=== PATIENT | female | born 1945 | race Caucasian/White ===

== ENCOUNTER 2016-05-24 23:55 | Inpatient (IN) | payer MEDICARE, MEDICAID ==
[~2016-05-24] VITALS: Ht 162.6 cm; Wt 144.4 kg
--- NOTE | 2016-05-25 00:20 | ED Lower Extremity ---
General Chief Complaint: General Problems/Pain Stated Complaint: LOW BS SWELLING Nursing Triage Note: Pt to ED via [facility] from home. EMS reports initially being called for low blood sugar. FSBS upon arrival to scene was 43. EMS administered oral glucose and pt ate a peanut butter sandwich at home. EMS reports last FSBS was 92 [employer]. Pt initially refused transport to hospital but then became concerned with bilat lower extremity swelling. Pt reports she has noticed swelling in lower extremities x1 week. Nursing Sepsis Screen: No Definite Risk Source: patient, RN notes reviewed Exam Limitations: no limitations History of Present Illness Time seen by provider: 00:20 Initial Comments As above and below. Onset: just prior to arrival (hypoglycemia), last week (dyspnea and peripheral edema) Severity: moderate Method of Injury: unknown Allergies and Home Medications Allergies Coded Allergies: Penicillins (Unverified Allergy, Unknown, 05/25/16) morphine (Unverified Allergy, Unknown, 05/25/16) Home Medications Amlodipine Besylate 10 Mg Tablet, 10 MG PO 1100, (Reported) Aspirin 81 Mg Tablet.dr, 81 MG PO DAILY, (Reported) Atenolol 100 Mg Tablet, 100 MG PO HS, (Reported) Diclofenac Sodium 75 Mg Tablet.dr, 75 MG PO BID, (Reported) Dorzolamide HCl 10 Ml Drops, 1 DROP OU BID, (Reported) Furosemide 40 Mg Tablet, 40 MG PO DAILY, (Reported) Insulin Determir 1,000 Units/10 Ml Soln, 20 UNIT SQ BID for 30 Days Prescribed by: RENE SALAZAR on 05/28/16 1254 Latanoprost 2.5 Ml Drops, 1 DROP OU HS, (Reported) Metformin HCl 1,000 Mg Tablet, 1,000 MG PO BID WITH MEALS, (Reported) Multivitamin 1 Each Tablet, 1 TAB PO BID, (Reported) Quinapril HCl 40 Mg Tablet, 40 MG PO DAILY, (Reported) Simvastatin 20 Mg Tablet, 20 MG PO HS, (Reported) TAKES ALONG WITH 40MG TABLET FOR A TOTAL DOSE OF 60MG Simvastatin 40 Mg Tablet, 40 MG PO HS, (Reported) TAKES ALONG WITH 20MG TABLET FOR A TOTAL DOSE OF 60MG Constitutional: see HPI, dizziness (related to hypoglycemia), malaise ( hypoglycemia) Respiratory: see HPI, dyspnea on exertion, orthopnea Cardiovascular: see HPI, edema : No All Other Systems Reviewed Negative Unless Noted: Yes (Negative excepted noted.) Past Xknyyfx-Cbibhj-Ygddkj Hx Patient Social History Alcohol Use: Denies Use Recreational Drug Use: No Smoking Status: Never a Smoker Recent Foreign Travel: No Contact w/Someone Who Travel: No Recent Infectious Disease Expo: No Recent Hopitalizations: No Seasonal Allergies Seasonal Allergies: No Surgeries HX Surgeries: Yes Surgeries: Hysterectomy, Joint Replacement Respiratory Hx Respiratory Disorders: Yes Respiratory Disorders: Asthma Cardiovascular Hx Cardiac Disorders: Yes Cardiac Disorders: High Cholesterol, Hypertension Neurological Hx Neurological Disorders: No 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 System FAMILY LAWYER History: Hysterectomy Genitourinary Hx Genitourinary Disorders: No Gastrointestinal Hx Gastrointestinal Disorders: Yes Gastrointestinal Disorders: Diverticulosis, Ulcer Musculoskeletal Hx Musculoskeletal Disorders: Yes (joint replacements) Musculoskeletal Disorders: Arthritis Endocrine Hx Endocrine Disorders: Yes Endocrine Disorders: Diabetes, Insulin dep HEENT HX ENT Disorders: No Cancer Hx Cancer: No Psychosocial Hx Psychiatric Problems: No Physical Exam Vital Signs Capillary Refill : Less Than 3 Seconds General Appearance: WD/WN, no apparent distress, obese Cardiovascular: regular rate, rhythm Respiratory: crackles Gastrointestinal: other (obese; benign) Ankles: bilateral ankle swelling Feet: bilateral foot swelling Neurologic/Psychiatric: no motor/sensory deficits, alert, oriented x 3 Skin: warm/dry Progress/Results/Core Measures Results/Orders Lab Results Laboratory Tests Test 05/25/16 00:42 05/25/16 00:44 05/25/16 02:12 05/25/16 03:16 Range/Units Glucometer 125 H 70-110 MG/DL White Blood Count 13.8 H 4.3-11.0 10^3/uL Red Blood Count 3.42 L 4.35-5.85 10^6/uL Hemoglobin 10.5 L 11.5-16.0 G/DL Hematocrit 35 35-52 % Mean Corpuscular Volume 101 H 80-99 FL Mean Corpuscular Hemoglobin 31 25-34 PG Mean Corpuscular Hemoglobin Concent 30 L 32-36 G/DL Red Cell Distribution Width 17.3 H 10.0-14.5 % Platelet Count 164 130-400 10^3/uL Mean Platelet Volume 13.2 H 7.4-10.4 FL Neutrophils (%) (Auto) 87 H 42-75 % Lymphocytes (%) (Auto) 7 L 12-44 % Monocytes (%) (Auto) 6 0-12 % Eosinophils (%) (Auto) 1 0-10 % Basophils (%) (Auto) 0 0-10 % Neutrophils # (Auto) 12.0 H 1.8-7.8 X 10^3 Lymphocytes # (Auto) 0.9 L 1.0-4.0 X 10^3 Monocytes # (Auto) 0.8 0.0-1.0 X 10^3 Eosinophils # (Auto) 0.1 0.0-0.3 10^3/uL Basophils # (Auto) 0.0 0.0-0.1 10^3/uL Sodium Level 133 L 135-145 MMOL/L Potassium Level 4.5 3.6-5.0 MMOL/L Chloride Level 99 98-107 MMOL/L Carbon Dioxide Level 25 21-32 MMOL/L Anion Gap 9 5-14 MMOL/L Blood Urea Nitrogen 23 H 7-18 MG/DL Creatinine 1.21 0.60-1.30 MG/DL Estimat Glomerular Filtration Rate 44 BUN/Creatinine Ratio 19 Glucose Level 136 H 70-105 MG/DL Calcium Level 9.7 8.5-10.1 MG/DL Magnesium Level 1.6 L 1.8-2.4 MG/DL Total Bilirubin 1.1 H 0.1-1.0 MG/DL Aspartate Amino Transf (AST/SGOT) 20 5-34 U/L Alanine Aminotransferase (ALT/SGPT) 29 0-55 U/L Alkaline Phosphatase 48 40-136 U/L Troponin I < 0.30 <0.30 NG/ML B-Type Natriuretic Peptide 156.0 H <100.0 PG/ML Total Protein 6.0 L 6.4-8.2 G/DL Albumin 3.6 3.2-4.5 G/DL Thyroid Stimulating Hormone (TSH) 1.68 0.35-4.94 UIU/ML Lactic Acid Level 0.92 0.50-2.00 MMOL/L Urine Color YELLOW Urine Clarity CLEAR Urine pH 5 5-9 Urine Specific [place] 1.020 1.016-1.022 Urine Protein 2+ H NEGATIVE Urine Glucose (UA) NEGATIVE NEGATIVE Urine Ketones NEGATIVE NEGATIVE Urine Nitrite NEGATIVE NEGATIVE Urine Bilirubin NEGATIVE NEGATIVE Urine Urobilinogen NORMAL NORMAL MG/DL Urine Leukocyte Esterase 3+ H NEGATIVE Urine RBC (Auto) 1+ H NEGATIVE Urine RBC 2-5 H /HPF Urine WBC 5-10 H /HPF Urine Squamous Epithelial Cells 5-10 /HPF Urine Crystals NONE /LPF Urine Bacteria MODERATE H /HPF Urine Casts PRESENT /LPF Urine Hyaline Casts 2-5 H /LPF Urine Mucus SMALL H /LPF Urine Culture Indicated YES Micro Results Microbiology 05/25/16 Blood Culture - Final, Complete No growth 05/25/16 Blood Culture - Final, Complete No growth 05/25/16 Urine Culture - Final, Complete My Orders Orders - KHURRAM DUFFY DO BNP (05/25/16 00:20) Cbc With Automated Diff (05/25/16 00:20) Comprehensive Metabolic Panel (05/25/16 00:20) Magnesium (05/25/16 00:20) Thyroid Stimulating Hormone (05/25/16 00:20) Troponin I (05/25/16 00:20) Ua Culture If Indicated (05/25/16 00:20) Ekg Tracing (05/25/16 00:23) Chest 1 View, Ap/Pa Only (05/25/16 00:23) Monitor-Rhythm Ecg Trace Only (05/25/16 00:37) Saline Lock/Iv-Start (05/25/16 00:37) Accucheck Stat ONCE (05/25/16 00:37) O2 (05/25/16 01:34) Furosemide Injection (Lasix Injection) (05/25/16 02:00) Lactic Acid Analyzer (05/25/16 02:04) Blood Culture (05/25/16 02:04) Urine Culture (05/25/16 03:16) Ceftriaxone Injection (Rocephin Injectio (05/25/16 03:45) Medications Given in ED Vital Signs/I&O Blood Pressure Mean: 86 ECG Initial ECG Impression Date: May 25, 2016 Initial ECG Impression Time: 00:38 Initial ECG Rate: 51 Initial ECG Rhythm: S.Tai Initial ECG Intervals: Normal Initial ECG Impression: Nonspecific Changes (consider anterior infarct) Diagnostic Imaging Diagonstic Imaging: Xray Plain Films/CT/US/NM/MRI: chest Reviewed: Reviewed by Me (big heart; (+) apparent CHF) Departure Communication Time/Spoke to Admitting Phy: 03:35 Impression Impression: Primary Impression: Dyspnea Additional Impressions: Hypoxemia CHF (congestive heart failure) UTI (urinary tract infection) Hypoglycemic reaction Disposition: ADMITTED INPATIENT Condition: Stable Decision to Admit Reason: Admit from ER (General) Decision to Admit/Date: May 25, 2016 Time/Decision to Admit Time: 03:50 Departure-Patient Inst. Referrals: NO,LOCAL PHYSICIAN (PCP) Primary Care Physician Scripts Insulin Determir (Levemir) 1,000 Units/10 Ml Soln 20 UNIT SQ BID for 30 Days, EA Prov: RENE SALAZAR MD 05/28/16 KHURRAM DUFFY DO May 25, 2016 00:20
[2016-05-25 00:50] LABS: BASOPHILS % (AUTO) 0 % (0-10); EOSINOPHILS # (AUTO) 0.1 10^3/uL (0.0-0.3); EOSINOPHILS % (AUTO) 1 % (0-10); LYMPHOCYTES # (AUTO) 0.9 X 10^3 (1.0-4.0); LYMPHOCYTES % (AUTO) 7 % (12-44); MEAN CORPUSCULAR HEMOGLOBIN 31 PG (25-34); MEAN CORPUSCULAR HGB CONC 30 G/DL (32-36); MEAN CORPUSCULAR VOLUME 101 FL (80-99); MEAN PLATELET VOLUME 13.2 FL (7.4-10.4); MONOCYTES # (AUTO) 0.8 X 10^3 (0.0-1.0); MONOCYTES % (AUTO) 6 % (0-12); NEUTROPHILS % (AUTO) 87 % (42-75); PLATELET COUNT 164 10^3/uL (130-400); RED BLOOD COUNT 3.42 10^6/uL (4.35-5.85); RED CELL DISTRIBUTION WIDTH 17.3 % (10.0-14.5); WHITE BLOOD COUNT 13.8 10^3/uL (4.3-11.0)
[2016-05-25 01:14] LABS: ALANINE AMINOTRANSFERASE 29 U/L (0-55); ALBUMIN 3.6 G/DL (3.2-4.5); ANION GAP 9 MMOL/L (5-14); ASPARTATE AMINO TRANSFERASE 20 U/L (5-34); BILIRUBIN,TOTAL 1.1 MG/DL (0.1-1.0); BLOOD UREA NITROGEN 23 MG/DL (7-18); BUN/CREATININE RATIO 19; CALCIUM 9.7 MG/DL (8.5-10.1); CARBON DIOXIDE 25 MMOL/L (21-32); CHLORIDE 99 MMOL/L (98-107); CREATININE SERUM 1.21 MG/DL (0.60-1.30); GFR ESTIMATED 44; GLUCOSE 136 MG/DL (70-105); MAGNESIUM 1.6 MG/DL (1.8-2.4); POTASSIUM 4.5 MMOL/L (3.6-5.0); SODIUM 133 MMOL/L (135-145)
[2016-05-25 01:33] LABS: THYROID STIMULATING HORMONE 1.68 UIU/ML (0.35-4.94); TROPONIN I < 0.30 NG/ML (<0.30)
[2016-05-25] MEDS ORDERED: FUROSEMIDE 40 MG/4 ML INJ (LASIX) IVP ONE (02:00)
[2016-05-25 03:22] LABS: BILIRUBIN,URINE NEGATIVE (NEGATIVE); KETONES,URINE NEGATIVE (NEGATIVE); LEUKOCYTE ESTERASE ,URINE 3+ (NEGATIVE); NITRITE,URINE NEGATIVE (NEGATIVE); PH,URINE 5 (5-9); PROTEIN,URINE 2+ (NEGATIVE); UROBILINOGEN,URINE NORMAL (NORMAL)
[2016-05-25] MEDS ORDERED: cefTRIAXone INJECTION 1,000 MG in NS (IVPB) 50 ML IV ONE (03:45)
[2016-05-25 04:45] VITALS: BP 153/63
[2016-05-25] MEDS: inSUlin (REGULAR) HUMAN 1 UNIT/0.01 ML (CHARGE PER UNIT) SC SCH ×4 (06:00→21:00)
[2016-05-25 08:06] VITALS: BP 132/77
--- NOTE | 2016-05-25 08:13 | Diagnostic Imaging Report ---
INDICATION: Hypoglycemia and dizziness. Portable upright view of the chest is obtained. There is no previous study for comparison. FINDINGS: There is mild cardiomegaly and pulmonary venous congestion. There is no evidence of pneumothorax. Interstitial prominence is noted, diffusely. No significant pleural fluid is identified. IMPRESSION: Cardiomegaly and pulmonary venous congestion with interstitial prominence may reflect congestive heart failure and edema although correlation with older study would be of use. Short-term followup study would also be useful to document stability or resolution. Dictated by: Dictated on workstation # [id number]
--- NOTE | 2016-05-25 08:52 | Consultation-Cardiology ---
HPI-Cardiology Cardiology Consultation: Date of Consultation 05/25/16 Date of Admission 05/25/16 Attending Physician Agnes Valentine DO Admitting Physician No,Local Physician Consulting Physician JUAN CARLOS MOTTA MD, FACP, FACC, [facility], [facility] Physician requesting consult: Dr Valentine HPI: Chief Complaint: 1) Dizziness and near-syncope during an episode of hypoglycemia 2) Shortness of breath and leg swelling 71 yo woman admitted to Dr Valentine with symptoms noted under CC. She has a long h /o intermittent dizziness, always associated with hypoglycemia. During the episode today, blood sugar was 43. She called EMT. Symptoms improved after blood sugar came up. Shortness of breath is new, according to her. She states it started only a week ago. Also notes more leg swelling for the last week. She denies palp or pilo syncope. She denies cp Review of Systems-Cardiology Review of Systems Constitutional: malaise, tiredness, No weight loss, No weight gain Eyes: No vision change Ears/Nose/Throat: No ear discharge, No nasal drainage, No recent hearing loss Respiratory: As described under HPI Cardiovascular: As described under HPI Gastrointestinal: No constipation, No diarrhea, No nausea Genitourinary: No dysuria, No hematuria Musculoskeletal: back pain (chronic), joint pain (chronic) Skin: No rash, No ulcerations Psychiatric/Neurological: No focal weakness, No syncope Hematologic: No bleeding abnormalities TQT-Ltrgga-Gapfqj Hx Patient Social History Alcohol Use: Denies Use Recreational Drug Use: No Smoking Status: Never a Smoker Recent Foreign Travel: No Recent Infectious Disease Expo: No Physical Abuse Screen: No Sexual Abuse: No Immunizations Up To Date Date of Pneumonia Vaccine: May 25, 2013 Date of Influenza Vaccine: Nov 30, 2015 Past Medical History PMH As described under Assessment. Family Medical History Family History: CHF (congestive heart failure) 19 MOTHER Allergies and Home Medications Allergies Coded Allergies: Penicillins (Unverified Allergy, Unknown, 05/25/16) morphine (Unverified Allergy, Unknown, 05/25/16) Home Medications Unable to Obtain Active Prescriptions or Reported Meds Physical Exam-Cardiology Physical Exam Vital Signs/I&O Vital Sign - Last 12Hours 05/24/16 05/25/16 05/25/16 05/25/16 23:56 00:36 04:37 04:45 Temp 94.1 96.7 96.8 Pulse 51 51 52 Resp 18 18 18 B/P (MAP) 136/61 153/63 Pulse Ox 92 88 94 96 O2 Delivery Room Air Nasal Cannula Nasal Cannula O2 Flow Rate 3.00 2.00 2.00 05/25/16 05/25/16 05/25/16 06:32 07:00 08:06 Temp 96.0 Pulse 54 51 Resp 16 B/P (MAP) 132/77 Pulse Ox 96 95 O2 Delivery Nasal Cannula Nasal Cannula O2 Flow Rate 2.00 2.00 Capillary Refill : Less Than 3 Seconds Constitutional: AAO x 3, well-developed, well-nourished, other (obese) HEENT: PERRL, other (edentulous jaws), EOMI, No xanthelasmas are seen Neck: carotid pulses are 2 + bilaterally, with good upstrokes Respiratory: No accessory muscle use, other (very poor inspiratory effort makes it hard to photographer model breath sounds) Cardiovascular: regular rate-rhythm, S1 and S2, systolic murmur (faint JANELLE at card base) Gastrointestinal: No tender, soft, No guarding, No rebound, audible bowel sounds Extremities: No clubbing, No cyanosis, significant edema Neurologic/Psychiatric: grossly intact, power is 5/5 both on sides Skin: No rash on exposed areas, No ulcerations on exposed areas Data Review Labs Laboratory Tests 05/25/16 00:42: Glucometer 125H 05/25/16 00:44: White Blood Count 13.8H, Red Blood Count 3.42L, Hemoglobin 10.5L, Hematocrit 35 , Mean Corpuscular Volume 101H, Mean Corpuscular Hemoglobin 31, Mean Corpuscular Hemoglobin Concent 30L, Red Cell Distribution Width 17.3H, Platelet Count 164, Mean Platelet Volume 13.2H, Neutrophils (%) (Auto) 87H, Lymphocytes ( %) (Auto) 7L, Monocytes (%) (Auto) 6, Eosinophils (%) (Auto) 1, Basophils (%) ( Auto) 0, Neutrophils # (Auto) 12.0H, Lymphocytes # (Auto) 0.9L, Monocytes # ( Auto) 0.8, Eosinophils # (Auto) 0.1, Basophils # (Auto) 0.0, Sodium Level 133L, Potassium Level 4.5, Chloride Level 99, Carbon Dioxide Level 25, Anion Gap 9, Blood Urea Nitrogen 23H, Creatinine 1.21, Estimat Glomerular Filtration Rate 44 , BUN/Creatinine Ratio 19, Glucose Level 136H, Calcium Level 9.7, Magnesium Level 1.6L, Total Bilirubin 1.1H, Aspartate Amino Transf (AST/SGOT) 20, Alanine Aminotransferase (ALT/SGPT) 29, Alkaline Phosphatase 48, Troponin I < 0.30, B- Type Natriuretic Peptide 156.0H, Total Protein 6.0L, Albumin 3.6, Thyroid Stimulating Hormone (TSH) 1.68 05/25/16 02:12: Lactic Acid Level 0.92 05/25/16 03:16: Urine Color YELLOW, Urine Clarity CLEAR, Urine pH 5, Urine Specific [place] 1.020, Urine Protein 2+H, Urine Glucose (UA) NEGATIVE, Urine Ketones NEGATIVE, Urine Nitrite NEGATIVE, Urine Bilirubin NEGATIVE, Urine Urobilinogen NORMAL, Urine Leukocyte Esterase 3+H, Urine RBC (Auto) 1+H, Urine RBC 2-5H, Urine WBC 5- 10H, Urine Squamous Epithelial Cells 5-10, Urine Crystals NONE, Urine Bacteria MODERATEH, Urine Casts PRESENT, Urine Hyaline Casts 2-5H, Urine Mucus SMALLH, Urine Culture Indicated YES 05/25/16 06:18: Glucometer 136H Laboratory Tests 05/25/16 00:44 A/P-Cardiology Assessment/Admission Diagnosis * Near-syncope due to hypoglycemia * Shortness of breath, multifactorial (see below) * Mild ac diastolic CHF * Obesity with obesity-hypoventilation syndrome * Physical deconditioning is suggested on physical exam * DM II * Hypertension, by history * Hyperlipidemia, by history * Leucocytosis of undetermined etiology * H/o bilateral knee and of L hip replacement Discussion and Recomendations * Furosemide for CHF, as needed and as tolerated * CIERA-inhib for BP * Eval lipid profile to eval need for statin * Echo to assess LVEF and wall motion and valve function * MPI to eval for CAD when clinically more stable * Consider sleep studies * Management of DM II and leucocytosis is with Dr Valentine Clinical Quality Measures DVT/VTE Risk/Contraindication: Risk Factor Score Per Nursin RFS Level Per Nursing on Admit: 4+=Very High JUAN CARLOS MOTTA MD [facility] May 25, 2016 08:51
[2016-05-25] MEDS ORDERED: FURO40TA4 PO (09:38)
[2016-05-25] MEDS ORDERED: AMLO10TA2 PO (09:38)
[2016-05-25] MEDS ORDERED: GLIM4TAB PO (09:38)
[2016-05-25] MEDS ORDERED: ATEN100T PO (09:38)
[2016-05-25] MEDS ORDERED: DICL75TA2 PO (09:38)
[2016-05-25] MEDS ORDERED: DORZ10DR2 OU (09:38)
[2016-05-25] MEDS ORDERED: SIMV20TA3 PO (09:38)
[2016-05-25] MEDS ORDERED: METF1000 PO (09:38)
[2016-05-25] MEDS ORDERED: LATA2.5D5 OU (09:38)
[2016-05-25] MEDS ORDERED: INSU100I10 SC (09:38)
[2016-05-25] MEDS ORDERED: QUIN40TA25 PO (09:38)
[2016-05-25] MEDS ORDERED: SIMV40TA4 PO (09:38)
[2016-05-25] MEDS ORDERED: MULT-35 PO (09:40)
[2016-05-25] MEDS ORDERED: ASPI-983 PO (09:40)
[2016-05-25 12:42] VITALS: BP 155/69
[2016-05-25] MEDS: FUROSEMIDE 40 MG/4 ML INJ (LASIX) IV SCH (14:38)
--- NOTE | 2016-05-25 14:41 | Progress Note-Hospitalist ---
Standard Progress Note Progress Notes/Assess & Plan Date Seen 05/25/16 Assess & Plan/Chief Complaint The patient is a 71-year-old white female who is a resident of the [facility]. She was brought by ambulance because of hypoglycemia. After she arrived here the issues of possible UTI and a SaO2 of 88. She was also listed as a no local physician. In reality she sees Millie Irwin at [facility] and has for some time. She states that she has been noticing swelling in her lower extremities for about a week now. This has significantly reduced her ability to ambulate. She gives me no past history of heart disease. Physical exam: Her SaO2 has been running in the 90s on O2 by nasal cannula at 2 L. Lungs show distant breath sounds. No Rales and rhonchi are noted CV regular. Lower extremities show remarkable circumference and a rubbery edema. This would be at least at 3+. Impression: Hypoglycemia. 2.pyuria awaiting culture results. 3.hypoxia and edema. Plan: [facility] and Dr. Stark will resume care tomorrow. The patient is to be seen by JUAN CARLOS Beck with an echocardiogram to be performed. Labs Laboratory Tests 05/25/16 00:44 DESTINEY STILL MD May 25, 2016 14:41
[2016-05-25 16:10] VITALS: BP 118/59
[2016-05-25] MEDS: metFORMIN 500 MG (GLUCOPHAGE) TAB PO SCH (17:17)
[2016-05-25] MEDS: GLIMEPIRIDE 4 MG (AMARYL) TAB PO SCH (17:17)
[2016-05-25 19:11] VITALS: BP 138/63
[2016-05-25] MEDS: ATENOLOL 50 MG (TENORMIN) TAB PO SCH (21:40)
[2016-05-25] MEDS: inSUlin DETERMIR 1 UNIT/0.01 ML (LEVEMIR) CHARGE PER UNIT SQ SCH (21:43)
[2016-05-25] MEDS: LATANOPROST 0.005% (XALATAN) OPHTH SOLN 2.5 ML OU SCH (21:43)
[2016-05-25 23:25] VITALS: BP 141/67
[2016-05-26] MEDS: FUROSEMIDE 40 MG/4 ML INJ (LASIX) IV SCH ×2 (02:08→15:33)
[2016-05-26] MEDS: cefTRIAXone INJECTION 1,000 MG in NS (IVPB) 50 ML IV SCH (04:04)
[2016-05-26 04:50] VITALS: BP 136/63
[2016-05-26] MEDS: inSUlin (REGULAR) HUMAN 1 UNIT/0.01 ML (CHARGE PER UNIT) SC SCH ×4 (06:00→20:54)
[2016-05-26 06:10] LABS: BASOPHILS % (AUTO) 0 % (0-10); EOSINOPHILS # (AUTO) 0.2 10^3/uL (0.0-0.3); EOSINOPHILS % (AUTO) 2 % (0-10); LYMPHOCYTES # (AUTO) 1.3 X 10^3 (1.0-4.0); LYMPHOCYTES % (AUTO) 10 % (12-44); MEAN CORPUSCULAR HEMOGLOBIN 31 PG (25-34); MEAN CORPUSCULAR HGB CONC 30 G/DL (32-36); MEAN CORPUSCULAR VOLUME 102 FL (80-99); MEAN PLATELET VOLUME 13.8 FL (7.4-10.4); MONOCYTES # (AUTO) 0.9 X 10^3 (0.0-1.0); MONOCYTES % (AUTO) 6 % (0-12); NEUTROPHILS # (AUTO) 11.1 X 10^3 (1.8-7.8); NEUTROPHILS % (AUTO) 82 % (42-75); PLATELET COUNT 172 10^3/uL (130-400); RED BLOOD COUNT 3.34 10^6/uL (4.35-5.85); RED CELL DISTRIBUTION WIDTH 17.2 % (10.0-14.5); WHITE BLOOD COUNT 13.5 10^3/uL (4.3-11.0)
[2016-05-26 06:31] LABS: ALBUMIN 3.6 G/DL (3.2-4.5); BILIRUBIN,TOTAL 0.4 MG/DL (0.1-1.0); CALCIUM 8.4 MG/DL (8.5-10.1); CREATININE SERUM 1.02 MG/DL (0.60-1.30); MAGNESIUM 2.5 MG/DL (1.8-2.4); POTASSIUM 4.7 MMOL/L (3.6-5.0); TOTAL PROTEIN 6.5 G/DL (6.4-8.2)
[2016-05-26] MEDS: metFORMIN 500 MG (GLUCOPHAGE) TAB PO SCH ×2 (06:36→18:46)
[2016-05-26] MEDS: GLIMEPIRIDE 4 MG (AMARYL) TAB PO SCH ×2 (06:36→18:46)
[2016-05-26 07:30] VITALS: BP 154/78
--- NOTE | 2016-05-26 09:03 | Progress Note-Cardiology ---
Cardiology SOAP Progress Note Subjective: In bed. C/O continued shortness of breath and LE edema. No c/o CP or palpitations. Objective: I&O/Vital Signs Vital Sign - Last 12Hours 05/26/16 05/26/16 05/26/16 05/26/16 04:50 07:00 07:05 07:30 Temp 97.2 97.4 Pulse 50 54 64 Resp 12 20 B/P (MAP) 136/63 154/78 Pulse Ox 91 91 O2 Delivery Nasal Cannula Nasal Cannula O2 Flow Rate 2.00 2.00 2.00 05/26/16 05/26/16 05/26/16 09:00 11:50 13:00 Temp 96.0 Pulse 54 51 Resp 20 B/P (MAP) 128/56 Pulse Ox 91 O2 Delivery Nasal Cannula Nasal Cannula O2 Flow Rate 2.00 2.00 Intake and Output 05/26/16 00:00 Intake Total 2000 ml Output Total 2150 ml Balance -150 ml Weight (Pounds): 318 Weight (Ounces): 7.0 Weight (Calculated Kilograms): [id number] Constitutional: AAO x 3, well-developed, well-nourished, other (obese) Respiratory: No accessory muscle use, other (very poor inspiratory effort makes it hard to pressure supervisor breath sounds) Cardiovascular: regular rate-rhythm, S1 and S2, systolic murmur (faint JANELLE at card base) Gastrointestional: No tender, soft, No guarding, No rebound, audible bowel sounds Extremities: No clubbing, No cyanosis, significant edema Neurologic/Psychiatric: grossly intact, power is 5/5 both on sides Skin: No rash on exposed areas, No ulcerations on exposed areas Results/Procedures: Labs Laboratory Tests 05/25/16 16:13: Glucometer 82 05/25/16 20:45: Glucometer 128H 05/26/16 05:18: Glucometer 45*L 05/26/16 05:35: White Blood Count 13.5H, Red Blood Count 3.34L, Hemoglobin 10.4L, Hematocrit 34L , Mean Corpuscular Volume 102H, Mean Corpuscular Hemoglobin 31, Mean Corpuscular Hemoglobin Concent 30L, Red Cell Distribution Width 17.2H, Platelet Count 172, Mean Platelet Volume 13.8H, Neutrophils (%) (Auto) 82H, Lymphocytes ( %) (Auto) 10L, Monocytes (%) (Auto) 6, Eosinophils (%) (Auto) 2, Basophils (%) ( Auto) 0, Neutrophils # (Auto) 11.1H, Lymphocytes # (Auto) 1.3, Monocytes # (Auto ) 0.9, Eosinophils # (Auto) 0.2, Basophils # (Auto) 0.0, Sodium Level 146H, Potassium Level 4.7, Chloride Level 108H, Carbon Dioxide Level 30, Anion Gap 8, Blood Urea Nitrogen 45H, Creatinine 1.02, Estimat Glomerular Filtration Rate 53 , BUN/Creatinine Ratio 44, Glucose Level 45*L, Calcium Level 8.4L, Magnesium Level 2.5H, Total Bilirubin 0.4, Aspartate Amino Transf (AST/SGOT) 24, Alanine Aminotransferase (ALT/SGPT) 32, Alkaline Phosphatase 63, Total Protein 6.5, Albumin 3.6, Triglycerides Level 64, Cholesterol Level 121, LDL Cholesterol Direct 70, VLDL Cholesterol 13, HDL Cholesterol 39L 05/26/16 05:58: Glucometer 93 05/26/16 10:47: Glucometer 92 Microbiology 05/25/16 Blood Culture - Preliminary, Resulted No growth 05/25/16 Urine Culture - Final, Complete A/P: Assessment: * Near-syncope due to hypoglycemia * Shortness of breath, multifactorial (see below) * Mild ac diastolic CHF. Echo of showed LVEF 60%, no significant valvular heart disease, PASP within normal limits * Obesity with obesity-hypoventilation syndrome * Physical deconditioning is suggested on physical exam * DM II * Hypertension, by history * Hyperlipidemia, by history * Leucocytosis of undetermined etiology * H/o bilateral knee and of L hip replacement Plan: * Furosemide for CHF, as needed and as tolerated - give additional dose today * CIERA-inhib for BP * LDL 70, Chol 121 - will not start statin * MPI to eval for CAD when clinically more stable * Consider sleep studies * Management of DM II and leucocytosis is with Dr Valentine * Monitor lab closely Physician Assessment Physician Assessment Lungs: decreased bs at the bases Cor: reg Legs: bilat mod edema A&R * As documented in our note above that I updated at the time of this writing * I spoke with her in detail and answered CV-related questions NACHO YOUNG May 26, 2016 09:03 JUAN CARLOS MOTTA MD FACP [facility] May 26, 2016 15:48
[2016-05-26] MEDS ORDERED: FUROSEMIDE 40 MG/4 ML INJ (LASIX) IVP NR (09:15)
--- NOTE | 2016-05-26 09:29 | ECHOCARDIOGRAPHY REPORT ---
PROCEDURE PHYSICIAN: JUAN CARLOS JUNG DATE OF PROCEDURE: 05/25/2016 TWO DIMENSIONAL ECHOCARDIOGRAM REPORT PRIMARY PHYSICIAN: Dr. Valentine OTHER PHYSICIAN: Dr. Jung REFERRING PHYSICIAN: ORDERING PHYSICIAN: Dr. Valentine INDICATION FOR THE PROCEDURE: Shortness of breath. MEASUREMENTS DERIVED VALUES LV DIAMETER (LAX) NORMALS NORMALS Diastolic 4.6 (3.6-5.2) Eject. Fract. (60%+/-6%) Systolic (2.3-3.9) Diastolic Vol. % Shortening (0.22-0.42) Systolic Vol. Aortic Root 2.9 IVS THICKNESS Diastolic 1.3 (0.6-1.1) LVPW THICKNESS Diastolic 1.3 (0.6-1.1) LA DIAMETER Systolic 3.9 (2.1-3.7) DESCRIPTION: This is a technically difficult study on account of patient body habitus. Global left ventricular systolic function appeared normal. Left ventricular ejection fraction is approximately 60%. Mitral and tricuspid valve leaflets show good leaflet excursion. Aortic valve leaflets are not very well visualized. They seem to have fair to good leaflet excursion. There appears to be mild aortic valve sclerosis. There is mild concentric left ventricular hypertrophy. Doppler imaging is difficult on account of the difficult nature of the study. On the views available, there did not appear to be significant valvular stenosis. There appears to be mild mitral and tricuspid regurgitation. Pulmonary artery systolic pressure is estimated to be within normal limits. CONCLUSION: 1. Technically difficult study. 2. Normal global left ventricular systolic function with ejection fraction approximately 60%. 3. Mild mitral and tricuspid regurgitation. 4. Pulmonary artery systolic pressure is estimated to be within normal limits. 5. Mild concentric left ventricular hypertrophy. Job ID: [id number] Dictated Date: 05/26/2016 08:27:55 Dextrine Mixer Date: 05/26/2016 09:20:24 / jony
[2016-05-26] MEDS: QUINAPRIL 20 MG (ACCUPRIL) TAB PO SCH (10:31)
[2016-05-26] MEDS: ASPIRIN E.C. 81 MG (ECOTRIN) TAB PO SCH (10:32)
[2016-05-26] MEDS: inSUlin DETERMIR 1 UNIT/0.01 ML (LEVEMIR) CHARGE PER UNIT SQ SCH ×2 (10:32→20:51)
[2016-05-26] MEDS: amLODIPine 10 MG (NORVASC) TAB PO SCH (11:02)
--- NOTE | 2016-05-26 11:24 | Progress Note (SOAP) ---
Subjective Subjective/Events-last exam Patient is short of breath this AM. States that it has been going on about a week prior to admission and this is a new complaint for patient. Denies ever being on oxygen. Denies any recent medication changes. States that she has not changed her diet at all. Never had sleep study. Denies chest or abdominal pain. Date seen by provider: May 26, 2016 Objective Exam Last Set of Vital Signs Vital Signs Date Time Temp Pulse Resp B/P (MAP) Pulse Ox O2 Delivery O2 Flow Rate FiO2 05/26/16 07:30 97.4 64 20 154/78 91 Nasal Cannula 2.00 Capillary Refill : Less Than 3 Seconds I&O Bad tableGeneral: Alert, Oriented X3, Cooperative, Mild Distress (with talking) Neck: Supple, No JVD Lungs: Clear to Auscultation, Normal Air Movement Heart: Regular Rate, No Murmurs Abdomen: Normal Bowel Sounds, Soft, No Tenderness Extremities: Other (2+ pitting edema equal bilaterally) Skin: No Rashes Neuro: Normal Speech, Strength at 5/5 X4 Ext, Cranial Nerves 3-12 NL Psych/Mental Status: Mental Status NL, Mood NL Results/Procedures Lab Laboratory Tests 05/25/16 16:13: Glucometer 82 05/25/16 20:45: Glucometer 128H 05/26/16 05:18: Glucometer 45*L 05/26/16 05:35: White Blood Count 13.5H, Red Blood Count 3.34L, Hemoglobin 10.4L, Hematocrit 34L , Mean Corpuscular Volume 102H, Mean Corpuscular Hemoglobin 31, Mean Corpuscular Hemoglobin Concent 30L, Red Cell Distribution Width 17.2H, Platelet Count 172, Mean Platelet Volume 13.8H, Neutrophils (%) (Auto) 82H, Lymphocytes ( %) (Auto) 10L, Monocytes (%) (Auto) 6, Eosinophils (%) (Auto) 2, Basophils (%) ( Auto) 0, Neutrophils # (Auto) 11.1H, Lymphocytes # (Auto) 1.3, Monocytes # (Auto ) 0.9, Eosinophils # (Auto) 0.2, Basophils # (Auto) 0.0, Sodium Level 146H, Potassium Level 4.7, Chloride Level 108H, Carbon Dioxide Level 30, Anion Gap 8, Blood Urea Nitrogen 45H, Creatinine 1.02, Estimat Glomerular Filtration Rate 53 , BUN/Creatinine Ratio 44, Glucose Level 45*L, Calcium Level 8.4L, Magnesium Level 2.5H, Total Bilirubin 0.4, Aspartate Amino Transf (AST/SGOT) 24, Alanine Aminotransferase (ALT/SGPT) 32, Alkaline Phosphatase 63, Total Protein 6.5, Albumin 3.6, Triglycerides Level 64, Cholesterol Level 121, LDL Cholesterol Direct 70, VLDL Cholesterol 13, HDL Cholesterol 39L 05/26/16 05:58: Glucometer 93 05/26/16 10:47: Glucometer 92 Microbiology 05/25/16 Blood Culture - Preliminary, Resulted No growth 05/25/16 Urine Culture - Preliminary, Resulted Radiology Echo with preserved EF Assessment/Plan Assessment/Plan Plan 71 yo F that was admitted for hypoglycemia found to have new oxygen requirement Plan Hypoglycemia in Insulin Dependent DM - Decreased Levemir to 20 units BID from 40 units - Stopped Glipizide - Continue Metformin and SSI Acute Respiratory Distress - Echo showed preserved EF, Multifactorial with diastolic HF and likely VICKY, needs outpatient sleep study - Will continue with diuresis, monitor BMP HTN - Continue home medications Debility - PT/OT to see patient Macrocytic Anemia - Will get B12 and folate and iron on AM labs DVT PPX: Lovenox FEN: Heart healthy, low sodium diet SW: May need home oxygen, will do ambulatory oxygen tomorrow Dispo: Plan to d/c tomorrow with outpatient sleep study Diagnosis/Problems: Clinical Quality Measures DVT/VTE Risk/Contraindication: Risk Factor Score Per Nursin RFS Level Per Nursing on Admit: 4+=Very High RENE SALAZAR MD May 26, 2016 11:24
[2016-05-26 11:50] VITALS: BP 128/56
[2016-05-26] MEDS ORDERED: CATHETER FLUSH 10 ML SYR IV PRN (15:45)
[2016-05-26 16:00] VITALS: BP 144/64
[2016-05-26] MEDS: ENOXAPARIN 40 MG/0.4 ML (LOVENOX) SYR SC SCH (17:06)
[2016-05-26] MEDS: ATENOLOL 50 MG (TENORMIN) TAB PO SCH (20:52)
[2016-05-26] MEDS: LATANOPROST 0.005% (XALATAN) OPHTH SOLN 2.5 ML OU SCH (20:54)
[2016-05-26] MEDS: CATHETER FLUSH 10 ML SYR IV SCH (20:55)
[2016-05-26 20:57] VITALS: BP 142/65
[2016-05-27 00:28] VITALS: BP 105/52
[2016-05-27] MEDS: FUROSEMIDE 40 MG/4 ML INJ (LASIX) IV SCH ×2 (02:51→13:46)
[2016-05-27] MEDS: cefTRIAXone INJECTION 1,000 MG in NS (IVPB) 50 ML IV SCH (04:14)
[2016-05-27] MEDS: CATHETER FLUSH 10 ML SYR IV SCH ×3 (04:14→22:00)
[2016-05-27 04:15] VITALS: BP 122/56
[2016-05-27 04:41] LABS: BASOPHILS % (AUTO) 0 % (0-10); EOSINOPHILS # (AUTO) 0.2 10^3/uL (0.0-0.3); EOSINOPHILS % (AUTO) 1 % (0-10); LYMPHOCYTES # (AUTO) 0.8 X 10^3 (1.0-4.0); LYMPHOCYTES % (AUTO) 6 % (12-44); MEAN CORPUSCULAR HEMOGLOBIN 30 PG (25-34); MEAN CORPUSCULAR HGB CONC 29 G/DL (32-36); MEAN CORPUSCULAR VOLUME 103 FL (80-99); MEAN PLATELET VOLUME 13.6 FL (7.4-10.4); MONOCYTES # (AUTO) 0.8 X 10^3 (0.0-1.0); MONOCYTES % (AUTO) 6 % (0-12); NEUTROPHILS # (AUTO) 11.9 X 10^3 (1.8-7.8); NEUTROPHILS % (AUTO) 88 % (42-75); PLATELET COUNT 157 10^3/uL (130-400); RED BLOOD COUNT 3.32 10^6/uL (4.35-5.85); RED CELL DISTRIBUTION WIDTH 17.5 % (10.0-14.5); WHITE BLOOD COUNT 13.5 10^3/uL (4.3-11.0)
[2016-05-27 04:57] LABS: CALCIUM 8.3 MG/DL (8.5-10.1); CREATININE SERUM 1.07 MG/DL (0.60-1.30); MAGNESIUM 2.5 MG/DL (1.8-2.4)
[2016-05-27] MEDS: inSUlin (REGULAR) HUMAN 1 UNIT/0.01 ML (CHARGE PER UNIT) SC SCH ×4 (05:16→21:56)
[2016-05-27] MEDS ORDERED: BISACODYL 5 MG (DULCOLAX) TABLET PO PRN (06:00)
[2016-05-27] MEDS: metFORMIN 500 MG (GLUCOPHAGE) TAB PO SCH ×2 (06:21→17:12)
[2016-05-27 07:30] VITALS: BP 122/56
--- NOTE | 2016-05-27 09:30 | Progress Note-Cardiology ---
Cardiology SOAP Progress Note Subjective: In bed. Generalized weakness. States overall she does not feel much better. No new c/o. Objective: I&O/Vital Signs Vital Sign - Last 12Hours 05/27/16 05/27/16 05/27/16 05/27/16 07:30 08:00 09:03 11:15 Temp 95.6 96.0 Pulse 56 59 Resp 20 22 B/P (MAP) 122/56 141/64 Pulse Ox 92 90 92 O2 Delivery Nasal Cannula Nasal Cannula Nasal Cannula O2 Flow Rate 3.00 2.00 2.00 3.00 05/27/16 05/27/16 14:59 16:49 Temp 97.1 Pulse 57 Resp 18 B/P (MAP) 144/68 Pulse Ox 90 94 O2 Delivery Nasal Cannula O2 Flow Rate 3.00 3.00 Intake and Output 05/27/16 00:00 Intake Total 690 ml Output Total 800 ml Balance -110 ml Weight (Pounds): 318 Weight (Ounces): 7.0 Weight (Calculated Kilograms): 144.197275 Constitutional: AAO x 3, well-developed, well-nourished, other (obese) Respiratory: No accessory muscle use, other (very poor inspiratory effort makes it hard to envelope stuffer breath sounds) Cardiovascular: regular rate-rhythm, S1 and S2, systolic murmur (faint JANELLE at card base) Gastrointestional: No tender, soft, No guarding, No rebound, audible bowel sounds Extremities: No clubbing, No cyanosis, significant edema (mod bilat LE edema - improved) Neurologic/Psychiatric: grossly intact, power is 5/5 both on sides Skin: No rash on exposed areas, No ulcerations on exposed areas Results/Procedures: Labs Laboratory Tests 05/26/16 20:45: Glucometer 107 05/27/16 00:09: Glucometer 37*L 05/27/16 00:33: Glucometer 62L 05/27/16 00:58: Glucometer 84 05/27/16 04:20: White Blood Count 13.5H, Red Blood Count 3.32L, Hemoglobin 10.0L, Hematocrit 34L , Mean Corpuscular Volume 103H, Mean Corpuscular Hemoglobin 30, Mean Corpuscular Hemoglobin Concent 29L, Red Cell Distribution Width 17.5H, Platelet Count 157, Mean Platelet Volume 13.6H, Neutrophils (%) (Auto) 88H, Lymphocytes ( %) (Auto) 6L, Monocytes (%) (Auto) 6, Eosinophils (%) (Auto) 1, Basophils (%) ( Auto) 0, Neutrophils # (Auto) 11.9H, Lymphocytes # (Auto) 0.8L, Monocytes # ( Auto) 0.8, Eosinophils # (Auto) 0.2, Basophils # (Auto) 0.0, Sodium Level 146H, Potassium Level 5.0, Chloride Level 108H, Carbon Dioxide Level 30, Anion Gap 8, Blood Urea Nitrogen 42H, Creatinine 1.07, Estimat Glomerular Filtration Rate 50 , BUN/Creatinine Ratio 39, Glucose Level 98, Calcium Level 8.3L, Magnesium Level 2.5H, Iron Level 38, Total Iron Binding Capacity 349, Unsaturated Iron Binding Capacity 311, Transferrin % Saturation 11L, Ferritin 62.0, Vitamin B12 Level 337 05/27/16 05:23: Glucometer 93 05/27/16 09:39: Glucometer 130H 05/27/16 10:38: Glucometer 134H 05/27/16 15:53: Glucometer 172H Microbiology 05/25/16 Blood Culture - Preliminary, Resulted No growth 05/25/16 Urine Culture - Final, Complete A/P: Assessment: * Near-syncope due to hypoglycemia * Shortness of breath, multifactorial (see below) * Mild ac diastolic CHF. Echo of showed LVEF 60%, no significant valvular heart disease, PASP within normal limits * Obesity with obesity-hypoventilation syndrome * Physical deconditioning is suggested on physical exam * DM II * Hypertension, by history * Hyperlipidemia, by history * Leucocytosis of undetermined etiology * H/o bilateral knee and of L hip replacement Plan: * Furosemide for CHF, as needed and as tolerated * Continue CIERA-inhib for BP * LDL 70, Chol 121 - statin not indicated * MPI to eval for CAD when clinically more stable * Consider sleep studies * Management of DM II and leucocytosis is with Dr Valentine * Monitor lab closely Physician Assessment Physician Assessment Lungs: clear Cor: reg A&R * As documented in our note above * I answered her questions NACHO YOUNG [facility] May 27, 2016 09:30 JUAN CARLOS MOTTA MD [facility] May 27, 2016 17:07
[2016-05-27] MEDS: inSUlin DETERMIR 1 UNIT/0.01 ML (LEVEMIR) CHARGE PER UNIT SQ SCH ×2 (09:57→21:57)
[2016-05-27] MEDS: QUINAPRIL 20 MG (ACCUPRIL) TAB PO SCH (09:58)
[2016-05-27] MEDS: ASPIRIN E.C. 81 MG (ECOTRIN) TAB PO SCH (09:58)
[2016-05-27 11:01] LABS: %SAT TOTAL IRON BINDING CAPIC 11 % (15-50); TIBC 349 ug/dL (280-380)
[2016-05-27 11:15] VITALS: BP 141/64
--- NOTE | 2016-05-27 11:36 | Progress Note (SOAP) ---
Subjective Subjective/Events-last exam Patient states that she just doesn't know how she feels this AM. Has not been out of bed. Denies feeling any better. Tolerating PO diet. Denies pain. BM last night Date seen by provider: May 27, 2016 Objective Exam Last Set of Vital Signs Vital Signs Date Time Temp Pulse Resp B/P (MAP) Pulse Ox O2 Delivery O2 Flow Rate FiO2 05/27/16 09:03 2.00 05/27/16 08:00 90 Nasal Cannula 05/27/16 07:30 95.6 56 20 122/56 Capillary Refill : Less Than 3 Seconds I&O Intake and Output 05/27/16 00:00 Intake Total 1160 ml Output Total 1800 ml Balance -640 ml Intake Oral 1110 ml IV Total 50 ml Output Urine Total 1800 ml # Voids 3 # Bowel Movements 1 General: Alert, Oriented X3, Cooperative Lungs: Clear to Auscultation, Normal Air Movement Heart: Regular Rate, No Murmurs Abdomen: Normal Bowel Sounds, Soft, No Tenderness Extremities: Other (1+ edema bilaterally) Skin: No Rashes, No Breakdown Neuro: Sensation Intact, Cranial Nerves 3-12 NL Psych/Mental Status: Other (Depressed mood this AM) Results/Procedures Lab Laboratory Tests 05/26/16 15:52: Glucometer 85 05/26/16 20:45: Glucometer 107 05/27/16 00:09: Glucometer 37*L 05/27/16 00:33: Glucometer 62L 05/27/16 00:58: Glucometer 84 05/27/16 04:20: White Blood Count 13.5H, Red Blood Count 3.32L, Hemoglobin 10.0L, Hematocrit 34L , Mean Corpuscular Volume 103H, Mean Corpuscular Hemoglobin 30, Mean Corpuscular Hemoglobin Concent 29L, Red Cell Distribution Width 17.5H, Platelet Count 157, Mean Platelet Volume 13.6H, Neutrophils (%) (Auto) 88H, Lymphocytes ( %) (Auto) 6L, Monocytes (%) (Auto) 6, Eosinophils (%) (Auto) 1, Basophils (%) ( Auto) 0, Neutrophils # (Auto) 11.9H, Lymphocytes # (Auto) 0.8L, Monocytes # ( Auto) 0.8, Eosinophils # (Auto) 0.2, Basophils # (Auto) 0.0, Sodium Level 146H, Potassium Level 5.0, Chloride Level 108H, Carbon Dioxide Level 30, Anion Gap 8, Blood Urea Nitrogen 42H, Creatinine 1.07, Estimat Glomerular Filtration Rate 50 , BUN/Creatinine Ratio 39, Glucose Level 98, Calcium Level 8.3L, Magnesium Level 2.5H 05/27/16 05:23: Glucometer 93 05/27/16 09:39: Glucometer 130H 05/27/16 10:38: Glucometer 134H Microbiology 05/25/16 Blood Culture - Preliminary, Resulted No growth 05/25/16 Urine Culture - Final, Complete Radiology Echo with preserved EF Assessment/Plan Assessment/Plan Plan 71 yo F that was admitted for hypoglycemia found to have new oxygen requirement Plan Hypoglycemia in Insulin Dependent DM - Decreased Levemir to 20 units BID from 40 units - Stopped Glipizide - Continue Metformin and SSI - Patient appetite seems to be less which is likely why she continues to have low blood sugars Acute Respiratory Distress - Echo showed preserved EF, Multifactorial with diastolic HF and likely VICKY, needs outpatient sleep study - Will continue with diuresis, monitor BMP - Home oxygen evaluation ordered today HTN - Continue home medications Debility - PT/OT to see patient Macrocytic Anemia - B12, folate, and iron: pending DVT PPX: Lovenox FEN: Heart healthy, low sodium diet SW: Will need home oxygen Dispo: Plan to d/c tomorrow on oxygen with outpatient sleep study Diagnosis/Problems: Clinical Quality Measures DVT/VTE Risk/Contraindication: Risk Factor Score Per Nursin RFS Level Per Nursing on Admit: 4+=Very High RENE SALAZAR MD May 27, 2016 11:36
[2016-05-27] MEDS: amLODIPine 10 MG (NORVASC) TAB PO SCH (11:54)
[2016-05-27 12:24] LABS: UIBC 311 ug/dL (55-450)
--- NOTE | 2016-05-27 12:38 | Physical Therapy Evaluation ---
PT Evaluation-General Medical Diagnosis Admission Date May 25, 2016 at 04:05 Medical Diagnosis: dyspnea; hypoglycemia Onset Date: May 25, 2016 Therapy Diagnosis Therapy Diagnosis: weakness; abn gait Height/Weight Height (Feet): 5 Height (Inches): 4.00 Weight (Pounds): 318 Weight (Ounces): 7.0 Precautions Precautions/Isolations: Fall Prevention, Standard Precautions Referral Physician: Maria Ines Reason for Referral: Evaluation/Treatment Medical History Pertinent Medical History: DM, HTN Additional Medical History CHF, obesity; B TKR; left THR. Current History Pt admitted with hypoglycemia and dyspnea. Reviewed History: Yes Social History Home: Apartment ([employer] of [employer] [place]) Current Living Status: Alone Entry Into Home: Elevator Prior/Core FIM Prior Level of Function Functional [place] Measure 0=Not Assessed/NA 4=Minimal Assistance 1=Total Assistance 5=Supervision or Setup 2=Maximal Assistance 6=Modified [place] 3=Moderate Assistance 7=Complete [place] Bed Mobility: 7 Transfers (B,C,W/C) (FIM): 7 Gait: 6 Pt reports she is mod indep in her apartment PT Evaluation-Current Subjective Agrees to PT. Reports, "If the Dr wants me to walk, I'll walk." Hoping to discharge soon. Pain Numeric Pain Scale: 0-No Pain Location: No Pain Reported Objective Patient Orientation: Person, Place, Time, Situation Problem Solving: Fair Attachments: Oxygen (insitu during and post treatment) ROM/Strength ROM Lower Extremities WFL; limited by soft tissue but functional Strenght Lower Extremities grossly 4/5 throughout Integumentary/Posture Integumentary intact Bowel Incontinence: No Bladder Incontinence: No Posture normal and symmetrical Neuromuscular (Tone, Coordination, Reflexes) no noted functional deficits. Sensory Vision: Functional Hearing: Functional Hand Dominance: Right Sensation Right Lower Extremit: Intact Sensation Left Lower Extremity: Intact Transfers Functional [place] Measure 0=Not Assessed/NA 4=Minimal Assistance 1=Total Assistance 5=Supervision or Setup 2=Maximal Assistance 6=Modified [place] 3=Moderate Assistance 7=Complete [place] Transfers (B, C, W/C) (FIM): 5 Sit to/from Stand: 5 Gait Mode of Locomotion: Walk Anticipated Mode of Locomotion: Walk Gait (FIM): 2 Distance (FIM): 7=534-64 ft Distance: 80 ft in her room Gait Level of Assist: 5 Gait Assistive Device: FWW Comments/Gait Description Only required SBA with gait and able to make several turns safely with FWW. Balance Sitting Static: Good Sitting Dynamic: Good Standing Static: Good Standing Dynamic: Good Assessment/Needs Presents with decreased functional act tolerance and would benefit from skilled PT to work on functional gait to prepare her for discharge home. Co morbidities: obesity, CHF, DM, HTN; structures affected: LE weakness, decreased functional act angélica, DM; changing characteristic due to BS issues. Rehab Potential: Good PT Field Clerk Goals Assisted Goals PT Field Clerk Goals Time Frame: Jun 03, 2016 Transfers (B,C,W/C) (FIM): 6 Gait (FIM): 6 PT Plan Problem List Problem List: Activity Tolerance, Functional Strength, Safety, Gait, Transfer, Bed Mobility Treatment/Plan Treatment Plan: Continue Plan of Care Treatment Plan: Bed Mobility, Education, Functional Activity Ananth, Functional Strength, Gait, Safety, Therapeutic Exercise, Transfers Treatment Duration: Jun 03, 2016 # of days/week 5-6 Visits Per Week: 5-6 Pt/Family Agrees w/Plan: Yes Safety Risks/Education Patient Education: Transfer Techniques, Safety Issues Teaching Recipient: Patient Teaching Methods: Demonstration, Discussion Response to Teaching: Return Demonstration, Reinforcement Needed Time/GCodes Time In: 1120 Time Out: 1148 Total Billed Treatment Time: 28 Total Billed Treatment visit EVM 15 GT 13 EMMANUEL GIL PT May 27, 2016 12:38
[2016-05-27] MEDS: ENOXAPARIN 40 MG/0.4 ML (LOVENOX) SYR SC SCH (15:38)
[2016-05-27 16:49] VITALS: BP 144/68
[2016-05-27 20:13] VITALS: BP 135/60
[2016-05-27] MEDS: ATENOLOL 50 MG (TENORMIN) TAB PO SCH (21:55)
[2016-05-27] MEDS: LATANOPROST 0.005% (XALATAN) OPHTH SOLN 2.5 ML OU SCH (21:57)
[2016-05-28] VITALS: BP 121/58
[2016-05-28] MEDS: FUROSEMIDE 40 MG/4 ML INJ (LASIX) IV SCH ×2 (02:10→17:58)
[2016-05-28 04:00] VITALS: BP 122/62
[2016-05-28] MEDS: CATHETER FLUSH 10 ML SYR IV SCH ×2 (06:00→17:57)
[2016-05-28] MEDS: inSUlin (REGULAR) HUMAN 1 UNIT/0.01 ML (CHARGE PER UNIT) SC SCH ×2 (08:08→12:13)
[2016-05-28] MEDS: metFORMIN 500 MG (GLUCOPHAGE) TAB PO SCH (08:08)
[2016-05-28 08:21] VITALS: BP 116/55
[2016-05-28] MEDS: ASPIRIN E.C. 81 MG (ECOTRIN) TAB PO SCH (09:00)
[2016-05-28] MEDS: inSUlin DETERMIR 1 UNIT/0.01 ML (LEVEMIR) CHARGE PER UNIT SQ SCH (09:00)
[2016-05-28] MEDS: QUINAPRIL 20 MG (ACCUPRIL) TAB PO SCH (09:00)
--- NOTE | 2016-05-28 10:39 | Progress Note-Cardiology ---
Cardiology SOAP Progress Note Subjective: In bed. No new c/o. States she is going home today. Objective: I&O/Vital Signs Vital Sign - Last 12Hours 05/28/16 05/28/16 05/28/16 05/28/16 01:00 04:00 07:00 07:14 Temp 98.9 Pulse 52 55 59 Resp 18 B/P (MAP) 122/62 Pulse Ox 92 O2 Delivery Nasal Cannula O2 Flow Rate 4.00 4.00 05/28/16 05/28/16 08:21 09:00 Temp 97.0 Pulse 61 Resp 20 B/P (MAP) 116/55 Pulse Ox 93 96 O2 Delivery Nasal Cannula Nasal Cannula O2 Flow Rate 4.00 4.00 Intake and Output 05/28/16 00:00 Intake Total 1665 ml Output Total 1150 ml Balance 515 ml Weight (Pounds): 318 Weight (Ounces): 7.0 Weight (Calculated Kilograms): 144.386891 Constitutional: AAO x 3, well-developed, well-nourished, other (obese) Respiratory: No accessory muscle use, other (very poor inspiratory effort makes it hard to edger runner breath sounds) Cardiovascular: regular rate-rhythm, S1 and S2, systolic murmur (faint JANELLE at card base) Gastrointestional: No tender, soft, No guarding, No rebound, audible bowel sounds Extremities: No clubbing, No cyanosis, significant edema (mod bilat LE edema - improved) Neurologic/Psychiatric: grossly intact, power is 5/5 both on sides Skin: No rash on exposed areas, No ulcerations on exposed areas Results/Procedures: Labs Laboratory Tests 05/27/16 15:53: Glucometer 172H 05/27/16 20:18: Glucometer 228H 05/28/16 06:31: Glucometer 74 05/28/16 11:11: Glucometer 104 Microbiology 05/25/16 Blood Culture - Preliminary, Resulted No growth 05/25/16 Urine Culture - Final, Complete Laboratory Tests 05/27/16 04:20 A/P: Assessment: * Near-syncope due to hypoglycemia * Shortness of breath, multifactorial (see below) * Mild ac diastolic CHF. Echo of showed LVEF 60%, no significant valvular heart disease, PASP within normal limits * Obesity with obesity-hypoventilation syndrome * Physical deconditioning is suggested on physical exam * DM II * Hypertension, by history * Hyperlipidemia, by history * Leucocytosis of undetermined etiology, managed by the Medical Service * H/o bilateral knee and of L hip replacement Plan: * Continue CIERA-inhib for BP * LDL 70, Chol 121 - statin not indicated * MPI to eval for CAD when clinically more stable * Consider sleep studies * Management of DM II and leucocytosis is with the Medical Service * Monitor lab closely * Continue current regimen * OK to discharge from cardiac stand point with outpt f/u Physician Assessment Physician Assessment Lungs: good air entry, bilat Cor: reg A&R * As documented in our note above that I updated at the time of this dictation * I had a detailed conversation with her regarding her CV issues, reasons for shortness of breath, risk factor modification, outpatient f/u, etc. I answered her questions in detail. I have advised outpatient card f/u NACHO YOUNG May 28, 2016 10:38 JUAN CARLOS MOTTA MD FACP [facility] May 28, 2016 13:01
[2016-05-28 12:00] VITALS: BP 130/62
[2016-05-28] MEDS: amLODIPine 10 MG (NORVASC) TAB PO SCH (12:19)
[2016-05-28] MEDS ORDERED: INSU100V5 SQ (12:54)
--- NOTE | 2016-05-28 12:57 | Discharge Instructions ---
Discharge [facility] Discharge Medications New, Converted or Re-Newed RX: Other (No new scripts) New Medications: Insulin Determir (Levemir) 1,000 Units/10 Ml Soln 20 UNIT SQ BID for 30 Days, EA Continued Medications: Amlodipine Besylate (Amlodipine Besylate) 10 Mg Tablet 10 MG PO 1100, TAB Aspirin (Aspirin EC) 81 Mg Tablet.dr 81 MG PO DAILY, TAB Atenolol (Atenolol) 100 Mg Tablet 100 MG PO HS, TAB Diclofenac Sodium (Diclofenac Sodium) 75 Mg Tablet.dr 75 MG PO BID, TAB Dorzolamide HCl (Dorzolamide HCl) 10 Ml Drops 1 DROP OU BID, EA Furosemide (Furosemide) 40 Mg Tablet 40 MG PO DAILY, TAB Latanoprost (Latanoprost) 2.5 Ml Drops 1 DROP OU HS, EA Metformin HCl (Metformin HCl) 1,000 Mg Tablet 1000 MG PO BID WITH MEALS, TAB Multivitamin (Daily Multiple Vitamin) 1 Each Tablet 1 TAB PO BID, TAB Quinapril HCl (Quinapril HCl) 40 Mg Tablet 40 MG PO DAILY, TAB Simvastatin (Simvastatin) 20 Mg Tablet 20 MG PO HS, TAB TAKES ALONG WITH 40MG TABLET FOR A TOTAL DOSE OF 60MG Simvastatin (Simvastatin) 40 Mg Tablet 40 MG PO HS, TAB TAKES ALONG WITH 20MG TABLET FOR A TOTAL DOSE OF 60MG Discontinued Medications: Glimepiride (Glimepiride) 4 Mg Tablet 4 MG PO BID, TAB Insulin Glargine,Hum.rec.anlog (Lantus Solostar) 100 Unit/1 Ml Insuln.pen 40 UNITS SC BID, EA Patient Instructions Goal/Follow Up Appt: You have a follow up appt on June 08 @ 220 pm with Dc Patient Instructions: - I have adjusted your diabetes medications so please review medication list - Make sure you continue to monitor your blood sugars closely [facility] to [facility] For: Chest pain Shortness of breath Unable to tolerate medications Activity & Diet Discharge Diet: Low Sodium Diet, ADA Diet, Cardiac Diet Activity as Tolerated: Yes RENE SALAZAR MD May 28, 2016 12:57
--- NOTE | 2016-05-28 13:08 | Discharge Summary ---
Diagnosis/Chief Complaint Date of Admission May 25, 2016 at 04:05 Date of Discharge 05/28/16 Admission Diagnosis Admission Diagnosis Syncope Severe Hypoglycemia Acute respiratory distress with hypoxia Insulin Dependent DM HTN Obesity hypoventilation syndrome Diastolic HF with preserved EF Discharge Diagnosis See Above Chief Complaint/HPI Chief Complaint/HPI Admitted from ER with syncope and found to have profoundly low blood sugar. Discharge Summary-Simple/Stand Procedures Echo DATE OF PROCEDURE: 05/25/2016 TWO DIMENSIONAL ECHOCARDIOGRAM REPORT PRIMARY PHYSICIAN: Dr. Valentine OTHER PHYSICIAN: Dr. Jung REFERRING PHYSICIAN: ORDERING PHYSICIAN: Dr. Valentine INDICATION FOR THE PROCEDURE: Shortness of breath. MEASUREMENTS DERIVED VALUES LV DIAMETER (LAX) NORMALS NORMALS Diastolic 4.6 (3.6-5.2) Eject. Fract. (60%+/-6%) Systolic (2.3-3.9) Diastolic Vol. % Shortening (0.22-0.42) Systolic Vol. Aortic Root 2.9 IVS THICKNESS Diastolic 1.3 (0.6-1.1) LVPW THICKNESS Diastolic 1.3 (0.6-1.1) LA DIAMETER Systolic 3.9 (2.1-3.7) DESCRIPTION: This is a technically difficult study on account of patient body habitus. Global left ventricular systolic function appeared normal. Left ventricular ejection fraction is approximately 60%. Mitral and tricuspid valve leaflets show good leaflet excursion. Aortic valve leaflets are not very well visualized. They seem to have fair to good leaflet excursion. There appears to be mild aortic valve sclerosis. There is mild concentric left ventricular hypertrophy. Doppler imaging is difficult on account of the difficult nature of the study. On the views available, there did not appear to be significant valvular stenosis. There appears to be mild mitral and tricuspid regurgitation. Pulmonary artery systolic pressure is estimated to be within normal limits. CONCLUSION: 1. Technically difficult study. 2. Normal global left ventricular systolic function with ejection fraction approximately 60%. 3. Mild mitral and tricuspid regurgitation. 4. Pulmonary artery systolic pressure is estimated to be within normal limits. 5. Mild concentric left ventricular hypertrophy. Consultations Cardiology: Dr Jung Discharge Physical Examination Allergies: Coded Allergies: Penicillins (Unverified Allergy, Unknown, 05/25/16) morphine (Unverified Allergy, Unknown, 05/25/16) Vitals & I&Os Vital Sign - Last 12Hours Date Time Temp Pulse Resp B/P (MAP) Pulse Ox O2 Delivery O2 Flow Rate FiO2 05/28/16 09:00 96 Nasal Cannula 4.00 05/28/16 08:21 97.0 61 20 116/55 Intake and Output 05/28/16 00:00 Intake Total 1665 ml Output Total 1150 ml Balance 515 ml General Appearance: Alert, Oriented X3, No Acute Distress HEENT: Mucous Memb Moist/[place] Respiratory: Clear to Auscultation, Normal Air Movement Cardiovascular: Regular Rate, No Murmurs Abdominal: Normal Bowel Sounds, Soft, No Tenderness, No Hepatosplenomegaly, No Masses Extremities: Normal Pulses, Other (2+ pitting edema, no tenderness) Skin: No Rashes Neuro: Normal Speech, Strength at 5/5 X4 Ext, Cranial Nerves 3-12 NL Psych/Mental Status: Mental Status NL, Other (depressed mood) Hospital Course See final discharge diagnosis. Other pending tests Patient needs scheduled for outpatient sleep study Radiology Reviewed Echo with preserved EF Discussion & Recommendations 71 yo F that was admitted for severe hypoglycemia that was found to be hypoxic requiring oxygen Hypoxic Respiratory distress: Sent home on supplemental oxygen. Continue lasix for lower extremity swelling which improved during hospitalization. Echo showed some diastolic HF with preserved EF of 60%. Patient likely has VICKY with obesity hypoventilation syndrome. Need set up for outpatient sleep study Insulin Dependent DM: Patient continued to have low blood sugars during admission. Adjusted insulin down to 20 BID and stopped Glyburide. Will need close follow up for blood sugars. Macrocytic Anemia: Consider outpatient hematology consult for abnormal CBC. HTN: No changes. Debility: Ordered for PT/OT. Discharge Condition at discharge Stable Instructions to patient/family Please see electonic discharge instructions given to patient. Discharge Medications Reviewed and agree with Discharge Medication list on patient's Discharge Instruction sheet Clinical Quality Measures DVT/VTE Risk/Contraindication: Risk Factor Score Per Nursin RFS Level Per Nursing on Admit: 4+=Very High Copy Copies To 1: Dc SHEN HOLLY R MD May 28, 2016 13:08
--- NOTE | 2016-05-28 14:42 | Physical Therapy Daily Note ---
PT Daily Note-Current Subjective PT. agrees to Rx. States she is going home today and will have HC PT. Pt. states she has never used extended tubing O2 at home but has watched it done. Pt. states she has a daughter in [place] but she is ill and unable to assist her . Pain Numeric Pain Scale: 0-No Pain Appearance pitting edema LEs up in to abdomen, SOB with activity and needs rest after about 70-80 ft of gait Mental Status Patient Orientation: Normal For Age Attachments: Oxygen Transfers Functional Delta Measure 0=Not Assessed/NA 4=Minimal Assistance 1=Total Assistance 5=Supervision or Setup 2=Maximal Assistance 6=Modified Delta 3=Moderate Assistance 7=Complete IndependenceIRFPAI Quality Coding Scale 6 Independent with activity with or without an assistive device 5 Patient requires set up or clean up by helper. Patient completes activity by themselves 4 Supervision or touching assist (CGA). Claridge provide cues , steadying assist 3 The helper provides less than half the effort to complete the activity 2 The helper provides more than half the effort to complete the activity 1 Dependent. The helper does all the effort to complete an activity 7 Patient refused to complete or attempt activity 9 The patient did not perform the activity before the current illness or injury 88 Not attempted due to Medical conditions or safety concerns Gait Training Gait Assistive Device: FWW pt. in bathroom upon entering and exits bathroom with O2 tubing wrapped around her LEs. Gait training this Rx included safe use of extended tubing O2 etc about home. Pt. 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 Senior Care Goals PT Pork Cutlet Maker Goals Time Frame: Jun 03, 2016 Transfers (B,C,W/C) (FIM): 6 Gait (FIM): 6 PT Plan Treatment/Plan Treatment Plan: Continue Plan of Care Treatment Plan: Bed Mobility, Education, Functional Activity Ananth, Functional Strength, Gait, Safety, Therapeutic Exercise, Transfers Treatment Duration: Jun 03, 2016 Visits Per Week: 5-6 Safety Risks/Education Patient Education: Gait Training, Transfer Techniques, Correct Positioning, Safety Issues (O2) Teaching Recipient: Patient Teaching Methods: Demonstration, Discussion Response to Teaching: Verbalize Understanding, Return Demonstration, Reinforcement Needed Time/GCodes Time In: 1410 Time Out: 1440 Total Billed Treatment Time: 30 Total Billed Treatment 1,GT30m G Codes Necessary: JANINE Allen VALIDATION SOFTWARE FACILITATOR May 28, 2016 14:42
--- NOTE | 2016-05-28 14:56 | Discharge Inst-Home Health ---
[facility] Patient Instructions/FU Appt: Esteban on 06/08 @ 220 PM Patient Problems: Oxygen supplementation: New start Physical Debility Goal: Increased stregth and endurance VIA [place], [place] DISCHARGE ORDERS Allergies: Coded Allergies: Penicillins (Unverified Allergy, Unknown, 05/25/16) morphine (Unverified Allergy, Unknown, 05/25/16) Height (Feet): 5 Height (Inches): 4.00 Weight (Pounds): 318 Weight (Ounces): 7.0 Weight (Calculated Kilograms): [phone] Home Health Need/Face to Face Need for Home Health Home bound because patient relies on others for transportation I Have Seen Pt Fewd-vp-Axre: Yes Date of Face to Face: May 28, 2016 Discharged To: Home Diagnosis/Conditions HH Order: Acute hypoxic respiratory distress Debility Insulin Dependent DM Yes Consult/Follow Up/New Order *I certify that based on my findings, the following services are medically necessary Home Health Services: Services: Nursing Services, Scrap Carrier-Evaluate & Treat, Physical Therapy-Evaluate & Treat My clinical findings support the need for the above services; see Diagnosis. Home O2 Qualification: Y Home O2: 4L NC Discharge Diet: Low Sodium Diet, ADA Diet Daily Activity as Tolerated: Yes Discharge Medications New Medications: Insulin Determir (Levemir) 1,000 Units/10 Ml Soln 20 UNIT SQ BID for 30 Days, EA Continued Medications: Amlodipine Besylate (Amlodipine Besylate) 10 Mg Tablet 10 MG PO 1100, TAB Aspirin (Aspirin EC) 81 Mg Tablet.dr 81 MG PO DAILY, TAB Atenolol (Atenolol) 100 Mg Tablet 100 MG PO HS, TAB Diclofenac Sodium (Diclofenac Sodium) 75 Mg Tablet.dr 75 MG PO BID, TAB Dorzolamide HCl (Dorzolamide HCl) 10 Ml Drops 1 DROP OU BID, EA Furosemide (Furosemide) 40 Mg Tablet 40 MG PO DAILY, TAB Latanoprost (Latanoprost) 2.5 Ml Drops 1 DROP OU HS, EA Metformin HCl (Metformin HCl) 1,000 Mg Tablet 1000 MG PO BID WITH MEALS, TAB Multivitamin (Daily Multiple Vitamin) 1 Each Tablet 1 TAB PO BID, TAB Quinapril HCl (Quinapril HCl) 40 Mg Tablet 40 MG PO DAILY, TAB Simvastatin (Simvastatin) 20 Mg Tablet 20 MG PO HS, TAB TAKES ALONG WITH 40MG TABLET FOR A TOTAL DOSE OF 60MG Simvastatin (Simvastatin) 40 Mg Tablet 40 MG PO HS, TAB TAKES ALONG WITH 20MG TABLET FOR A TOTAL DOSE OF 60MG Discontinued Medications: Glimepiride (Glimepiride) 4 Mg Tablet 4 MG PO BID, TAB Insulin Glargine,Hum.rec.anlog (Lantus Solostar) 100 Unit/1 Ml Insuln.pen 40 UNITS SC BID, EA New, Converted or Re-Newed RX: Other I certify that this patient is under my care and that I, a nurse practitioner or a physician; a certified medical technician assistant working with me, had a face to face encounter that - meets the physician face to face encounter requirements with this patient as dated. Copy Copies To 1: [facility] RENE De La Cruz MD May 28, 2016 14:56
[2016-05-28 16:05] VITALS: BP 133/67
[2016-05-28 16:15] VITALS: BP 133/67
[2016-05-28] MEDS: ENOXAPARIN 40 MG/0.4 ML (LOVENOX) SYR SC SCH (17:58)
[2016-05-31 07:17] LABS: RBC FOLATE >1000 (>280)
[2016-06-03] MEDS ORDERED: DOXY100T2 PO (11:35)
[2016-06-03] MEDS ORDERED: HYDR-3923 PO (11:35)
[2016-06-03] MEDS ORDERED: LACT20SO2 PO (11:35)
[2016-06-03] MEDS ORDERED: FERR-74 PO (11:35)
[2016-06-03] MEDS ORDERED: BISA5TAB8 PO (11:35)
== END 2016-05-28 16:50 | disposition home health service (06) | DRG 637 ==
LOC: DELPENDDIS → ER 23:57 → 4TH 05-25 04:05
PROVIDERS: ADMIT Internal Medicine; ATTEND Internal Medicine
DX: E11.649 Type 2 diabetes mellitus with hypoglycemia without coma (principal); I11.0 Hypertensive heart disease with heart failure; I50.31 Acute diastolic (congestive) heart failure; E66.2 Morbid (severe) obesity with alveolar hypoventilation; Z68.43 Body mass index [BMI] 50.0-59.9, adult; N39.0 Urinary tract infection, site not specified; J45.909 Unspecified asthma, uncomplicated; Z66 Do not resuscitate; E78.00 Pure hypercholesterolemia, unspecified; D72.829 Elevated white blood cell count, unspecified; M19.91 Primary osteoarthritis, unspecified site; D53.9 Nutritional anemia, unspecified; R53.81 Other malaise; Z87.11 Personal history of peptic ulcer disease; Z79.4 Long term (current) use of insulin; Z96.642 Presence of left artificial hip joint; Z96.653 Presence of artificial knee joint, bilateral
CPT/HCPCS: 36415; 71010; 80048; 80053; 80061; 81000; 82607; 82728; 82747; 82962; 83540; 83605; 83735; 83880; 84443; 84484; 85025; 87040; 87088; 93005; 93041; 93306; 94761; 96365; 96375

== ENCOUNTER 2016-05-29 18:23 | Inpatient (IN) | payer MEDICARE, MEDICAID ==
[~2016-05-29] VITALS: Ht 162.6 cm; Wt 137.5 kg
[~2016-05-29 18:23] MED LIST: AMLO10TA2 PO; ASPI-983 PO; ATEN100T PO; DICL75TA2 PO; DORZ10DR2 OU; FURO40TA4 PO; GLIM4TAB PO; INSU100I10 SC; INSU100V5 SQ; LATA2.5D5 OU; METF1000 PO; MULT-35 PO; QUIN40TA25 PO; SIMV20TA3 PO; SIMV40TA4 PO
[2016-05-29] MEDS ORDERED: RT-ALBUTEROL/IPRATROPIUM 3 ML (DUONEB) VIAL ONE (18:34)
[2016-05-29] MEDS ORDERED: RT-ALBUTEROL/IPRATROPIUM 3 ML (DUONEB) VIAL INH ONE (18:45)
[2016-05-29 19:08] LABS: ABG HCO3 32 MMOL/L (23-27); ABG OXYGEN SATURATION 97 % (94-100); ABG PCO2 54 MMHG (35-45); ABG PH 7.39 (7.37-7.43); ABG PO2 73 MMHG (79-93); ABG TCO2 33.7 MMOL/L (21.0-31.0)
[2016-05-29 19:09] LABS: ALLENS TEST YES-POS; PATIENT TEMP 97.7
--- NOTE | 2016-05-29 19:20 | Diagnostic Imaging Report ---
INDICATION: Respiratory distress. COMPARISON: 05/25/2016. FINDINGS: Progression of diffuse bilateral pulmonary opacities, with a perihilar predominance. Small bilateral pleural effusions have developed. Fluid tracks within the right major fissure. No pneumothorax. Stable marked cardiomegaly. IMPRESSION: 1. Cardiomegaly and progression of pulmonary edema and small bilateral pleural effusions. Findings are most compatible with congestive heart failure. Dictated by: Dictated on workstation # [id number]
[2016-05-29 19:22] LABS: BASOPHILS % (AUTO) 0 % (0-10); EOSINOPHILS # (AUTO) 0.2 10^3/uL (0.0-0.3); EOSINOPHILS % (AUTO) 1 % (0-10); LYMPHOCYTES # (AUTO) 1.1 X 10^3 (1.0-4.0); LYMPHOCYTES % (AUTO) 9 % (12-44); MEAN CORPUSCULAR HEMOGLOBIN 31 PG (25-34); MEAN CORPUSCULAR HGB CONC 30 G/DL (32-36); MEAN CORPUSCULAR VOLUME 102 FL (80-99); MEAN PLATELET VOLUME 13.5 FL (7.4-10.4); MONOCYTES # (AUTO) 0.7 X 10^3 (0.0-1.0); MONOCYTES % (AUTO) 5 % (0-12); NEUTROPHILS # (AUTO) 10.4 X 10^3 (1.8-7.8); NEUTROPHILS % (AUTO) 84 % (42-75); PLATELET COUNT 154 10^3/uL (130-400); RED BLOOD COUNT 3.17 10^6/uL (4.35-5.85); RED CELL DISTRIBUTION WIDTH 16.7 % (10.0-14.5); WHITE BLOOD COUNT 12.3 10^3/uL (4.3-11.0)
[2016-05-29 19:34] LABS: ALBUMIN 3.3 G/DL (3.2-4.5); BILIRUBIN,TOTAL 0.5 MG/DL (0.1-1.0); CALCIUM 8.7 MG/DL (8.5-10.1); CREATININE SERUM 1.02 MG/DL (0.60-1.30); MAGNESIUM 2.3 MG/DL (1.8-2.4); TOTAL PROTEIN 6.3 G/DL (6.4-8.2)
[2016-05-29] MEDS ORDERED: FUROSEMIDE 40 MG/4 ML INJ (LASIX) IVP ONE (19:45)
--- NOTE | 2016-05-29 19:47 | ED General ---
General Chief Complaint: Respiratory Problems Stated Complaint: RESPIRATORY DISTRESS Nursing Triage Note: c/o dyspnea. Worse today. Hx of COPD/CHF. Nursing Sepsis Screen: No Definite Risk Source of Information: Patient, EMS, Old Records Exam Limitations: No Limitations History of Present Illness Time Seen by Provider: 18:28 Initial Comments This 71-year-old lady presents to the emergency room via EMS for respiratory distress. She was just dismissed from the hospital yesterday after being treated for hypoglycemia, asthma with respiratory failure and hypoxia, and CHF. She has diastolic failure noted on echocardiogram. She has had some increased edema. EMS noted diminished breath sounds and some mild wheezing. Oxygen saturation on room air was 88-91 percent. It was 94 percent on 4 L nasal cannula. Patient was just started on supplemental oxygen at 3 L/m. She denies any fever or cough. Diabetic medications were changed at dismissal but she reports no changes were made in her asthma management or diuretic doses. She uses no inhaled treatments at home. Systolic blood pressure was noted to be 166. EMS initiated CPAP and placed Nitropaste. They know fingerstick blood sugar was 290. Patient lives in her own apartment. She is alert and oriented. Her primary care provider is Millie Irwin. Allergies and Home Medications Allergies Coded Allergies: Penicillins (Unverified Allergy, Unknown, 05/25/16) morphine (Unverified Allergy, Unknown, 05/25/16) Home Medications Amlodipine Besylate 10 Mg Tablet, 10 MG PO 1100, (Reported) Aspirin 81 Mg Tablet.dr, 81 MG PO DAILY, (Reported) Atenolol 100 Mg Tablet, 100 MG PO HS, (Reported) Diclofenac Sodium 75 Mg Tablet.dr, 75 MG PO BID, (Reported) Dorzolamide HCl 10 Ml Drops, 1 DROP OU BID, (Reported) Furosemide 40 Mg Tablet, 40 MG PO DAILY, (Reported) Insulin Determir 1,000 Units/10 Ml Soln, 20 UNIT SQ BID for 30 Days Prescribed by: RENE SALAZAR on 05/28/16 1254 Latanoprost 2.5 Ml Drops, 1 DROP OU HS, (Reported) Metformin HCl 1,000 Mg Tablet, 1,000 MG PO BID WITH MEALS, (Reported) Multivitamin 1 Each Tablet, 1 TAB PO BID, (Reported) Quinapril HCl 40 Mg Tablet, 40 MG PO DAILY, (Reported) Simvastatin 20 Mg Tablet, 20 MG PO HS, (Reported) TAKES ALONG WITH 40MG TABLET FOR A TOTAL DOSE OF 60MG Simvastatin 40 Mg Tablet, 40 MG PO HS, (Reported) TAKES ALONG WITH 20MG TABLET FOR A TOTAL DOSE OF 60MG Constitutional: no symptoms reported EENTM: no symptoms reported Respiratory: see HPI Cardiovascular: see HPI Gastrointestinal: no symptoms reported Genitourinary: no symptoms reported Musculoskeletal: no symptoms reported Skin: no symptoms reported Psychiatric/Neurological: No Symptoms Reported Hematologic/Lymphatic: No Symptoms Reported Past Kpdpkrg-Rohaoc-Wymxpn Hx Patient Social History Alcohol Use: Denies Use Recreational Drug Use: No Smoking Status: Unknown if Ever Smoked Recent Foreign Travel: No Contact w/Someone Who Travel: No Recent Infectious Disease Expo: No Recent Hopitalizations: No Immunizations Up To Date PED Vaccines UTD: Yes Date of Pneumonia Vaccine: May 25, 2013 Date of Influenza Vaccine: Nov 30, 2015 Seasonal Allergies Seasonal Allergies: No Surgeries HX Surgeries: Yes Surgeries: Hysterectomy, Joint Replacement Respiratory Hx Respiratory Disorders: Yes Respiratory Disorders: Asthma Cardiovascular Hx Cardiac Disorders: Yes (diastolic heart failure) Cardiac Disorders: High Cholesterol, Hypertension Neurological Hx Neurological Disorders: No 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 Genitourinary Hx Genitourinary Disorders: No Gastrointestinal Hx Gastrointestinal Disorders: Yes Gastrointestinal Disorders: Diverticulosis, Ulcer Musculoskeletal Hx Musculoskeletal Disorders: Yes (joint replacements) Musculoskeletal Disorders: Arthritis Endocrine Hx Endocrine Disorders: Yes Endocrine Disorders: Diabetes, Insulin dep HEENT HX ENT Disorders: No Cancer Hx Cancer: No Psychosocial Hx Psychiatric Problems: No Behavioral Health Disorders: Depression Blood Transfusions Adverse Reaction to a Blood Tr: No Family Medical History Family Medial History: CHF (congestive heart failure) 19 MOTHER Physical Exam Vital Signs Vital Sign - Last 12Hours 05/29/16 05/29/16 18:23 19:05 Temp 97.5 Pulse 68 Resp 24 B/P (MAP) 131/57 Pulse Ox 94 O2 Delivery NIV/CPAP O2 Flow Rate 40.00 Capillary Refill : Less Than 3 Seconds General Appearance: WD/WN, Mild Distress, Other HEENT: PERRL/EOMI, Normal ENT Inspection, Pharynx Normal (on CPAP) Neck: Normal Inspection Respiratory: Lungs Clear, No Accessory Muscle Use, Decreased Breath Sounds Cardiovascular: Regular Rate, Rhythm, No Edema, No Murmur Gastrointestinal: Normal Bowel Sounds, Non Tender, Soft Extremity: Pedal Edema, Swelling (moderate pitting edema equal bilaterally) Neurologic/Psychiatric: Alert, Oriented x3, No Motor/Sensory Deficits, Normal Mood/Affect, paver operator II-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 Norm as Tested Skin: Normal Color, Warm/Dry Progress/Results/Core Measures Results/Orders Lab Results Laboratory Tests Test 05/29/16 00:00 05/29/16 18:55 Range/Units Blood Gas Puncture Site RT BRACH Blood Gas Patient Temperature 97.7 Arterial Blood pH 7.39 7.37-7.43 Arterial Blood Partial Pressure CO2 54 H 35-45 MMHG Arterial Blood Partial Pressure O2 73 L 79-93 MMHG Arterial Blood HCO3 32 H 23-27 MMOL/L Arterial Blood Total CO2 33.7 H 21.0-31.0 MMOL/L Arterial Blood Oxygen Saturation 97 94-100 % Arterial Blood Base Excess 7.0 H -2.5-2.5 MMOL/L Winston Test YES-POS Blood Gas Ventilator Setting YES Blood Gas Inspired Oxygen 40% White Blood Count 12.3 H 4.3-11.0 10^3/uL Red Blood Count 3.17 L 4.35-5.85 10^6/uL Hemoglobin 9.7 L 11.5-16.0 G/DL Hematocrit 32 L 35-52 % Mean Corpuscular Volume 102 H 80-99 FL Mean Corpuscular Hemoglobin 31 25-34 PG Mean Corpuscular Hemoglobin Concent 30 L 32-36 G/DL Red Cell Distribution Width 16.7 H 10.0-14.5 % Platelet Count 154 130-400 10^3/uL Mean Platelet Volume 13.5 H 7.4-10.4 FL Neutrophils (%) (Auto) 84 H 42-75 % Lymphocytes (%) (Auto) 9 L 12-44 % Monocytes (%) (Auto) 5 0-12 % Eosinophils (%) (Auto) 1 0-10 % Basophils (%) (Auto) 0 0-10 % Neutrophils # (Auto) 10.4 H 1.8-7.8 X 10^3 Lymphocytes # (Auto) 1.1 1.0-4.0 X 10^3 Monocytes # (Auto) 0.7 0.0-1.0 X 10^3 Eosinophils # (Auto) 0.2 0.0-0.3 10^3/uL Basophils # (Auto) 0.0 0.0-0.1 10^3/uL Sodium Level 144 135-145 MMOL/L Potassium Level 5.0 3.6-5.0 MMOL/L Chloride Level 104 98-107 MMOL/L Carbon Dioxide Level 33 H 21-32 MMOL/L Anion Gap 7 5-14 MMOL/L Blood Urea Nitrogen 39 H 7-18 MG/DL Creatinine 1.02 0.60-1.30 MG/DL Estimat Glomerular Filtration Rate 53 BUN/Creatinine Ratio 38 Glucose Level 259 H 70-105 MG/DL Calcium Level 8.7 8.5-10.1 MG/DL Magnesium Level 2.3 1.8-2.4 MG/DL Total Bilirubin 0.5 0.1-1.0 MG/DL Aspartate Amino Transf (AST/SGOT) 24 5-34 U/L Alanine Aminotransferase (ALT/SGPT) 28 0-55 U/L Alkaline Phosphatase 63 40-136 U/L C-Reactive Protein High Sensitivity 3.28 H 0.00-0.50 MG/DL B-Type Natriuretic Peptide 181.9 H <100.0 PG/ML Total Protein 6.3 L 6.4-8.2 G/DL Albumin 3.3 3.2-4.5 G/DL My Orders Orders - JOON LE MD Albuterol/Ipra Inhalation Soln (Duoneb I (05/29/16 18:34) Arterial Blood Gas (05/29/16 18:37) BNP (05/29/16 18:37) Cbc With Automated Diff (05/29/16 18:37) Comprehensive Metabolic Panel (05/29/16 18:37) Magnesium (05/29/16 18:37) Saline Lock/Iv-Start (05/29/16 18:37) Ekg Tracing (05/29/16 18:37) O2 (05/29/16 18:37) Monitor-Rhythm Ecg Trace Only (05/29/16 18:37) Chest 1 View, Ap/Pa Only (05/29/16 18:37) Albuterol/Ipra Inhalation Soln (Duoneb I (05/29/16 18:45) Svn Sm Volume Nebulizer Rt-Rfs (05/29/16 18:37) Furosemide Injection (Lasix Injection) (05/29/16 19:45) Hs C Reactive Protein (05/29/16 19:33) Methylprednisolone Sod Succ (Solu-Medrol (05/29/16 20:15) Cho 60g/M 3snack (16 Ashok) (05/30/16 Breakfast) Medications Given in ED Current Medications Medications Dose Ordered Sig/Sameera Route Start Time Stop Time Status Last Admin Dose Admin Albuterol/ Ipratropium 3 ml ONCE ONCE INH 05/29/16 18:45 05/29/16 18:46 DC 05/29/16 19:11 3 ML Furosemide 80 mg ONCE ONCE IVP 05/29/16 19:45 05/29/16 19:46 DC 05/29/16 19:44 80 MG Vital Signs/I&O Vital Sign - Last 12Hours 05/29/16 05/29/16 05/29/16 05/29/16 18:23 18:25 19:05 20:41 Temp 97.5 Pulse 68 57 61 Resp 24 21 23 B/P (MAP) 131/57 Pulse Ox 94 94 100 96 O2 Delivery NIV/CPAP Bi-pap O2 Flow Rate 40.00 05/29/16 05/29/16 05/29/16 05/29/16 21:10 21:22 22:23 22:48 Temp 96.1 Pulse 57 57 60 Resp 24 28 32 B/P (MAP) 162/72 Pulse Ox 92 94 94 95 O2 Delivery Nasal Cannula NIV Bilevel O2 Flow Rate 5.00 40.00 40.00 05/29/16 05/30/16 05/30/16 05/30/16 23:10 00:00 00:24 02:00 Temp 96.5 97.6 98.1 Pulse 62 78 60 71 Resp 24 25 26 22 B/P (MAP) 167/73 162/71 164/76 Pulse Ox 93 94 95 94 O2 Delivery Nasal Cannula NIV/Bilevel NIV/Bilevel O2 Flow Rate 5.00 40.00 05/30/16 02:18 Pulse 71 Resp 23 Pulse Ox 94 O2 Flow Rate 40.00 Blood Pressure Mean: 81 Progress Note : Time: 19:49 Progress Note Patient has improved on BiPAP. Pulmonary congestion appears to have worsened from prior x-ray. Lasix 80 mg IV is infusing. Breath sounds are still diminished. Patient comments that she is feeling sleepy. Hypercarbia was noted on the ABG. BiPAP will be reapplied to help with the hypercarbia until some diuresis pulls fluid off. Nitropaste remains in place. Blood pressure is normal. ECG Initial ECG Impression Date: May 29, 2016 Initial ECG Impression Time: 19:29 Initial ECG Rate: 58 Initial ECG Rhythm: Normal Sinus Initial ECG Intervals: Normal Comment Sinus rhythm with first-degree AV block, chronic. No ST elevation or depression. No axis deviation. Artifact in V3. Diagnostic Imaging Diagonstic Imaging: Xray Plain Films/CT/US/NM/MRI: chest Comments Chest x-ray viewed by me and compared with prior. Report reviewed. See report below: NAME: KIMBERLY JOHNSON [facility] REC#: [id number] PT STATUS: REG ER : 1945 PHYSICIAN: JOON LE MD ADMIT DATE: 05/29/16/ER Signed Date of Exam: 05/29/16 CHEST 1 VIEW, AP/PA ONLY INDICATION: Respiratory distress. COMPARISON: 05/25/2016. FINDINGS: Progression of diffuse bilateral pulmonary opacities, with a perihilar predominance. Small bilateral pleural effusions have developed. Fluid tracks within the right major fissure. No pneumothorax. Stable marked cardiomegaly. IMPRESSION: 1. Cardiomegaly and progression of pulmonary edema and small bilateral pleural effusions. Findings are most compatible with congestive heart failure. Dictated by: Dictated on workstation # [id number] Dict: 05/29/161915 Trans: 05/29/161935 AYSE [id number] Interpreted by: LISA HERNANDES MD Electronically signed by:LISA HERNANDES MD 05/29/161935 Departure Communication Time/Spoke to Admitting Phy: 20:00 Communication Case was reviewed with Dr. Salazar. She is in agreement with admission for further treatment of pulmonary edema and respiratory failure. Because of the mild elevation in white count and CRP, she would like doxycycline started. She would also like a dose of Solu-Medrol 80 mg IV given in the emergency room. Impression Impression: Primary Impression: Respiratory failure Qualified Codes: J96.21 - Acute and chronic respiratory failure with hypoxia; J96.22 - Acute and chronic respiratory failure with hypercapnia Additional Impression: CHF exacerbation Qualified Codes: I50.33 - Acute on chronic diastolic (congestive) heart failure Disposition: ADMITTED INPATIENT Condition: Improved Decision to Admit Reason: Admit from ER (General) Decision to Admit/Date: May 29, 2016 Time/Decision to Admit Time: 19:30 Departure-Patient Inst. Referrals: [facility] (PCP/Family) Primary Care Physician JOON LE MD May 29, 2016 19:47
[2016-05-29] MEDS ORDERED: methylPREDNISolone 40 MG/ML (Solu-MEDROL) VIAL IV ONE (20:15)
[2016-05-29 21:00] VITALS: BP 153/98
[2016-05-29 21:10] VITALS: BP 162/72
[2016-05-29 21:22] VITALS: BP 162/72
[2016-05-29] MEDS ORDERED: RT-ALBUTEROL/IPRATROPIUM 3 ML (DUONEB) VIAL INH PRN (21:30)
[2016-05-29] MEDS: DOXYCYCLINE 100 MG (VIBRAMYCIN) TABLET PO SCH (22:00)
[2016-05-29] MEDS: RT-ALBUTEROL/IPRATROPIUM 3 ML (DUONEB) VIAL INH SCH (22:18)
[2016-05-29 23:10] VITALS: BP 167/73
[2016-05-30] VITALS (8 sets, daily range): BP systolic 149–167; BP diastolic 67–81
[2016-05-30] MEDS: RT-ALBUTEROL/IPRATROPIUM 3 ML (DUONEB) VIAL INH SCH ×6 (02:16→22:10)
[2016-05-30 06:00] LABS: BASOPHILS % (AUTO) 0 % (0-10); EOSINOPHILS % (AUTO) 0 % (0-10); LYMPHOCYTES # (AUTO) 0.2 X 10^3 (1.0-4.0); LYMPHOCYTES % (AUTO) 2 % (12-44); MEAN CORPUSCULAR HEMOGLOBIN 31 PG (25-34); MEAN CORPUSCULAR HGB CONC 30 G/DL (32-36); MEAN CORPUSCULAR VOLUME 101 FL (80-99); MEAN PLATELET VOLUME 14.2 FL (7.4-10.4); MONOCYTES # (AUTO) 0.1 X 10^3 (0.0-1.0); MONOCYTES % (AUTO) 1 % (0-12); NEUTROPHILS # (AUTO) 9.2 X 10^3 (1.8-7.8); NEUTROPHILS % (AUTO) 97 % (42-75); PLATELET COUNT 157 10^3/uL (130-400); RED BLOOD COUNT 3.26 10^6/uL (4.35-5.85); RED CELL DISTRIBUTION WIDTH 16.4 % (10.0-14.5); WHITE BLOOD COUNT 9.5 10^3/uL (4.3-11.0)
[2016-05-30 06:36] LABS: BAND NEUTROPHILS 0 %; BASOPHILS % (MANUAL) 0 %; EOSINOPHILS % (MANUAL) 0 %; LYMPHOCYTES % (MANUAL) 4 %; NEUTROPHILS % (MANUAL) 94 %
[2016-05-30 06:37] LABS: ANISOCYTOSIS SLIGHT; STOMATOCYTES SLIGHT
[2016-05-30 07:22] LABS: ALBUMIN 3.5 G/DL (3.2-4.5); BILIRUBIN,TOTAL 0.5 MG/DL (0.1-1.0); CALCIUM 8.7 MG/DL (8.5-10.1); CREATININE SERUM 1.03 MG/DL (0.60-1.30); POTASSIUM 5.2 MMOL/L (3.6-5.0); TOTAL PROTEIN 6.6 G/DL (6.4-8.2); hs C REACTIVE PROTEIN 3.57 MG/DL (0.00-0.50)
[2016-05-30] MEDS: DOXYCYCLINE 100 MG (VIBRAMYCIN) TABLET PO SCH ×2 (09:21→21:42)
[2016-05-30] MEDS ORDERED: inSUlin DETERMIR 1 UNIT/0.01 ML (LEVEMIR) CHARGE PER UNIT SQ NR (10:44)
--- NOTE | 2016-05-30 11:15 | Diagnostic Imaging Report ---
INDICATION: Congestive heart failure COMPARISON: May 29, 2016 TECHNIQUE: Two radiographs of the chest dated May 30, 2016 FINDINGS: The cardiac silhouette is enlarged, though stable. Central pulmonary vascular congestion is again identified. Diffuse prominence of the pulmonary interstitium is again identified, appearing slightly improved since the prior examination. Small bilateral pleural effusions. No new focal pulmonary opacity. No pneumothorax. Scattered osseous degenerative changes without acute osseous abnormality. IMPRESSION: Findings most compatible with slightly improving congestive heart failure with interstitial edema and small bibasilar pleural effusions. Dictated by: Dictated on workstation # [id number]
[2016-05-30] MEDS: amLODIPine 10 MG (NORVASC) TAB PO SCH (11:43)
[2016-05-30] MEDS: inSUlin ASPART (NovoLOG) 1 UNIT/0.01 ML (CHARGE PER UNIT) SC SCH ×3 (11:43→21:43)
--- NOTE | 2016-05-30 19:08 | History & Physicial (CHS) ---
HPI History of Present Illness: 71 yo F that was recently discharged from the hospital that was readmitted with worsening shortness of breath. Patient was discharged on oxygen which was new for her. States that she was up walking around and was in the bathroom without her oxygen when she became profoundly short of breath. Denies chest pain or palpitations. States that she put on her oxygen and was still not able to catch her breath which is why she called EMS. Patient lives at home by herself. Recently got new diagnosis of diastolic CHF and was seen by cardiology at last hospitalization. States that she took all of her medications prior to getting to hospital. Denies eating anything new. Denies any weight gain but states that she has new lower extremity swelling that did not completely resolve during last hospitalization. Source: patient, RN/MD, old records Exam Limitations: no limitations Date seen by provider: May 30, 2016 Attending Physician Radha Stark MD PCP [facility] [place] Date of Admission May 29, 2016 at 20:00 Home Medications Home Medications Reviewed patient Home Medication Reconciliation Form Allergies Coded Allergies: Penicillins (Unverified Allergy, Unknown, 05/25/16) morphine (Unverified Allergy, Unknown, 05/25/16) NZI-Aezlim-Xisvso Hx Patient Social History Living Status: Home alone in house Alcohol Use: Denies Use Recreational Drug Use: No Smoking Status: Never a Smoker Recent Foreign Travel: No Contact w/other who traveled: No Recent Hopitalizations: No Recent Infectious Disease Expo: No Physical Abuse Screen: No Sexual Abuse: No Immunizations Up To Date Date of Pneumonia Vaccine: May 25, 2013 Date of Influenza Vaccine: Nov 30, 2015 Past Medical History Diastolic Heart Failure: Diagnosed 04/2016 Insulin Dependent DM HTN Oxygen Dependent 4L: 2017 Family Medical History Family History: CHF (congestive heart failure) 19 MOTHER Review of Systems ([facility]C) Constitutional: No chills, No fever, weakness, No weight gain EENTM: no symptoms reported Respiratory: dyspnea on exertion, No hemoptysis, No orthopnea, short of breath Cardiovascular: No chest pain, edema, No palpitations Gastrointestinal: no symptoms reported, No abdominal pain, No constipation, No diarrhea, No nausea, No vomiting Genitourinary: no symptoms reported, No dysuria, No frequency, No hematuria Musculoskeletal: no symptoms reported Skin: no symptoms reported, No pruritus, No rash Psychiatric/Neurological: Depressed, Weakness Reviewed Test Results Reviewed Test Results Lab Laboratory Tests Test 05/29/16 18:55 05/30/16 04:50 05/30/16 05:08 05/30/16 09:59 Range/Units White Blood Count 12.3 H 9.5 4.3-11.0 10^3/uL Red Blood Count 3.17 L 3.26 L 4.35-5.85 10^6/uL Hemoglobin 9.7 L 10.0 L 11.5-16.0 G/DL Hematocrit 32 L 33 L 35-52 % Mean Corpuscular Volume 102 H 101 H 80-99 FL Mean Corpuscular Hemoglobin 31 31 25-34 PG Mean Corpuscular Hemoglobin Concent 30 L 30 L 32-36 G/DL Red Cell Distribution Width 16.7 H 16.4 H 10.0-14.5 % Platelet Count 154 157 130-400 10^3/uL Mean Platelet Volume 13.5 H 14.2 H 7.4-10.4 FL Neutrophils (%) (Auto) 84 H 97 H 42-75 % Lymphocytes (%) (Auto) 9 L 2 L 12-44 % Monocytes (%) (Auto) 5 1 0-12 % Eosinophils (%) (Auto) 1 0 0-10 % Basophils (%) (Auto) 0 0 0-10 % Neutrophils # (Auto) 10.4 H 9.2 H 1.8-7.8 X 10^3 Lymphocytes # (Auto) 1.1 0.2 L 1.0-4.0 X 10^3 Monocytes # (Auto) 0.7 0.1 0.0-1.0 X 10^3 Eosinophils # (Auto) 0.2 0.0 0.0-0.3 10^3/uL Basophils # (Auto) 0.0 0.0 0.0-0.1 10^3/uL Sodium Level 144 144 135-145 MMOL/L Potassium Level 5.0 5.2 H 3.6-5.0 MMOL/L Chloride Level 104 102 98-107 MMOL/L Carbon Dioxide Level 33 H 33 H 21-32 MMOL/L Anion Gap 7 9 5-14 MMOL/L Blood Urea Nitrogen 39 H 36 H 7-18 MG/DL Creatinine 1.02 1.03 0.60-1.30 MG/DL Estimat Glomerular Filtration Rate 53 53 BUN/Creatinine Ratio 38 35 Glucose Level 259 H 350 H 70-105 MG/DL Calcium Level 8.7 8.7 8.5-10.1 MG/DL Magnesium Level 2.3 1.8-2.4 MG/DL Total Bilirubin 0.5 0.5 0.1-1.0 MG/DL Aspartate Amino Transf (AST/SGOT) 24 21 5-34 U/L Alanine Aminotransferase (ALT/SGPT) 28 26 0-55 U/L Alkaline Phosphatase 63 59 40-136 U/L C-Reactive Protein High Sensitivity 3.28 H 3.57 H 0.00-0.50 MG/DL B-Type Natriuretic Peptide 181.9 H 167.6 H <100.0 PG/ML Total Protein 6.3 L 6.6 6.4-8.2 G/DL Albumin 3.3 3.5 3.2-4.5 G/DL Neutrophils % (Manual) 94 % Lymphocytes % (Manual) 4 % Monocytes % (Manual) 2 % Eosinophils % (Manual) 0 % Basophils % (Manual) 0 % Band Neutrophils 0 % Anisocytosis SLIGHT Macrocytosis SLIGHT Stomatocytes SLIGHT Glucometer 329 H 410 *H 70-110 MG/DL Test 05/30/16 11:17 05/30/16 16:04 05/30/16 21:00 05/31/16 04:51 Range/Units Glucometer 413 *H 370 H 282 H 70-110 MG/DL White Blood Count 14.2 H 4.3-11.0 10^3/uL Red Blood Count 3.32 L 4.35-5.85 10^6/uL Hemoglobin 10.1 L 11.5-16.0 G/DL Hematocrit 34 L 35-52 % Mean Corpuscular Volume 102 H 80-99 FL Mean Corpuscular Hemoglobin 30 25-34 PG Mean Corpuscular Hemoglobin Concent 30 L 32-36 G/DL Red Cell Distribution Width 16.9 H 10.0-14.5 % Platelet Count 172 130-400 10^3/uL Mean Platelet Volume 13.5 H 7.4-10.4 FL Neutrophils (%) (Auto) 86 H 42-75 % Lymphocytes (%) (Auto) 7 L 12-44 % Monocytes (%) (Auto) 6 0-12 % Eosinophils (%) (Auto) 1 0-10 % Basophils (%) (Auto) 0 0-10 % Neutrophils # (Auto) 12.2 H 1.8-7.8 X 10^3 Lymphocytes # (Auto) 1.0 1.0-4.0 X 10^3 Monocytes # (Auto) 0.8 0.0-1.0 X 10^3 Eosinophils # (Auto) 0.1 0.0-0.3 10^3/uL Basophils # (Auto) 0.0 0.0-0.1 10^3/uL Neutrophils % (Manual) 86 % Lymphocytes % (Manual) 8 % Monocytes % (Manual) 4 % Eosinophils % (Manual) 1 % Basophils % (Manual) 1 % Band Neutrophils 0 % Toxic Granulation 1+ Polychromasia SLIGHT Hypochromasia SLIGHT Anisocytosis MODERATE Macrocytosis MODERATE Sodium Level 143 135-145 MMOL/L Potassium Level 4.8 3.6-5.0 MMOL/L Chloride Level 103 98-107 MMOL/L Carbon Dioxide Level 34 H 21-32 MMOL/L Anion Gap 6 5-14 MMOL/L Blood Urea Nitrogen 31 H 7-18 MG/DL Creatinine 0.84 0.60-1.30 MG/DL Estimat Glomerular Filtration Rate > 60 BUN/Creatinine Ratio 37 Glucose Level 156 H 70-105 MG/DL Calcium Level 9.0 8.5-10.1 MG/DL Test 05/31/16 06:02 05/31/16 11:58 05/31/16 15:56 Range/Units Glucometer 193 H 248 H 295 H 70-110 MG/DL Radiology Date of Exam: 05/30/16 CHEST PA/LAT (2 VIEW) INDICATION: Congestive heart failure COMPARISON: May 29, 2016 TECHNIQUE: Two radiographs of the chest dated May 30, 2016 FINDINGS: The cardiac silhouette is enlarged, though stable. Central pulmonary vascular congestion is again identified. Diffuse prominence of the pulmonary interstitium is again identified, appearing slightly improved since the prior examination. Small bilateral pleural effusions. No new focal pulmonary opacity. No pneumothorax. Scattered osseous degenerative changes without acute osseous abnormality. IMPRESSION: Findings most compatible with slightly improving congestive heart failure with interstitial edema and small bibasilar pleural effusions. Physical Exam-([facility]) Physical Exam Vital Signs VS - Last 72 Hours, by Label 05/29/16 05/29/16 05/29/16 05/29/16 18:23 18:25 19:05 20:41 Temp 97.5 Pulse 68 57 61 Resp 24 21 23 B/P (MAP) 131/57 Pulse Ox 94 94 100 96 O2 Delivery NIV/CPAP Bi-pap O2 Flow Rate 40.00 05/29/16 05/29/16 05/29/16 05/29/16 21:10 21:22 22:23 22:48 Temp 96.1 Pulse 57 57 60 Resp 24 28 32 B/P (MAP) 162/72 Pulse Ox 92 94 94 95 O2 Delivery Nasal Cannula NIV Bilevel O2 Flow Rate 5.00 40.00 40.00 05/29/16 05/30/16 05/30/16 05/30/16 23:10 00:00 00:24 02:00 Temp 96.5 97.6 98.1 Pulse 62 78 60 71 Resp 22 B/P (MAP) 167/73 162/71 164/76 Pulse Ox 93 94 95 94 O2 Delivery Nasal Cannula NIV/Bilevel NIV/Bilevel O2 Flow Rate 5.00 40.00 05/30/16 05/30/16 05/30/16 05/30/16 02:18 04:00 04:17 06:20 Temp 97.2 98.0 Pulse 71 71 70 73 Resp 22 B/P (MAP) 156/71 149/68 Pulse Ox 94 94 93 94 O2 Delivery NIV/Bilevel NIV/Bilevel O2 Flow Rate 40.00 40.00 05/30/16 05/30/16 05/30/16 05/30/16 06:59 08:00 09:20 10:00 Temp 97.2 97.7 Pulse 67 81 80 Resp 20 24 B/P (MAP) 157/68 166/81 Pulse Ox 96 92 91 87 O2 Delivery Nasal Cannula Nasal Cannula Nasal Cannula O2 Flow Rate 40.00 5.00 6.00 5.00 05/30/16 05/30/16 05/30/16 05/30/16 10:37 12:00 14:02 15:18 Pulse 85 78 Pulse Ox 87 91 92 91 O2 Flow Rate 3.00 6.00 05/30/16 05/30/16 05/30/16 05/30/16 15:59 18:38 18:46 19:43 Temp 97.6 97.0 Pulse 74 75 75 Resp 22 20 B/P (MAP) 163/77 167/67 Pulse Ox 91 92 91 90 O2 Delivery Nasal Cannula Nasal Cannula O2 Flow Rate 5.00 6.00 6.00 05/30/16 05/31/16 05/31/16 05/31/16 22:10 00:00 00:04 02:18 Temp 96.6 Pulse 63 56 53 57 Resp 21 19 27 22 B/P (MAP) 157/71 Pulse Ox 93 93 93 93 O2 Delivery NIV/Bilevel O2 Flow Rate 40.00 40.00 40.00 05/31/16 05/31/16 05/31/16 05/31/16 04:00 04:07 06:00 06:40 Temp 96.9 Pulse 56 55 55 55 Resp 23 30 23 19 B/P (MAP) 158/68 Pulse Ox 93 93 94 92 O2 Delivery NIV/Bilevel NIV/Bilevel O2 Flow Rate 40.00 40.00 05/31/16 05/31/16 05/31/16 05/31/16 08:00 09:18 11:05 12:00 Temp 97.6 96.9 Pulse 58 58 Resp 20 20 B/P (MAP) 148/72 167/77 Pulse Ox 92 92 92 93 O2 Delivery NIV/Bilevel Nasal Cannula NIV/Bilevel O2 Flow Rate 6.00 6.00 05/31/16 05/31/16 14:35 15:53 Temp 96.5 Pulse 61 Resp 20 B/P (MAP) 143/75 Pulse Ox 91 92 O2 Delivery Nasal Cannula O2 Flow Rate 6.00 6.00 Capillary Refill : Less Than 3 Seconds General Appearance: WD/WN, no apparent distress HEENT: PERRL/EOMI Neck: non-tender, full range of motion, supple, normal inspection, No carotid bruit Respiratory: normal breath sounds, no respiratory distress, no accessory muscle use, crackles (decreased breath sounds) Cardiovascular: normal peripheral pulses, regular rate, rhythm, no edema, no gallop, no JVD, no murmur Gastrointestinal: normal bowel sounds, non tender, soft, no organomegaly, no pulsatile mass Extremities: normal range of motion, no calf tenderness, pedal edema (2+) Neurologic/Psychiatric: offbearer II-XII nml as tested, no motor/sensory deficits, alert, oriented x 3, depressed affect Skin: normal color, warm/dry Lymphatic: no adenopathy Assessment/Plan Assessment/Plan Plan 71 yo F that was admitted for acute respiratory failure Plan Acute Respiratory Failure: Likely Multi focal Diastolic HF vs VICKY vs PNA - Titrate oxygen to maintain O2 92% - Duonebs scheduled and PRN - Continue Doxycyclin D3 - Encourage ambulation and up to chair for meals - Aggressive Diuresis with IV lasix, monitor labs Acute on Chronic Diastolic CHF: See above Insulin Dependent DM - Continue home insulin, SSI ordered, Accuchecks /HS Lower Extremity Edema - Likely 2/2 diastolic HF Macrocytic Anemia: Stable, no signs of acute bleeding - Normal B12 and Folate levels during last hospitalization - Iron Sat low, started PO iron replacement FEN: Cardiac diet, 2L fluid restriction DVT PPX: Lovenox Dispo: Admit to medical floor on Tele Diagnosis/Problems: Clinical Quality Measures DVT/VTE Risk/Contraindication: Risk Factor Score Per Nursin RFS Level Per Nursing on Admit: 4+=Very High Copy Copies To 1: Dc SHEN HOLLY R MD May 30, 2016 19:08
[2016-05-30] MEDS: LATANOPROST 0.005% (XALATAN) OPHTH SOLN 2.5 ML OU SCH (21:00)
[2016-05-30] MEDS: ATENOLOL 50 MG (TENORMIN) TAB PO SCH (21:42)
[2016-05-30] MEDS: SIMvastatin 40 MG (ZOCOR) TAB PO SCH (21:42)
[2016-05-30] MEDS: SIMvastatin 20 MG (ZOCOR) TAB PO SCH (21:43)
[2016-05-31] VITALS: BP 157/71
[2016-05-31] MEDS: RT-ALBUTEROL/IPRATROPIUM 3 ML (DUONEB) VIAL INH SCH ×6 (02:18→21:44)
[2016-05-31 04:00] VITALS: BP 158/68
[2016-05-31 05:30] LABS: BASOPHILS % (AUTO) 0 % (0-10); EOSINOPHILS # (AUTO) 0.1 10^3/uL (0.0-0.3); EOSINOPHILS % (AUTO) 1 % (0-10); LYMPHOCYTES % (AUTO) 7 % (12-44); MEAN CORPUSCULAR HEMOGLOBIN 30 PG (25-34); MEAN CORPUSCULAR HGB CONC 30 G/DL (32-36); MEAN CORPUSCULAR VOLUME 102 FL (80-99); MEAN PLATELET VOLUME 13.5 FL (7.4-10.4); MONOCYTES # (AUTO) 0.8 X 10^3 (0.0-1.0); MONOCYTES % (AUTO) 6 % (0-12); NEUTROPHILS # (AUTO) 12.2 X 10^3 (1.8-7.8); NEUTROPHILS % (AUTO) 86 % (42-75); PLATELET COUNT 172 10^3/uL (130-400); RED BLOOD COUNT 3.32 10^6/uL (4.35-5.85); RED CELL DISTRIBUTION WIDTH 16.9 % (10.0-14.5); WHITE BLOOD COUNT 14.2 10^3/uL (4.3-11.0)
[2016-05-31 05:49] LABS: ANION GAP 6 MMOL/L (5-14); BLOOD UREA NITROGEN 31 MG/DL (7-18); BUN/CREATININE RATIO 37; CARBON DIOXIDE 34 MMOL/L (21-32); CHLORIDE 103 MMOL/L (98-107); CREATININE SERUM 0.84 MG/DL (0.60-1.30); POTASSIUM 4.8 MMOL/L (3.6-5.0); SODIUM 143 MMOL/L (135-145)
[2016-05-31 05:50] LABS: GFR ESTIMATED > 60; GLUCOSE 156 MG/DL (70-105)
[2016-05-31 05:57] LABS: BAND NEUTROPHILS 0 %; BASOPHILS % (MANUAL) 1 %; EOSINOPHILS % (MANUAL) 1 %; LYMPHOCYTES % (MANUAL) 8 %; NEUTROPHILS % (MANUAL) 86 %
[2016-05-31 05:58] LABS: ANISOCYTOSIS MODERATE; HYPOCHROMASIA SLIGHT; POLYCHROMASIA SLIGHT
[2016-05-31] MEDS: inSUlin ASPART (NovoLOG) 1 UNIT/0.01 ML (CHARGE PER UNIT) SC SCH ×4 (06:00→20:25)
[2016-05-31 08:00] VITALS: BP 148/72
[2016-05-31] MEDS: ASPIRIN E.C. 81 MG (ECOTRIN) TAB PO SCH (09:08)
[2016-05-31] MEDS: DOXYCYCLINE 100 MG (VIBRAMYCIN) TABLET PO SCH ×2 (09:08→20:25)
[2016-05-31] MEDS: QUINAPRIL 20 MG (ACCUPRIL) TAB PO SCH (09:08)
[2016-05-31] MEDS: FUROSEMIDE 40 MG/4 ML INJ (LASIX) IVP SCH (09:08)
[2016-05-31] MEDS ORDERED: FUROSEMIDE 40 MG/4 ML INJ (LASIX) IVP NR (11:35)
[2016-05-31 12:00] VITALS: BP 167/77
[2016-05-31] MEDS: amLODIPine 10 MG (NORVASC) TAB PO SCH (12:05)
[2016-05-31 15:53] VITALS: BP 143/75
--- NOTE | 2016-05-31 18:50 | Progress Note (SOAP) ---
Subjective Subjective/Events-last exam Patient up in chair this AM. States that she feels alittle bit better but still short of breath when she is up ambulating. Tolerating PO diet. + BM in last 24 hrs. Needs assistance with ambulation Date seen by provider: May 31, 2016 Objective Exam Last Set of Vital Signs Vital Signs Date Time Temp Pulse Resp B/P (MAP) Pulse Ox O2 Delivery O2 Flow Rate FiO2 05/31/16 15:53 96.5 61 20 143/75 92 Nasal Cannula 6.00 Capillary Refill : Less Than 3 Seconds I&O Intake and Output 05/31/16 00:00 Intake Total 1435 ml Output Total 3000 ml Balance -1565 ml Intake Oral 1435 ml Output Urine Total 3000 ml General: Alert, Oriented X3, Cooperative, No Acute Distress HEENT: Mucous Memb Moist/[place] Neck: Supple, No JVD Lungs: Normal Air Movement, Other (Basilar crackles) Heart: Regular Rate, No Murmurs Abdomen: Normal Bowel Sounds, Soft, No Tenderness Extremities: Other (Pitting edema 2+ equal bilaterall) Skin: No Rashes Neuro: Normal Speech Psych/Mental Status: Mental Status NL, Other (depressed mood) Results/Procedures Lab Laboratory Tests 05/30/16 21:00: Glucometer 282H 05/31/16 04:51: White Blood Count 14.2H, Red Blood Count 3.32L, Hemoglobin 10.1L, Hematocrit 34L , Mean Corpuscular Volume 102H, Mean Corpuscular Hemoglobin 30, Mean Corpuscular Hemoglobin Concent 30L, Red Cell Distribution Width 16.9H, Platelet Count 172, Mean Platelet Volume 13.5H, Neutrophils (%) (Auto) 86H, Lymphocytes ( %) (Auto) 7L, Monocytes (%) (Auto) 6, Eosinophils (%) (Auto) 1, Basophils (%) ( Auto) 0, Neutrophils # (Auto) 12.2H, Lymphocytes # (Auto) 1.0, Monocytes # (Auto ) 0.8, Eosinophils # (Auto) 0.1, Basophils # (Auto) 0.0, Neutrophils % (Manual) 86, Lymphocytes % (Manual) 8, Monocytes % (Manual) 4, Eosinophils % (Manual) 1, Basophils % (Manual) 1, Band Neutrophils 0, Toxic Granulation 1+, Polychromasia SLIGHT, Hypochromasia SLIGHT, Anisocytosis MODERATE, Macrocytosis MODERATE, Sodium Level 143, Potassium Level 4.8, Chloride Level 103, Carbon Dioxide Level 34H, Anion Gap 6, Blood Urea Nitrogen 31H, Creatinine 0.84, Estimat Glomerular Filtration Rate > 60, BUN/Creatinine Ratio 37, Glucose Level 156H, Calcium Level 9.0 05/31/16 06:02: Glucometer 193H 05/31/16 11:58: Glucometer 248H 05/31/16 15:56: Glucometer 295H Radiology Date of Exam: 05/30/16 CHEST PA/LAT (2 VIEW) INDICATION: Congestive heart failure COMPARISON: May 29, 2016 TECHNIQUE: Two radiographs of the chest dated May 30, 2016 FINDINGS: The cardiac silhouette is enlarged, though stable. Central pulmonary vascular congestion is again identified. Diffuse prominence of the pulmonary interstitium is again identified, appearing slightly improved since the prior examination. Small bilateral pleural effusions. No new focal pulmonary opacity. No pneumothorax. Scattered osseous degenerative changes without acute osseous abnormality. IMPRESSION: Findings most compatible with slightly improving congestive heart failure with interstitial edema and small bibasilar pleural effusions. Assessment/Plan Assessment/Plan Plan 71 yo F that was admitted for acute respiratory failure Plan Acute Respiratory Failure: Likely Multi focal Diastolic HF vs VICKY vs PNA - Titrate oxygen to maintain O2 92% - Duonebs scheduled and PRN - Continue Doxycyclin D3 - Encourage ambulation and up to chair for meals - Aggressive Diuresis with IV lasix, monitor labs Acute on Chronic Diastolic CHF: See above Insulin Dependent DM - Continue home insulin, SSI ordered, Accuchecks /HS Lower Extremity Edema - Likely 2/2 diastolic HF Macrocytic Anemia: Stable, no signs of acute bleeding - Normal B12 and Folate levels during last hospitalization - Iron Sat low, started PO iron replacement FEN: Cardiac diet, 2L fluid restriction DVT PPX: Lovenox Dispo: Admit to medical floor on Tele Social: Recommend SNF placement after discharge but patient is very adamant that she wants to go home. PT/OT ordered Diagnosis/Problems: Clinical Quality Measures DVT/VTE Risk/Contraindication: Risk Factor Score Per Nursin RFS Level Per Nursing on Admit: 4+=Very High RENE SALAZAR MD May 31, 2016 18:49
[2016-05-31 20:11] VITALS: BP 131/70
[2016-05-31] MEDS: ENOXAPARIN 40 MG/0.4 ML (LOVENOX) SYR SC SCH (20:24)
[2016-05-31] MEDS: SIMvastatin 20 MG (ZOCOR) TAB PO SCH (20:25)
[2016-05-31] MEDS: SIMvastatin 40 MG (ZOCOR) TAB PO SCH (20:25)
[2016-05-31] MEDS: inSUlin DETERMIR 1 UNIT/0.01 ML (LEVEMIR) CHARGE PER UNIT SQ SCH (20:25)
[2016-05-31] MEDS: ATENOLOL 50 MG (TENORMIN) TAB PO SCH (20:26)
[2016-05-31] MEDS: LATANOPROST 0.005% (XALATAN) OPHTH SOLN 2.5 ML OU SCH (21:00)
[2016-06-01 00:27] VITALS: BP 167/79
[2016-06-01] MEDS: RT-ALBUTEROL/IPRATROPIUM 3 ML (DUONEB) VIAL INH SCH ×6 (02:55→22:07)
[2016-06-01 05:20] LABS: BASOPHILS % (AUTO) 0 % (0-10); EOSINOPHILS # (AUTO) 0.2 10^3/uL (0.0-0.3); EOSINOPHILS % (AUTO) 2 % (0-10); LYMPHOCYTES # (AUTO) 1.2 X 10^3 (1.0-4.0); LYMPHOCYTES % (AUTO) 11 % (12-44); MEAN CORPUSCULAR HEMOGLOBIN 31 PG (25-34); MEAN CORPUSCULAR HGB CONC 30 G/DL (32-36); MEAN CORPUSCULAR VOLUME 101 FL (80-99); MEAN PLATELET VOLUME 13.7 FL (7.4-10.4); MONOCYTES # (AUTO) 0.7 X 10^3 (0.0-1.0); MONOCYTES % (AUTO) 7 % (0-12); NEUTROPHILS # (AUTO) 8.7 X 10^3 (1.8-7.8); NEUTROPHILS % (AUTO) 80 % (42-75); PLATELET COUNT 163 10^3/uL (130-400); RED BLOOD COUNT 3.25 10^6/uL (4.35-5.85); WHITE BLOOD COUNT 10.8 10^3/uL (4.3-11.0)
[2016-06-01 05:40] LABS: CALCIUM 8.7 MG/DL (8.5-10.1); CREATININE SERUM 0.95 MG/DL (0.60-1.30); POTASSIUM 4.4 MMOL/L (3.6-5.0)
[2016-06-01] MEDS: inSUlin ASPART (NovoLOG) 1 UNIT/0.01 ML (CHARGE PER UNIT) SC SCH ×4 (06:47→21:58)
[2016-06-01] MEDS: FUROSEMIDE 40 MG/4 ML INJ (LASIX) IVP SCH (07:47)
[2016-06-01] MEDS: ASPIRIN E.C. 81 MG (ECOTRIN) TAB PO SCH (07:48)
[2016-06-01] MEDS: inSUlin DETERMIR 1 UNIT/0.01 ML (LEVEMIR) CHARGE PER UNIT SQ SCH ×2 (07:48→21:57)
[2016-06-01] MEDS: QUINAPRIL 20 MG (ACCUPRIL) TAB PO SCH (07:48)
[2016-06-01] MEDS: FERROUS SULF 325 MG (IRON) TAB PO SCH (07:48)
[2016-06-01] MEDS: DOXYCYCLINE 100 MG (VIBRAMYCIN) TABLET PO SCH ×2 (07:48→21:58)
[2016-06-01 08:00] VITALS: BP 132/59
--- NOTE | 2016-06-01 10:11 | Physical Therapy Evaluation ---
PT Evaluation-General Medical Diagnosis Admission Date May 31, 2016 at 11:30 Medical Diagnosis: Respiratory failure Onset Date: May 31, 2016 Therapy Diagnosis Therapy Diagnosis: general debility Height/Weight Height (Feet): 5 Height (Inches): 4.00 Weight (Pounds): 308 Weight (Ounces): 4.0 Precautions Precautions/Isolations: Fall Prevention, Standard Precautions Referral Physician: Mi Reason for Referral: Evaluation/Treatment Medical History Pertinent Medical History: DM, Heart Failure (new onset), HTN Additional Medical History recent DC from hospital with readmit secondary to increase SOA Current History DC to home with O2 and was up without O2 at home which resulted in decreased SAO2 Reviewed History: Yes Social History Home: Apartment Current Living Status: Alone Entry Into Home: Level Entry Prior/Core FIM Prior Level of Function Functional [place] Measure 0=Not Assessed/NA 4=Minimal Assistance 1=Total Assistance 5=Supervision or Setup 2=Maximal Assistance 6=Modified [place] 3=Moderate Assistance 7=Complete [place] Bed Mobility: 6 Transfers (B,C,W/C) (FIM): 6 Gait: 6 uses 4WW at home PLOF PT Evaluation-Current Subjective Patient agrees to PT. No c/o at this time. Pain Numeric Pain Scale: 0-No Pain Location: No Pain Reported Objective Patient Orientation: Normal For Age Problem Solving: Good Attachments: Oxygen (6L) ROM/Strength ROM Lower Extremities bilateral LE WFL Strenght Lower Extremities 4/5 grossly bilaterally Integumentary/Posture Integumentary refer to nursing notes Bowel Incontinence: No Bladder Incontinence: No Posture WNL Neuromuscular (Tone, Coordination, Reflexes) grossly intact Sensory Vision: Wears Glasses Hearing: Functional Sensation Right Lower Extremit: Impaired Sensation Left Lower Extremity: Impaired Transfers Functional [place] Measure 0=Not Assessed/NA 4=Minimal Assistance 1=Total Assistance 5=Supervision or Setup 2=Maximal Assistance 6=Modified [place] 3=Moderate Assistance 7=Complete [place] Transfers (B, C, W/C) (FIM): 5 Scootin Supine to/from Sit: 5 Sit to/from Stand: 5 Gait Mode of Locomotion: Walk Anticipated Mode of Locomotion: Walk Gait (FIM): 5 Distance (FIM): 3=150 ft Distance: 225' Gait Level of Assist: 5 Gait Persons Needed: 1 Gait Assistive Device: FWW Comments/Gait Description safe and functional with FWW and assist for O2 tank 6L with SAO2 >95% Balance Sitting Static: Normal Sitting Dynamic: Normal Standing Static: Normal Standing Dynamic: Normal Assessment/Needs 71 y.o. female, will benefit from skilled PT to address cardiopulmonary function with functional mobility and strengthening to ensure safe return to home at maximum LOF. Patient has difficulty negotiating extended O2 tubing. Rehab Potential: Fair PT Press Clippings Cutter And Paster Goals Half-Way Goals PT Half-Way Goals Time Frame: Jun 10, 2016 Transfers (B,C,W/C) (FIM): 6 Gait (FIM): 6 Gait distance (FIM): 3=150 ft Distance: 250' Gait Level of Assist: 6 Gait Assistive Device: FWW PT Plan Treatment/Plan Treatment Plan: Continue Plan of Care Treatment Plan: Education, Functional Activity Ananth, Functional Strength, Gait , Safety, Therapeutic Exercise Treatment Duration: Jun 10, 2016 # of days/week 5-6 Visits Per Week: 5-6 Pt/Family Agrees w/Plan: Yes Safety Risks/Education Patient Education: Safety Issues (O2 tubing ) Discharge Recommendations Therapy D/C Recommendations: Home Independently, Physical Therapy Home Care Time/GCodes Time In: 840 Time Out: 915 Total Billed Treatment Time: 35 Total Billed Treatment 1 visit EVModC 35 min G Codes Necessary: ES Bellamy PT Jun 01, 2016 10:11
[2016-06-01] MEDS: amLODIPine 10 MG (NORVASC) TAB PO SCH (11:06)
--- NOTE | 2016-06-01 11:29 | Progress Note-Hospitalist ---
Progress Note Progress Notes/Assess & Plan Date Seen 06/01/16 Diagonsis/Assessment & Plan Chart Review: No fever, Vitals stable, WBC normal 10.8, Hgb 9.9, CMP normal except sugar 218 Patient Interview: Pt states she is doing okay currently. Pt denies smoking. Pt denies being on home O2. Pt is having difficulty reaching her son-in- law by phone. Pt denies BM today. Physical exam was stable. Pt states she is not coughing as much today. No fever, vital signs stable, flat affect, sitting in chair Regular rate and rhythm, clear to auscultation bilaterally but diminished and distant breath sounds all mata 2+ pitting edema Laboratory Tests 06/01/16 04:30 Assessment/plan per [facility]: 71 yo F that was admitted for acute respiratory failure Plan Acute Respiratory Failure: Likely Multi focal Diastolic HF vs VICKY vs PNA - Titrate oxygen to maintain O2 92% - Duonebs scheduled and PRN - Continue Doxycyclin D3 - Encourage ambulation and up to chair for meals - Aggressive Diuresis with IV lasix, monitor labs Acute on Chronic Diastolic CHF: See above Insulin Dependent DM - Continue home insulin, SSI ordered, Accuchecks /HS Lower Extremity Edema - Likely 2/2 diastolic HF Macrocytic Anemia: Stable, no signs of acute bleeding - Normal B12 and Folate levels during last hospitalization - Iron Sat low, started PO iron replacement Plan: Check CXR Dr. Dozier consult Dr. Plummer consult Swing bed eval? Scribed by Amadou Rush under the direct supervision of Dr. Veliz. CARIN VELIZ DO Jun 01, 2016 11:29
--- NOTE | 2016-06-01 11:58 | Diagnostic Imaging Report ---
PA and lateral chest at 11:08 a.m. INDICATION: Respiratory distress. FINDINGS: The heart is enlarged; however, both the heart and the central pulmonary vascularity do seem less prominent than noted on the prior exam of 05/30/2016. There is most likely still an element of pulmonary congestion present. There are small bilateral pleural effusions still present and I suspect that there is some pneumonia/atelectasis in the right lung base as well. The mediastinum is not widened. The osseous structures are intact. IMPRESSION: The appearance of the chest has improved as both the heart and the central pulmonary vascularity are less prominent. A follow-up study will be recommended for continued evaluation. Dictated by: Dictated on workstation # [id number]
--- NOTE | 2016-06-01 13:24 | Pulmonary Consultation ---
History of Present Illness History of Present Illness Date of Consultation 06/01/16 13:19 Date of Admission History of Present Illness 71yo with recent hospitalization readmitted secondary to worsening SOB. She was discharged with oxygen during last discharge. she presented to ED on 05/30 secondary to worsening SOB even with oxygen. She has recently bacilio dx with CHF. Dr. Valentine is consulting me for pulmonary management. Allergies and Home Medications Allergies Coded Allergies: Penicillins (Unverified Allergy, Unknown, 05/25/16) morphine (Unverified Allergy, Unknown, 05/25/16) Home Medications Amlodipine Besylate 10 Mg Tablet, 10 MG PO 1100, (Reported) Aspirin 81 Mg Tablet.dr, 81 MG PO DAILY, (Reported) Atenolol 100 Mg Tablet, 100 MG PO HS, (Reported) Diclofenac Sodium 75 Mg Tablet.dr, 75 MG PO BID, (Reported) Dorzolamide HCl 10 Ml Drops, 1 DROP OU BID, (Reported) Furosemide 40 Mg Tablet, 40 MG PO DAILY, (Reported) Insulin Determir 1,000 Units/10 Ml Soln, 20 UNIT SQ BID for 30 Days Prescribed by: RENE SALAZAR on 05/28/16 1254 Latanoprost 2.5 Ml Drops, 1 DROP OU HS, (Reported) Metformin HCl 1,000 Mg Tablet, 1,000 MG PO BID WITH MEALS, (Reported) Multivitamin 1 Each Tablet, 1 TAB PO BID, (Reported) Quinapril HCl 40 Mg Tablet, 40 MG PO DAILY, (Reported) Simvastatin 20 Mg Tablet, 20 MG PO HS, (Reported) TAKES ALONG WITH 40MG TABLET FOR A TOTAL DOSE OF 60MG Simvastatin 40 Mg Tablet, 40 MG PO HS, (Reported) TAKES ALONG WITH 20MG TABLET FOR A TOTAL DOSE OF 60MG Past Kmcauzn-Rxodut-Jakziy Hx Patient Social History Alcohol Use: Denies Use Recreational Drug Use: No Smoking Status: Never a Smoker Recent Foreign Travel: No Contact w/Someone Who Travel: No Recent Infectious Disease Expo: No Recent Hopitalizations: No Physical Abuse Screen: No Sexual Abuse: No Immunizations Up To Date PED Vaccines UTD: Yes Date of Pneumonia Vaccine: May 25, 2013 Date of Influenza Vaccine: Nov 30, 2015 Seasonal Allergies Seasonal Allergies: No Surgeries HX Surgeries: Yes Surgeries: Hysterectomy, Joint Replacement Respiratory Hx Respiratory Disorders: Yes Respiratory Disorders: Asthma Cardiovascular Hx Cardiac Disorders: Yes (diastolic heart failure) Cardiac Disorders: High Cholesterol, Hypertension Neurological Hx Neurological Disorders: No 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 System [employer] History: Hysterectomy Genitourinary Hx Genitourinary Disorders: No Gastrointestinal Hx Gastrointestinal Disorders: Yes Gastrointestinal Disorders: Diverticulosis, Ulcer Musculoskeletal Hx Musculoskeletal Disorders: Yes (joint replacements) Musculoskeletal Disorders: Arthritis Endocrine Hx Endocrine Disorders: Yes Endocrine Disorders: Diabetes, Insulin dep HEENT HX ENT Disorders: No Cancer Hx Cancer: No Psychosocial Hx Psychiatric Problems: No Behavioral Health Disorders: Depression Blood Transfusions Adverse Reaction to a Blood Tr: No Family Medical History Family Medial History: CHF (congestive heart failure) 19 MOTHER Exam Exam Vital Signs Date Time Temp Pulse Resp B/P (MAP) Pulse Ox O2 Delivery O2 Flow Rate FiO2 06/01/16 11:30 96 6.00 06/01/16 08:00 96.8 69 20 132/59 95 Nasal Cannula 6.00 06/01/16 07:20 62 21 92 40.00 06/01/16 04:01 64 22 92 40.00 06/01/16 02:55 62 24 95 40.00 06/01/16 00:27 98.8 61 24 167/79 93 NIV/Bilevel 05/31/16 21:45 60 24 90 40.00 05/31/16 21:00 93 High Flow NC 6.00 05/31/16 20:11 97.2 65 20 131/70 91 Nasal Cannula 6.00 05/31/16 19:06 89 6.00 05/31/16 15:53 96.5 61 20 143/75 92 Nasal Cannula 6.00 05/31/16 14:35 91 6.00 I & O 06/01/16 07:00 Intake Total 2520 ml Output Total 775 ml Balance 1745 ml General Appearance: WD/WN, Mild Distress, Other HEENT: PERRL/EOMI, Normal ENT Inspection, Pharynx Normal (on CPAP) Neck: Normal Inspection Respiratory: Lungs Clear, No Accessory Muscle Use, Decreased Breath Sounds Cardiovascular: Regular Rate, Rhythm, No Edema, No Murmur Capillary Refill: Less Than 3 Seconds Gastrointestinal: normal bowel sounds, non tender, soft, no organomegaly, no pulsatile mass Extremity: Pedal Edema, Swelling (moderate pitting edema equal bilaterally) Neurologic/Psychiatric: Alert, Oriented x3, No Motor/Sensory Deficits, Normal Mood/Affect, phys therapist II-XII Norm as Tested Skin: Normal Color, Warm/Dry Results Lab Laboratory Tests 4/2/17 04:51 06/01/16 04:30 Clinical Quality Measures DVT/VTE Risk/Contraindication: Risk Factor Score Per Nursin RFS Level Per Nursing on Admit: 4+=Very High MAY GODWIN DO Jun 01, 2016 13:24
[2016-06-01 16:00] VITALS: BP 155/76
[2016-06-01] MEDS: ENOXAPARIN 40 MG/0.4 ML (LOVENOX) SYR SC SCH (18:23)
[2016-06-01] MEDS: LATANOPROST 0.005% (XALATAN) OPHTH SOLN 2.5 ML OU SCH (21:00)
[2016-06-01] MEDS: ATENOLOL 50 MG (TENORMIN) TAB PO SCH (21:58)
[2016-06-01] MEDS: SIMvastatin 40 MG (ZOCOR) TAB PO SCH (21:58)
[2016-06-01] MEDS: SIMvastatin 20 MG (ZOCOR) TAB PO SCH (21:58)
[2016-06-02] VITALS: BP 146/81
[2016-06-02] MEDS: RT-ALBUTEROL/IPRATROPIUM 3 ML (DUONEB) VIAL INH SCH ×6 (02:23→22:16)
[2016-06-02] MEDS: inSUlin ASPART (NovoLOG) 1 UNIT/0.01 ML (CHARGE PER UNIT) SC SCH ×5 (06:00→21:29)
[2016-06-02] MEDS: FERROUS SULF 325 MG (IRON) TAB PO SCH (06:16)
[2016-06-02 07:23] VITALS: BP 147/80
[2016-06-02] MEDS: inSUlin DETERMIR 1 UNIT/0.01 ML (LEVEMIR) CHARGE PER UNIT SQ SCH ×2 (07:42→21:13)
[2016-06-02] MEDS: DOXYCYCLINE 100 MG (VIBRAMYCIN) TABLET PO SCH ×2 (07:43→21:13)
[2016-06-02] MEDS: ASPIRIN E.C. 81 MG (ECOTRIN) TAB PO SCH (07:43)
[2016-06-02] MEDS: FUROSEMIDE 40 MG/4 ML INJ (LASIX) IVP SCH (07:43)
--- NOTE | 2016-06-02 09:49 | Consultation-Cardiology ---
HPI-Cardiology Cardiology Consultation: Date of Consultation 06/02/16 Date of Admission 05-29-16 Attending Physician Rene Salazar MD Admitting Physician Haley,[facility] Consulting Physician Alexis Jung MD FACP [facility] HPI: Chief Complaint: Dyspnea Ms. Jose is a 71 year old female who was discharged home with Home Health Care on 05-28-16. She was subsequently re-admitted the next day from the ED d/t increasing shortness of breath and low oxygen sats at home. She is currently sitting up in a recliner at the bedside. She reports she feels her breathing and lower extremity edema has improved. No c/o CP, palpitations, syncope or near syncope. She states she has been up ambulating with PT in the halls and has been able to do so with oxygen and without difficulty. No c/o n/v/d. No c/ o fever or chills. Review of Systems-Cardiology Review of Systems Constitutional: As described under HPI Eyes: No blurred vision, No drainage, No pain, No vision change Ears/Nose/Throat: No ear discharge, No ear pain, No nasal drainage, No ulcerations Respiratory: As described under HPI Cardiovascular: As described under HPI Gastrointestinal: No constipation, No diarrhea, No nausea, No vomiting, No stool coloration changes Genitourinary: No dysuria, No discharge, No frequency, No hematuria, No urgency Skin: No rash, No skin related problems, No ulcerations Psychiatric/Neurological: No anxiety, No depression, No focal weakness, No seizure, No syncope Hematologic: No bleeding abnormalities NMU-Libjgi-Wujkyi Hx Patient Social History Living Status: Home alone in house Alcohol Use: Denies Use Recreational Drug Use: No Smoking Status: Never a Smoker Recent Foreign Travel: No Recent Infectious Disease Expo: No Hospitalization with Isolation: Denies Physical Abuse Screen: No Sexual Abuse: No Immunizations Up To Date Date of Pneumonia Vaccine: May 25, 2013 Date of Influenza Vaccine: Nov 30, 2015 Past Medical History PMH As described under Assessment. Family Medical History Family Medical History: She does not report any family h/o premature CAD or SCD. Family History: CHF (congestive heart failure) 19 MOTHER Allergies and Home Medications Allergies Coded Allergies: Penicillins (Unverified Allergy, Unknown, 05/25/16) morphine (Unverified Allergy, Unknown, 05/25/16) Home Medications Amlodipine Besylate 10 Mg Tablet, 10 MG PO 1100, (Reported) Aspirin 81 Mg Tablet.dr, 81 MG PO DAILY, (Reported) Atenolol 100 Mg Tablet, 100 MG PO HS, (Reported) Diclofenac Sodium 75 Mg Tablet.dr, 75 MG PO BID, (Reported) Dorzolamide HCl 10 Ml Drops, 1 DROP OU BID, (Reported) Furosemide 40 Mg Tablet, 40 MG PO DAILY, (Reported) Insulin Determir 1,000 Units/10 Ml Soln, 20 UNIT SQ BID for 30 Days Prescribed by: RENE SALAZAR on 05/28/16 1254 Latanoprost 2.5 Ml Drops, 1 DROP OU HS, (Reported) Metformin HCl 1,000 Mg Tablet, 1,000 MG PO BID WITH MEALS, (Reported) Multivitamin 1 Each Tablet, 1 TAB PO BID, (Reported) Quinapril HCl 40 Mg Tablet, 40 MG PO DAILY, (Reported) Simvastatin 20 Mg Tablet, 20 MG PO HS, (Reported) TAKES ALONG WITH 40MG TABLET FOR A TOTAL DOSE OF 60MG Simvastatin 40 Mg Tablet, 40 MG PO HS, (Reported) TAKES ALONG WITH 20MG TABLET FOR A TOTAL DOSE OF 60MG Physical Exam-Cardiology Physical Exam Vital Signs/I&O Vital Sign - Last 12Hours 06/02/16 06/02/16 06/02/16 06/02/16 02:24 07:23 07:29 07:29 Temp 97.9 Pulse 54 55 54 Resp 17 20 19 B/P (MAP) 147/80 Pulse Ox 92 94 92 92 O2 Delivery NIV/Bilevel O2 Flow Rate 40.00 40.00 40.00 6.00 FiO2 06/02/16 11:15 Pulse Ox 100 O2 Flow Rate 6.00 Intake and Output 06/02/16 00:00 Intake Total 1710 ml Output Total 2025 ml Balance -315 ml Capillary Refill : Less Than 3 Seconds Constitutional: appears stated age, No apparent distress, well-developed, well- nourished HEENT: PERRL, No discharge, hearing is well preserved, oral hygience is good, No ulceration, No xanthelasmas are seen Neck: No carotid bruit, carotid pulses are 2 + bilaterally Respiratory: No accessory muscle use, No respiratory distress, chest expansion is symmetric, chest is bilaterally symmetric, other (poor inspiratory effort, fair air entry) Cardiovascular: regular rate-rhythm, No JVD, S1 and S2 Gastrointestinal: No tender, soft, round, audible bowel sounds Rectal: deferred Extremities: No clubbing, No cyanosis, significant edema (mod bilat LE edema) Neurologic/Psychiatric: alert, oriented x 3, power is 5/5 both on sides Skin: No rash, No ulcerations Lymphatic: no adenopathy Data Review Labs Laboratory Tests 06/01/16 16:50: Glucometer 277H 06/01/16 21:37: Glucometer 313H 06/02/16 05:45: Glucometer 109 06/02/16 10:48: Glucometer 212H Laboratory Tests 06/01/16 04:30 Radiology NAME: [facility]IMBERLY [facility] REC#: [id number] PT STATUS: ADM IN : 1945 PHYSICIAN: CARIN VELIZ DO ADMIT DATE: 05/31/16 Draft Date of Exam:06/01/16 CHEST PA/LAT (2 VIEW) PA and lateral chest at 11:08 a.m. INDICATION: Respiratory distress. FINDINGS: The heart is enlarged; however, both the heart and the central pulmonary vascularity do seem less prominent than noted on the prior exam of 05/30/2016. There is most likely still an element of pulmonary congestion present. There are small bilateral pleural effusions still present and I suspect that there is some pneumonia/atelectasis in the right lung base as well. The mediastinum is not widened. The osseous structures are intact. IMPRESSION: The appearance of the chest has improved as both the heart and the central pulmonary vascularity are less prominent. A follow-up study will be recommended for continued evaluation. Dictated on workstation # [id number] Dict: 06/01/16 1141 Trans: 06/01/16 1158 [id number] Interpreted by: TOMÁS GIPSON MD Electronically signed by: A/P-Cardiology Assessment/Admission Diagnosis Shortness of breath, multifactorial (see below) Obesity with obesity-hypoventilation syndrome Mild ac diastolic CHF. Echo of showed LVEF 60%, no significant valvular heart disease, PASP within normal limits Possible pneumonia/bronchitis - pulmonary/medical services managing Physical deconditioning DM II Hypertension Hyperlipidemia, by history (LDL 70, Chol 121 on lab of 05-26-16) Mild anemia of undetermined etiology, managed by the Medical Service H/o bilateral knee and of L hip replacement Bilat LE edema likely in some part d/t venous insufficiency and/or calcium channel delphine Discussion and Recomendations Multifactorial dyspnea likely r/t obesity/hypoventilation syndrome, acute on chronic diastolic CHF, physical deconditioning and pneumonia/bronchitis. Change IV lasix to oral starting tomorrow. Monitor lab closely. Advise sleep study as an outpatient. Lower extremity edema likely in some part d/t venous insufficiency and/or calcium channel delphine. We will stop Norvasc and start Hydralazine 25mg BID for blood pressure control. Continue PT. Further recommendations will be based on her hospital course. We would like to thank the Hospitalist service for this consult. This consult is being scribed by Marsha Spann APRN on behalf of Dr. Jung after discussion regarding plan of care. Clinical Quality Measures DVT/VTE Risk/Contraindication: Risk Factor Score Per Nursin RFS Level Per Nursing on Admit: 4+=Very High Physician Assessment Physician Assessment Lungs: good bilat air entry Cor: reg A&R * As documented in our note above that I updated at the time of this writing * I have advised sleep studies and treatment of sleep apnea, if found. She understands, but refuses * I have advised home oxygen use as directed by the Medical Service * I have advised efforts at wgt loss * She admits to drinking large quantities of fluid at home to keep her "kidneys flushed." Given that our attempts are at intravascular vol reduction (diuretics ) to help diastolic CHF, we have advised reducing to fluids to consumption only if thirsty * I spoke with her in detail and answered questions NACHO SPANN Jun 02, 2016 09:48 ALEXIS JUNG MD FACP [facility] CCDS Jun 02, 2016 12:55
--- NOTE | 2016-06-02 09:50 | Physical Therapy Daily Note ---
PT Daily Note-Current Subjective Patient agrees to therapy. Patient states she is feeling "a little better" today. Pain Numeric Pain Scale: 0-No Pain Location: No Pain Reported Appearance 2+ edema bilateral LE Mental Status Patient Orientation: Normal For Age Attachments: Oxygen (5-6L) Transfers Functional [place] Measure 0=Not Assessed/NA 4=Minimal Assistance 1=Total Assistance 5=Supervision or Setup 2=Maximal Assistance 6=Modified [place] 3=Moderate Assistance 7=Complete IndependenceIRFPAI Quality Coding Scale 6 Independent with activity with or without an assistive device 5 Patient requires set up or clean up by helper. Patient completes activity by themselves 4 Supervision or touching assist (CGA). [place] provide cues , steadying assist 3 The helper provides less than half the effort to complete the activity 2 The helper provides more than half the effort to complete the activity 1 Dependent. The helper does all the effort to complete an activity 7 Patient refused to complete or attempt activity 9 The patient did not perform the activity before the current illness or injury 88 Not attempted due to Medical conditions or safety concerns Transfers (B, C, W/C) (FIM): 6 Scootin Sit to/from Stand: 6 Patient safely negotiates O2 tubing when up in room ambulating with FWW to restroom. Gait Training Gait (FIM): 6 Distance (FIM): 3=150 ft Distance: 400' Gait Level of Assist: 6 Gait Assistive Device: FWW assist for O2 tank; safe and functional gait sequence with FWW Assessment Patient ceases treatment due to her breakfast had arrived. PT to increase activity as tolerated by patient. PT Streetcar Repairer Helper Goals [place] Goals PT Streetcar Repairer Helper Goals Time Frame: Jun 10, 2016 Transfers (B,C,W/C) (FIM): 6 Gait (FIM): 6 Gait distance (FIM): 3=150 ft Distance: 250' Gait Level of Assist: 6 Gait Assistive Device: FWW PT Plan Treatment/Plan Treatment Plan: Continue Plan of Care Treatment Plan: Education, Functional Activity Ananth, Functional Strength, Gait , Safety, Therapeutic Exercise Treatment Duration: Jun 10, 2016 Visits Per Week: 5-6 Time/GCodes Time In: 840 Time Out: 853 Total Billed Treatment Time: 13 Total Billed Treatment 1 visit FA 13 min ES DIALLO PT Jun 02, 2016 09:50
--- NOTE | 2016-06-02 10:51 | Progress Note-Hospitalist ---
Progress Note Progress Notes/Assess & Plan Date Seen 06/02/16 Diagonsis/Assessment & Plan Chart Review: No fever, Vitals stable, No events overnight, Cardiology consultation reviewed, Pulmonary consolation reviewed Patient Interview: Pt states she is doing a little better. Pt states she had BM. Pt states she is eating and drinking okay. Pt states she ambulated with PT this morning and she felt good. Physical exam was stable. Pt states she has no needs currently. Scribed by Amadou Rush under the direct supervision of Dr. Veliz. No fever, vital signs stable, flat affect, sitting in chair Regular rate and rhythm, clear to auscultation bilaterally but diminished and distant breath sounds all mata 1+ pitting edema Assessment/plan per CHC: 71 yo F that was admitted for acute respiratory failure 1 day after DC to Plan Acute Respiratory Failure: Likely Multi focal Diastolic HF vs VICKY vs PNA Acute on Chronic Diastolic CHF Insulin Dependent DM Lower Extremity Edema Macrocytic Anemia: Stable, no signs of acute bleeding Plan: Dr. Dozier consult appreciated Dr. Plummer consult appreciated Swing bed eval vs. IRF? Scribed by Amadou Rush under the direct supervision of Dr. Veliz. CARIN VELIZ DO Jun 02, 2016 10:51
[2016-06-02] MEDS: QUINAPRIL 20 MG (ACCUPRIL) TAB PO SCH (12:12)
[2016-06-02 16:00] VITALS: BP 160/76
[2016-06-02] MEDS: DOCUSATE SODIUM 100 MG (COLACE) CAP PO SCH (17:38)
[2016-06-02] MEDS: ENOXAPARIN 40 MG/0.4 ML (LOVENOX) SYR SC SCH (18:08)
[2016-06-02] MEDS: LATANOPROST 0.005% (XALATAN) OPHTH SOLN 2.5 ML OU SCH (21:00)
[2016-06-02] MEDS: SIMvastatin 40 MG (ZOCOR) TAB PO SCH (21:14)
[2016-06-02] MEDS: SIMvastatin 20 MG (ZOCOR) TAB PO SCH (21:14)
[2016-06-02] MEDS: ATENOLOL 50 MG (TENORMIN) TAB PO SCH (21:14)
[2016-06-02] MEDS: hydrALAZINE (APRESOLINE) 25 MG TAB PO SCH (21:14)
[2016-06-03 00:15] VITALS: BP 130/57
[2016-06-03] MEDS: RT-ALBUTEROL/IPRATROPIUM 3 ML (DUONEB) VIAL INH SCH ×4 (02:23→15:04)
[2016-06-03] MEDS: inSUlin ASPART (NovoLOG) 1 UNIT/0.01 ML (CHARGE PER UNIT) SC SCH ×2 (06:00→11:12)
[2016-06-03 06:58] LABS: ANION GAP 8 MMOL/L (5-14); BLOOD UREA NITROGEN 26 MG/DL (7-18); BUN/CREATININE RATIO 31; CALCIUM 8.4 MG/DL (8.5-10.1); CARBON DIOXIDE 34 MMOL/L (21-32); CHLORIDE 100 MMOL/L (98-107); CREATININE SERUM 0.83 MG/DL (0.60-1.30); GFR ESTIMATED > 60; GLUCOSE 175 MG/DL (70-105); MAGNESIUM 1.9 MG/DL (1.8-2.4); POTASSIUM 4.1 MMOL/L (3.6-5.0); SODIUM 142 MMOL/L (135-145)
[2016-06-03] MEDS: FERROUS SULF 325 MG (IRON) TAB PO SCH (07:03)
[2016-06-03 07:26] VITALS: BP 156/84
[2016-06-03] MEDS: inSUlin DETERMIR 1 UNIT/0.01 ML (LEVEMIR) CHARGE PER UNIT SQ SCH (07:59)
[2016-06-03] MEDS: QUINAPRIL 20 MG (ACCUPRIL) TAB PO SCH (08:00)
[2016-06-03] MEDS: DOCUSATE SODIUM 100 MG (COLACE) CAP PO SCH (08:00)
[2016-06-03] MEDS: FUROSEMIDE 40 MG/4 ML INJ (LASIX) IVP SCH (08:00)
[2016-06-03] MEDS: hydrALAZINE (APRESOLINE) 25 MG TAB PO SCH (08:00)
[2016-06-03] MEDS: DOXYCYCLINE 100 MG (VIBRAMYCIN) TABLET PO SCH (08:00)
[2016-06-03] MEDS: ASPIRIN E.C. 81 MG (ECOTRIN) TAB PO SCH (08:00)
--- NOTE | 2016-06-03 09:15 | Pulmonary Progress Note ---
Subjective Subjective/Events-last exam Pt feels improved. No complications noted. Exam Exam Vital Signs Date Time Temp Pulse Resp B/P (MAP) Pulse Ox O2 Delivery O2 Flow Rate FiO2 06/03/16 07:26 98.3 63 18 156/84 91 Nasal Cannula 2.00 06/03/16 06:45 93 2.00 06/03/16 02:23 91 2.00 06/03/16 00:15 99.7 58 18 130/57 94 Nasal Cannula 2.00 06/02/16 22:16 93 2.00 06/02/16 18:38 94 2.00 06/02/16 16:00 98.2 62 19 160/76 92 Nasal Cannula 2.00 06/02/16 15:52 96 4.00 06/02/16 11:15 100 6.00 I & O 06/03/16 07:00 Intake Total 1130 ml Output Total 1950 ml Balance -820 ml General Appearance: WD/WN, Mild Distress, Other HEENT: PERRL/EOMI, Normal ENT Inspection, Pharynx Normal (on CPAP) Neck: Normal Inspection Respiratory: Lungs Clear, No Accessory Muscle Use, Decreased Breath Sounds Cardiovascular: Regular Rate, Rhythm, No Edema, No Murmur Capillary Refill: Less Than 3 Seconds Gastrointestinal: normal bowel sounds, non tender, soft, no organomegaly, no pulsatile mass Extremity: Pedal Edema, Swelling (moderate pitting edema equal bilaterally) Neurologic/Psychiatric: Alert, Oriented x3, No Motor/Sensory Deficits, Normal Mood/Affect, molder inflated ball II-XII Norm as Tested Skin: Normal Color, Warm/Dry Results Lab Laboratory Tests 06/03/16 05:53 Assessment/Plan Assessment/Plan Dyspnea - improving Diastolic CHF with pulmonary edema - improving -Continue lasix Clinical Quality Measures DVT/VTE Risk/Contraindication: Risk Factor Score Per Nursin RFS Level Per Nursing on Admit: 4+=Very High MAY GODWIN DO Jun 03, 2016 09:15
--- NOTE | 2016-06-03 09:49 | Progress Note-Cardiology ---
Cardiology SOAP Progress Note Subjective: Sitting up in a chair at the bedside. States she "thinks she feels better". No c/o CP, palpitations, syncope or near syncope. Objective: I&O/Vital Signs Vital Sign - Last 12Hours 06/03/16 06/03/16 06/03/16 06/03/16 06:45 07:26 09:00 10:53 Temp 98.3 Pulse 63 Resp 18 B/P (MAP) 156/84 Pulse Ox 93 91 95 94 O2 Delivery Nasal Cannula Nasal Cannula O2 Flow Rate 2.00 2.00 2.00 2.00 06/03/16 06/03/16 15:04 15:45 Pulse 63 Resp 18 B/P (MAP) 156/84 Pulse Ox 93 93 O2 Flow Rate 2.00 2.00 Intake and Output 06/03/16 00:00 Intake Total 1130 ml Output Total 1550 ml Balance -420 ml Weight (Pounds): 303 Weight (Ounces): 0.6 Weight (Calculated Kilograms): 137.788996 Constitutional: appears stated age, No apparent distress, well-developed, well- nourished Respiratory: No accessory muscle use, No respiratory distress, chest expansion is symmetric, chest is bilaterally symmetric, other (poor inspiratory effort, fair air entry) Cardiovascular: regular rate-rhythm, No JVD, S1 and S2 Gastrointestional: No tender, soft, round, audible bowel sounds Extremities: No clubbing, No cyanosis, significant edema (mod bilat LE edema - improved) Neurologic/Psychiatric: alert, oriented x 3, power is 5/5 both on sides Skin: No rash, No ulcerations Results/Procedures: Labs Laboratory Tests 06/02/16 21:25: Glucometer 285H 06/03/16 05:53: Sodium Level 142, Potassium Level 4.1, Chloride Level 100, Carbon Dioxide Level 34H, Anion Gap 8, Blood Urea Nitrogen 26H, Creatinine 0.83, Estimat Glomerular Filtration Rate > 60, BUN/Creatinine Ratio 31, Glucose Level 175H, Calcium Level 8.4L, Magnesium Level 1.9 06/03/16 06:53: Glucometer 193H 06/03/16 10:55: Glucometer 246H A/P: Assessment: Shortness of breath, multifactorial (see below) Obesity with obesity-hypoventilation syndrome Mild ac diastolic CHF. Echo of showed LVEF 60%, no significant valvular heart disease, PASP within normal limits Possible pneumonia/bronchitis - pulmonary/medical services managing Physical deconditioning DM II Hypertension Hyperlipidemia, by history (LDL 70, Chol 121 on lab of 05-26-16) Mild anemia of undetermined etiology, managed by the Medical Service H/o bilateral knee and of L hip replacement Bilat LE edema likely in some part d/t venous insufficiency and/or calcium channel delphine Plan: Multifactorial dyspnea likely r/t obesity/hypoventilation syndrome, acute on chronic diastolic CHF, physical deconditioning and pneumonia/bronchitis. Advise sleep study as an outpatient. Lower extremity edema likely in some part d/t venous insufficiency and/or calcium channel delphine. We have stopped Norvasc and started Hydralazine 25mg BID for blood pressure control. Cardiac status clinically stable for discharge with out pt f/u Physician Assessment Physician Assessment Lungs: good bilat air entry Cor: reg Leg swelling: improved A&R * As documented in our note above * Outpat f/u advised NACHO [employer] COMMISSIONER Jun 03, 2016 09:49 JUAN CARLOS MOTTA MD FACP [facility]S Jun 03, 2016 18:12
[2016-06-03] MEDS ORDERED: LACTULOSE SYRUP 10GM/15ML (ENULOSE) 30ML UDC PO NR (10:13)
[2016-06-03] MEDS ORDERED: BISACODYL 10 MG SUPP (DULCOLAX) PR NR (10:14)
[2016-06-03] MEDS ORDERED: BISACODYL 5 MG (DULCOLAX) TABLET PO NR (10:17)
--- NOTE | 2016-06-03 10:49 | Physical Therapy Daily Note ---
PT Daily Note-Current Subjective Pt in restroom upon arrival, PT will check back. PT agrees to walking for PT tx. Pt reports discharging today,nurse confirms at end of tx. Pain Location: No Pain Reported Mental Status Patient Orientation: Person, Place, Time, Situation Attachments: Oxygen (2.5L) Transfers Functional [place] Measure 0=Not Assessed/NA 4=Minimal Assistance 1=Total Assistance 5=Supervision or Setup 2=Maximal Assistance 6=Modified [place] 3=Moderate Assistance 7=Complete IndependenceIRFPAI Quality Coding Scale 6 Independent with activity with or without an assistive device 5 Patient requires set up or clean up by helper. Patient completes activity by themselves 4 Supervision or touching assist (CGA). [place] provide cues , steadying assist 3 The helper provides less than half the effort to complete the activity 2 The helper provides more than half the effort to complete the activity 1 Dependent. The helper does all the effort to complete an activity 7 Patient refused to complete or attempt activity 9 The patient did not perform the activity before the current illness or injury 88 Not attempted due to Medical conditions or safety concerns Transfers (B, C, W/C) (FIM): 5 Scootin Sit to/from Stand: 5 Weight Bearing Weight Bearing Restriction: Full Weight Bearing Location Restriction: LE Bilateral Gait Training Gait (FIM): 5 Distance (FIM): 3=150 ft Distance: 250' Gait Level of Assist: 5 Gait Persons Needed: 1 Gait Assistive Device: FWW Treatments Pt transferred from recliner using FWW at [facility]. Pt ambulated using FWW at [facility] in hallway then wanted to return to room for lunch. Pt returned to recliner to rest at end of tx with all needs met. Assessment Current Status: Fair Progress Pt reports discharging today, nursing confirmed at end of tx. Pt wants to get home so will walk so she can go home. PT Penitentiary Goals Penitentiary Goals PT Penitentiary Goals Time Frame: Jun 10, 2016 Transfers (B,C,W/C) (FIM): 6 Gait (FIM): 6 Gait distance (FIM): 3=150 ft Distance: 250' Gait Level of Assist: 6 Gait Assistive Device: FWW PT Plan Problem List Problem List: Activity Tolerance, Functional Strength, Gait Treatment/Plan Treatment Plan: Continue Plan of Care Treatment Plan: Education, Functional Activity Ananth, Functional Strength, Gait , Safety, Therapeutic Exercise Treatment Duration: Jun 10, 2016 Visits Per Week: 5-6 Safety Risks/Education Patient Education: Gait Training, Transfer Techniques, Correct Positioning, Safety Issues Teaching Recipient: Patient Teaching Methods: Discussion Response to Teaching: Verbalize Understanding Time/GCodes Time In: 1150 Time Out: 1205 Total Billed Treatment Time: 15 Total Billed Treatment visit, GT (15m) RENATA ANTOINE PTA Jun 03, 2016 10:49
[2016-06-03] MEDS ORDERED: HYDR-3923 PO (11:35)
[2016-06-03] MEDS ORDERED: BISA5TAB8 PO (11:35)
[2016-06-03] MEDS ORDERED: DOXY100T2 PO (11:35)
[2016-06-03] MEDS ORDERED: LACT20SO2 PO (11:35)
[2016-06-03] MEDS ORDERED: FERR-74 PO (11:35)
--- NOTE | 2016-06-03 11:37 | Discharge Inst-Home Health ---
Discharge [facility]-Home Health Patient Instructions Patient Instructions/FU Appt: [facility] on 06/08/16 as scheduled Patient Problems: CHF O2 dependency Edema Constipation DM VIA [place] DISCHARGE ORDERS Allergies: Coded Allergies: Penicillins (Unverified Allergy, Unknown, 05/25/16) morphine (Unverified Allergy, Unknown, 05/25/16) Height (Feet): 5 Height (Inches): 4.00 Weight (Pounds): 303 Weight (Ounces): 0.6 Weight (Calculated Kilograms): [phone] Home Health Need/Face to Face Need for Home Health Weakness, CHF I Have Seen Pt [id number]: Yes Date of Face to Face: Jun 03, 2016 Discharged To: Home Diagnosis/Conditions HH Order: med administration Oxygen counseling Consult/Follow Up/New Order *I certify that based on my findings, the following services are medically necessary Home Health Services: Services: Nursing Services, Key Cutter-Evaluate & Treat, Physical Therapy-Evaluate & Treat My clinical findings support the need for the above services; see Diagnosis. Discharge Diet: Low Sodium Diet, ADA Diet, Cardiac Diet Daily Activity as Tolerated: Yes Discharge Medications New, Converted or Re-Newed RX: Transmitted to Pharmacy I certify that this patient is under my care and that I, a nurse practitioner or a physician; a assistant track and field coach working with me, had a face to face encounter that - meets the physician face to face encounter requirements with this patient as dated. CARIN VELIZ DO Jun 03, 2016 11:37
--- NOTE | 2016-06-03 11:44 | Discharge Summary-Hospitalist ---
Diagnosis/Chief Complaint Date of Admission May 31, 2016 at 11:30 Date of Discharge Discharge Date: Jun 03, 2016 Admission Diagnosis Acute Respiratory Failure: Likely Multi focal Diastolic HF vs VICKY vs PNA Acute on Chronic Diastolic CHF Insulin Dependent DM Lower Extremity Edema Macrocytic Anemia: Stable, no signs of acute bleeding Discharge Diagnosis Acute Respiratory Failure: Likely Multi focal Diastolic HF vs VICKY vs PNA Acute on Chronic Diastolic CHF Insulin Dependent DM Lower Extremity Edema Macrocytic Anemia: Stable, no signs of acute bleeding Chart Review: No fever, Vitals stable, No events overnight, Cardiology consultation reviewed, Pulmonary consolation reviewed Patient Interview: Pt states she is doing a little better. Pt states she had BM. Pt states she is eating and drinking okay. Pt states she ambulated with PT this morning and she felt good. Physical exam was stable. Pt states she has no needs currently. Scribed by Amadou Rush under the direct supervision of Dr. Veliz. No fever, vital signs stable, flat affect, sitting in chair Regular rate and rhythm, clear to auscultation bilaterally but diminished and distant breath sounds all mata 1+ pitting edema Assessment/plan per [facility]: 71 yo F that was admitted for acute respiratory failure 1 day after DC to Plan Acute Respiratory Failure: Likely Multi focal Diastolic HF vs VICKY vs PNA Acute on Chronic Diastolic CHF Insulin Dependent DM Lower Extremity Edema Macrocytic Anemia: Stable, no signs of acute bleeding Plan: Dr. Dozier consult appreciated Dr. Plummer consult appreciated Swing bed eval vs. IRF? Scribed by Amadou Rush under the direct supervision of Dr. Veliz. Reason Hospital Visit/Course 06/03/16 Chart Review: Isolated low grade fever 99.7, CMP normal Dr. Plummer Review: Will go home on home health. Pt is down to 4L. SW Review: Pt can be DC today. Pt would like [facility]. Pt had O2 and a walker. business process consultant: Pt is constipated. Patient Interview: Pt states she is constipated. Pt states her last BM was a couple of days ago. Pt states she is okay with going home today. Pt states she has a follow up appointment on Wednesday. Physical exam was stable. Pt uses [facility]. Scribed by Amadou Rush under the direct supervision of Dr. Veliz. No fever, vital signs stable, pleasant, improved Regular rate and rhythm, clear to auscultation bilaterally diminished breath sounds but improved expansion Improved edema Hospital course: Patient had a lengthy hospital course she was admitted one day after she was discharged due to volume overload and hypoxia even though she went home on oxygen and home health. Overall she required IV diuretics and antibiotic administration along with insulin for blood sugar management and close laboratory monitoring. Cardiology and pulmonology were both consulted to help manage this very complicated patient and overall her prognosis remains very poor considering her lack of motivation to be significantly involved in her care and minimize sodium in her diet and the rest of the recommendations. She wished to have [place] home care which was restarted at time of discharge and bowel regimen was initiated and maintained at discharge due to constipation for 2 days prior to discharge. She will have close follow-up with [facility] but she refused to go to detention other she meets criteria and likely would succeed in that environment but overall close follow-up will be maintained by [facility] to try to prevent readmissions. Discharge Summary Discharge Physical Examination Allergies: Coded Allergies: Penicillins (Unverified Allergy, Unknown, 05/25/16) morphine (Unverified Allergy, Unknown, 05/25/16) Vitals & I&Os Vital Signs Date Time Temp Pulse Resp B/P (MAP) Pulse Ox O2 Delivery O2 Flow Rate FiO2 06/03/16 10:53 94 2.00 06/03/16 07:26 98.3 63 18 156/84 Nasal Cannula 06/02/16 07:29 Hospital Course Labs (last 24 hrs) Laboratory Tests 06/02/16 16:03: Glucometer 253H 06/02/16 21:25: Glucometer 285H 06/03/16 05:53: Sodium Level 142, Potassium Level 4.1, Chloride Level 100, Carbon Dioxide Level 34H, Anion Gap 8, Blood Urea Nitrogen 26H, Creatinine 0.83, Estimat Glomerular Filtration Rate > 60, BUN/Creatinine Ratio 31, Glucose Level 175H, Calcium Level 8.4L, Magnesium Level 1.9 06/03/16 06:53: Glucometer 193H 06/03/16 10:55: Glucometer 246H Pending Labs Laboratory Tests 06/03/16 05:53: Sodium Level 142, Potassium Level 4.1, Chloride Level 100, Carbon Dioxide Level 34, Anion Gap 8, Blood Urea Nitrogen 26, Creatinine 0.83, Estimat Glomerular Filtration Rate > 60, BUN/Creatinine Ratio 31, Glucose Level 175, Calcium Level 8.4, Magnesium Level 1.9 06/03/16 06:53: Glucometer 193 06/03/16 10:55: Glucometer 246 Discharge Home Medications: Active Scripts Active Bisacodyl 5 Mg Tablet.dr 5 Mg PO 1017 Lactulose 20 Gm/30 Ml Solution 10 Gm PO 1013 Hydralazine HCl 25 Mg Tablet 25 Mg PO BID Ferrous Sulfate 325 Mg Tablet 325 Mg PO DAILY@0700 Doxycycline Hyclate 100 Mg Tablet 100 Mg PO BID Levemir (Insulin Determir) 1,000 Units/10 Ml Soln 20 Unit SQ BID 30 Days Reported Daily Multiple Vitamin (Multivitamin) 1 Each Tablet 1 Tab PO BID Aspirin EC (Aspirin) 81 Mg Tablet.dr 81 Mg PO DAILY Dorzolamide HCl 10 Ml Drops 1 Drop OU BID Latanoprost 2.5 Ml Drops 1 Drop OU HS Diclofenac Sodium 75 Mg Tablet.dr 75 Mg PO BID Furosemide 40 Mg Tablet 40 Mg PO DAILY Metformin HCl 1,000 Mg Tablet 1,000 Mg PO BID WITH MEALS Amlodipine Besylate 10 Mg Tablet 10 Mg PO 1100 Quinapril HCl 40 Mg Tablet 40 Mg PO DAILY Atenolol 100 Mg Tablet 100 Mg PO HS Simvastatin 40 Mg Tablet 40 Mg PO HS TAKES ALONG WITH 20MG TABLET FOR A TOTAL DOSE OF 60MG Simvastatin 20 Mg Tablet 20 Mg PO HS TAKES ALONG WITH 40MG TABLET FOR A TOTAL DOSE OF 60MG Instructions to patient/family Please see electonic discharge instructions given to patient. Clinical Quality Measures DVT/VTE Risk/Contraindication: Risk Factor Score Per Nursin RFS Level Per Nursing on Admit: 4+=Very High CARIN VELIZ DO Jun 03, 2016 11:44
[2016-06-03 14:40] VITALS: BP 133/78
[2016-06-03 15:45] VITALS: BP 156/84
[2016-06-04] MEDS ORDERED: FUROSEMIDE 40 MG (LASIX) TAB PO SCH (09:00)
== END 2016-06-03 15:45 | disposition home health service (06) | DRG 189 ==
LOC: EDUNIT# 18:23 → ER 18:24 → 4TH 20:00 → UNDOADMOB 20:00 → 4TH 20:30 → OBSVTOIN 05-31 11:30 → INTOOBSV 05-31 11:30
PROVIDERS: ADMIT Family Medicine; ATTEND Family Medicine
DX: J96.21 Acute and chronic respiratory failure with hypoxia (principal); J96.22 Acute and chronic respiratory failure with hypercapnia; I11.0 Hypertensive heart disease with heart failure; I50.33 Acute on chronic diastolic (congestive) heart failure; J44.9 Chronic obstructive pulmonary disease, unspecified; J45.909 Unspecified asthma, uncomplicated; E11.9 Type 2 diabetes mellitus without complications; D53.9 Nutritional anemia, unspecified; E78.00 Pure hypercholesterolemia, unspecified; F32.9 Major depressive disorder, single episode, unspecified; K57.90 Diverticulosis of intestine, part unspecified, without perforation or abscess without bleeding; Z99.81 Dependence on supplemental oxygen; Z79.4 Long term (current) use of insulin; E66.2 Morbid (severe) obesity with alveolar hypoventilation; Z68.43 Body mass index [BMI] 50.0-59.9, adult; R60.0 Localized edema; K59.00 Constipation, unspecified
CPT/HCPCS: 36415; 71010; 71020; 80048; 80053; 82805; 82962; 83735; 83880; 85007; 85025; 85027; 86141; 93041; 94640; 94660; 94760; G0378

== ENCOUNTER 2016-07-07 14:50 | Inpatient (IN) | payer MEDICARE, MEDICAID ==
[~2016-07-07] VITALS: Ht 162.6 cm; Wt 137.2 kg
[2016-07-07] VITALS (9 sets, daily range): BP systolic 137–169; BP diastolic 67–122
[~2016-07-07 14:50] MED LIST changes: +BISA5TAB8 PO; +DOXY100T2 PO; +FERR-74 PO; +HYDR-3923 PO; +LACT20SO2 PO
--- NOTE | 2016-07-07 15:18 | ED Respiratory ---
General Chief Complaint: Respiratory Problems Stated Complaint: SOA/FLUID RETENTION Nursing Triage Note: PT ARRIVED PER EMS WITH 02 AT 4L. PT HOME HEALTH NURSE STATED PT NEEDED TO COME TO ER DUE TO FLUID RETENTION. PT COMPLAINS OF SOB. Source: patient Exam Limitations: no limitations History of Present Illness Time seen by provider: 14:50 Initial Comments Here by EMS with breathing problems and not feeling well. This is worsened over the last couple of days. She reports that she is retaining fluid and notes increased fluid in her legs. Also has increased swelling of her right hand where she has a wound that is noted near the third MCP joint dorsally and has significant redness of the hand and arm. Denies dysuria, diarrhea, vomiting or chest pain. Shortness of breath improved with increased oxygen. Timing/Duration: getting worse Severity: moderate Prior Episodes/Possible Cause: occasional episodes Modifying Factors: Improves With Oxygen, Improves With Rest Associated Symptoms: No chest pain/soreness, No fever/chills, No nasal congestion, shortness of breath, No wheezing Allergies and Home Medications Allergies Coded Allergies: Penicillins (Unverified Allergy, Unknown, 05/25/16) morphine (Unverified Allergy, Unknown, 05/25/16) Home Medications Aspirin 81 Mg Tablet.dr, 81 MG PO DAILY, (Reported) Atenolol 100 Mg Tablet, 100 MG PO HS, (Reported) Bisacodyl 5 Mg Tablet.dr, 5 MG PO 1017, #30 Prescribed by: CARIN VELIZ on 06/03/16 1135 Dorzolamide HCl 10 Ml Drops, 1 DROP OU BID, (Reported) Doxycycline Hyclate 100 Mg Tablet, 100 MG PO BID, #4 Prescribed by: CARIN VELIZ on 06/03/16 1135 Ferrous Sulfate 325 Mg Tablet, 325 MG PO DAILY@0700, #30 Prescribed by: CARIN VELIZ on 06/03/16 1135 Furosemide 40 Mg Tablet, 40 MG PO DAILY, (Reported) Hydralazine HCl 25 Mg Tablet, 25 MG PO BID, #60 Prescribed by: CARIN VELIZ on 06/03/16 1135 Insulin Determir 1,000 Units/10 Ml Soln, 20 UNIT SQ BID for 30 Days Prescribed by: RENE SALAZAR on 05/28/16 1254 Lactulose 20 Gm/30 Ml Solution, 10 GM PO 1013, #8 Prescribed by: CARIN VELIZ on 06/03/16 1135 Latanoprost 2.5 Ml Drops, 1 DROP OU HS, (Reported) Metformin HCl 1,000 Mg Tablet, 1,000 MG PO BID WITH MEALS, (Reported) Multivitamin 1 Each Tablet, 1 TAB PO BID, (Reported) Quinapril HCl 40 Mg Tablet, 40 MG PO DAILY, (Reported) Simvastatin 20 Mg Tablet, 20 MG PO HS, (Reported) TAKES ALONG WITH 40MG TABLET FOR A TOTAL DOSE OF 60MG Simvastatin 40 Mg Tablet, 40 MG PO HS, (Reported) TAKES ALONG WITH 20MG TABLET FOR A TOTAL DOSE OF 60MG Constitutional: see HPI, No fever EENTM: no symptoms reported Respiratory: see HPI, dyspnea on exertion, short of breath, wheezing Cardiovascular: no symptoms reported Gastrointestinal: No abdominal pain, No nausea, No vomiting Genitourinary: no symptoms reported Musculoskeletal: see HPI, muscle pain Skin: change in color, lesions Psychiatric/Neurological: No Symptoms Reported All Other Systems Reviewed Negative Unless Noted: Yes Past Rbjcefj-Fgshba-Oirtpb Hx Patient Social History Alcohol Use: Denies Use Recreational Drug Use: No Smoking Status: Never a Smoker 2nd Hand Smoke Exposure: No Recent Foreign Travel: No Contact w/Someone Who Travel: No Recent Infectious Disease Expo: No Recent Hopitalizations: No Immunizations Up To Date PED Vaccines UTD: Yes Date of Pneumonia Vaccine: May 25, 2013 Date of Influenza Vaccine: Nov 30, 2015 Seasonal Allergies Seasonal Allergies: No Surgeries HX Surgeries: Yes Surgeries: Hysterectomy, Joint Replacement Respiratory Hx Respiratory Disorders: Yes Respiratory Disorders: Asthma, COPD Cardiovascular Hx Cardiac Disorders: Yes (diastolic heart failure) Cardiac Disorders: High Cholesterol, Hypertension Neurological Hx Neurological Disorders: No 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 System 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 Genitourinary Hx Genitourinary Disorders: No Gastrointestinal Hx Gastrointestinal Disorders: Yes Gastrointestinal Disorders: Ulcer Musculoskeletal Hx Musculoskeletal Disorders: Yes (joint replacements) Musculoskeletal Disorders: Arthritis Endocrine Hx Endocrine Disorders: Yes Endocrine Disorders: Diabetes, Insulin dep HEENT HX ENT Disorders: No Cancer Hx Cancer: No Psychosocial Hx Psychiatric Problems: No Behavioral Health Disorders: Depression Blood Transfusions Adverse Reaction to a Blood Tr: No Reviewed Nursing Assessment Reviewed/Agree w Nursing PMH: Yes Family Medical History Significant Family History: No Pertinent Family Hx Family Medial History: CHF (congestive heart failure) 19 MOTHER Physical Exam Vital Signs Vital Sign - Last 12Hours 07/07/16 14:53 Temp 98.9 Pulse 63 Resp 18 B/P (MAP) 148/48 Pulse Ox 92 O2 Delivery Nasal Cannula O2 Flow Rate 3.50 Capillary Refill : Less Than 3 Seconds General Appearance: WD/WN, no apparent distress HEENT: PERRL/EOMI Neck: full range of motion, supple Respiratory: no accessory muscle use, crackles (bilateral bases) Cardiovascular: regular rate, rhythm, no murmur Gastrointestinal: non tender, soft Extremities: normal range of motion, pedal edema (3+2 knees bilateral), swelling, other (erythema, swelling and wounds to right arm. Wound is over the third MCP with redness that extends up to mid forearm and swelling of right hand and forearm noted.) Neurologic/Psychiatric: alert, oriented x 3 Skin: other (wound as described above) Focused Exam Lactic Acid Level Laboratory Tests Test 07/07/16 16:15 07/07/16 18:22 Lactic Acid Level 2.28 MMOL/L (0.50-2.00) *H 1.24 MMOL/L (0.50-2.00) Progress/Results/Core Measures Results/Orders Lab Results Laboratory Tests Test 07/07/16 15:04 07/07/16 15:05 07/07/16 16:15 07/07/16 16:55 Range/Units Glucometer 205 H 70-110 MG/DL White Blood Count 15.1 H 4.3-11.0 10^3/uL Red Blood Count 3.03 L 4.35-5.85 10^6/uL Hemoglobin 8.9 L 11.5-16.0 G/DL Hematocrit 31 L 35-52 % Mean Corpuscular Volume 102 H 80-99 FL Mean Corpuscular Hemoglobin 29 25-34 PG Mean Corpuscular Hemoglobin Concent 29 L 32-36 G/DL Red Cell Distribution Width 17.0 H 10.0-14.5 % Platelet Count 180 130-400 10^3/uL Mean Platelet Volume 13.8 H 7.4-10.4 FL Neutrophils (%) (Auto) 88 H 42-75 % Lymphocytes (%) (Auto) 5 L 12-44 % Monocytes (%) (Auto) 7 0-12 % Eosinophils (%) (Auto) 1 0-10 % Basophils (%) (Auto) 0 0-10 % Neutrophils # (Auto) 13.3 H 1.8-7.8 X 10^3 Lymphocytes # (Auto) 0.7 L 1.0-4.0 X 10^3 Monocytes # (Auto) 1.0 0.0-1.0 X 10^3 Eosinophils # (Auto) 0.1 0.0-0.3 10^3/uL Basophils # (Auto) 0.0 0.0-0.1 10^3/uL Neutrophils % (Manual) 89 % Lymphocytes % (Manual) 8 % Monocytes % (Manual) 3 % Eosinophils % (Manual) 0 % Basophils % (Manual) 0 % Band Neutrophils 0 % Hypochromasia SLIGHT Macrocytosis SLIGHT Prothrombin Time 14.6 12.2-14.7 SEC INR Comment 1.2 0.8-1.4 Activated Partial Thromboplast Time 34 24-35 SEC Sodium Level 146 H 135-145 MMOL/L Potassium Level 4.7 3.6-5.0 MMOL/L Chloride Level 101 98-107 MMOL/L Carbon Dioxide Level 33 H 21-32 MMOL/L Anion Gap 12 5-14 MMOL/L Blood Urea Nitrogen 53 H 7-18 MG/DL Creatinine 1.63 H 0.60-1.30 MG/DL Estimat Glomerular Filtration Rate 31 BUN/Creatinine Ratio 33 Glucose Level 179 H 70-105 MG/DL Calcium Level 8.8 8.5-10.1 MG/DL Total Bilirubin 0.5 0.1-1.0 MG/DL Aspartate Amino Transf (AST/SGOT) 29 5-34 U/L Alanine Aminotransferase (ALT/SGPT) 25 0-55 U/L Alkaline Phosphatase 81 40-136 U/L Total Protein 6.4 6.4-8.2 G/DL Albumin 3.4 3.2-4.5 G/DL Lactic Acid Level 2.28 *H 0.50-2.00 MMOL/L Urine Color YELLOW Urine Clarity SLIGHTLY CLOUDY Urine pH 5 5-9 Urine Specific [place] 1.025 H 1.016-1.022 Urine Protein 2+ H NEGATIVE Urine Glucose (UA) NEGATIVE NEGATIVE Urine Ketones NEGATIVE NEGATIVE Urine Nitrite NEGATIVE NEGATIVE Urine Bilirubin NEGATIVE NEGATIVE Urine Urobilinogen NORMAL NORMAL MG/DL Urine Leukocyte Esterase 3+ H NEGATIVE Urine RBC (Auto) 2+ H NEGATIVE Urine RBC 0-2 /HPF Urine WBC 10-25 H /HPF Urine Squamous Epithelial Cells 0-2 /HPF Urine Crystals NONE /LPF Urine Bacteria MODERATE H /HPF Urine Casts PRESENT /LPF Urine Hyaline Casts 10-25 H /LPF Urine Mucus SMALL H /LPF Urine Culture Indicated YES Test 07/07/16 18:22 Range/Units Lactic Acid Level 1.24 0.50-2.00 MMOL/L My Orders Orders - DANY FOREMAN MD Cbc With Automated Diff (07/07/16 15:10) Comprehensive Metabolic Panel (07/07/16 15:10) Lactic Acid Analyzer (07/07/16 15:10) Blood Culture (07/07/16 15:10) Sputum Culture (07/07/16 15:10) Ua Culture If Indicated (07/07/16 15:10) Protime With Inr (07/07/16 15:10) Partial Thromboplastin Time (07/07/16 15:10) Chest 1 View, Ap/Pa Only (07/07/16 15:10) O2 (07/07/16 15:10) Saline Lock/Iv-Start (07/07/16 15:10) Vital Signs Adult Sepsis Patie Q1HR (07/07/16 15:10) Remove Rings In Anticipation O (07/07/16 15:10) Manual Differential (07/07/16 15:05) Albuterol Pre-Mix Nebs (Rt) (Proventil P (07/07/16 16:16) Methylprednisolone Sod Succ (Solu-Medrol (07/07/16 16:16) Svn Sm Volume Nebulizer Rt-Rfs (07/07/16 16:16) Ceftriaxone Injection (Rocephin Injectio (07/07/16 16:30) Urine Culture (07/07/16 16:55) Ceftriaxone Injection (Rocephin Injectio (07/07/16 18:30) Furosemide Injection (Lasix Injection) (07/07/16 18:26) Medications Given in ED Current Medications Medications Dose Ordered Sig/Sameera Route Start Time Stop Time Status Last Admin Dose Admin Ceftriaxone Sodium 1000 mg/ Sodium Chloride 50 ml @ 100 mls/hr ONCE ONCE IV 07/07/16 16:30 07/07/16 16:59 DC 07/07/16 17:31 100 MLS/HR Vital Signs/I&O Vital Sign - Last 12Hours 5/9/17 5/9/17 14:53 17:25 Temp 98.9 Pulse 63 Resp 18 B/P (MAP) 148/48 Pulse Ox 92 97 O2 Delivery Nasal Cannula O2 Flow Rate 3.50 3.00 Blood Pressure Mean: 81 Point of Care Testing Finger Stick Blood Glucose: 205 Blood Glucose Action Taken: NOTIFIED Progress Note : Progress Note Seen and evaluated. IV, labs, UA, chest x-ray, blood cultures and lactic acid ordered. Monitor patient. 1630: Rocephin 1 g IV as she has cellulitis of right arm. Lactic acid is elevated. Albuterol neb 1. Solu-Medrol 125 mg IV ordered. Monitor patient. 182: I discussed the case with Dr. Salazar. Patient noted to have urinary tract infection with mild renal failure in the setting of cellulitis of the right arm and volume overload with pulmonary congestion and lower extremity edema. Complicated case due to volume overload but also sepsis. Patient is not hypotensive and is not in septic shock but does show signs of severe sepsis. We will withhold high-volume fluid resuscitation at this time due to volume overload concerns and respiratory distress associated with that. Patient has had respiratory failure related to CHF within the past couple of months. We will treat sepsis with Rocephin and vancomycin to cover urinary tract infection and cellulitis of the skin on the right arm. All of this was discussed with patient and family who agree. This was also discussed with Dr. Salazar and she agrees. Admit, ICU, inpatient status. Diagnostic Imaging Diagonstic Imaging: Xray Plain Films/CT/US/NM/MRI: chest Comments NAME: KIMBERLY JOHNSON [facility] REC#: [id number] PT STATUS: REG ER : 1945 PHYSICIAN: DANY FOREMAN MD ADMIT DATE: 07/07/16/ER Signed Date of Exam: 07/07/16 CHEST 1 VIEW, AP/PA ONLY INDICATION: Shortness of breath and fluid retention. COMPARISON: 06/01/2016. FINDINGS: There is cardiomegaly. There is some venous congestion. There is no pleural effusion or pneumothorax. The mediastinum is unremarkable. IMPRESSION: Cardiomegaly and moderate central pulmonary venous congestion. Dictated by: Dictated on workstation # [id number] Dict: 07/07/16 1702 Trans: 07/07/161707 Interpreted by: KHOA SALMERON Electronically signed by: KHOA SALMERON 07/07/161707 Departure Communication Time/Spoke to Admitting Phy: 16:23 Impression Impression: Primary Impression: Cellulitis Qualified Codes: L03.113 - Cellulitis of right upper limb Additional Impressions: Urinary tract infection Qualified Codes: N30.00 - Acute cystitis without hematuria Severe sepsis Volume overload Qualified Codes: E87.70 - Fluid overload, unspecified Disposition: ADMITTED INPATIENT Condition: Stable Decision to Admit Reason: Admit from ER (General) Decision to Admit/Date: July 07, 2016 Time/Decision to Admit Time: 16:23 Departure-Patient Inst. Referrals: [facility] (PCP/Family) Primary Care Physician DANY FOREMAN MD July 07, 2016 15:18
[2016-07-07 15:21] LABS: BASOPHILS % (AUTO) 0 % (0-10); EOSINOPHILS # (AUTO) 0.1 10^3/uL (0.0-0.3); EOSINOPHILS % (AUTO) 1 % (0-10); LYMPHOCYTES # (AUTO) 0.7 X 10^3 (1.0-4.0); LYMPHOCYTES % (AUTO) 5 % (12-44); MEAN CORPUSCULAR HEMOGLOBIN 29 PG (25-34); MEAN CORPUSCULAR HGB CONC 29 G/DL (32-36); MEAN CORPUSCULAR VOLUME 102 FL (80-99); MEAN PLATELET VOLUME 13.8 FL (7.4-10.4); MONOCYTES % (AUTO) 7 % (0-12); NEUTROPHILS # (AUTO) 13.3 X 10^3 (1.8-7.8); NEUTROPHILS % (AUTO) 88 % (42-75); PLATELET COUNT 180 10^3/uL (130-400); RED BLOOD COUNT 3.03 10^6/uL (4.35-5.85); WHITE BLOOD COUNT 15.1 10^3/uL (4.3-11.0)
[2016-07-07 15:25] LABS: INR 1.2 (0.8-1.4); PROTHROMBIN TIME PATIENT 14.6 SEC (12.2-14.7)
[2016-07-07 15:34] LABS: ALBUMIN 3.4 G/DL (3.2-4.5); BILIRUBIN,TOTAL 0.5 MG/DL (0.1-1.0); CALCIUM 8.8 MG/DL (8.5-10.1); CREATININE SERUM 1.63 MG/DL (0.60-1.30); POTASSIUM 4.7 MMOL/L (3.6-5.0); TOTAL PROTEIN 6.4 G/DL (6.4-8.2)
[2016-07-07 15:36] LABS: BAND NEUTROPHILS 0 %; BASOPHILS % (MANUAL) 0 %; EOSINOPHILS % (MANUAL) 0 %; HYPOCHROMASIA SLIGHT; LYMPHOCYTES % (MANUAL) 8 %; NEUTROPHILS % (MANUAL) 89 %
[2016-07-07] MEDS ORDERED: methylPREDNISolone 125 MG (Solu-MEDROL) VIAL IV STA (16:16)
[2016-07-07] MEDS ORDERED: RT-ALBUTEROL SULF 2.5 MG/3 ML PRE-MIX VIAL INH STA (16:16)
[2016-07-07] MEDS ORDERED: cefTRIAXone INJECTION 1,000 MG in NS (IVPB) 50 ML IV ONE ×2 (16:30→18:30)
[2016-07-07 17:02] LABS: BILIRUBIN,URINE NEGATIVE (NEGATIVE); KETONES,URINE NEGATIVE (NEGATIVE); LEUKOCYTE ESTERASE ,URINE 3+ (NEGATIVE); NITRITE,URINE NEGATIVE (NEGATIVE); PH,URINE 5 (5-9); PROTEIN,URINE 2+ (NEGATIVE); UROBILINOGEN,URINE NORMAL (NORMAL)
--- NOTE | 2016-07-07 17:05 | Diagnostic Imaging Report ---
INDICATION: Shortness of breath and fluid retention. COMPARISON: 06/01/2016. FINDINGS: There is cardiomegaly. There is some venous congestion. There is no pleural effusion or pneumothorax. The mediastinum is unremarkable. IMPRESSION: Cardiomegaly and moderate central pulmonary venous congestion. Dictated by: Dictated on workstation # [id number]
[2016-07-07 17:20] LABS: SQUAMOUS EPITHELIAL CELL,UR 0-2 /HPF
[2016-07-07] MEDS ORDERED: FUROSEMIDE 40 MG/4 ML INJ (LASIX) IV STA (18:26)
[2016-07-07] MEDS ORDERED: VANCOMYCIN INJECTION 1,000 MG in NS (IVPB) 250 ML IV ONE (18:45)
[2016-07-07] MEDS ORDERED: NS IV 1000 ML 1,000 ML ONE (19:33)
[2016-07-07] MEDS ORDERED: VANCOMYCIN 1 GM/NS 250 ML IVPB IV NR ×2 (19:48)
[2016-07-07] MEDS ORDERED: CATHETER FLUSH 10 ML SYR IV PRN (20:00)
[2016-07-07] MEDS: cefTRIAXone 1 GM/NS 50 ML IVPB IV SCH ×2 (20:00)
[2016-07-07] MEDS: NS IV 1000 ML 1,000 ML IV SCH (20:04)
[2016-07-07] MEDS ORDERED: RT-ALBUTEROL/IPRATROPIUM 3 ML (DUONEB) VIAL INH PRN (20:45)
[2016-07-07] MEDS: RT-ALBUTEROL/IPRATROPIUM 3 ML (DUONEB) VIAL INH SCH (20:54)
[2016-07-07] MEDS: inSUlin (REGULAR) HUMAN 1 UNIT/0.01 ML (CHARGE PER UNIT) SC SCH (22:09)
[2016-07-08] VITALS (9 sets, daily range): BP systolic 128–195; BP diastolic 56–84
[2016-07-08 03:55] LABS: BASOPHILS % (AUTO) 0 % (0-10); EOSINOPHILS % (AUTO) 0 % (0-10); LYMPHOCYTES # (AUTO) 0.2 X 10^3 (1.0-4.0); LYMPHOCYTES % (AUTO) 1 % (12-44); MEAN CORPUSCULAR HEMOGLOBIN 29 PG (25-34); MEAN CORPUSCULAR HGB CONC 29 G/DL (32-36); MEAN CORPUSCULAR VOLUME 102 FL (80-99); MEAN PLATELET VOLUME 13.6 FL (7.4-10.4); MONOCYTES # (AUTO) 0.1 X 10^3 (0.0-1.0); MONOCYTES % (AUTO) 0 % (0-12); NEUTROPHILS # (AUTO) 14.8 X 10^3 (1.8-7.8); NEUTROPHILS % (AUTO) 98 % (42-75); PLATELET COUNT 206 10^3/uL (130-400); RED BLOOD COUNT 3.17 10^6/uL (4.35-5.85); RED CELL DISTRIBUTION WIDTH 16.8 % (10.0-14.5); WHITE BLOOD COUNT 15.1 10^3/uL (4.3-11.0)
[2016-07-08 04:16] LABS: ALBUMIN 3.4 G/DL (3.2-4.5); BILIRUBIN,TOTAL 0.4 MG/DL (0.1-1.0); CALCIUM 8.7 MG/DL (8.5-10.1); CREATININE SERUM 1.54 MG/DL (0.60-1.30); PHOSPHORUS 5.1 MG/DL (2.3-4.7); POTASSIUM 5.3 MMOL/L (3.6-5.0); TOTAL PROTEIN 6.6 G/DL (6.4-8.2)
[2016-07-08] MEDS: inSUlin (REGULAR) HUMAN 1 UNIT/0.01 ML (CHARGE PER UNIT) SC SCH ×4 (06:04→20:39)
[2016-07-08] MEDS: RT-ALBUTEROL/IPRATROPIUM 3 ML (DUONEB) VIAL INH SCH ×4 (06:32→18:42)
--- NOTE | 2016-07-08 09:03 | Diagnostic Imaging Report ---
EXAMINATION: Portable upright radiograph of the chest. INDICATION: Sepsis. COMPARISON: 07/07/2014. FINDINGS: There are worsening bilateral extensive infiltrates. The heart size is significantly enlarged. There is suggestion of a small right pleural effusion. No pneumothorax. The mediastinum and ana lilia appear similar to the previous study. IMPRESSION: Cardiomegaly with worsening bilateral infiltrates which may relate to pulmonary edema. Dictated by: Dictated on workstation # [id number]
[2016-07-08] MEDS: NS IV 1000 ML 1,000 ML IV SCH (09:20)
[2016-07-08] MEDS ORDERED: HYDR-3923 PO (10:37)
[2016-07-08] MEDS ORDERED: INSU100I29 SQ (10:37)
[2016-07-08] MEDS ORDERED: BISA5TAB8 PO (10:37)
[2016-07-08] MEDS ORDERED: DICL75TA2 PO (10:37)
[2016-07-08] MEDS ORDERED: FERR-74 PO (10:37)
[2016-07-08] MEDS ORDERED: FURO40TA4 PO (10:37)
[2016-07-08] MEDS ORDERED: POTA20TA15 PO (10:37)
[2016-07-08] MEDS ORDERED: RT-ALBUTEROL/IPRATROPIUM 3 ML (DUONEB) VIAL INH SCH (11:00)
[2016-07-08] MEDS ORDERED: FUROSEMIDE 40 MG/4 ML INJ (LASIX) IVP SCH (11:45)
--- NOTE | 2016-07-08 11:46 | History & Physicial (CHS) ---
HPI History of Present Illness: 71 yo F admitted for increasing pain in RUE with worsening redness and swelling for 4-5 days. Patient states that she had this wound and it started as a blister and popped and then she noticed the redness was moving up her arm and it was harder for her to move her fingers. Patient has also been having increasing shortness of breath for the last 2 days. Denies any fevers or chills. States that she has no missed medications but has noticed increased swelling. Denies chest pain or abdominal pain. Source: patient, RN/MD, old records Exam Limitations: no limitations Date seen by provider: July 08, 2016 Attending Physician Rene Stark MD [place] [facility] [place] Consult Date of Admission July 07, 2016 at 18:30 Home Medications Home Medications Reviewed patient Home Medication Reconciliation Form Allergies Coded Allergies: Penicillins (Unverified Allergy, Unknown, 05/25/16) morphine (Unverified Allergy, Unknown, 05/25/16) TZZ-Pvmeov-Dnvcks Hx Patient Social History Alcohol Use: Denies Use Recreational Drug Use: No Smoking Status: Never a Smoker 2nd Hand Smoke Exposure: No Recent Foreign Travel: No Contact w/other who traveled: No Recent Hopitalizations: No Recent Infectious Disease Expo: No Physical Abuse Screen: No Sexual Abuse: No Immunizations Up To Date Date of Pneumonia Vaccine: May 25, 2013 Date of Influenza Vaccine: Nov 30, 2015 Past Medical History Diastolic Heart Failure: Diagnosed 04/2016 Insulin Dependent DM HTN Oxygen Dependent 4L: 2017 Morbid Obesity Family Medical History Significant Family History: No Pertinent Family Hx Family History: CHF (congestive heart failure) 19 MOTHER Review of Systems (CHC) Constitutional: no symptoms reported, No chills, malaise, weakness Respiratory: No cough, dyspnea on exertion, orthopnea, short of breath, No wheezing Cardiovascular: No chest pain, edema, No palpitations Gastrointestinal: no symptoms reported, No abdominal pain, No constipation, No diarrhea, No nausea, No vomiting Genitourinary: no symptoms reported, No dysuria, No frequency, No hematuria : No Musculoskeletal: joint swelling, other (Right arm, wrist and) Skin: rash (redness and edema) Psychiatric/Neurological: Depressed Reviewed Test Results Reviewed Test Results Lab Laboratory Tests Test 07/07/16 15:04 07/07/16 15:05 07/07/16 16:15 07/07/16 16:55 Range/Units Glucometer 205 H 70-110 MG/DL White Blood Count 15.1 H 4.3-11.0 10^3/uL Red Blood Count 3.03 L 4.35-5.85 10^6/uL Hemoglobin 8.9 L 11.5-16.0 G/DL Hematocrit 31 L 35-52 % Mean Corpuscular Volume 102 H 80-99 FL Mean Corpuscular Hemoglobin 29 25-34 PG Mean Corpuscular Hemoglobin Concent 29 L 32-36 G/DL Red Cell Distribution Width 17.0 H 10.0-14.5 % Platelet Count 180 130-400 10^3/uL Mean Platelet Volume 13.8 H 7.4-10.4 FL Neutrophils (%) (Auto) 88 H 42-75 % Lymphocytes (%) (Auto) 5 L 12-44 % Monocytes (%) (Auto) 7 0-12 % Eosinophils (%) (Auto) 1 0-10 % Basophils (%) (Auto) 0 0-10 % Neutrophils # (Auto) 13.3 H 1.8-7.8 X 10^3 Lymphocytes # (Auto) 0.7 L 1.0-4.0 X 10^3 Monocytes # (Auto) 1.0 0.0-1.0 X 10^3 Eosinophils # (Auto) 0.1 0.0-0.3 10^3/uL Basophils # (Auto) 0.0 0.0-0.1 10^3/uL Neutrophils % (Manual) 89 % Lymphocytes % (Manual) 8 % Monocytes % (Manual) 3 % Eosinophils % (Manual) 0 % Basophils % (Manual) 0 % Band Neutrophils 0 % Hypochromasia SLIGHT Macrocytosis SLIGHT Prothrombin Time 14.6 12.2-14.7 SEC INR Comment 1.2 0.8-1.4 Activated Partial Thromboplast Time 34 24-35 SEC Sodium Level 146 H 135-145 MMOL/L Potassium Level 4.7 3.6-5.0 MMOL/L Chloride Level 101 98-107 MMOL/L Carbon Dioxide Level 33 H 21-32 MMOL/L Anion Gap 12 5-14 MMOL/L Blood Urea Nitrogen 53 H 7-18 MG/DL Creatinine 1.63 H 0.60-1.30 MG/DL Estimat Glomerular Filtration Rate 31 BUN/Creatinine Ratio 33 Glucose Level 179 H 70-105 MG/DL Calcium Level 8.8 8.5-10.1 MG/DL Total Bilirubin 0.5 0.1-1.0 MG/DL Aspartate Amino Transf (AST/SGOT) 29 5-34 U/L Alanine Aminotransferase (ALT/SGPT) 25 0-55 U/L Alkaline Phosphatase 81 40-136 U/L Total Protein 6.4 6.4-8.2 G/DL Albumin 3.4 3.2-4.5 G/DL Lactic Acid Level 2.28 *H 0.50-2.00 MMOL/L Urine Color YELLOW Urine Clarity SLIGHTLY CLOUDY Urine pH 5 5-9 Urine Specific [place] 1.025 H 1.016-1.022 Urine Protein 2+ H NEGATIVE Urine Glucose (UA) NEGATIVE NEGATIVE Urine Ketones NEGATIVE NEGATIVE Urine Nitrite NEGATIVE NEGATIVE Urine Bilirubin NEGATIVE NEGATIVE Urine Urobilinogen NORMAL NORMAL MG/DL Urine Leukocyte Esterase 3+ H NEGATIVE Urine RBC (Auto) 2+ H NEGATIVE Urine RBC 0-2 /HPF Urine WBC 10-25 H /HPF Urine Squamous Epithelial Cells 0-2 /HPF Urine Crystals NONE /LPF Urine Bacteria MODERATE H /HPF Urine Casts PRESENT /LPF Urine Hyaline Casts 10-25 H /LPF Urine Mucus SMALL H /LPF Urine Culture Indicated YES Test 07/07/16 18:22 07/07/16 21:38 07/08/16 03:40 07/08/16 06:00 Range/Units Lactic Acid Level 1.24 0.50-2.00 MMOL/L Glucometer 145 H 328 H 70-110 MG/DL White Blood Count 15.1 H 4.3-11.0 10^3/uL Red Blood Count 3.17 L 4.35-5.85 10^6/uL Hemoglobin 9.3 L 11.5-16.0 G/DL Hematocrit 32 L 35-52 % Mean Corpuscular Volume 102 H 80-99 FL Mean Corpuscular Hemoglobin 29 25-34 PG Mean Corpuscular Hemoglobin Concent 29 L 32-36 G/DL Red Cell Distribution Width 16.8 H 10.0-14.5 % Platelet Count 206 130-400 10^3/uL Mean Platelet Volume 13.6 H 7.4-10.4 FL Neutrophils (%) (Auto) 98 H 42-75 % Lymphocytes (%) (Auto) 1 L 12-44 % Monocytes (%) (Auto) 0 0-12 % Eosinophils (%) (Auto) 0 0-10 % Basophils (%) (Auto) 0 0-10 % Neutrophils # (Auto) 14.8 H 1.8-7.8 X 10^3 Lymphocytes # (Auto) 0.2 L 1.0-4.0 X 10^3 Monocytes # (Auto) 0.1 0.0-1.0 X 10^3 Eosinophils # (Auto) 0.0 0.0-0.3 10^3/uL Basophils # (Auto) 0.0 0.0-0.1 10^3/uL Sodium Level 145 135-145 MMOL/L Potassium Level 5.3 H 3.6-5.0 MMOL/L Chloride Level 102 98-107 MMOL/L Carbon Dioxide Level 33 H 21-32 MMOL/L Anion Gap 10 5-14 MMOL/L Blood Urea Nitrogen 49 H 7-18 MG/DL Creatinine 1.54 H 0.60-1.30 MG/DL Estimat Glomerular Filtration Rate 33 BUN/Creatinine Ratio 32 Glucose Level 337 H 70-105 MG/DL Calcium Level 8.7 8.5-10.1 MG/DL Phosphorus Level 5.1 H 2.3-4.7 MG/DL Magnesium Level 2.0 1.8-2.4 MG/DL Total Bilirubin 0.4 0.1-1.0 MG/DL Aspartate Amino Transf (AST/SGOT) 22 5-34 U/L Alanine Aminotransferase (ALT/SGPT) 23 0-55 U/L Alkaline Phosphatase 80 40-136 U/L Total Protein 6.6 6.4-8.2 G/DL Albumin 3.4 3.2-4.5 G/DL Test 07/08/16 08:53 Range/Units Glucometer 328 H 70-110 MG/DL Radiology Date of Exam: 07/07/16 CHEST 1 VIEW, AP/PA ONLY INDICATION: Shortness of breath and fluid retention. COMPARISON: 06/01/2016. FINDINGS: There is cardiomegaly. There is some venous congestion. There is no pleural effusion or pneumothorax. The mediastinum is unremarkable. IMPRESSION: Cardiomegaly and moderate central pulmonary venous congestion. Physical Exam-(CHC) Physical Exam Vital Signs VS - Last 72 Hours, by Label 07/07/16 07/07/16 07/07/1617 14:53 15:06 17:25 19:24 Temp 98.9 99.0 Pulse 63 59 Resp 18 20 B/P (MAP) 148/48 Pulse Ox 92 95 97 91 O2 Delivery Nasal Cannula Nasal Cannula O2 Flow Rate 3.50 3.50 3.00 3.50 FiO2 95 07/07/16 07/07/16 07/07/16 07/07/16 19:34 19:40 19:45 19:50 Temp 98.3 98.3 Pulse 58 58 60 Resp 22 22 B/P (MAP) 167/93 167/93 Pulse Ox 95 95 84 O2 Delivery Nasal Cannula Nasal Cannula Nasal Cannula O2 Flow Rate 4.00 4.00 4.00 4.00 07/07/16 07/07/16 07/07/16 07/07/16 20:00 20:01 20:25 20:26 Pulse 61 60 59 59 Resp 18 B/P (MAP) 157/68 157/68 Pulse Ox 96 96 94 O2 Delivery Nasal Cannula Nasal Cannula Nasal Cannula O2 Flow Rate 4.00 4.00 4.00 07/07/16 07/07/16 07/07/16 07/07/16 20:29 20:30 20:54 21:00 Pulse 59 65 Resp 18 B/P (MAP) 159/122 168/72 Pulse Ox 95 94 95 93 O2 Delivery Nasal Cannula Nasal Cannula O2 Flow Rate 4.00 4.00 4.00 07/07/16 07/07/16 07/07/16 07/07/16 21:00 21:15 21:30 21:45 Pulse 60 62 66 64 B/P (MAP) 168/72 169/73 163/67 Pulse Ox 97 93 86 92 O2 Delivery Nasal Cannula Nasal Cannula Nasal Cannula Nasal Cannula O2 Flow Rate 4.00 4.00 4.00 4.00 07/07/16 07/07/16 07/07/16 07/07/16 22:00 23:17 23:30 23:40 Temp 98.4 Pulse 69 77 77 B/P (MAP) 163/67 Pulse Ox 90 89 95 O2 Delivery Nasal Cannula OxyMask High Flow N/C O2 Flow Rate 4.00 10.00 8.00 8.00 07/08/16 07/08/16 07/08/16 07/08/16 00:00 00:25 01:00 01:00 Pulse 77 77 76 76 B/P (MAP) 181/73 166/75 Pulse Ox 97 97 96 O2 Delivery High Flow N/C High Flow N/C High Flow N/C O2 Flow Rate 8.00 5.00 5.00 07/08/16 07/08/16 07/08/16 07/08/16 02:00 03:00 03:15 04:00 Pulse 75 72 69 68 B/P (MAP) 154/56 162/66 Pulse Ox 93 93 93 94 O2 Delivery High Flow N/C High Flow N/C High Flow N/C High Flow N/C O2 Flow Rate 5.00 5.00 10.00 10.00 07/08/16 07/08/16 07/08/16 07/08/16 04:30 05:00 06:00 06:34 Pulse 68 63 B/P (MAP) 150/66 Pulse Ox 93 93 94 94 O2 Delivery High Flow N/C High Flow N/C O2 Flow Rate 10.00 10.00 10.00 10.00 07/08/16 07/08/16 07/08/16 07/08/16 07:00 08:00 08:00 09:00 Temp 97.7 Pulse 68 67 Resp 22 B/P (MAP) 134/79 Pulse Ox 93 93 93 O2 Delivery High Flow N/C O2 Flow Rate 10.00 10.00 10.00 07/08/16 07/08/16 07/08/16 07/08/16 10:46 12:00 12:00 13:00 Temp 98.0 Pulse 65 65 Resp 20 B/P (MAP) 128/75 Pulse Ox 95 93 92 O2 Delivery High Flow N/C O2 Flow Rate 11.00 10.00 10.00 07/08/16 13:20 Pulse Ox 95 O2 Flow Rate 11.00 Capillary Refill : Less Than 3 Seconds General Appearance: WD/WN, mild distress, obese (Morbid obesity) HEENT: PERRL/EOMI Neck: non-tender, full range of motion, supple, normal inspection Respiratory: chest non-tender, normal breath sounds, no respiratory distress, crackles Cardiovascular: regular rate, rhythm, no murmur Gastrointestinal: normal bowel sounds, non tender, soft, no organomegaly, no pulsatile mass Extremities: normal range of motion, no calf tenderness, normal capillary refill, pedal edema (3+ equal bilaterally) Neurologic/Psychiatric: telepathist II-XII nml as tested, no motor/sensory deficits, alert, oriented x 3, depressed affect Skin: other (Wound on dorsal surface of right hand, erythema and swelling tracking up right forarm. + swelling in fingers. Fingers neurovascularlly intact. Wound draining purulent material) Lymphatic: no adenopathy Assessment/Plan Assessment/Plan Plan 71 yo F with multiple comorbid conditions that was admitted for Sepsis from RUE cellulitis and increasing shortness of breath Plan Sepsis from RUE cellulitis, Hemodynamically Stable - Blood/wound cultures pending - Continue IV Antibiotics D2, will narrow once c/s return - Lactate resolved - Gentle fluid hydration given patients CHF and respiratory distress - Will continue to monitor Cellulitis Acute on Chronic Diastolic CHF - Give 1 dose of lasix this AM - Strict I/Os - CXR consistent with vascular congestion Acute Kidney Failure - Will continue to monitor Cr Insulin Dependent DM - A1c pending - Continue home insulin with SSI - Holding Metformin Macrocytic Anemia: HDS - Normal B12 and Folate in April - Mild low %sat of iron with normal Fe level - Likely mixed with chronic dz FEN: ADA diet DVT PPX: Lovenox Dispo: Admit to cardiac stepdown unit Debility: PT ordered Diagnosis/Problems: Clinical Quality Measures DVT/VTE Risk/Contraindication: Risk Factor Score Per Nursin RFS Level Per Nursing on Admit: 4+=Very High Copy Copies To 1: CHC RENE De La Cruz MD July 08, 2016 11:46
[2016-07-08] MEDS ORDERED: NON-FORMULARY MEDICATION 1 EA EA PO SCH (17:15)
[2016-07-08] MEDS: ETODOLAC 300 MG (LODINE) CAP PO SCH (17:24)
[2016-07-08] MEDS: FUROSEMIDE 40 MG/4 ML INJ (LASIX) IV SCH (20:39)
[2016-07-08] MEDS: VANCOMYCIN 1,750 MG/NS 500 ML IVPB IV SCH ×2 (20:40)
[2016-07-08] MEDS: SIMvastatin 40 MG (ZOCOR) TAB PO SCH (20:52)
[2016-07-08] MEDS: SIMvastatin 20 MG (ZOCOR) TAB PO SCH (20:52)
[2016-07-08] MEDS: inSUlin DETERMIR 1 UNIT/0.01 ML (LEVEMIR) CHARGE PER UNIT SQ SCH (20:53)
[2016-07-08] MEDS: cefTRIAXone 1 GM/NS 50 ML IVPB IV SCH ×2 (20:59)
[2016-07-08] MEDS: LATANOPROST 0.005% (XALATAN) OPHTH SOLN 2.5 ML OU SCH (21:00)
[2016-07-09] VITALS (12 sets, daily range): BP systolic 122–185; BP diastolic 69–99
[2016-07-09] MEDS: RT-ALBUTEROL/IPRATROPIUM 3 ML (DUONEB) VIAL INH SCH ×6 (01:27→21:34)
[2016-07-09 03:50] LABS: BASOPHILS % (AUTO) 0 % (0-10); EOSINOPHILS % (AUTO) 0 % (0-10); LYMPHOCYTES # (AUTO) 0.5 X 10^3 (1.0-4.0); LYMPHOCYTES % (AUTO) 3 % (12-44); MEAN CORPUSCULAR HEMOGLOBIN 30 PG (25-34); MEAN CORPUSCULAR HGB CONC 29 G/DL (32-36); MEAN CORPUSCULAR VOLUME 103 FL (80-99); MEAN PLATELET VOLUME 13.1 FL (7.4-10.4); MONOCYTES % (AUTO) 7 % (0-12); NEUTROPHILS # (AUTO) 13.1 X 10^3 (1.8-7.8); NEUTROPHILS % (AUTO) 89 % (42-75); PLATELET COUNT 203 10^3/uL (130-400); RED BLOOD COUNT 2.89 10^6/uL (4.35-5.85); RED CELL DISTRIBUTION WIDTH 16.8 % (10.0-14.5); WHITE BLOOD COUNT 14.7 10^3/uL (4.3-11.0)
[2016-07-09 04:09] LABS: CALCIUM 8.9 MG/DL (8.5-10.1); CREATININE SERUM 1.24 MG/DL (0.60-1.30); MAGNESIUM 2.1 MG/DL (1.8-2.4); PHOSPHORUS 3.3 MG/DL (2.3-4.7); POTASSIUM 4.6 MMOL/L (3.6-5.0)
[2016-07-09] MEDS: inSUlin (REGULAR) HUMAN 1 UNIT/0.01 ML (CHARGE PER UNIT) SC SCH ×4 (07:55→21:11)
--- NOTE | 2016-07-09 08:14 | Diagnostic Imaging Report ---
INDICATION: Fluid overload, sepsis. Portable chest 4:50 a.m. There is cardiomegaly with vascular congestion and alveolar edema. There is a focal area of consolidation in the right mid lung, which appears more opaque than on the previous day study. Left lung appears slightly improved. IMPRESSION: Bilateral pulmonary infiltrates with some improvement on left and some unfavorable change on the right. Dictated by: Dictated on workstation # [id number]
[2016-07-09] MEDS: MULTIVIT W/MINERALS TAB (THERAGRAN M) PO SCH (08:16)
[2016-07-09] MEDS: FUROSEMIDE 40 MG/4 ML INJ (LASIX) IV SCH (08:16)
[2016-07-09] MEDS: ETODOLAC 300 MG (LODINE) CAP PO SCH (08:16)
[2016-07-09] MEDS: inSUlin DETERMIR 1 UNIT/0.01 ML (LEVEMIR) CHARGE PER UNIT SQ SCH ×2 (08:21→21:11)
[2016-07-09] MEDS: ASPIRIN E.C. 81 MG (ECOTRIN) TAB PO SCH (08:21)
[2016-07-09] MEDS ORDERED: ONDANSETRON 4 MG/2 ML (SDV) Z0FRAN ONE (09:58)
[2016-07-09] MEDS ORDERED: ONDANSETRON 4 MG/2 ML (SDV) Z0FRAN IVP PRN (10:15)
--- NOTE | 2016-07-09 11:03 | Consultation-Cardiology ---
HPI-Cardiology Cardiology Consultation: Date of Consultation 07/09/16 Date of Admission 07-07-16 Attending Physician Rene Salazar MD Admitting Physician Haley,[facility] Consulting Physician Alexis Jung MD HPI: Chief Complaint: Dyspnea Diastolic CHF Ms. Jose is a 71 year old female admitted to ICU 4. She reports she had a blister on her right hand which started a few days ago. She states the blister popped and then her right hand and arm became red, swollen and painful. She reports chronic dyspnea but the dyspnea has been much worse since yesterday. She does not report any CP or palpitations. She does report bilat LE edema. She states overall she does not feel well. Review of Systems-Cardiology Review of Systems Constitutional: As described under HPI Eyes: No blurred vision, No drainage, No pain, No vision change Ears/Nose/Throat: No ear discharge, No ear pain, No nasal drainage, No ulcerations Respiratory: As described under HPI Cardiovascular: As described under HPI Gastrointestinal: No constipation, No diarrhea, No nausea, No vomiting, No stool coloration changes Genitourinary: No dysuria, No discharge, No frequency, No hematuria, No urgency : No Skin: No rash, other (Right hand wound) Psychiatric/Neurological: No anxiety, No depression, No focal weakness, No seizure, No syncope Hematologic: No bleeding abnormalities All Other Systems Reviewed Negative Unless Noted: Yes MEW-Sbnltc-Wqugqw Hx Patient Social History Alcohol Use: Denies Use Recreational Drug Use: No Smoking Status: Never a Smoker 2nd Hand Smoke Exposure: No Recent Foreign Travel: No Recent Infectious Disease Expo: No Hospitalization with Isolation: Denies Physical Abuse Screen: No Sexual Abuse: No Immunizations Up To Date Date of Pneumonia Vaccine: May 25, 2013 Date of Influenza Vaccine: Nov 30, 2015 Past Medical History PMH As described under Assessment. Family Medical History Family Medical History: She does not report any family h/o premature CAD or SCD. Family History: CHF (congestive heart failure) 19 MOTHER Allergies and Home Medications Allergies Coded Allergies: Penicillins (Unverified Allergy, Unknown, 05/25/16) morphine (Unverified Allergy, Unknown, 05/25/16) Home Medications Aspirin 81 Mg Tablet., 81 MG PO DAILY, (Reported) Atenolol 100 Mg Tablet, 100 MG PO HS, (Reported) Bisacodyl 5 Mg Tablet.dr, 5 MG PO DAILY PRN PRN for CONSTIPATION-4TH LINE, ( Reported) Diclofenac Sodium 75 Mg Tablet.dr, 75 MG PO BID WITH MEALS, (Reported) Dorzolamide HCl 10 Ml Drops, 1 DROP OU BID, (Reported) Ferrous Sulfate 325 Mg Tablet, 325 MG PO DAILY@0700, (Reported) Furosemide 40 Mg Tablet, 80 MG PO DAILY, (Reported) TAKES 2 (40 MG) TABLETS Furosemide 40 Mg Tablet, 40 MG PO DAILY@1200, (Reported) Hydralazine HCl 25 Mg Tablet, 25 MG PO BID, (Reported) Insulin Detemir 100 Unit/1 Ml Insuln.pen, 30 UNITS SQ BID, (Reported) Latanoprost 2.5 Ml Drops, 1 DROP OU HS, (Reported) Metformin HCl 1,000 Mg Tablet, 1,000 MG PO BID WITH MEALS, (Reported) Multivitamin 1 Each Tablet, 1 TAB PO BID, (Reported) Potassium Chloride 20 Meq Tab.er.prt, 20 MEQ PO DAILY, (Reported) Quinapril HCl 40 Mg Tablet, 40 MG PO DAILY, (Reported) Simvastatin 20 Mg Tablet, 20 MG PO HS, (Reported) TAKES ALONG WITH 40MG TABLET FOR A TOTAL DOSE OF 60MG Simvastatin 40 Mg Tablet, 40 MG PO HS, (Reported) TAKES ALONG WITH 20MG TABLET FOR A TOTAL DOSE OF 60MG Physical Exam-Cardiology Physical Exam Vital Signs/I&O Vital Sign - Last 12Hours 07/09/16 07/09/16 07/09/16 07/09/16 01:00 01:27 02:15 03:58 Pulse 62 64 58 Resp 30 27 Pulse Ox 91 95 97 O2 Flow Rate 15.00 70.00 70.00 07/09/16 07/09/16 07/09/16 07/09/16 04:00 04:00 06:46 07:00 Temp 99.0 Pulse 70 60 Resp 20 B/P (MAP) 185/79 Pulse Ox 97 97 O2 Delivery NIV Bilevel O2 Flow Rate 15.00 FiO2 55 07/09/16 07/09/16 07/09/16 07/09/16 08:00 08:00 09:00 10:51 Temp 97.3 Pulse 67 72 Resp 22 19 B/P (MAP) 167/76 Pulse Ox 95 95 95 92 O2 Delivery High Flow N/C O2 Flow Rate 15.00 15.00 15.00 80.00 Intake and Output 07/08/16 23:59 Intake Total 2550 ml Output Total 750 ml Balance 1800 ml Capillary Refill : Less Than 3 Seconds Constitutional: appears stated age, No apparent distress, well-developed, well- nourished HEENT: PERRL, No discharge, hearing is well preserved, oral hygience is good, No ulceration, No xanthelasmas are seen Neck: No carotid bruit, carotid pulses are 2 + bilaterally Respiratory: No accessory muscle use, No respiratory distress, chest expansion is symmetric, chest is bilaterally symmetric, other (diminished breath sounds bilat) Cardiovascular: regular rate-rhythm, JVD, S1 and S2 Gastrointestinal: No tender, soft, round, No spleenomegaly Extremities: No clubbing, No cyanosis, significant edema (3 (+) bilat LE edema) Neurologic/Psychiatric: alert, oriented x 3, power is 5/5 both on sides Skin: No rash, No ulcerations Lymphatic: no adenopathy Data Review Labs Laboratory Tests 07/08/16 15:17: Glucometer 336H 07/08/16 20:37: Glucometer 348H 07/09/16 03:22: White Blood Count 14.7H, Red Blood Count 2.89L, Hemoglobin 8.6L, Hematocrit 30L , Mean Corpuscular Volume 103H, Mean Corpuscular Hemoglobin 30, Mean Corpuscular Hemoglobin Concent 29L, Red Cell Distribution Width 16.8H, Platelet Count 203, Mean Platelet Volume 13.1H, Neutrophils (%) (Auto) 89H, Lymphocytes ( %) (Auto) 3L, Monocytes (%) (Auto) 7, Eosinophils (%) (Auto) 0, Basophils (%) ( Auto) 0, Neutrophils # (Auto) 13.1H, Lymphocytes # (Auto) 0.5L, Monocytes # ( Auto) 1.0, Eosinophils # (Auto) 0.0, Basophils # (Auto) 0.0, Hemoglobin A1c 5.7 07/09/16 03:27: Sodium Level 145, Potassium Level 4.6, Chloride Level 100, Carbon Dioxide Level 36H, Anion Gap 9, Blood Urea Nitrogen 42H, Creatinine 1.24, Estimat Glomerular Filtration Rate 43, BUN/Creatinine Ratio 34, Glucose Level 224H, Calcium Level 8.9, Phosphorus Level 3.3, Magnesium Level 2.1 07/09/16 08:28: Glucometer 250H Microbiology 07/07/16 Blood Culture - Preliminary, Resulted No growth 07/07/16 Urine Culture - Preliminary, Resulted Escherichia Coli 07/08/16 Gram Stain - Final, Resulted 07/08/16 Wound Culture - Preliminary, Resulted Staphylococcus Aureus Radiology NAME: KIMBERLY JOSE [facility] REC#: [id number] PT STATUS: ADM IN : 1945 PHYSICIAN: RENE SALAZAR MD ADMIT DATE: 07/07/16/ICU Signed Date of Exam: 07/09/16 CHEST 1 VIEW, AP/PA ONLY INDICATION: Fluid overload, sepsis. Portable chest 4:50 a.m. There is cardiomegaly with vascular congestion and alveolar edema. There is a focal area of consolidation in the right mid lung, which appears more opaque than on the previous day study. Left lung appears slightly improved. IMPRESSION: Bilateral pulmonary infiltrates with some improvement on left and some unfavorable change on the right. Dictated by: Dictated on workstation # [id number] Dict: 07/09/16 0639 Trans: 07/09/16 0835 Interpreted by: DANY JONES Electronically signed by: DANY JONES 07/09/16 0835 A/P-Cardiology Assessment/Admission Diagnosis Shortness of breath, multifactorial (see below) Acute on chronic diastolic CHF likely d/t volume overload Obesity with obesity-hypoventilation syndrome Cellulitis of the right hand with sepsis - sepsis resolved - Abx management per medical services Echo of showed LVEF 60%, no significant valvular heart disease, PASP within normal limits CKD III Physical deconditioning DM II Hypertension Hyperlipidemia, by history (LDL 70, Chol 121 on lab of 05-26-16) Mild anemia of undetermined etiology, managed by the Medical Service H/o bilateral knee and of L hip replacement Discussion and Recomendations Acute on chronic diastolic CHF d/t volume overload. Spoke with Dr. Salazar of medical services. We will start Lasix gtt for gently diuresis. We will also give a one time dose of Zaroxolyn. Monitor I&O closely. D/t CKD III we will monitor renal function closely. Replace electrolytes as needed. Once again we advise sleep studies as an outpatient d/t suspected obstructive sleep apnea syndrome. We would like to thank Dr. Salazar for this consult. Further recommendations will be based on her hospital course. This consult is being scribed by Marsha Spann APRN on behalf of Dr. Jung after discussion regarding plan of care. Clinical Quality Measures DVT/VTE Risk/Contraindication: Risk Factor Score Per Nursin RFS Level Per Nursing on Admit: 4+=Very High Physician Assessment Physician Assessment Lungs: fair to good bilat air entry, but diminished at the bases Cor: reg A&R * As discussed in our note above * Complex management due to multiple concurrent and active comorbidities * I spoke with her and answered questions NACHO SPANN PROCEDURE RN July 09, 2016 11:03 ALEXIS JUNG MD FACP FAC CCDS July 09, 2016 12:52
[2016-07-09] MEDS ORDERED: METOLAZONE 5 MG (ZAROXOLYN) TAB PO NR (11:05)
[2016-07-09] MEDS: FUROSEMIDE IV SCH (11:55)
[2016-07-09] MEDS: NS IV SCH (11:55)
--- NOTE | 2016-07-09 15:24 | Physical Therapy Evaluation ---
PT Evaluation-General Medical Diagnosis Admission Date July 07, 2016 at 18:30 Medical Diagnosis: sepsis/cellulitis right UE Onset Date: July 07, 2016 Therapy Diagnosis Therapy Diagnosis: severe weakness/debility Height/Weight Height (Feet): 5 Height (Inches): 4.00 Weight (Pounds): 305 Weight (Ounces): 5.0 Precautions Precautions/Isolations: Fall Prevention, Standard Precautions Referral Physician: Mi Reason for Referral: Evaluation/Treatment Medical History Pertinent Medical History: DM, Heart Failure, HTN Additional Medical History 4L continuous at home prior; left THR and TKR (bilaterally) Current History increased pain, redness and edema right UE x 5 days from a blister Reviewed History: Yes Social History Home: Apartment Current Living Status: Alone Prior/[facility] Prior Level of Function Functional [place] Measure 0=Not Assessed/NA 4=Minimal Assistance 1=Total Assistance 5=Supervision or Setup 2=Maximal Assistance 6=Modified [place] 3=Moderate Assistance 7=Complete [place] Bed Mobility: 6 Transfers (B,C,W/C) (FIM): 6 Gait: 6 PT Evaluation-Current Subjective Patient is currently on bipap. Pain Numeric Pain Scale: 5-Moderate Pain Location: Right Location Body Site: Arm Pain Description: Acute Objective Patient Orientation: Unable to Assess Problem Solving: Poor Attachments: Oxygen (Bipap), Hernandez Catheter, IV ROM/Strength ROM Lower Extremities decreased ROM bilaterally due to 3++ edema with "weeping" Strenght Lower Extremities no formal testing secondary to patient inability to follow direction Integumentary/Posture Integumentary refer to nursing notes Bladder Incontinence: Hernandez Cath Posture supine Neuromuscular (Tone, Coordination, Reflexes) severely diminished coordination Sensory Vision: Functional Hearing: Functional Sensation Right Lower Extremit: Impaired Sensation Left Lower Extremity: Impaired Transfers Functional [place] Measure 0=Not Assessed/NA 4=Minimal Assistance 1=Total Assistance 5=Supervision or Setup 2=Maximal Assistance 6=Modified [place] 3=Moderate Assistance 7=Complete [place] Transfers (B, C, W/C) (FIM): 1 Scootin Rollin attempted supine to sit EOB, however, patient unable to attain Assessment/Needs 71 y.o severely ill female, will benefit from skilled PT to address functional strength and mobility to improve current LOF. Patient is severely limited in strength, active mobility and is very edematous. Rehab Potential: Guarded Post Rehab Potential-Barriers: severe fluid overload PT Pinion Sorter Goals Pinion Sorter Goals PT Intermediate Goals Time Frame: July 23, 2016 Transfers (B,C,W/C) (FIM): 3 Gait (FIM): 1 Gait distance (FIM): 1=up to 49 ft Distance: 10' Gait Level of Assist: 3 Gait Assistive Device: FWW PT Plan Problem List Problem List: Activity Tolerance, Functional Strength, Safety, Balance, Gait, Transfer, Bed Mobility, ROM Treatment/Plan Treatment Plan: Continue Plan of Care Treatment Plan: Bed Mobility, Education, Functional Activity Ananth, Functional Strength, Gait, Safety, Therapeutic Exercise, Transfers Treatment Duration: July 23, 2016 # of days/week 5-6 Visits Per Week: 5-6 Discharge Recommendations Therapy D/C Recommendations: Detention Placement Time/GCodes Time In: 1445 Time Out: 1510 Total Billed Treatment Time: 25 Total Billed Treatment 1 visit EVHighC 25 min ES DIALLO PT July 09, 2016 15:24
[2016-07-09] MEDS: LORazepam INJ 2 MG/ML (ATIVAN) VIAL IVP PRN (16:59)
[2016-07-09] MEDS ORDERED: ENOXAPARIN 40 MG/0.4 ML (LOVENOX) SYR SC SCH (18:30)
--- NOTE | 2016-07-09 18:37 | Progress Note (SOAP) ---
Subjective Subjective/Events-last exam Patient states that she had a rough night last night. Having more shortness of breath. Still has a very depressed affect. + nausea this AM after taking 1 bite of her breakfast. Will get PT to get patient up and walk Date seen by provider: July 09, 2016 Time seen by provider: 09:20 Objective Exam Last Set of Vital Signs Vital Signs Date Time Temp Pulse Resp B/P (MAP) Pulse Ox O2 Delivery O2 Flow Rate FiO2 07/09/16 16:00 96 80 07/09/16 16:00 98.0 70 18 157/76 80.00 07/09/16 08:00 High Flow N/C Capillary Refill : Less Than 3 Seconds I&O Intake and Output 07/09/16 00:00 Intake Total 2850 ml Output Total 2200 ml Balance 650 ml Intake Oral 1850 ml IV Total 1000 ml Output Urine Total 2200 ml General: Alert, Oriented X3, Cooperative, Mild Distress Lungs: Other (diminished breath sounds) Heart: Regular Rate, No Murmurs Abdomen: Normal Bowel Sounds, Soft, No Tenderness, No Masses Extremities: Other (RUE swelling and erythema, mild improvement, 2+ pitting edema to elbow) Neuro: Normal Speech, Sensation Intact, Cranial Nerves 3-12 NL Psych/Mental Status: Mental Status NL, Other (depressed mood, + anxiety with bipap) Results/Procedures Lab Laboratory Tests 07/08/16 20:37: Glucometer 348H 07/09/16 03:22: White Blood Count 14.7H, Red Blood Count 2.89L, Hemoglobin 8.6L, Hematocrit 30L , Mean Corpuscular Volume 103H, Mean Corpuscular Hemoglobin 30, Mean Corpuscular Hemoglobin Concent 29L, Red Cell Distribution Width 16.8H, Platelet Count 203, Mean Platelet Volume 13.1H, Neutrophils (%) (Auto) 89H, Lymphocytes ( %) (Auto) 3L, Monocytes (%) (Auto) 7, Eosinophils (%) (Auto) 0, Basophils (%) ( Auto) 0, Neutrophils # (Auto) 13.1H, Lymphocytes # (Auto) 0.5L, Monocytes # ( Auto) 1.0, Eosinophils # (Auto) 0.0, Basophils # (Auto) 0.0, Hemoglobin A1c 5.7 07/09/16 03:27: Sodium Level 145, Potassium Level 4.6, Chloride Level 100, Carbon Dioxide Level 36H, Anion Gap 9, Blood Urea Nitrogen 42H, Creatinine 1.24, Estimat Glomerular Filtration Rate 43, BUN/Creatinine Ratio 34, Glucose Level 224H, Calcium Level 8.9, Phosphorus Level 3.3, Magnesium Level 2.1 07/09/16 08:28: Glucometer 250H 07/09/16 15:54: Glucometer 190H Microbiology 07/07/16 Blood Culture - Preliminary, Resulted No growth 07/07/16 Urine Culture - Preliminary, Resulted Escherichia Coli 07/08/16 Gram Stain - Final, Resulted 07/08/16 Wound Culture - Preliminary, Resulted Staphylococcus Aureus Probable Pseudomonas Radiology NAME: KIMBERLY JOHNSON [facility] REC#: [id number] PT STATUS: ADM IN : 1945 PHYSICIAN: RENE SALAZAR MD ADMIT DATE: 07/07/16/ICU Signed Date of Exam: 07/09/16 CHEST 1 VIEW, AP/PA ONLY INDICATION: Fluid overload, sepsis. Portable chest 4:50 a.m. There is cardiomegaly with vascular congestion and alveolar edema. There is a focal area of consolidation in the right mid lung, which appears more opaque than on the previous day study. Left lung appears slightly improved. IMPRESSION: Bilateral pulmonary infiltrates with some improvement on left and some unfavorable change on the right. Dictated by: Dictated on workstation # [id number] Dict: 07/09/16 0639 Trans: 07/09/16 0835 Interpreted by: DANY JONES Electronically signed by: DANY JONES 07/09/16 0835 Assessment/Plan Assessment/Plan Plan 71 yo F with multiple comorbid conditions that was admitted for Sepsis from RUE cellulitis and increasing shortness of breath Plan Sepsis from RUE cellulitis, Hemodynamically Stable, cellulitis improving - Blood/wound campbell susceptible, plan to switch to keflex in AM - Continue IV Antibiotics D3 - Lactate resolved Acute on Chronic Diastolic CHF, retained systolic function in Echo 04/2016 - Lasix gtts after consulting cardiology - Strict I/Os with ankit, will remove once lasix gtts d/aquilino - CXR consistent with vascular congestion Presumed untreated VICKY - Needs outpatient sleep study, however patient does not want to have procedure done at this time because she does not want to wear CPAP Acute Kidney Failure on CKD - Will continue to monitor Cr closely while on lasix gtts UTI - Will switch to PO keflex in AM Insulin Dependent DM - A1c pending - Continue home insulin with SSI - Holding Metformin Macrocytic Anemia: HDS - Normal B12 and Folate in April - Mild low %sat of iron with normal Fe level - Likely mixed with chronic dz Debility - PT evaluated and suggested patient d/c to SNF FEN: ADA diet DVT PPX: Lovenox Dispo: Continue admit to cardiac stepdown unit Social: will consult for SNF placement following d.c Diagnosis/Problems: Clinical Quality Measures DVT/VTE Risk/Contraindication: Risk Factor Score Per Nursin RFS Level Per Nursing on Admit: 4+=Very High RENE SALAZAR MD July 09, 2016 18:37
[2016-07-09] MEDS ORDERED: TROUGH ORDER-PHARMACY XX NR (19:00)
[2016-07-09] MEDS ORDERED: DILTIAZEM 25 MG/5 ML INJ (CARDIZEM) VIAL ONE (19:53)
[2016-07-09] MEDS ORDERED: SODIUM CHLORIDE (ADD-VANTAGE) 100 ML IV ONE (19:54)
[2016-07-09] MEDS ORDERED: DILTIAZEM 100 MG/VIAL (CARDIZEM) ADD-VANTAGE IV ONE (19:54)
[2016-07-09] MEDS ORDERED: DILTIAZEM 25 MG/5 ML INJ (CARDIZEM) VIAL IVP NR (20:15)
[2016-07-09] MEDS: DILTIAZEM DRIP 100 MG in SODIUM CHLORIDE (ADD-VANTAGE) 100 ML IV SCH (20:30)
[2016-07-09] MEDS ORDERED: meTOprolol 5 MG/5 ML (LOPRESSOR) VIAL ONE (20:41)
[2016-07-09] MEDS: VANCOMYCIN 1,750 MG/NS 500 ML IVPB IV SCH ×2 (20:52)
[2016-07-09] MEDS: LATANOPROST 0.005% (XALATAN) OPHTH SOLN 2.5 ML OU SCH (20:52)
[2016-07-09] MEDS: APIXABAN 5 MG (ELIQUIS) TABLET PO SCH (20:53)
[2016-07-09] MEDS: SIMvastatin 40 MG (ZOCOR) TAB PO SCH (20:53)
[2016-07-09] MEDS: SIMvastatin 20 MG (ZOCOR) TAB PO SCH (20:53)
[2016-07-09] MEDS: hydrALAZINE (APRESOLINE) 25 MG TAB PO SCH (20:53)
[2016-07-09] MEDS ORDERED: meTOprolol 5 MG/5 ML (LOPRESSOR) VIAL IV ONE (21:00)
[2016-07-09] MEDS ORDERED: NON-FORMULARY MEDICATION 1 EA EA (Atenolol 100 MG) PO SCH (21:00)
[2016-07-09] MEDS ORDERED: ATENOLOL 50 MG (TENORMIN) TAB PO SCH (21:00)
[2016-07-09] MEDS: cefTRIAXone 1 GM/NS 50 ML IVPB IV SCH ×2 (21:12)
[2016-07-09] MEDS ORDERED: AMIODARONE 150 MG/3 ML (CORDARONE) AMP IV ONE (21:34)
[2016-07-09] MEDS ORDERED: D5W 100 ML IVPB 100 ML IV ONE (21:36)
[2016-07-09] MEDS ORDERED: AMIODARONE FOR BOLUS 150 MG in D5W 100 ML IVPB 100 ML IV ONE (21:45)
[2016-07-10] VITALS (20 sets, daily range): BP systolic 84–155; BP diastolic 33–110
[2016-07-10] MEDS: DILTIAZEM DRIP 100 MG in SODIUM CHLORIDE (ADD-VANTAGE) 100 ML IV SCH ×2 (00:48→06:56)
[2016-07-10] MEDS: RT-ALBUTEROL/IPRATROPIUM 3 ML (DUONEB) VIAL INH SCH ×3 (01:35→10:34)
[2016-07-10 01:54] LABS: ABG BASE EXCESS 14.4 MMOL/L (-2.5-2.5); ABG OXYGEN SATURATION 92 % (94-100); ABG PO2 62 MMHG (79-93); ABG TCO2 44.2 MMOL/L (21.0-31.0)
[2016-07-10 01:55] LABS: ALLENS TEST YES-POS
[2016-07-10 01:59] LABS: ABG HCO3 42 MMOL/L (23-27); ABG PCO2 88 MMHG (35-45); ABG PH 7.29 (7.37-7.43)
[2016-07-10 04:28] LABS: BASOPHILS % (AUTO) 0 % (0-10); EOSINOPHILS % (AUTO) 0 % (0-10); LYMPHOCYTES # (AUTO) 0.6 X 10^3 (1.0-4.0); LYMPHOCYTES % (AUTO) 4 % (12-44); MEAN CORPUSCULAR HEMOGLOBIN 30 PG (25-34); MEAN CORPUSCULAR HGB CONC 28 G/DL (32-36); MEAN CORPUSCULAR VOLUME 106 FL (80-99); MEAN PLATELET VOLUME 13.1 FL (7.4-10.4); MONOCYTES % (AUTO) 7 % (0-12); NEUTROPHILS # (AUTO) 12.5 X 10^3 (1.8-7.8); NEUTROPHILS % (AUTO) 88 % (42-75); PLATELET COUNT 206 10^3/uL (130-400); RED BLOOD COUNT 2.93 10^6/uL (4.35-5.85); RED CELL DISTRIBUTION WIDTH 16.6 % (10.0-14.5); WHITE BLOOD COUNT 14.1 10^3/uL (4.3-11.0)
[2016-07-10 04:51] LABS: CALCIUM 9.1 MG/DL (8.5-10.1); CREATININE SERUM 0.95 MG/DL (0.60-1.30); PHOSPHORUS 3.9 MG/DL (2.3-4.7); POTASSIUM 4.9 MMOL/L (3.6-5.0)
[2016-07-10] MEDS: inSUlin (REGULAR) HUMAN 1 UNIT/0.01 ML (CHARGE PER UNIT) SC SCH ×2 (04:56→10:29)
[2016-07-10] MEDS: MULTIVIT W/MINERALS TAB (THERAGRAN M) PO SCH (06:17)
--- NOTE | 2016-07-10 08:03 | Diagnostic Imaging Report ---
EXAMINATION: Portable upright radiograph of the chest. INDICATION: Sepsis. COMPARISON: 07/09/16. Findings: Extensive bilateral infiltrates are seen worse on the right lung with slight worsening in the lung bases. The heart size is enlarged. There is question of developing pleural effusions. No pneumothorax. The mediastinum and ana lilia appear unremarkable. IMPRESSION: Worsening extensive infiltrates more in the right side. Cardiomegaly. Dictated by: Dictated on workstation # [id number]
--- NOTE | 2016-07-10 08:31 | Progress Note-Cardiology ---
Cardiology SOAP Progress Note Subjective: Bi-pap in place. Not answering any questions this morning. Documentation from overnight reviewed. Objective: I&O/Vital Signs Vital Sign - Last 12Hours 07/09/16 07/09/16 07/09/16 07/09/16 21:00 21:34 22:00 23:00 Pulse 137 140 80 86 Resp 27 25 22 24 B/P (MAP) 150/99 122/77 142/88 Pulse Ox 96 94 92 90 O2 Flow Rate 100.00 100.00 100.00 100.00 07/10/16 07/10/16 07/10/16 07/10/16 00:00 00:00 00:07 00:10 Temp 97.5 Pulse 89 80 Resp 28 24 B/P (MAP) 143/96 Pulse Ox 91 91 90 O2 Flow Rate 100.00 100.00 100.00 FiO2 100 07/10/16 07/10/16 07/10/16 07/10/16 00:48 01:00 01:00 01:35 Pulse 97 123 111 96 Resp 26 25 B/P (MAP) 130/77 Pulse Ox 90 88 O2 Flow Rate 100.00 100.00 07/10/16 07/10/16 07/10/16 07/10/16 02:00 03:00 03:52 04:00 Pulse 121 102 96 101 Resp 19 19 12 13 B/P (MAP) 130/75 129/94 128/90 Pulse Ox 89 93 95 94 O2 Flow Rate 100.00 100.00 100.00 100.00 07/10/16 07/10/16 07/10/16 07/10/16 04:00 04:11 05:08 06:11 Temp 98.2 Pulse 102 106 Resp 13 11 B/P (MAP) 155/110 113/66 Pulse Ox 93 94 96 O2 Flow Rate 100.00 100.00 100.00 FiO2 100 07/10/16 07/10/16 07/10/16 07/10/16 06:45 06:56 07:00 08:06 Pulse 97 110 89 115 Resp 13 18 Pulse Ox 96 94 O2 Flow Rate 100.00 100.00 Intake and Output 07/10/16 00:00 Intake Total 1030.5 ml Output Total 2950 ml Balance -1919.5 ml Weight (Pounds): 302 Weight (Ounces): 9.0 Weight (Calculated Kilograms): 137.731903 Constitutional: appears stated age, No apparent distress, well-developed, well- nourished Respiratory: accessory muscle use, No respiratory distress, chest expansion is symmetric, chest is bilaterally symmetric, other (diminished breath sounds bilat ; Bi-pap in place) Cardiovascular: irregularly irregular, S1 and S2 Gastrointestional: No tender, soft, round, No spleenomegaly Extremities: swelling (Right arm edema - improved), No clubbing, No cyanosis, significant edema (2-3 (+) bilat LE edema - improved) Neurologic/Psychiatric: alert, oriented x 3, power is 5/5 both on sides Skin: No rash, No ulcerations Results/Procedures: Labs Laboratory Tests 07/09/16 15:54: Glucometer 190H 07/09/16 19:42: Vancomycin Level Trough 14.1 07/09/16 21:02: Glucometer 154H 07/10/16 01:50: Blood Gas Puncture Site L RAD, Blood Gas Patient Temperature 98.0, Arterial Blood pH 7.29*L, Arterial Blood Partial Pressure CO2 88*H, Arterial Blood Partial Pressure O2 62L, Arterial Blood HCO3 42*H, Arterial Blood Total CO2 44.2H, Arterial Blood Oxygen Saturation 92L, Arterial Blood Base Excess 14.4H, Winston Test YES-POS, Blood Gas Ventilator Setting NO, Blood Gas Inspired Oxygen 100% BIPAP 07/10/16 03:45: White Blood Count 14.1H, Red Blood Count 2.93L, Hemoglobin 8.8L, Hematocrit 31L , Mean Corpuscular Volume 106H, Mean Corpuscular Hemoglobin 30, Mean Corpuscular Hemoglobin Concent 28L, Red Cell Distribution Width 16.6H, Platelet Count 206, Mean Platelet Volume 13.1H, Neutrophils (%) (Auto) 88H, Lymphocytes ( %) (Auto) 4L, Monocytes (%) (Auto) 7, Eosinophils (%) (Auto) 0, Basophils (%) ( Auto) 0, Neutrophils # (Auto) 12.5H, Lymphocytes # (Auto) 0.6L, Monocytes # ( Auto) 1.0, Eosinophils # (Auto) 0.0, Basophils # (Auto) 0.0, Sodium Level 147H, Potassium Level 4.9, Chloride Level 101, Carbon Dioxide Level 35H, Anion Gap 11 , Blood Urea Nitrogen 32H, Creatinine 0.95, Estimat Glomerular Filtration Rate 58, BUN/Creatinine Ratio 34, Glucose Level 76, Calcium Level 9.1, Phosphorus Level 3.9, Magnesium Level 2.0 Microbiology 07/07/16 Blood Culture - Preliminary, Resulted No growth 07/07/16 Urine Culture - Preliminary, Resulted Escherichia Coli 07/08/16 Gram Stain - Final, Resulted 07/08/16 Wound Culture - Preliminary, Resulted Staphylococcus Aureus Pseudomonas Aeruginosa Procedures NAME: KIMBERLY JOHNSON [facility] REC#: [id number] PT STATUS: ADM IN : 1945 PHYSICIAN: RENE SALAZAR MD ADMIT DATE: 07/07/16/ICU Draft Date of Exam:07/10/16 CHEST 1 VIEW, AP/PA ONLY EXAMINATION: Portable upright radiograph of the chest. INDICATION: Sepsis. COMPARISON: 07/09/16. Findings: Extensive bilateral infiltrates are seen worse on the right lung with slight worsening in the lung bases. The heart size is enlarged. There is question of developing pleural effusions. No pneumothorax. The mediastinum and ana lilia appear unremarkable. IMPRESSION: Worsening extensive infiltrates more in the right side. Cardiomegaly. Dictated on workstation # [id number] Dict: 07/10/16 0723 Trans: 07/10/16 0803 BANNER [id number] Interpreted by: VALENTINE BOB MD Electronically signed by: A/P: Assessment: Shortness of breath, multifactorial (see below) New onset a-fib with RVR (first documented July 10, 2016). No VT or VF (some artifact recorded during times of resp stress and her struggle with her BiPAP) Possible pneumonia - Medical/Pulmonary services following Acute on chronic diastolic CHF likely d/t volume overload Obesity with obesity-hypoventilation syndrome OAC with Eliquis Cellulitis of the right hand with sepsis - sepsis resolved - Abx management per medical services Echo of showed LVEF 60%, no significant valvular heart disease, PASP within normal limits CKD III Physical deconditioning DM II Hypertension Hyperlipidemia, by history (LDL 70, Chol 121 on lab of 05-26-16) Mild anemia of undetermined etiology, managed by the Medical services H/o bilateral knee and of L hip replacement Mild anemia of undetermined etiology - being managed Medical services Plan: Complex management Un-cooperative with assessment this morning New onset a-fib with RVR - will change Cardizem gtt to oral Cardizem CD 360mg daily We will stop Atenolol and change her to long-acting Toprol XL 100mg daily Continue OAC with Eliquis Acute on chronic diastolic CHF d/t volume overload - good diuretic response to Lasix gtt - will stop and change to bolus dosing with Zaroxolyn Monitor I&O closely. Monitor lab closely Replace electrolytes as needed. Once again we advise sleep studies as an outpatient d/t suspected obstructive sleep apnea syndrome. DNR status Plan of care discussed with Dr. Jung Physician Assessment Physician Assessment Lungs: fair air entry, diminished at the bases Cor: irreg A&R * As documented in our note above * Complex management * Continue to monitor closely * Continue to monitor labs * Dr Dozier covering our service over the weekend NACHO YOUNG July 10, 2016 08:31 JUAN CARLOS JUNG MD FACP FAC CCDS July 10, 2016 09:01
[2016-07-10] MEDS ORDERED: DILTIAZEM 180 MG (CARDIZEM CD) CAP PO ONE (08:45)
[2016-07-10] MEDS: FUROSEMIDE IV SCH (08:52)
[2016-07-10] MEDS: NS IV SCH (08:52)
[2016-07-10] MEDS ORDERED: DILTIAZEM 180 MG (CARDIZEM CD) CAP PO SCH (09:00)
[2016-07-10] MEDS ORDERED: CEFEPIME INJECTION 2,000 MG in NS (IVPB) 50 ML IV SCH (09:00)
[2016-07-10] MEDS ORDERED: FUROSEMIDE 40 MG/4 ML INJ (LASIX) IVP NR (09:05)
[2016-07-10] MEDS ORDERED: METOLAZONE 5 MG (ZAROXOLYN) TAB PO NR (09:05)
[2016-07-10] MEDS: LORazepam INJ 2 MG/ML (ATIVAN) VIAL IVP PRN ×2 (10:14→15:51)
[2016-07-10] MEDS: APIXABAN 5 MG (ELIQUIS) TABLET PO SCH (10:20)
[2016-07-10] MEDS: hydrALAZINE (APRESOLINE) 25 MG TAB PO SCH (10:21)
[2016-07-10] MEDS: ASPIRIN E.C. 81 MG (ECOTRIN) TAB PO SCH (10:21)
[2016-07-10] MEDS: inSUlin DETERMIR 1 UNIT/0.01 ML (LEVEMIR) CHARGE PER UNIT SQ SCH (10:29)
--- NOTE | 2016-07-10 11:00 | Physical Therapy Progress Note ---
Therapy Progress Note PT consulted with physician, PT to dismiss patient from services secondary to decline in medical status. ES DIALLO PT July 10, 2016 11:00
--- NOTE | 2016-07-10 17:32 | Discharge Summary ---
Diagnosis/Chief Complaint Date of Admission July 07, 2016 at 18:30 Date of Discharge Chief Complaint/HPI Chief Complaint/HPI 71 yo F admitted for increasing pain in RUE with worsening redness and swelling for 4-5 days. Patient states that she had this wound and it started as a blister and popped and then she noticed the redness was moving up her arm and it was harder for her to move her fingers. Patient has also been having increasing shortness of breath for the last 2 days. Denies any fevers or chills. States that she has no missed medications but has noticed increased swelling. Denies chest pain or abdominal pain. Discharge Summary-Simple/Stand Consultations Discharge Physical Examination Allergies: Coded Allergies: Penicillins (Unverified Allergy, Unknown, 05/25/16) morphine (Unverified Allergy, Unknown, 05/25/16) Vitals & I&Os Vital Sign - Last 12Hours Date Time Temp Pulse Resp B/P (MAP) Pulse Ox O2 Delivery O2 Flow Rate FiO2 07/10/16 15:55 121 22 98/73 87 25.00 95 07/10/16 13:00 98.6 07/09/16 08:00 High Flow N/C Intake and Output 07/10/16 00:00 Intake Total 1030.5 ml Output Total 2950 ml Balance -1919.5 ml Hospital Course See final discharge diagnosis. Radiology Reviewed NAME: KIMBERLY JOHNSON [facility] REC#: [id number] PT STATUS: ADM IN : 1945 PHYSICIAN: RENE SALAZAR MD ADMIT DATE: 07/07/16/ICU Signed Date of Exam: 07/09/16 CHEST 1 VIEW, AP/PA ONLY INDICATION: Fluid overload, sepsis. Portable chest 4:50 a.m. There is cardiomegaly with vascular congestion and alveolar edema. There is a focal area of consolidation in the right mid lung, which appears more opaque than on the previous day study. Left lung appears slightly improved. IMPRESSION: Bilateral pulmonary infiltrates with some improvement on left and some unfavorable change on the right. Dictated by: Dictated on workstation # [id number] Dict: 07/09/16 0639 Trans: 07/09/16 0835 Interpreted by: DANY JONES Electronically signed by: DANY JONES 07/09/16 0835 Discharge Instructions to patient/family Please see electonic discharge instructions given to patient. Discharge Medications Reviewed and agree with Discharge Medication list on patient's Discharge Instruction sheet Clinical Quality Measures DVT/VTE Risk/Contraindication: Risk Factor Score Per Nursin RFS Level Per Nursing on Admit: 4+=Very High RENE SALAZAR MD July 10, 2016 17:32
[2016-07-11] MEDS ORDERED: FUROSEMIDE 40 MG/4 ML INJ (LASIX) IVP SCH (09:00)
== END 2016-07-10 15:55 | disposition short-term general hospital (02) | DRG 871 ==
LOC: EDUNIT# 14:50 → ER 14:52 → ICU 18:30
PROVIDERS: ADMIT Family Medicine; ATTEND Family Medicine
DX: A41.9 Sepsis, unspecified organism (principal); R65.20 Severe sepsis without septic shock; L03.113 Cellulitis of right upper limb; N17.9 Acute kidney failure, unspecified; I13.0 Hypertensive heart and chronic kidney disease with heart failure and stage 1 through stage 4 chronic kidney disease, or unspecified chronic kidney disease; I50.33 Acute on chronic diastolic (congestive) heart failure; N18.3 Chronic kidney disease, stage 3 (moderate); N30.00 Acute cystitis without hematuria; Z66 Do not resuscitate; Z68.43 Body mass index [BMI] 50.0-59.9, adult; J44.9 Chronic obstructive pulmonary disease, unspecified; J45.909 Unspecified asthma, uncomplicated; E11.9 Type 2 diabetes mellitus without complications; E66.2 Morbid (severe) obesity with alveolar hypoventilation; I48.91 Unspecified atrial fibrillation; D53.9 Nutritional anemia, unspecified; E78.5 Hyperlipidemia, unspecified; F32.9 Major depressive disorder, single episode, unspecified; M19.91 Primary osteoarthritis, unspecified site; Z79.4 Long term (current) use of insulin; Z99.81 Dependence on supplemental oxygen; Z87.11 Personal history of peptic ulcer disease; Z79.01 Long term (current) use of anticoagulants
CPT/HCPCS: 36415; 71010; 80048; 80053; 80202; 81000; 82805; 82962; 83036; 83605; 83735; 84100; 85007; 85025; 85027; 85610; 85730; 87040; 87070; 87077; 87088; 87186; 87205; 94640; 94660; 94760; 96365; 96375

== ENCOUNTER 2016-09-03 01:45 | Observation (INO) | payer MEDICARE, MEDICAID ==
[~2016-09-03] VITALS: Ht 162.6 cm; Wt 120.4 kg
[~2016-09-03 01:45] MED LIST changes: +INSU100I29 SQ; +POTA20TA15 PO
[2016-09-03] MEDS ORDERED: RT-ALBUTEROL/IPRATROPIUM 3 ML (DUONEB) VIAL ONE (02:24)
--- NOTE | 2016-09-03 02:46 | ED Chest Pain ---
General Chief Complaint: Chest Pain Stated Complaint: CP Source: patient, EMS Exam Limitations: no limitations History of Present Illness Time seen by provider: 02:38 Initial Comments EMS reports the patient was found unresponsive this morning for about 3 minutes with her eyes open and sats the mid 80s. She is with COPD and on 3 L O2 at home by nasal cannula. Patient reports she had called for help to get to the bathroom last night and that the staff told her she was unresponsive for 3 minutes. She does not recall if this happened or not. She states she was having some shakes and chest pressure earlier today without any sweats or nausea or vomiting. Recently she has been told she has atrial fibrillation was put on some medicines for that. She denies any chest pain but states she has put on about 30 pounds in the past several weeks that her doctor told her was due to fluids. He doubled her diuretics. She remarks the chest pressure and tightness and shortness of breath just started tonight. She is residing at [facility] now for PT OT rehabilitation secondary to a bout of pneumonia where she was treated inpatient at [facility] in [place]. She is diabetic and reports that the past few nights she's had some low blood sugars in the 40s to 70s. She also reports she had constipation and had her Colace doubled. She has an appointment within the next week or [address] Carvalho, cardiology whom she has not met yet. Allergies and Home Medications Allergies Coded Allergies: Penicillins (Unverified Allergy, Unknown, 05/25/16) morphine (Unverified Allergy, Unknown, 05/25/16) Home Medications Aspirin 81 Mg Tablet.dr, 81 MG PO DAILY, (Reported) Atenolol 100 Mg Tablet, 100 MG PO HS, (Reported) Bisacodyl 5 Mg Tablet.dr, 5 MG PO DAILY PRN PRN for CONSTIPATION-4TH LINE, ( Reported) Diclofenac Sodium 75 Mg Tablet.dr, 75 MG PO BID WITH MEALS, (Reported) Dorzolamide HCl 10 Ml Drops, 1 DROP OU BID, (Reported) Ferrous Sulfate 325 Mg Tablet, 325 MG PO DAILY@0700, (Reported) Furosemide 40 Mg Tablet, 80 MG PO DAILY, (Reported) TAKES 2 (40 MG) TABLETS Furosemide 40 Mg Tablet, 40 MG PO DAILY@1200, (Reported) Hydralazine HCl 25 Mg Tablet, 25 MG PO BID, (Reported) Insulin Detemir 100 Unit/1 Ml Insuln.pen, 30 UNITS SQ BID, (Reported) Latanoprost 2.5 Ml Drops, 1 DROP OU HS, (Reported) Metformin HCl 1,000 Mg Tablet, 1,000 MG PO BID WITH MEALS, (Reported) Multivitamin 1 Each Tablet, 1 TAB PO BID, (Reported) Potassium Chloride 20 Meq Tab.er.prt, 20 MEQ PO DAILY, (Reported) Quinapril HCl 40 Mg Tablet, 40 MG PO DAILY, (Reported) Simvastatin 20 Mg Tablet, 20 MG PO HS, (Reported) TAKES ALONG WITH 40MG TABLET FOR A TOTAL DOSE OF 60MG Simvastatin 40 Mg Tablet, 40 MG PO HS, (Reported) TAKES ALONG WITH 20MG TABLET FOR A TOTAL DOSE OF 60MG Review of Systems Constitutional: No chills, No fever, malaise Respiratory: Denies Cough, Shortness of Air (at baseline) Cardiovascular: See HPI, Edema Gastrointestinal: Denies Constipated, Denies Diarrhea, Denies Nausea Genitourinary: Denies Burning, Denies Discharge, Denies Drainage, Denies Frequency Musculoskeletal: No back pain, No joint pain Skin: No pruritus, No rash Psychiatric/Neurological: Denies Headache, Denies Numbness Past Mnvbxqz-Zkzkoa-Pxgale Hx Patient Social History Alcohol Use: Denies Use Recreational Drug Use: No Smoking Status: Former Smoker 2nd Hand Smoke Exposure: No Recent Foreign Travel: No Contact w/Someone Who Travel: No Recent Hopitalizations: No Immunizations Up To Date PED Vaccines UTD: Yes Date of Pneumonia Vaccine: May 25, 2013 Date of Influenza Vaccine: Nov 30, 2015 Seasonal Allergies Seasonal Allergies: No Surgeries HX Surgeries: Yes Surgeries: Hysterectomy, Joint Replacement Respiratory Hx Respiratory Disorders: Yes Respiratory Disorders: Asthma, COPD Cardiovascular Hx Cardiac Disorders: Yes (diastolic heart failure) Cardiac Disorders: High Cholesterol, Hypertension Neurological Hx Neurological Disorders: No 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 Genitourinary Hx Genitourinary Disorders: No Gastrointestinal Hx Gastrointestinal Disorders: Yes Gastrointestinal Disorders: Ulcer Musculoskeletal Hx Musculoskeletal Disorders: Yes (joint replacements) Musculoskeletal Disorders: Arthritis Endocrine Hx Endocrine Disorders: Yes Endocrine Disorders: Diabetes, Insulin dep HEENT HX ENT Disorders: No Cancer Hx Cancer: No Psychosocial Hx Psychiatric Problems: No Behavioral Health Disorders: Depression Blood Transfusions Adverse Reaction to a Blood Tr: No Family Medical History Significant Family History: No Pertinent Family Hx Family Medial History: CHF (congestive heart failure) 19 MOTHER Physical Exam Vital Signs Vital Sign - Last 12Hours 09/03/16 02:29 Temp 97.5 Pulse 62 Resp 20 B/P (MAP) 118/47 Pulse Ox 98 O2 Delivery Nasal Cannula O2 Flow Rate 4.00 FiO2 98 Capillary Refill : General Appearance: No Apparent Distress, Obese HEENT: PERRL/EOMI, Pharynx Normal Neck: Normal Inspection, Non Tender Respiratory: Chest Non Tender, Lungs Clear, Normal Breath Sounds Cardiovascular: No JVD, Normal Peripheral Pulses, Systolic Murmur, Other (2+ bilateral lower extremity edema) Gastrointestinal: Normal Bowel Sounds, Non Tender, Soft Extremity: Normal Capillary Refill, Non Tender, No Calf Tenderness Neurologic/Psychiatric: Alert, Oriented x3 Skin: Normal Color, Warm/Dry Lymphatic: No Adenopathy Progress/Results/Core Measures Results/Orders Lab Results Laboratory Tests Test 09/03/16 02:48 09/03/16 03:50 Range/Units White Blood Count 12.8 H 4.3-11.0 10^3/uL Red Blood Count 3.02 L 4.35-5.85 10^6/uL Hemoglobin 7.4 L 11.5-16.0 G/DL Hematocrit 25 L 35-52 % Mean Corpuscular Volume 82 80-99 FL Mean Corpuscular Hemoglobin 25 25-34 PG Mean Corpuscular Hemoglobin Concent 30 L 32-36 G/DL Red Cell Distribution Width 18.0 H 10.0-14.5 % Platelet Count 291 130-400 10^3/uL Mean Platelet Volume 11.7 H 7.4-10.4 FL Neutrophils (%) (Auto) 80 H 42-75 % Lymphocytes (%) (Auto) 6 L 12-44 % Monocytes (%) (Auto) 9 0-12 % Eosinophils (%) (Auto) 5 0-10 % Basophils (%) (Auto) 1 0-10 % Neutrophils # (Auto) 10.2 H 1.8-7.8 X 10^3 Lymphocytes # (Auto) 0.8 L 1.0-4.0 X 10^3 Monocytes # (Auto) 1.1 H 0.0-1.0 X 10^3 Eosinophils # (Auto) 0.6 H 0.0-0.3 10^3/uL Basophils # (Auto) 0.1 0.0-0.1 10^3/uL Neutrophils % (Manual) 77 % Lymphocytes % (Manual) 10 % Monocytes % (Manual) 4 % Eosinophils % (Manual) 8 % Basophils % (Manual) 1 % Band Neutrophils 0 % Polychromasia SLIGHT Anisocytosis SLIGHT Microcytosis SLIGHT Prothrombin Time 13.3 12.2-14.7 SEC INR Comment 1.0 0.8-1.4 Activated Partial Thromboplast Time 30 24-35 SEC Sodium Level 136 135-145 MMOL/L Potassium Level 4.5 3.6-5.0 MMOL/L Chloride Level 95 L 98-107 MMOL/L Carbon Dioxide Level 27 21-32 MMOL/L Anion Gap 14 5-14 MMOL/L Blood Urea Nitrogen 74 H 7-18 MG/DL Creatinine 4.21 H 0.60-1.30 MG/DL Estimat Glomerular Filtration Rate 10 BUN/Creatinine Ratio 18 Glucose Level 54 *L 70-105 MG/DL Calcium Level 8.5 8.5-10.1 MG/DL Magnesium Level 1.8 1.8-2.4 MG/DL Total Bilirubin 0.4 0.1-1.0 MG/DL Aspartate Amino Transf (AST/SGOT) 34 5-34 U/L Alanine Aminotransferase (ALT/SGPT) 31 0-55 U/L Alkaline Phosphatase 96 40-136 U/L Myoglobin 87.7 10.0-92.0 NG/ML Troponin I < 0.30 <0.30 NG/ML B-Type Natriuretic Peptide 261.5 H <100.0 PG/ML Total Protein 6.2 L 6.4-8.2 GM/DL Albumin 2.9 L 3.2-4.5 GM/DL Glucometer 58 *L 70-110 MG/DL My Orders Orders - SARA SARAH Albuterol/Ipra Inhalation Soln (Duoneb I (09/03/16 02:24) Cbc With Automated Diff (09/03/16 02:46) Magnesium (09/03/16 02:46) Chest 1 View, Ap/Pa Only (09/03/16 02:46) Ekg Tracing (09/03/16 02:46) Cardiac Profile 1 (09/03/16 02:46) Comprehensive Metabolic Panel (09/03/16 02:46) Myoglobin Serum (09/03/16 02:46) Protime With Inr (09/03/16 02:46) Partial Thromboplastin Time (09/03/16 02:46) O2 (09/03/16 02:46) Monitor-Rhythm Ecg Trace Only (09/03/16 02:46) Lipid Panel (09/04/16 06:00) Aspirin Tablet (Aspirin Tablet) (09/03/16 03:00) Saline Lock/Iv-Start (09/03/16 02:46) BNP (09/03/16 02:46) Manual Differential (09/03/16 02:48) Furosemide Injection (Lasix Injection) (09/03/16 04:00) Medications Given in ED Current Medications Medications Dose Ordered Sig/Sameera Route Start Time Stop Time Status Last Admin Dose Admin Albuterol/ Ipratropium 3 ml STK-MED ONCE .ROUTE 09/03/16 02:24 09/03/16 02:30 DC 09/03/16 02:35 3 ML Aspirin 325 mg ONCE ONCE PO 09/03/16 03:00 09/03/16 03:01 DC 09/03/16 02:52 325 MG Vital Signs/I&O Vital Sign - Last 12Hours 09/03/16 09/03/16 09/03/16 09/03/16 02:29 02:29 02:29 02:35 Temp 97.5 Pulse 62 Resp 20 B/P (MAP) 118/47 Pulse Ox 98 98 93 O2 Delivery Nasal Cannula Nasal Cannula Nasal Cannula Nasal Cannula O2 Flow Rate 4.00 4.00 4.0 3.00 FiO2 98 Progress Note : Time: 04:04 Progress Note Patient with hypoglycemia and history of present illness. Creatinine in June was less than 1. She is with a high BNP and very edematous should be consistent with acute decompensated heart failure that may have contributed to her history of present illness. She may also have an infection given her low white count with left shift and blood glucose lability. ECG Initial ECG Impression Date: Sep 03, 2016 Initial ECG Impression Time: 02:28 Initial ECG Rate: 62 Initial ECG Rhythm: A Fib/Flutter Initial ECG Intervals: Normal Initial ECG Impression: Atrial Fibrillation Initial ECG Comparisson: Unchanged Comment [address] depression in lateral V5 and V6 leads that is nonspecific. Diagnostic Imaging Diagonstic Imaging: Xray Plain Films/CT/US/NM/MRI: chest Comments 1 view shows some patchy consolidations consistent with pulmonary edema Reviewed: Reviewed by Me Departure Communication Time/Spoke to Admitting Phy: 03:53 Communication ana; discussed the case and she recommended 40 mg IV Lasix 1 and she would see the patient shortly. Admitted inpatient. Impression Impression: Primary Impression: Acute decompensated heart failure Additional Impressions: Hypoglycemia Leukocytosis Qualified Codes: D72.829 - Elevated white blood cell count, unspecified Acute kidney injury (nontraumatic) Disposition: ADMITTED INPATIENT ([facility] with telemetry) Condition: Improved Decision to Admit Reason: Admit from ER (General) Decision to Admit/Date: Sep 03, 2016 Time/Decision to Admit Time: 04:06 Departure-Patient Inst. Referrals: [facility] (PCP/Family) Primary Care Physician Copy Copies To 1: TINO SUERO TITUS J Sep 03, 2016 02:46
[2016-09-03] MEDS ORDERED: ASPIRIN 325 MG (5 GR) TABLET PO ONE (03:00)
[2016-09-03 03:01] LABS: BASOPHILS # (AUTO) 0.1 10^3/uL (0.0-0.1); BASOPHILS % (AUTO) 1 % (0-10); EOSINOPHILS # (AUTO) 0.6 10^3/uL (0.0-0.3); EOSINOPHILS % (AUTO) 5 % (0-10); LYMPHOCYTES # (AUTO) 0.8 X 10^3 (1.0-4.0); LYMPHOCYTES % (AUTO) 6 % (12-44); MEAN CORPUSCULAR HEMOGLOBIN 25 PG (25-34); MEAN CORPUSCULAR HGB CONC 30 G/DL (32-36); MEAN CORPUSCULAR VOLUME 82 FL (80-99); MEAN PLATELET VOLUME 11.7 FL (7.4-10.4); MONOCYTES # (AUTO) 1.1 X 10^3 (0.0-1.0); MONOCYTES % (AUTO) 9 % (0-12); NEUTROPHILS # (AUTO) 10.2 X 10^3 (1.8-7.8); NEUTROPHILS % (AUTO) 80 % (42-75); PLATELET COUNT 291 10^3/uL (130-400); RED BLOOD COUNT 3.02 10^6/uL (4.35-5.85); WHITE BLOOD COUNT 12.8 10^3/uL (4.3-11.0)
[2016-09-03 03:10] LABS: PROTHROMBIN TIME PATIENT 13.3 SEC (12.2-14.7)
[2016-09-03 03:17] LABS: ANISOCYTOSIS SLIGHT; BAND NEUTROPHILS 0 %; BASOPHILS % (MANUAL) 1 %; EOSINOPHILS % (MANUAL) 8 %; LYMPHOCYTES % (MANUAL) 10 %; MICROCYTOSIS SLIGHT; NEUTROPHILS % (MANUAL) 77 %; POLYCHROMASIA SLIGHT
[2016-09-03 03:18] LABS: ALANINE AMINOTRANSFERASE 31 U/L (0-55); ALBUMIN 2.9 GM/DL (3.2-4.5); ANION GAP 14 MMOL/L (5-14); ASPARTATE AMINO TRANSFERASE 34 U/L (5-34); BILIRUBIN,TOTAL 0.4 MG/DL (0.1-1.0); BLOOD UREA NITROGEN 74 MG/DL (7-18); BUN/CREATININE RATIO 18; CALCIUM 8.5 MG/DL (8.5-10.1); CARBON DIOXIDE 27 MMOL/L (21-32); CHLORIDE 95 MMOL/L (98-107); CREATININE SERUM 4.21 MG/DL (0.60-1.30); GFR ESTIMATED 10; MAGNESIUM 1.8 MG/DL (1.8-2.4); POTASSIUM 4.5 MMOL/L (3.6-5.0); SODIUM 136 MMOL/L (135-145); TOTAL PROTEIN 6.2 GM/DL (6.4-8.2)
[2016-09-03 03:24] LABS: MYOGLOBIN SERUM 87.7 NG/ML (10.0-92.0)
[2016-09-03 03:43] LABS: GLUCOSE 54 MG/DL (70-105)
[2016-09-03] MEDS ORDERED: FUROSEMIDE 40 MG/4 ML INJ (LASIX) IVP ONE ×2 (04:00→14:00)
[2016-09-03 05:10] VITALS: BP 120/31
--- NOTE | 2016-09-03 06:43 | Diagnostic Imaging Report ---
INDICATION: Shortness of breath Portable chest at 2:59 AM There is cardiomegaly with pulmonary vascular congestion. There is some pulmonary edema. There are no effusions. IMPRESSION: Congestive heart failure. Dictated by: Dictated on workstation # [id number]
[2016-09-03 08:00] VITALS: BP 129/33
[2016-09-03 09:47] LABS: CALCIUM 8.5 MG/DL (8.5-10.1); CREATININE SERUM 4.13 MG/DL (0.60-1.30); POTASSIUM 4.9 MMOL/L (3.6-5.0)
[2016-09-03] MEDS ORDERED: AMIO400T4 PO (10:44)
[2016-09-03] MEDS ORDERED: ONDA4TAB10 PO (10:44)
[2016-09-03] MEDS ORDERED: DIGO125T PO (10:44)
[2016-09-03] MEDS ORDERED: PANT40TA3 PO (10:44)
[2016-09-03] MEDS ORDERED: INSU100I14 SQ (10:44)
[2016-09-03] MEDS ORDERED: METF500T4 PO (10:44)
[2016-09-03] MEDS ORDERED: METO2.5T PO (10:44)
[2016-09-03] MEDS ORDERED: ACET325T49 PO ×2 (10:44)
[2016-09-03] MEDS ORDERED: GABA-486 PO (10:44)
[2016-09-03] MEDS ORDERED: DILT240C90 PO (10:44)
[2016-09-03] MEDS ORDERED: MENT71OI TP (10:44)
[2016-09-03] MEDS ORDERED: RIVA10TA PO (10:44)
[2016-09-03] MEDS ORDERED: DOCU100C23 PO (10:44)
--- NOTE | 2016-09-03 10:51 | History & Physicial ([facility]) ---
JULIA WELCH MED STUDENT 09/03/16 1051: HPI History of Present Illness: Patient presented to the emergency room early this morning after being [facility] at the [facility]. Staff says they found her with her eyes open after being unresponsive for roughly three minutes. At the time, her O2 saturation was in the 80s. Patient states that she does not remember this. Patient has been receiving increased oxygen (4L) from her baseline (2L). She denies shortness of breath, she denies cough, and she denies feeling sick recently. Patient states that she did experience chest pain yesterday. Additionally, patient states that she has gained roughly 30 pounds in the last few weeks. Patient states this is from increased fluid. Patient states she vomited three times yesterday but states that this is not unusual for her. She denies diarrhea, joint pain, muscle aches, but states she has been very weak and shaky. She states she cannot stand on her own and has generalized weakness. Her surgical history is unremarkable but pertinent past medical history includes diabetes, hypertension, high cholesterol, heart failure with diastolic dysfunction, and atrial fibrillation. Patient states she has never had a NH. Family history is significant for a mother with CHF. Source: patient Exam Limitations: no limitations Date seen by provider: Sep 03, 2016 Time Seen by Provider: 09:30 Attending Physician Ayan He MD PCP [facility] [place] Date of Admission Sep 03, 2016 at 04:00 Home Medications Home Medications Reviewed patient Home Medication Reconciliation Form Allergies Coded Allergies: Penicillins (Unverified Allergy, Unknown, 05/25/16) morphine (Unverified Allergy, Unknown, 05/25/16) [id number]-Ctgmrz Hx Patient Social History Alcohol Use: Denies Use Recreational Drug Use: No Smoking Status: Never a Smoker 2nd Hand Smoke Exposure: No Recent Foreign Travel: No Contact w/other who traveled: No Recent Hopitalizations: No Recent Infectious Disease Expo: No Physical Abuse Screen: No Sexual Abuse: No Immunizations Up To Date Date of Pneumonia Vaccine: May 25, 2013 Date of Influenza Vaccine: Nov 30, 2015 Past Medical History Diastolic Heart Failure: Diagnosed 04/2016 Insulin Dependent DM HTN Oxygen Dependent 4L: 2017 Morbid Obesity Atrial Fibrillation Family Medical History Significant Family History: Heart Disease (mother) Family History: CHF (congestive heart failure) 19 MOTHER Review of Systems ([facility]) Constitutional: weakness, weight gain Respiratory: no symptoms reported Cardiovascular: chest pain Gastrointestinal: diarrhea, vomiting Musculoskeletal: no symptoms reported Skin: other (lesion on L wrist) Psychiatric/Neurological: Weakness Reviewed Test Results Reviewed Test Results Lab Laboratory Tests Test 09/03/16 02:48 09/03/16 03:50 09/03/16 05:00 09/03/16 09:17 Range/Units White Blood Count 12.8 H 4.3-11.0 10^3/uL Red Blood Count 3.02 L 4.35-5.85 10^6/uL Hemoglobin 7.4 L 11.5-16.0 G/DL Hematocrit 25 L 35-52 % Mean Corpuscular Volume 82 80-99 FL Mean Corpuscular Hemoglobin 25 25-34 PG Mean Corpuscular Hemoglobin Concent 30 L 32-36 G/DL Red Cell Distribution Width 18.0 H 10.0-14.5 % Platelet Count 291 130-400 10^3/uL Mean Platelet Volume 11.7 H 7.4-10.4 FL Neutrophils (%) (Auto) 80 H 42-75 % Lymphocytes (%) (Auto) 6 L 12-44 % Monocytes (%) (Auto) 9 0-12 % Eosinophils (%) (Auto) 5 0-10 % Basophils (%) (Auto) 1 0-10 % Neutrophils # (Auto) 10.2 H 1.8-7.8 X 10^3 Lymphocytes # (Auto) 0.8 L 1.0-4.0 X 10^3 Monocytes # (Auto) 1.1 H 0.0-1.0 X 10^3 Eosinophils # (Auto) 0.6 H 0.0-0.3 10^3/uL Basophils # (Auto) 0.1 0.0-0.1 10^3/uL Neutrophils % (Manual) 77 % Lymphocytes % (Manual) 10 % Monocytes % (Manual) 4 % Eosinophils % (Manual) 8 % Basophils % (Manual) 1 % Band Neutrophils 0 % Polychromasia SLIGHT Anisocytosis SLIGHT Microcytosis SLIGHT Prothrombin Time 13.3 12.2-14.7 SEC INR Comment 1.0 0.8-1.4 Activated Partial Thromboplast Time 30 24-35 SEC Sodium Level 136 135 135-145 MMOL/L Potassium Level 4.5 4.9 3.6-5.0 MMOL/L Chloride Level 95 L 94 L 98-107 MMOL/L Carbon Dioxide Level 27 27 21-32 MMOL/L Anion Gap 14 14 5-14 MMOL/L Blood Urea Nitrogen 74 H 73 H 7-18 MG/DL Creatinine 4.21 H 4.13 H 0.60-1.30 MG/DL Estimat Glomerular Filtration Rate 10 11 BUN/Creatinine Ratio 18 18 Glucose Level 54 *L 95 70-105 MG/DL Calcium Level 8.5 8.5 8.5-10.1 MG/DL Magnesium Level 1.8 1.8-2.4 MG/DL Total Bilirubin 0.4 0.1-1.0 MG/DL Aspartate Amino Transf (AST/SGOT) 34 5-34 U/L Alanine Aminotransferase (ALT/SGPT) 31 0-55 U/L Alkaline Phosphatase 96 40-136 U/L Myoglobin 87.7 10.0-92.0 NG/ML Troponin I < 0.30 <0.30 NG/ML B-Type Natriuretic Peptide 261.5 H <100.0 PG/ML Total Protein 6.2 L 6.4-8.2 GM/DL Albumin 2.9 L 3.2-4.5 GM/DL Glucometer 58 *L 107 70-110 MG/DL Radiology Chest X-ray: There is cardiomegaly with pulmonary vascular congestion. There is some pulmonary edema. There are no effusions.IMPRESSION: Congestive heart failure. Physical Exam-([facility]) Physical Exam Vital Signs VS - Last 72 Hours, by Label 09/03/16 09/03/16 09/03/16 09/03/16 02:29 02:29 02:29 02:35 Temp 97.5 Pulse 62 Resp 20 B/P (MAP) 118/47 Pulse Ox 98 98 93 O2 Delivery Nasal Cannula Nasal Cannula Nasal Cannula Nasal Cannula O2 Flow Rate 4.00 4.00 4.0 3.00 FiO2 98 09/03/16 09/03/16 09/03/16 09/03/16 05:07 05:10 05:10 07:00 Temp 98.4 97.3 Pulse 61 61 57 Resp 20 16 B/P (MAP) 120/31 Pulse Ox 97 93 93 O2 Delivery Nasal Cannula Nasal Cannula Nasal Cannula O2 Flow Rate 4.00 4.00 4.00 09/03/16 08:00 Temp 97.0 Pulse 58 Resp 22 B/P (MAP) 129/33 Pulse Ox 96 O2 Delivery Nasal Cannula O2 Flow Rate 4.00 Capillary Refill : Less Than 3 Seconds General Appearance: WD/WN, no apparent distress, obese Respiratory: decreased breath sounds Cardiovascular: regular rate, rhythm, no murmur Gastrointestinal: normal bowel sounds Extremities: other (2+ bilateral lower extremity edema) Neurologic/Psychiatric: alert, oriented x 3 Skin: normal color Assessment/Plan Assessment/Plan Admission Dx See Below Plan CHF exacerbation (fluid overload, pulmonary vascular congestion, and elevated BNP) 09/03 continue furosemide, consult with cardiology to determine dosing, need to consider impaired renal function Acute on chronic kidney injury 09/03 elevated BUN, Cr; patient has a history of Stage 3 CKD (as of 07-10-16); today estimated GFR is 11; will obtain a FEUrea to further evaluate source of acute kidney injury, possibly due to pre-renal injury as a consequence of intravascular hypovolemia or due to acute tubular necrosis (FEUrea 50-65% is more indicative of ATN vs FEUrea below 35% indicates prerenal disease); will obtain a urine specimen when able to perform a UA to determine if previous UTI has resolved Normocytic anemia 09/03 perform fecal occult test to asses for GI bleeding; iron studies performed in 04/2016 showed iron 38 ug/dL, transferrin saturation 11%, ferritin 62 ng/dL; start ferrous sulfate 325 mg, three times a day; recheck iron studies Atrial Fibrillation 09/03 currently controlled with normal heart rate, restart home medications ( amiodarone and diltiazem) Diabetes Mellitus restart home insulin regimen, DO NOT restart metformin due to renal insufficiency; if more glycemic control is needed, consider short-acting sulfonylureas Diagnosis/Problems: Clinical Quality Measures DVT/VTE Risk/Contraindication: Risk Factor Score Per Nursin RFS Level Per Nursing on Admit: 4+=Very High AYAN HE MD 09/03/16 1637: Home Medications Allergies Coded Allergies: Penicillins (Unverified Allergy, Unknown, 05/25/16) morphine (Unverified Allergy, Unknown, 05/25/16) UOS-[id number]-Uhknjb Hx Family Medical History Family History: CHF (congestive heart failure) 19 MOTHER Review of Systems ([facility]) Genitourinary: no symptoms reported Skin: other (lesion on L wrist) Physical Exam-([facility]) Physical Exam Vital Signs VS - Last 72 Hours, by Label 09/03/16 09/03/16 09/03/16 09/03/16 02:29 02:29 02:29 02:35 Temp 97.5 Pulse 62 Resp 20 B/P (MAP) 118/47 Pulse Ox 98 98 93 O2 Delivery Nasal Cannula Nasal Cannula Nasal Cannula Nasal Cannula O2 Flow Rate 4.00 4.00 4.0 3.00 FiO2 98 09/03/16 09/03/16 09/03/16 09/03/16 05:07 05:10 05:10 06:46 Temp 98.4 97.3 Pulse 61 61 Resp 20 16 B/P (MAP) 120/31 Pulse Ox 97 93 93 98 O2 Delivery Nasal Cannula Nasal Cannula Nasal Cannula O2 Flow Rate 4.00 4.00 4.00 09/03/16 09/03/16 09/03/16 09/03/16 06:46 07:00 08:00 08:00 Temp 97.0 Pulse 57 58 Resp 22 B/P (MAP) 129/33 Pulse Ox 98 4 96 O2 Delivery Nasal Cannula Room Air Nasal Cannula O2 Flow Rate 4.00 4.00 09/03/16 09/03/16 09/03/16 09/03/16 09:00 12:00 12:00 13:00 Temp 96.5 Pulse 62 62 Resp 21 B/P (MAP) 128/41 Pulse Ox 4 91 O2 Delivery Nasal Cannula Room Air Nasal Cannula O2 Flow Rate 4.00 4.00 Assessment/Plan Assessment/Plan Plan For acute on chronic diastolic CHF will give IV lasix 40 mg and recheck BMP after, consult Cardiology. Discussed possible need for transfer given markedly poor renal function, will monitor closely. Hold metformin, renal dose medications. Holding amiodarone, rivaroxaban and digoxin requesting Cardiology input on dosing and appropriateness of regimen given possible interactions. Check dig level and TSH. Macrocytic anemia, as opposed to normocytic, B12/ folate checked earlier this year and normal. Consider bleeding versus chronic disease, iron studies normal earlier this year. Blood sugar low, will not restart scheduled insulin until intake improved/blood sugar increasing. Diagnosis/Problems: Supervisory-Addendum Brief Supervisory Addendum Patient seen and examined with MS3 Julia Welch, agree with documentation unless otherwise noted, see my additional notes. JULIA WELCH MED STUDENT Sep 03, 2016 10:51 AYAN HE MD Sep 03, 2016 16:37
[2016-09-03] MEDS ORDERED: RT-ALBUTEROL/IPRATROPIUM 3 ML (DUONEB) VIAL INH PRN (11:30)
[2016-09-03 12:00] VITALS: BP 128/41
[2016-09-03] MEDS ORDERED: ACETAMINOPHEN 325 MG TABLET/CAPLET (TYLENOL) PO PRN (14:00)
[2016-09-03] MEDS ORDERED: inSUlin ASPART (NovoLOG) 1 UNIT/0.01 ML (CHARGE PER UNIT) SC SCH (14:30)
[2016-09-03] MEDS ORDERED: GABAPENTIN 100 MG (NEURONTIN) CAP ONE (16:00)
[2016-09-03] MEDS ORDERED: NON-FORMULARY MEDICATION 1 EA EA (Insulin Aspart (Novolog Flexpen) 10 UNITS) SQ SCH (16:00)
[2016-09-03] MEDS ORDERED: GABAPENTIN 100 MG (NEURONTIN) CAP PO NR (16:15)
--- NOTE | 2016-09-03 16:30 | Discharge Summary ---
Diagnosis/Chief Complaint Date of Admission Sep 03, 2016 at 05:10 Date of Discharge September 03, 2016 Admission Diagnosis Admission Diagnosis Acute on chronic diastolic CHF exacerbation Acute on chronic kidney injury Macrocytic anemia Atrial Fibrillation Diabetes Mellitus Discharge Diagnosis CHF exacerbation (fluid overload, pulmonary vascular congestion, and elevated BNP) 09/03 IV lasix 40 units this am, Cardiology consulted Acute on chronic kidney injury 09/03 elevated BUN, Cr; patient has a history of Stage 3 CKD (as of 07-10-16); today estimated GFR is 11; will obtain a FEUrea to further evaluate source of acute kidney injury, possibly due to pre-renal injury as a consequence of intravascular hypovolemia or due to acute tubular necrosis, will obtain a urine specimen when able to perform a UA to determine if previous UTI has resolved -Patient family requesting transfer this afternoon which is reasonable, called and discussed with Dr. Gracia at [facility] who accepts in transfer Macrocytic anemia 09/03 perform fecal occult test to asses for GI bleeding; iron studies performed in 04/2016 showed iron 38 ug/dL, transferrin saturation 11%, ferritin 62 ng/dL -folate/B12 normal earlier this year Atrial Fibrillation 09/03 currently controlled with normal heart rate, on digoxin, diltiazem and amiodarone at home- hold dig and amiodarone and check dig level and TSH, continued diltiazem On rivaroxaban at home which can interact with other medications and with worsening hemoglobin, will defer to Cardiology whether to resume in hospital Diabetes Mellitus restart home insulin regimen when eating well, currently having low blood sugar on admission, hold metformin due to renal insufficiency Chief Complaint/HPI Chief Complaint/HPI Patient presented to the emergency room early this morning after being found unresponsive at the care home. Staff says they found her with her eyes open after being unresponsive for roughly three minutes. At the time, her O2 saturation was in the 80s. Patient states that she does not remember this. Patient has been receiving increased oxygen (4L) from her baseline (2L). She denies shortness of breath, she denies cough, and she denies feeling sick recently. Patient states that she did experience chest pain yesterday. Additionally, patient states that she has gained roughly 30 pounds in the last few weeks. Patient states this is from increased fluid. Patient states she vomited three times yesterday but states that this is not unusual for her. She denies diarrhea, joint pain, muscle aches, but states she has been very weak and shaky. She states she cannot stand on her own and has generalized weakness. Her surgical history is unremarkable but pertinent past medical history includes diabetes, hypertension, high cholesterol, heart failure with diastolic dysfunction, and atrial fibrillation. Patient states she has never had a DC. Family history is significant for a mother with CHF. Discharge Summary-Simple/Stand Consultations Discharge Physical Examination Allergies: Coded Allergies: Penicillins (Unverified Allergy, Unknown, 05/25/16) morphine (Unverified Allergy, Unknown, 05/25/16) Vitals & I&Os Vital Sign - Last 12Hours Date Time Temp Pulse Resp B/P (MAP) Pulse Ox O2 Delivery O2 Flow Rate FiO2 09/03/16 13:00 62 09/03/16 12:00 96.5 21 128/41 91 Nasal Cannula 4.00 09/03/16 02:29 98 Hospital Course See final discharge diagnosis. Labs Laboratory Tests Test 09/03/16 02:48 09/03/16 03:50 09/03/16 05:00 09/03/16 09:17 Range/Units White Blood Count 12.8 H 4.3-11.0 10^3/uL Red Blood Count 3.02 L 4.35-5.85 10^6/uL Hemoglobin 7.4 L 11.5-16.0 G/DL Hematocrit 25 L 35-52 % Mean Corpuscular Volume 82 80-99 FL Mean Corpuscular Hemoglobin 25 25-34 PG Mean Corpuscular Hemoglobin Concent 30 L 32-36 G/DL Red Cell Distribution Width 18.0 H 10.0-14.5 % Platelet Count 291 130-400 10^3/uL Mean Platelet Volume 11.7 H 7.4-10.4 FL Neutrophils (%) (Auto) 80 H 42-75 % Lymphocytes (%) (Auto) 6 L 12-44 % Monocytes (%) (Auto) 9 0-12 % Eosinophils (%) (Auto) 5 0-10 % Basophils (%) (Auto) 1 0-10 % Neutrophils # (Auto) 10.2 H 1.8-7.8 X 10^3 Lymphocytes # (Auto) 0.8 L 1.0-4.0 X 10^3 Monocytes # (Auto) 1.1 H 0.0-1.0 X 10^3 Eosinophils # (Auto) 0.6 H 0.0-0.3 10^3/uL Basophils # (Auto) 0.1 0.0-0.1 10^3/uL Neutrophils % (Manual) 77 % Lymphocytes % (Manual) 10 % Monocytes % (Manual) 4 % Eosinophils % (Manual) 8 % Basophils % (Manual) 1 % Band Neutrophils 0 % Polychromasia SLIGHT Anisocytosis SLIGHT Microcytosis SLIGHT Prothrombin Time 13.3 12.2-14.7 SEC INR Comment 1.0 0.8-1.4 Activated Partial Thromboplast Time 30 24-35 SEC Sodium Level 136 135 135-145 MMOL/L Potassium Level 4.5 4.9 3.6-5.0 MMOL/L Chloride Level 95 L 94 L 98-107 MMOL/L Carbon Dioxide Level 27 27 21-32 MMOL/L Anion Gap 14 14 5-14 MMOL/L Blood Urea Nitrogen 74 H 73 H 7-18 MG/DL Creatinine 4.21 H 4.13 H 0.60-1.30 MG/DL Estimat Glomerular Filtration Rate 10 11 BUN/Creatinine Ratio 18 18 Glucose Level 54 *L 95 70-105 MG/DL Calcium Level 8.5 8.5 8.5-10.1 MG/DL Magnesium Level 1.8 1.8-2.4 MG/DL Total Bilirubin 0.4 0.1-1.0 MG/DL Aspartate Amino Transf (AST/SGOT) 34 5-34 U/L Alanine Aminotransferase (ALT/SGPT) 31 0-55 U/L Alkaline Phosphatase 96 40-136 U/L Myoglobin 87.7 10.0-92.0 NG/ML Troponin I < 0.30 <0.30 NG/ML B-Type Natriuretic Peptide 261.5 H <100.0 PG/ML Total Protein 6.2 L 6.4-8.2 GM/DL Albumin 2.9 L 3.2-4.5 GM/DL Glucometer 58 *L 107 70-110 MG/DL Test 09/03/16 10:53 09/03/16 16:10 09/03/16 16:23 Range/Units Glucometer 161 H 179 H 70-110 MG/DL Radiology Reviewed Chest X-ray: There is cardiomegaly with pulmonary vascular congestion. There is some pulmonary edema. There are no effusions.IMPRESSION: Congestive heart failure. Discharge Instructions to patient/family Please see electonic discharge instructions given to patient. Discharge Medications Reviewed and agree with Discharge Medication list on patient's Discharge Instruction sheet Clinical Quality Measures DVT/VTE Risk/Contraindication: Risk Factor Score Per Nursin RFS Level Per Nursing on Admit: 4+=Very High AYAN CARRASCO MD Sep 03, 2016 16:30
[2016-09-03 16:44] LABS: CALCIUM 8.1 MG/DL (8.5-10.1); CREATININE SERUM 3.92 MG/DL (0.60-1.30); POTASSIUM 4.7 MMOL/L (3.6-5.0)
[2016-09-03 16:45] VITALS: BP 134/63
[2016-09-03 17:04] LABS: BILIRUBIN,URINE NEGATIVE (NEGATIVE); KETONES,URINE NEGATIVE (NEGATIVE); LEUKOCYTE ESTERASE ,URINE 3+ (NEGATIVE); NITRITE,URINE NEGATIVE (NEGATIVE); PH,URINE 5 (5-9); PROTEIN,URINE 2+ (NEGATIVE); UROBILINOGEN,URINE NORMAL (NORMAL)
[2016-09-03 17:05] LABS: THYROID STIMULATING HORMONE 3.16 UIU/ML (0.35-4.94)
[2016-09-03 17:13] LABS: WBC,URINE 25-50 /HPF
[2016-09-03 17:30] LABS: DIGOXIN 5.68 NG/ML (0.80-2.00)
[2016-09-03] MEDS ORDERED: ACETAMINOPHEN 325 MG TABLET/CAPLET (TYLENOL) PO SCH (21:00)
[2016-09-03] MEDS ORDERED: GABAPENTIN 100 MG (NEURONTIN) CAP PO SCH (21:00)
[2016-09-03] MEDS ORDERED: DOCUSATE SODIUM 100 MG (COLACE) CAP PO SCH (21:00)
[2016-09-03] MEDS ORDERED: NON-FORMULARY MEDICATION 1 EA EA (Insulin Detemir (Levemir Flextouch) 20 UNITS) SQ SCH (21:00)
[2016-09-04] MEDS ORDERED: DILTIAZEM 240 MG (CARDIZEM CD) CAP PO SCH (09:00)
[2016-09-04] MEDS ORDERED: METOLAZONE 2.5 MG (ZAROXOLYN) TAB PO SCH (09:00)
[2016-09-04] MEDS ORDERED: PANTOPRAZOLE 40 MG (PROTONIX) TAB PO SCH (09:00)
== END 2016-09-03 16:30 | disposition short-term general hospital (02) ==
LOC: EDUNIT# 01:45 → ER 01:48 → ICU 04:00 → UNDOADMOB 04:00 → ICU 05:10
PROVIDERS: ADMIT Family Medicine; ATTEND Family Medicine
DX: I13.0 Hypertensive heart and chronic kidney disease with heart failure and stage 1 through stage 4 chronic kidney disease, or unspecified chronic kidney disease (principal); N18.3 Chronic kidney disease, stage 3 (moderate); N17.9 Acute kidney failure, unspecified; I50.31 Acute diastolic (congestive) heart failure; D53.9 Nutritional anemia, unspecified; I48.2 Chronic atrial fibrillation; E11.649 Type 2 diabetes mellitus with hypoglycemia without coma; J44.9 Chronic obstructive pulmonary disease, unspecified; K59.00 Constipation, unspecified; Z99.81 Dependence on supplemental oxygen; Z79.4 Long term (current) use of insulin; Z79.84 Long term (current) use of oral hypoglycemic drugs; Z79.899 Other long term (current) drug therapy
CPT/HCPCS: 36415; 71010; 80048; 80053; 80162; 81000; 82274; 82570; 82962; 83735; 83874; 83880; 84443; 84484; 84540; 85007; 85027; 85610; 85730; 87088; 93005; 93041; 94760; 96374; 99211

== ENCOUNTER → 2016-10-20 | Outpatient (CLI) | payer MEDICARE, MEDICAID ==
[~2016-10-20] VITALS: Ht 162.6 cm; Wt 122.5 kg
[~2016-10-20] MED LIST changes: +ACET325T49 PO; +AMIO400T4 PO; +CATHETER FLUSH 10 ML SYR IV PRN; +DIGO125T PO; +DILT240C90 PO; +DOCU100C23 PO; +GABA-486 PO; +INSU100I14 SQ; +MENT71OI TP; +METF500T4 PO; +METO2.5T PO; +ONDA4TAB10 PO; +PANT40TA3 PO; +REGADENOSON 0.4 MG/5 ML SYR (LEXISCAN) IV ONE; +RIVA10TA PO
[2016-10-20 09:29] VITALS: BP 126/59
[2016-10-20 09:33] VITALS: BP 121/53
[2016-10-20 09:35] VITALS: BP 121/52
--- NOTE | 2016-10-21 14:17 | STRESS TEST ---
DATE OF SERVICE: 10/20/2016 ORDERING PHYSICIAN: Dr. Jung PRIMARY PHYSICIAN: [facility]. CLINICAL DIAGNOSES: 1. Congestive heart failure. 2. Atrial fibrillation. 3. Hypertension. 4. Hyperlipidemia. 5. Diabetes. Baseline images were carried out after injection of 10.11 mCi Technetium 99m Tetrofosmin. This was followed by 0.4 mg Regadenoson and 30.1 mCi of Technetium 99m Tetrofosmin for stress imaging. Baseline EKG showed junctional rhythm versus atrial fibrillation. The patient tolerated the procedure well. Review of images at rest and following stress does not indicate any significant perfusion defects consistent with significant myocardial ischemia or infarction. Gated images show normal global systolic function with normal regional wall motion. Left ventricular ejection fraction is calculated to be 65%. Left ventricular end diastolic volume is calculated to be 62 mL. TID is absent (1.03). CONCLUSIONS: 1. No evidence of any significant myocardial ischemia or infarction on this study. 2. Normal regional wall motion. 3. Normal global left ventricular systolic function with a calculated ejection fraction of 65%. Baseline rhythm is junctional versus atrial fibrillation. Job ID: [id number] DocumentID: [id number] Dictated Date: 10/21/2016 13:32:36 Science Teacher Date: 10/21/2016 14:09:15 Dictated By: JUAN CARLOS JUNG MD, MA, FACP, FACC,
== END ==
LOC: CARD 07:51
PROVIDERS: ATTEND Internal Medicine Cardiovascular Disease
DX: I48.0 Paroxysmal atrial fibrillation (principal); I50.32 Chronic diastolic (congestive) heart failure; I11.0 Hypertensive heart disease with heart failure; E78.4 Other hyperlipidemia; E13.9 Other specified diabetes mellitus without complications; N18.3 Chronic kidney disease, stage 3 (moderate)
CPT/HCPCS: 78452; 93017

== ENCOUNTER 2016-10-29 12:17 | Emergency (ER) | payer MEDICARE, MEDICAID ==
[~2016-10-29] VITALS: Ht 160 cm; Wt 131.5 kg
[~2016-10-29 12:17] MED LIST changes: -CATHETER FLUSH 10 ML SYR IV PRN; +QUIN40TA14 PO; -QUIN40TA25 PO; -REGADENOSON 0.4 MG/5 ML SYR (LEXISCAN) IV ONE
[2016-10-29 12:56] LABS: ALBUMIN 2.4 GM/DL (3.2-4.5); BASOPHILS % (AUTO) 0 % (0-10); BILIRUBIN,TOTAL 4.9 MG/DL (0.1-1.0); CALCIUM 8.7 MG/DL (8.5-10.1); CREATININE SERUM 2.99 MG/DL (0.60-1.30); EOSINOPHILS % (AUTO) 0 % (0-10); LYMPHOCYTES % (AUTO) 10 % (12-44); MEAN CORPUSCULAR HEMOGLOBIN 25 PG (25-34); MEAN CORPUSCULAR HGB CONC 31 G/DL (32-36); MEAN CORPUSCULAR VOLUME 83 FL (80-99); MEAN PLATELET VOLUME 13.3 FL (7.4-10.4); MONOCYTES # (AUTO) 0.7 X 10^3 (0.0-1.0); MONOCYTES % (AUTO) 6 % (0-12); NEUTROPHILS # (AUTO) 9.1 X 10^3 (1.8-7.8); NEUTROPHILS % (AUTO) 84 % (42-75); PLATELET COUNT 367 10^3/uL (130-400); POTASSIUM 3.1 MMOL/L (3.6-5.0); RED BLOOD COUNT 4.07 10^6/uL (4.35-5.85); RED CELL DISTRIBUTION WIDTH 22.9 % (10.0-14.5); TOTAL PROTEIN 6.7 GM/DL (6.4-8.2); WHITE BLOOD COUNT 10.8 10^3/uL (4.3-11.0)
[2016-10-29] MEDS ORDERED: NS IV 1000 ML 1,000 ML IV ONE (13:35)
--- NOTE | 2016-10-29 13:43 | Diagnostic Imaging Report ---
INDICATION: Hypothermia. FINDINGS: There is mildly elevated colonic fecal load most conspicuous at the ascending colon, the proximal transverse colon, and the rectosigmoid. No findings of bowel obstruction or focal impaction, however; and there is no small bowel dilatation. Thoracolumbar spondylosis and a replaced left hip noted. There are atherosclerotic vascular calcifications and a presumed stent in the left common iliac. IMPRESSION: Constipation without overt obstruction or impaction. Dictated by: Dictated on workstation # [id number]
--- NOTE | 2016-10-29 14:01 | ED General ---
General Chief Complaint: General Problems/Pain Stated Complaint: HYPOTHERMIA History of Present Illness Time Seen by Provider: 12:15 Initial Comments Patient to emergency department via EMS, she reports awakening this morning and eating breakfast. She felt cold and after taking her morning medications became nauseated and vomited 3 times. She recently moved from [facility] to [facility], prior to that she was admitted to [facility] in [place] for COPD. CNAs came to help her with ADLs and medications. She was evaluated [address] Gurrola for anemia and abnormal liver enzymes. She denies any nausea at the present time. Warmed normal saline infusing per IV and warmed blankets applied to patient. She also denies a bowel movement 4 days. She did take a stool softener and laxative last evening. She denies any recent fevers. She is on oxygen 3 L per nasal cannula at home. She was recently started on potassium for hypokalemia, but she does report vomiting approximately 10 minutes after taking her medications today. Temperature at time of admission was 92.8. Timing/Duration: 1-3 Hours Severity: Mild Modifying Factors: improves with Rest Associated Systoms: Denies Symptoms Allergies and Home Medications Allergies Coded Allergies: Penicillins (Unverified Allergy, Unknown, 05/25/16) morphine (Unverified Allergy, Unknown, 05/25/16) Home Medications Acetaminophen 325 Mg Tablet, 650 MG PO HS, (Reported) TAKES 2 (325 MG) TABLETS Acetaminophen 325 Mg Tablet, 650 MG PO Q6H PRN for PAIN-MILD, (Reported) TAKES 2 (325 MG) TABLETS Amiodarone HCl 400 Mg Tablet, 400 MG PO BID, (Reported) Digoxin 125 Mcg Tablet, 125 MCG PO DAILY, (Reported) Diltiazem HCl 240 Mg Cap.er.24h, 240 MG PO DAILY, (Reported) Docusate Sodium 100 Mg Capsule, 100 MG PO BID, (Reported) Furosemide 40 Mg Tablet, 80 MG PO DAILY, (Reported) TAKES 2 (40 MG) TABLETS Furosemide 40 Mg Tablet, 40 MG PO DAILY@1200, (Reported) Gabapentin 100 Mg Capsule, 100 MG PO TID, (Reported) Insulin Aspart 300 Units/3 Ml Solution, 10 UNITS SQ AC, (Reported) Insulin Detemir 100 Unit/1 Ml Insuln.pen, 20 UNITS SQ BID, (Reported) Menthol/Lanolin/Calamine/Znox 71 Gm Oint, TP PRN PRN for SKIN PROTECTANT, ( Reported) Metformin HCl 500 Mg Tablet, 500 MG PO BID, (Reported) Metolazone 2.5 Mg Tablet, 2.5 MG PO DAILY, (Reported) Ondansetron HCl 4 Mg Tablet, 4 MG PO Q6H PRN for NAUSEA/VOMITING-1ST LINE, ( Reported) Pantoprazole Sodium 40 Mg Tablet.dr, 40 MG PO DAILY, (Reported) Rivaroxaban 10 Mg Tablet, 10 MG PO DAILY, (Reported) Constitutional: no symptoms reported, see HPI Gastrointestinal: see HPI, No abdominal pain, constipation, No diarrhea, No hematemesis, No heartburn, No jaundice, loss of appetite, No nausea, vomiting All Other Systems Reviewed Negative Unless Noted: Yes Past Jowtaih-Hftqda-Bbrtpx Hx Patient Social History 2nd Hand Smoke Exposure: No Recent Hopitalizations: No Immunizations Up To Date PED Vaccines UTD: No Date of Pneumonia Vaccine: May 25, 2013 Date of Influenza Vaccine: Nov 30, 2015 Seasonal Allergies Seasonal Allergies: No Surgeries History of Surgeries: Yes Surgeries: Hysterectomy, Joint Replacement Respiratory History of Respiratory Disorde: Yes Respiratory Disorders: Asthma, COPD Currently Using CPAP: No Currently Using BIPAP: No Cardiovascular History of Cardiac Disorders: Yes (diastolic heart failure) Cardiac Disorders: High Cholesterol, Hypertension Neurological History of Neurological Disord: No 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 Genitourinary History of Genitourinary Disor: No Gastrointestinal History of Gastrointestinal Di: Yes Gastrointestinal Disorders: Gastroesophageal Reflux, Ulcer Musculoskeletal History of Musculoskeletal Dis: Yes (PAST HIP FX, AND BILAT TOTAL KNEE REPLACEMENT) Musculoskeletal Disorders: Arthritis Endocrine History of Endocrine Disorders: Yes Endocrine Disorders: Diabetes, Insulin dep HEENT History of HEENT Disorders: Yes Hearing Impairment: Hard of Hearing Cancer History of Cancer: No Psychosocial History of Psychiatric Problem: Yes Behavioral Health Disorders: Depression Integumentary History of Skin or Integumenta: No Blood Transfusions History of Blood Disorders: No Adverse Reaction to a Blood Tr: No Family Medical History Significant Family History: Heart Disease Family Medial History: CHF (congestive heart failure) 19 MOTHER Physical Exam Vital Signs Capillary Refill : General Appearance: No Apparent Distress, WD/WN HEENT: PERRL/EOMI, TMs Normal, Normal ENT Inspection, Pharynx Normal Neck: Full Range of Motion, Normal Inspection, Non Tender Respiratory: Chest Non Tender Cardiovascular: Regular Rate, Rhythm, No Edema, No Murmur Gastrointestinal: No Organomegaly, Non Tender, Soft, Abnormal Bowel Sounds ( hypoactive but present 4 quadrants.) Neurologic/Psychiatric: Alert, Oriented x3, No Motor/Sensory Deficits, Normal Mood/Affect Skin: Normal Color, Cool, No Diaphoresis Lymphatic: No Adenopathy Progress/Results/Core Measures Results/Orders Lab Results Laboratory Tests Test 10/29/16 12:30 10/29/16 15:36 10/29/16 16:39 10/29/16 16:56 Range/Units White Blood Count 10.8 4.3-11.0 10^3/uL Red Blood Count 4.07 L 4.35-5.85 10^6/uL Hemoglobin 10.3 L 11.5-16.0 G/DL Hematocrit 34 L 35-52 % Mean Corpuscular Volume 83 80-99 FL Mean Corpuscular Hemoglobin 25 25-34 PG Mean Corpuscular Hemoglobin Concent 31 L 32-36 G/DL Red Cell Distribution Width 22.9 H 10.0-14.5 % Platelet Count 367 130-400 10^3/uL Mean Platelet Volume 13.3 H 7.4-10.4 FL Neutrophils (%) (Auto) 84 H 42-75 % Lymphocytes (%) (Auto) 10 L 12-44 % Monocytes (%) (Auto) 6 0-12 % Eosinophils (%) (Auto) 0 0-10 % Basophils (%) (Auto) 0 0-10 % Neutrophils # (Auto) 9.1 H 1.8-7.8 X 10^3 Lymphocytes # (Auto) 1.0 1.0-4.0 X 10^3 Monocytes # (Auto) 0.7 0.0-1.0 X 10^3 Eosinophils # (Auto) 0.0 0.0-0.3 10^3/uL Basophils # (Auto) 0.0 0.0-0.1 10^3/uL Sodium Level 133 L 135-145 MMOL/L Potassium Level 3.1 L 3.6-5.0 MMOL/L Chloride Level 81 L 98-107 MMOL/L Carbon Dioxide Level 30 21-32 MMOL/L Anion Gap 22 H 5-14 MMOL/L Blood Urea Nitrogen 44 H 7-18 MG/DL Creatinine 2.99 #H 0.60-1.30 MG/DL Estimat Glomerular Filtration Rate 15 BUN/Creatinine Ratio 15 Glucose Level 97 70-105 MG/DL Calcium Level 8.7 8.5-10.1 MG/DL Total Bilirubin 4.9 H 0.1-1.0 MG/DL Aspartate Amino Transf (AST/SGOT) 166 H 5-34 U/L Alanine Aminotransferase (ALT/SGPT) 52 0-55 U/L Alkaline Phosphatase 720 H 40-136 U/L B-Type Natriuretic Peptide 335.0 H <100.0 PG/ML Total Protein 6.7 6.4-8.2 GM/DL Albumin 2.4 L 3.2-4.5 GM/DL Urine Color YELLOW Urine Clarity VERY CLOUDY H Urine pH 5 5-9 Urine Specific [place] 1.015 L 1.016-1.022 Urine Protein 1+ H NEGATIVE Urine Glucose (UA) NEGATIVE NEGATIVE Urine Ketones NEGATIVE NEGATIVE Urine Nitrite POSITIVE H NEGATIVE Urine Bilirubin NEGATIVE NEGATIVE Urine Urobilinogen 4 H NORMAL MG/DL Urine Leukocyte Esterase 2+ H NEGATIVE Urine RBC (Auto) 1+ H NEGATIVE Urine RBC 0-2 /HPF Urine WBC 50-100 H /HPF Urine Squamous Epithelial Cells 10-25 H /HPF Urine Crystals NONE /LPF Urine Bacteria LARGE H /HPF Urine Casts PRESENT /LPF Urine Coarse Granular Casts 0-2 H /LPF Urine Mucus NEGATIVE /LPF Urine Culture Indicated YES Glucometer 30 *L 40 *L 70-110 MG/DL Test 10/29/16 17:13 Range/Units Glucometer 187 H 70-110 MG/DL My Orders Orders - MAKENNA SMITH Cbc With Automated Diff (10/29/16 12:32) Comprehensive Metabolic Panel (10/29/16 12:32) Ua Culture If Indicated (10/29/16 12:32) Abdomen/Kub 1view (10/29/16 12:32) General/Regular (10/29/16 Lunch) BNP (10/29/16 13:35) Ns Iv 1000 Ml (Sodium Chloride 0.9%) (10/29/16 13:35) Potassium Cl 10meq/50ml Ivpb (Kcl 10 Meq (10/29/16 13:45) Urine Culture (10/29/16 15:36) Bisacodyl Suppository (Dulcolax Supposit (10/29/16 16:27) Ciprofloxacin Tablet (Cipro Tablet) (10/29/16 16:30) D50w (Emergency) Syringe (Dextrose 50% 5 (10/29/16 17:15) Ns Iv 500 Ml (Sodium Chloride 0.9%) (10/29/16 16:56) D50w (Emergency) Syringe (Dextrose 50% 5 (10/29/16 16:56) Medications Given in ED Current Medications Medications Dose Ordered Sig/Sameera Route Start Time Stop Time Status Last Admin Dose Admin Dextrose 25 ml ONCE ONCE IV 10/29/16 17:15 10/29/16 17:16 DC 10/29/16 17:22 25 ML Dextrose 50 ml STK-MED ONCE .ROUTE 10/29/16 16:56 10/29/16 17:04 DC 10/29/16 17:15 50 ML Sodium Chloride 500 ml @ ud STK-MED ONCE .ROUTE 10/29/16 16:56 10/29/16 17:04 DC 10/29/16 17:15 100 MLS/HR Sodium Chloride 1,000 ml @ 150 mls/hr Q6H40M ONCE IV 10/29/16 13:35 10/29/16 17:23 DC 10/29/16 14:10 150 MLS/HR Progress Note #1: Time: 12:15 Progress Note Initial evaluation completed, warm blankets applied and IV fluids infusing. 1245 temperature 93.1, patient denies any complaints at this time. 1315 temperature 93.8. WBC 10.8, hemoglobin 10.3, hematocrit 34, platelets 367. Sodium 133, potassium 3.1, creatinine 2.99, BUNs 44, AST 166, ALT 52 alk phosphatase 720, BNP 335. Labs compared to previous visits and essentially unchanged. Normal saline 1 L with 40 mEq of potassium, to be administered IV. 1410 temperature 94.5. Patient taking and drinking Sprite, had long discussion with patient about safety issues that I'm concerned with her at [facility]. She has a son-in-law that checks on her, that he does not have transportation to see her regularly. Discussed the possibility of returning to [facility] as she requires assistance with all activities. The patient adamantly refuses to consider returning to a fdc. She states that her insurance would not pay for any more days. She will talk to the administration at the [facility] and see if she could qualify for any additional assistance in her apartment. She has follow-up with Dr. Simmons next week regarding the anemia. The patient declines wanting to consider observation admission here for social service consult tomorrow to discuss options in long-term care placement. The patient clearly understands and has faculties intact to make decisions about her care. She becomes upset when I discussed any care options other than returning to her home. She understands the risk of her falling, becoming hypoglycemic, or even . 1530 temp 96.7. Patient declines any needs at this time, discharge planning in place. 1630 Per pharmacy, patient can't take Cipro, changed order to Bactrim DS #6 1 po bid to start tomorrow. EMS here for transport to home 1639 patient reports feeling lightheaded and hypoglycemic, blood sugar 30. Patient talking, coherent and able to swallow olman crackers with peanut butter and sips of Sprite. Remained at bedside with patient. [place] juice given. 1656 Accu-Chek 40. We'll administer D5W 25 ml. patient continues to be coherent with no symptoms of hypoglycemia. 1715 Accu-Chek 187. Patient reports to be feeling better. She does have a glucometer at home and will continue to monitor her blood sugar. Discharge instructions reviewed with patient, she continues to request returning to home. She verbalized understanding of calling 911 if needed and when she should return to emergency department. Progress Note #2: Progress Note NAME: KIMBERLY [facility]ON [facility] REC#: [id number] PHYSICIAN: JUAN CARLOS JUNG MD, MA, FACP, FACC, FSCAI, CCDS ADMIT DATE: 10/20/16 : 1945 MYOCARDIAL SPECT MULTI DATE OF SERVICE: 10/20/2016 ORDERING PHYSICIAN: Dr. Jung PRIMARY PHYSICIAN: [facility]. CLINICAL DIAGNOSES: 1. Congestive heart failure. 2. Atrial fibrillation. 3. Hypertension. 4. Hyperlipidemia. 5. Diabetes. Baseline images were carried out after injection of 10.11 mCi Technetium 99m Tetrofosmin. This was followed by 0.4 mg Regadenoson and 30.1 mCi of Technetium 99m Tetrofosmin for stress imaging. Baseline EKG showed junctional rhythm versus atrial fibrillation. The patient tolerated the procedure well. Review of images at rest and following stress does not indicate any significant perfusion defects consistent with significant myocardial ischemia or infarction. Gated images show normal global systolic function with normal regional wall motion. Left ventricular ejection fraction is calculated to be 65%. Left ventricular end diastolic volume is calculated to be 62 mL. TID is absent (1.03). CONCLUSIONS: 1. No evidence of any significant myocardial ischemia or infarction on this study. 2. Normal regional wall motion. 3. Normal global left ventricular systolic function with a calculated ejection fraction of 65%. Baseline rhythm is junctional versus atrial fibrillation. Job ID: [id number] DocumentID: [id number] Dictated Date: 10/21/2016 13:32:36 Fleet Administrative Assistant Date: 10/21/2016 14:09:15 Dictated By: JUAN CARLOS JUNG MD, MA, FACP, FACC, [id number] Diagnostic Imaging Diagonstic Imaging: Xray Plain Films/CT/US/NM/MRI: abdomen Comments NAME: KIMBERLY JOHNSON [facility] REC#: [id number] PT STATUS: REG ER : 1945 PHYSICIAN: MAKENNA SMITH ADMIT DATE: 10/29/16/ER Signed Date of Exam: 10/29/16 ABDOMEN/KUB 1VIEW INDICATION: Hypothermia. FINDINGS: There is mildly elevated colonic fecal load most conspicuous at the ascending colon, the proximal transverse colon, and the rectosigmoid. No findings of bowel obstruction or focal impaction, however; and there is no small bowel dilatation. Thoracolumbar spondylosis and a replaced left hip noted. There are atherosclerotic vascular calcifications and a presumed stent in the left common iliac. IMPRESSION: Constipation without overt obstruction or impaction. Dictated by: Dictated on workstation # [id number] Dict: 10/29/16 1325 Trans: 10/29/16 1713 Interpreted by: KRYSTAL GALINDO Electronically signed by: KRYSTAL GALINDO 10/29/163 Reviewed: Reviewed by Me Departure Impression Impression: Primary Impression: Constipation Qualified Codes: K59.00 - Constipation, unspecified Additional Impressions: Vomiting Qualified Codes: R11.11 - Vomiting without nausea COPD (chronic obstructive pulmonary disease) Qualified Codes: J44.9 - Chronic obstructive pulmonary disease, unspecified Urinary tract infection Qualified Codes: N30.00 - Acute cystitis without hematuria Disposition: HOME, SELF-CARE Condition: Improved Departure-Patient Inst. Decision time for Depature: 16:00 Referrals: NIHARIKA ESCOBEDO MD (PCP/Family) Primary Care Physician Patient Instructions: COPD Including Emphysema (DC), Urinary Tract Infection, Adult (DC) Add. Discharge Instructions: Keep follow-up appointment Dr. Gurrola for next week. Increase water intake and empty bladder frequently. Return to emergency department if symptoms worsen. Take medication in the morning with food consider taking half of her morning meds at 7 AM and half at 9 AM. All discharge instructions reviewed with patient and/or family. Voiced understanding. Copy Copies To 1: NIHARIKA ESCOBEDO MD Copies To 2: LINDSEY HANKS AMY ARNP Oct 29, 2016 14:01
[2016-10-29] MEDS: POTASSIUM CL 10MEQ/50ML IVPB 50 ML IV SCH ×2 (14:10→14:26)
[2016-10-29 15:42] LABS: BILIRUBIN,URINE NEGATIVE (NEGATIVE); KETONES,URINE NEGATIVE (NEGATIVE); LEUKOCYTE ESTERASE ,URINE 2+ (NEGATIVE); NITRITE,URINE POSITIVE (NEGATIVE); PH,URINE 5 (5-9); PROTEIN,URINE 1+ (NEGATIVE); UROBILINOGEN,URINE 4 MG/DL (NORMAL)
[2016-10-29 16:06] LABS: WBC,URINE 50-100 /HPF
[2016-10-29] MEDS ORDERED: BISACODYL 10 MG SUPP (DULCOLAX) PR STA (16:27)
[2016-10-29] MEDS ORDERED: CIPR-225 PO (16:27)
[2016-10-29] MEDS ORDERED: CIPROFLOXACIN 500 MG (CIPRO) TABLET PO SCH (16:30)
[2016-10-29] MEDS ORDERED: NS IV 500 ML 500 ML ONE (16:56)
[2016-10-29] MEDS ORDERED: DEXTROSE 50% 50 ML (IMS) SYR ONE (16:56)
[2016-10-29] MEDS ORDERED: DEXTROSE 50% 50 ML (IMS) SYR IV ONE (17:15)
[2016-10-29 17:23] VITALS: BP 121/60
[2016-10-30] MEDS ORDERED: CEFP200T2 PO (16:26)
== END 2016-10-29 17:23 | disposition home or self-care (01) ==
LOC: EDUNIT# 12:17 → ER 12:18
DX: K59.00 Constipation, unspecified (principal); N39.0 Urinary tract infection, site not specified; J44.9 Chronic obstructive pulmonary disease, unspecified; F32.9 Major depressive disorder, single episode, unspecified; E11.9 Type 2 diabetes mellitus without complications; K21.9 Gastro-esophageal reflux disease without esophagitis; E78.00 Pure hypercholesterolemia, unspecified; I10 Essential (primary) hypertension; Z90.710 Acquired absence of both cervix and uterus; Z79.84 Long term (current) use of oral hypoglycemic drugs; Z79.82 Long term (current) use of aspirin; Z96.661 Presence of right artificial ankle joint; Z96.662 Presence of left artificial ankle joint; Z87.11 Personal history of peptic ulcer disease; Z82.49 Family history of ischemic heart disease and other diseases of the circulatory system
CPT/HCPCS: 36415; 74000; 80053; 81000; 82962; 83880; 85025; 87088; 87186; 96374

== ENCOUNTER 2016-10-30 05:58 | Inpatient (IN) | payer MEDICARE, MEDICAID ==
[~2016-10-30] VITALS: Ht 162.6 cm; Wt 105.3 kg
[~2016-10-30 05:58] MED LIST changes: +CIPR-225 PO
[2016-10-30] MEDS ORDERED: DEXTROSE 50% 50 ML (IMS) SYR ONE (06:00)
[2016-10-30 06:38] LABS: BASOPHILS % (AUTO) 0 % (0-10); EOSINOPHILS % (AUTO) 0 % (0-10); LYMPHOCYTES # (AUTO) 1.1 X 10^3 (1.0-4.0); LYMPHOCYTES % (AUTO) 7 % (12-44); MEAN CORPUSCULAR HEMOGLOBIN 26 PG (25-34); MEAN CORPUSCULAR HGB CONC 31 G/DL (32-36); MEAN CORPUSCULAR VOLUME 82 FL (80-99); MEAN PLATELET VOLUME 13.5 FL (7.4-10.4); MONOCYTES # (AUTO) 0.9 X 10^3 (0.0-1.0); MONOCYTES % (AUTO) 6 % (0-12); NEUTROPHILS # (AUTO) 12.6 X 10^3 (1.8-7.8); NEUTROPHILS % (AUTO) 87 % (42-75); PLATELET COUNT 359 10^3/uL (130-400); RED BLOOD COUNT 3.66 10^6/uL (4.35-5.85); RED CELL DISTRIBUTION WIDTH 23.3 % (10.0-14.5); WHITE BLOOD COUNT 14.6 10^3/uL (4.3-11.0)
[2016-10-30] MEDS ORDERED: DEXTROSE 50% 50 ML (IMS) SYR IV ONE (06:45)
[2016-10-30 06:52] LABS: ALBUMIN 2.5 GM/DL (3.2-4.5); BILIRUBIN,TOTAL 4.6 MG/DL (0.1-1.0); CALCIUM 8.5 MG/DL (8.5-10.1); CREATININE SERUM 3.2 MG/DL (0.60-1.30); POTASSIUM 2.8 MMOL/L (3.6-5.0); TOTAL PROTEIN 6.8 GM/DL (6.4-8.2)
[2016-10-30 06:53] LABS: ANISOCYTOSIS MODERATE; BAND NEUTROPHILS 1 %; BASOPHILS % (MANUAL) 0 %; EOSINOPHILS % (MANUAL) 0 %; LYMPHOCYTES % (MANUAL) 7 %; NEUTROPHILS % (MANUAL) 85 %; POLYCHROMASIA SLIGHT
[2016-10-30 06:54] LABS: STOMATOCYTES SLIGHT; TARGET CELLS MARKED
[2016-10-30 07:15] LABS: KETONES,URINE NEGATIVE (NEGATIVE); LEUKOCYTE ESTERASE ,URINE 3+ (NEGATIVE); NITRITE,URINE NEGATIVE (NEGATIVE); PH,URINE 5 (5-9); PROTEIN,URINE 3+ (NEGATIVE); UROBILINOGEN,URINE 8 MG/DL (NORMAL)
--- NOTE | 2016-10-30 07:22 | ED General ---
General Chief Complaint: General Problems/Pain Stated Complaint: DIABETES,PT UNABLE TO CARE FOR SELF Nursing Triage Note: PT TO ED 7 PER EMS FOR C/O INCREASED SOB ET DECREASED RESPONSIVENESS ONSET STRAP SEWER. REPORTS HER BLOOD SUGAR WAS IN THE 40'S BUT DENIES IMPROVEMENT W/ PEANUT BUTTER ET "JUNK". PER EMS, PT SEEN IN THIS ED YESTERDAY FOR SAME C/O ET DISCHARGED HOME. PT REPORTS SHE WAS DISCHARGED FROM [facility] WEDNESDAY SHE REPORTS THEY TOLD HER SHE WAS ABLE TO CARE FOR HERSELF. PT ALSO REPORTS SHE IS TO WEAR CPAP BUT WAS NOT SENT HOME FROM THE [facility] W/ THE EQUIPMENT. NO OTHER C/O VOICED Nursing Sepsis Screen: No Definite Risk Source of Information: Patient, EMS Exam Limitations: No Limitations History of Present Illness Time Seen by Provider: 07:20 Initial Comments The patient is a 71-year-old white female who presents by ambulance today with complaints of low blood sugar. She apparently checked out of medical [facility] on Wednesday K she thought she was able to care for herself. She was here yesterday for constipation and a low blood sugar. She reports that she had not taken any insulin last evening or today but found her blood sugar to be 40 by glucometer at home. She states that she took peanut butter but got no results from this. She then called the ambulance and was brought here. She keeps referring to when she last took her insulin as tonight. She is foggy about her recollection of yesterday's ER visit. When prompted she does recall having 2 bowel movements after the suppository placement yesterday. Allergies and Home Medications Allergies Coded Allergies: Penicillins (Unverified Allergy, Unknown, 05/25/16) morphine (Unverified Allergy, Unknown, 05/25/16) Home Medications Acetaminophen 325 Mg Tablet, 650 MG PO HS, (Reported) TAKES 2 (325 MG) TABLETS Acetaminophen 325 Mg Tablet, 650 MG PO Q6H PRN for PAIN-MILD, (Reported) TAKES 2 (325 MG) TABLETS Amiodarone HCl 400 Mg Tablet, 400 MG PO BID, (Reported) Digoxin 125 Mcg Tablet, 125 MCG PO DAILY, (Reported) Diltiazem HCl 240 Mg Cap.er.24h, 240 MG PO DAILY, (Reported) Docusate Sodium 100 Mg Capsule, 100 MG PO BID, (Reported) Furosemide 40 Mg Tablet, 80 MG PO DAILY, (Reported) TAKES 2 (40 MG) TABLETS Furosemide 40 Mg Tablet, 40 MG PO DAILY@1200, (Reported) Gabapentin 100 Mg Capsule, 100 MG PO TID, (Reported) Insulin Aspart 300 Units/3 Ml Solution, 10 UNITS SQ AC, (Reported) Insulin Detemir 100 Unit/1 Ml Insuln.pen, 20 UNITS SQ BID, (Reported) Menthol/Lanolin/Calamine/Znox 71 Gm Oint, TP PRN PRN for SKIN PROTECTANT, ( Reported) Metformin HCl 500 Mg Tablet, 500 MG PO BID, (Reported) Metolazone 2.5 Mg Tablet, 2.5 MG PO DAILY, (Reported) Ondansetron HCl 4 Mg Tablet, 4 MG PO Q6H PRN for NAUSEA/VOMITING-1ST LINE, ( Reported) Pantoprazole Sodium 40 Mg Tablet.dr, 40 MG PO DAILY, (Reported) Rivaroxaban 10 Mg Tablet, 10 MG PO DAILY, (Reported) Constitutional: see HPI EENTM: no symptoms reported Cardiovascular: no symptoms reported Gastrointestinal: constipation Genitourinary: no symptoms reported Musculoskeletal: muscle weakness Skin: no symptoms reported Psychiatric/Neurological: No Symptoms Reported Hematologic/Lymphatic: No Symptoms Reported Immunological/Allergic: no symptoms reported Past Arxduvz-Crjgty-Ukabbb Hx Patient Social History Alcohol Use: Denies Use Recreational Drug Use: No Smoking Status: Never a Smoker 2nd Hand Smoke Exposure: No Recent Foreign Travel: No Contact w/Someone Who Travel: No Recent Infectious Disease Expo: No Recent Hopitalizations: No Physical Abuse: No Sexual Abuse: No Mistreated: No Fear: No Immunizations Up To Date PED Vaccines UTD: No Date of Pneumonia Vaccine: May 25, 2013 Date of Influenza Vaccine: Nov 30, 2015 Seasonal Allergies Seasonal Allergies: No Surgeries History of Surgeries: Yes Surgeries: Hysterectomy, Joint Replacement Respiratory History of Respiratory Disorde: Yes Respiratory Disorders: Asthma, COPD Currently Using CPAP: No Currently Using BIPAP: No Cardiovascular History of Cardiac Disorders: Yes (diastolic heart failure) Cardiac Disorders: High Cholesterol, Hypertension Neurological History of Neurological Disord: No 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 Genitourinary History of Genitourinary Disor: No Gastrointestinal History of Gastrointestinal Di: Yes Gastrointestinal Disorders: Gastroesophageal Reflux, Ulcer Musculoskeletal History of Musculoskeletal Dis: Yes (PAST HIP FX, AND BILAT TOTAL KNEE REPLACEMENT) Musculoskeletal Disorders: Arthritis Endocrine History of Endocrine Disorders: Yes Endocrine Disorders: Diabetes, Insulin dep HEENT History of HEENT Disorders: Yes Hearing Impairment: Hard of Hearing Cancer History of Cancer: No Psychosocial History of Psychiatric Problem: Yes Behavioral Health Disorders: Depression Suicide Risk Score: 0 Integumentary History of Skin or Integumenta: No Blood Transfusions History of Blood Disorders: No Adverse Reaction to a Blood Tr: No Family Medical History Significant Family History: Heart Disease Family Medial History: CHF (congestive heart failure) 19 MOTHER Physical Exam Vital Signs Vital Sign - Last 12Hours 10/30/16 05:58 Temp 96.5 Pulse 54 Resp 16 B/P (MAP) 136/66 Pulse Ox 93 O2 Delivery Room Air O2 Flow Rate 3.00 Capillary Refill : Less Than 3 Seconds General Appearance: Mild Distress Eyes: Bilateral Eye Normal Inspection HEENT: Normal ENT Inspection Neck: Full Range of Motion, Normal Inspection, Non Tender, Supple, Carotid Bruit Respiratory: Chest Non Tender, Lungs Clear, Normal Breath Sounds, No Accessory Muscle Use, No Respiratory Distress Cardiovascular: Regular Rate, Rhythm, No Edema, No Gallop, No JVD, No Murmur, Normal Peripheral Pulses Gastrointestinal: Normal Bowel Sounds, No Organomegaly, No Pulsatile Mass, Non Tender, Soft Back: Normal Inspection, No CVA Tenderness, No Vertebral Tenderness Extremity: Swelling Neurologic/Psychiatric: Other (flat affect. Confused about date and chronology ) Skin: Other (multiple $0.25 sized ecchymoses dorsal surfaces of both forearms) Lymphatic: No Adenopathy Progress/Results/Core Measures Results/Orders Lab Results Laboratory Tests Test 10/30/16 06:04 10/30/16 06:42 10/30/16 07:12 10/30/16 07:31 Range/Units White Blood Count 14.6 H 4.3-11.0 10^3/uL Red Blood Count 3.66 L 4.35-5.85 10^6/uL Hemoglobin 9.4 L 11.5-16.0 G/DL Hematocrit 30 L 35-52 % Mean Corpuscular Volume 82 80-99 FL Mean Corpuscular Hemoglobin 26 25-34 PG Mean Corpuscular Hemoglobin Concent 31 L 32-36 G/DL Red Cell Distribution Width 23.3 H 10.0-14.5 % Platelet Count 359 130-400 10^3/uL Mean Platelet Volume 13.5 H 7.4-10.4 FL Neutrophils (%) (Auto) 87 H 42-75 % Lymphocytes (%) (Auto) 7 L 12-44 % Monocytes (%) (Auto) 6 0-12 % Eosinophils (%) (Auto) 0 0-10 % Basophils (%) (Auto) 0 0-10 % Neutrophils # (Auto) 12.6 H 1.8-7.8 X 10^3 Lymphocytes # (Auto) 1.1 1.0-4.0 X 10^3 Monocytes # (Auto) 0.9 0.0-1.0 X 10^3 Eosinophils # (Auto) 0.0 0.0-0.3 10^3/uL Basophils # (Auto) 0.0 0.0-0.1 10^3/uL Neutrophils % (Manual) 85 % Lymphocytes % (Manual) 7 % Monocytes % (Manual) 7 % Eosinophils % (Manual) 0 % Basophils % (Manual) 0 % Band Neutrophils 1 % Toxic Granulation 1+ Polychromasia SLIGHT Anisocytosis MODERATE Macrocytosis MODERATE Target Cells MARKED Stomatocytes SLIGHT Sodium Level 134 L 135-145 MMOL/L Potassium Level 2.8 L 3.6-5.0 MMOL/L Chloride Level 86 L 98-107 MMOL/L Carbon Dioxide Level 29 21-32 MMOL/L Anion Gap 19 H 5-14 MMOL/L Blood Urea Nitrogen 46 H 7-18 MG/DL Creatinine 3.20 H 0.60-1.30 MG/DL Estimat Glomerular Filtration Rate 14 BUN/Creatinine Ratio 14 Glucose Level 30 *L 70-105 MG/DL Calcium Level 8.5 8.5-10.1 MG/DL Total Bilirubin 4.6 H 0.1-1.0 MG/DL Aspartate Amino Transf (AST/SGOT) 197 H 5-34 U/L Alanine Aminotransferase (ALT/SGPT) 54 0-55 U/L Alkaline Phosphatase 651 H 40-136 U/L Total Protein 6.8 6.4-8.2 GM/DL Albumin 2.5 L 3.2-4.5 GM/DL Glucometer 145 H 116 H 70-110 MG/DL Urine Color BROWN H Urine Clarity VERY CLOUDY H Urine pH 5 5-9 Urine Specific [place] 1.015 L 1.016-1.022 Urine Protein 3+ H NEGATIVE Urine Glucose (UA) NEGATIVE NEGATIVE Urine Ketones NEGATIVE NEGATIVE Urine Nitrite NEGATIVE NEGATIVE Urine Bilirubin 2+ H NEGATIVE Urine Urobilinogen 8 H NORMAL MG/DL Urine Leukocyte Esterase 3+ H NEGATIVE Urine RBC (Auto) 5+ H NEGATIVE Urine RBC 10-25 H /HPF Urine WBC TNTC H /HPF Urine Squamous Epithelial Cells 2-5 /HPF Urine Crystals NONE /LPF Urine Amorphous Sediment MOD GIGI URATES H /LPF Urine Bacteria LARGE H /HPF Urine Casts NONE /LPF Urine Mucus NEGATIVE /LPF Urine Culture Indicated YES Test 10/30/16 15:00 Range/Units Glucometer 99 70-110 MG/DL My Orders Orders - DESTINEY STILL MD Cbc With Automated Diff (10/30/16 06:21) Comprehensive Metabolic Panel (10/30/16 06:21) Ua Culture If Indicated (10/30/16 06:21) Ekg Tracing (10/30/16 06:21) Manual Differential (10/30/16 06:04) D50w (Emergency) Syringe (Dextrose 50% 5 (10/30/16 06:45) D50w (Emergency) Syringe (Dextrose 50% 5 (10/30/16 06:00) Urine Culture (10/30/16 07:12) Ceftriaxone Injection (Rocephin Injectio (10/30/16 07:45) Cho 60g/M 1snack (16-2000 Ashok) (10/30/16 Lunch) Medications Given in ED Current Medications Medications Dose Ordered Sig/Sameera Route Start Time Stop Time Status Last Admin Dose Admin Ceftriaxone Sodium 1000 mg/ Sodium Chloride 50 ml @ 100 mls/hr ONCE ONCE IV 10/30/16 07:45 10/30/16 08:17 DC 10/30/16 08:21 100 MLS/HR Dextrose 50 ml ONCE ONCE IV 10/30/16 06:45 10/30/16 06:46 DC 10/30/16 06:08 50 ML Vital Signs/I&O Vital Sign - Last 12Hours 10/30/16 10/30/16 05:58 15:04 Temp 96.5 98.2 Pulse 54 63 Resp 16 18 B/P (MAP) 136/66 98/59 Pulse Ox 93 99 O2 Delivery Room Air O2 Flow Rate 3.00 3.00 Blood Pressure Mean: 89 Departure Communication (Admissions) Progress Notes 0730 text placed to social media strategist. 0850 return call from Renate Mtz. 1500 patient will be transferred to [facility] in group home status. Impression Impression: Primary Impression: Hypoglycemia associated with type 2 diabetes mellitus Additional Impression: urinary tract infection Disposition: Condition: Improved Departure-Patient Inst. Decision time for Depature: 08:54 Referrals: NIHARIKA ESCOBEDO MD (PCP/Family) Primary Care Physician Add. Discharge Instructions: All discharge instructions reviewed with patient and/or family. Voiced understanding. Orders for alf accompany you. DESTINEY STILL MD Oct 30, 2016 07:22
[2016-10-30 07:29] LABS: WBC,URINE TNTC /HPF
[2016-10-30 07:30] LABS: BILIRUBIN,URINE 2+ (NEGATIVE)
[2016-10-30] MEDS ORDERED: cefTRIAXone INJECTION 1,000 MG in NS (IVPB) 50 ML IV ONE (07:45)
[2016-10-30 15:04] VITALS: BP 98/59
[2016-10-30] MEDS ORDERED: CEFP200T2 PO (16:26)
[2016-10-30 17:20] VITALS: BP 115/52
[2016-10-30] MEDS ORDERED: CATHETER FLUSH 10 ML SYR IV PRN (18:15)
[2016-10-30] MEDS: NS IV 1000 ML 1,000 ML IV SCH (18:23)
[2016-10-30] MEDS: MEROPENEM 500 MG/NS 100 ML IVPB IV SCH ×2 (18:24)
[2016-10-30 20:00] VITALS: BP 129/57
[2016-10-30] MEDS: inSUlin (REGULAR) HUMAN 1 UNIT/0.01 ML (CHARGE PER UNIT) SC SCH (20:29)
[2016-10-30 20:33] VITALS: BP 128/64
[2016-10-30] MEDS: AMIODARONE 200 MG (CORDARONE) TAB PO SCH (20:37)
[2016-10-30 23:40] VITALS: BP 112/53
[2016-10-31 03:55] VITALS: BP 102/57
[2016-10-31 05:14] LABS: BASOPHILS % (AUTO) 0 % (0-10); EOSINOPHILS # (AUTO) 0.6 10^3/uL (0.0-0.3); EOSINOPHILS % (AUTO) 5 % (0-10); LYMPHOCYTES # (AUTO) 0.9 X 10^3 (1.0-4.0); LYMPHOCYTES % (AUTO) 7 % (12-44); MEAN CORPUSCULAR HEMOGLOBIN 26 PG (25-34); MEAN CORPUSCULAR HGB CONC 31 G/DL (32-36); MEAN CORPUSCULAR VOLUME 82 FL (80-99); MONOCYTES # (AUTO) 0.7 X 10^3 (0.0-1.0); MONOCYTES % (AUTO) 6 % (0-12); NEUTROPHILS # (AUTO) 10.2 X 10^3 (1.8-7.8); NEUTROPHILS % (AUTO) 82 % (42-75); PLATELET COUNT 299 10^3/uL (130-400); RED BLOOD COUNT 3.22 10^6/uL (4.35-5.85); WHITE BLOOD COUNT 12.4 10^3/uL (4.3-11.0)
[2016-10-31] MEDS: inSUlin (REGULAR) HUMAN 1 UNIT/0.01 ML (CHARGE PER UNIT) SC SCH ×4 (05:43→21:37)
[2016-10-31] MEDS: MEROPENEM 500 MG/NS 100 ML IVPB IV SCH ×4 (05:43→18:21)
[2016-10-31 08:43] VITALS: BP 124/55
[2016-10-31] MEDS: AMIODARONE 200 MG (CORDARONE) TAB PO SCH ×2 (08:48→21:40)
[2016-10-31] MEDS: NS IV 1000 ML 1,000 ML IV SCH ×2 (08:48→22:40)
[2016-10-31] MEDS: RIVAROXABAN 10 MG TABLET (XARELTO) PO SCH (08:49)
[2016-10-31 12:00] VITALS: BP 92/43
[2016-10-31] MEDS ORDERED: inSUlin ASPART (NovoLOG) 1 UNIT/0.01 ML (CHARGE PER UNIT) SC ONE (12:30)
--- NOTE | 2016-10-31 13:18 | Occupational Therapy Eval ---
OT Evaluation-General/PLF Medical Diagnosis Admission Date Oct 30, 2016 at 17:00 Medical Diagnosis: UTI Onset Date: Oct 30, 2016 Therapy Diagnosis Therapy Diagnosis: decr self care, weakness, decr funct mobility, decr activity tolerance Height/Weight Height (Feet): 5 Height (Inches): 4.00 Weight (Pounds): 232 Weight (Ounces): 1.0 Precautions Precautions/Isolations: Fall Prevention, Standard Precautions Safety Interventions: Bed Exit Alarm, Reorient-Attempt, Reorient-PRN Referral Physician: Blaire Referral Reason: Evaluation/Treatment Medical History Pertinent Medical History: Arthritis, COPD, DM, GERD, Heart Failure, HTN Additional Medical History Asthma, hip replacement, bilat total knees, ulcer, hard of hearing, depression, drop foot L, neuropathy per pt report Current History pt admitted through ED with incr SOB, decr responsiveness, low blood sugar. Had been at [facility] until Wednesday but discharged to her apartment at [facility]. ED visit on and also Wednesday Reviewed History: Yes Social History Home: Apartment ( of ) Current Living Status: Alone ADL-Prior Level of Function ADL PLOF Comments Pt reported that she was able to manage most of her basic ADLs at [facility]. She needs some help getting her sock on and off but was taking herself to the bathroom, dressing, grooming, feeding herself. She used a FWW at [facility], per her report. She said that she has a paid caregiver three times a week and that person helps with cleaning, cooking, shopping. She does not drive. DME/Equipment: Tub/Shower DME/Equipment Comments Unknown OT Current Status Subjective Pt seen in room, up in recliner, agreeable to OT. pain reported 0/10. Appearance Alert, cooperative, oriented Mental Status/Objective Attachments: IV Current Upper Extremity ROM Grossly WFL bilat Upper Extremity Strength Grossly 4/5 bilat ADL-Treatment ADL-Current Pt reported that she is able to feed herself without help. She has been walking to the bathroom with FWW and standby help from nursing. They bring her IV pole if needed and she just takes her oxygen off for that length of time. They have been wiping her because she needs to steady herself with the walker or grab bars. She usually wears O2 at 3L/min 21/09. She does not have any clothes here and decline to walk to the bathroom, stating she had just been there. Functional [place] Measure 0=Not Assessed/NA 4=Minimal Assistance 1=Total Assistance 5=Supervision or Setup 2=Maximal Assistance 6=Modified [place] 3=Moderate Assistance 7=Complete IndependenceIRFPAI Quality Coding Scale 6 Independent with activity with or without an assistive device 5 Patient requires set up or clean up by helper. Patient completes activity by themselves 4 Supervision or touching assist (CGA). Wallace provide cues , steadying assist 3 The helper provides less than half the effort to complete the activity 2 The helper provides more than half the effort to complete the activity 1 Dependent. The helper does all the effort to complete an activity 7 Patient refused to complete or attempt activity 9 The patient did not perform the activity before the current illness or injury 88 Not attempted due to Medical conditions or safety concerns Education OT Patient Education: Purpose of tx/functional activities, Rehab process Teaching Recipient: Patient Teaching Methods: Discussion Response to Teaching: Verbalize Understanding OT Prison Goals Prison Goals Time Frame: Nov 06, 2016 Eating (FIM): 6 Grooming(FIM): 6 Bathing(FIM): 5 Upper Body Dressing(FIM): 5 Lower Body Dressing(FIM): 5 Toileting(FIM): 6 Toilet/Commode Transfer(FIM): 6 Additional Goals: 2-Verbalize Understanding, 3-ImproveStrength/Ananth 1=Demonstrate adherence to instructed precautions during ADL tasks. 2=Patient will verbalize/demonstrate understanding of assistive devices/ modifications for ADL. 3=Patient will improve strength/tolerance for activity to enable patient to perform ADL's. OT Education/Plan Problem List/Assessment Assessment: Decreased Activ Tolerance, Decreased UE Strength, Dependent Transfers, Impaired Funct Balance, Impaired Self-Care Skills Pt would benefit from skilled OT to increase her independence in basic self care to allow her to live in least restrictive environment and to decrease caregiver burden Discharge Recommendations Plan/Recommendations: Continue POC Therapy D/C Recommendations: Chcf (TCU/NH) Barriers to Progress Inability to care for herself Target Placement pt stated that she is going to [facility] Treatment Plan/Plan of Care Treatment,Training & Education: Yes Patient would benefit from OT for education, treatment and training to promote independence in ADL's, mobility, safety and/or upper extremity function for ADL' s. Plan of Care: ADL Retraining, Functional Mobility, UE Funct Exercise/Act Treatment Duration: Nov 06, 2016 Frequency: 5 times per week Estimated Hrs Per Day: .5 hour per day Agreement: Yes Rehab Potential: Fair Time/GCodes Start Time: 12:35 Stop Time: 12:53 Total Time Billed (hr/min): 18 Billed Treatment Time visit, 18 minutes evaluation moderate intensity RYAN WILSON OT Oct 31, 2016 13:18
[2016-10-31 15:40] VITALS: BP 111/55
[2016-10-31 20:15] VITALS: BP 122/62
--- NOTE | 2016-10-31 21:49 | History & Physicial (CHS) ---
HPI History of Present Illness: 71yo woman presented to ER with complaints of "not feeling well" but was also somewhat "foggy" per e ER physician in terms of her symptoms. During the H&P , she told me that she had a UTI, but she did not have any symptoms. Per her report, she was having low blood sugars and now "has to live in a snf and sell all my stuff because I can't live on my own." She had apparently been discharged from [facility] the Wednesday prior to admission. She is now having low BS despite not taking her insulin. In the ER, she was unable to recall when she took her last dose of insulin. Per record review, patient is growing MDR pathogens and has acute on chronic kidney failure requiring aggressive IV treatment. Source: patient Date seen by provider: Oct 31, 2016 Time Seen by Provider: 09:30 Attending Physician Melissa eH MD PCP Ye Cardona MD Consult Date of Admission Oct 30, 2016 at 5:00 pm Home Medications Home Medications Reviewed patient Home Medication Reconciliation Form Allergies Coded Allergies: Penicillins (Unverified Allergy, Unknown, 05/25/16) morphine (Unverified Allergy, Unknown, 05/25/16) HQG-[id number]-Srjlgd Hx Patient Social History Alcohol Use: Denies Use Recreational Drug Use: No Smoking Status: Never a Smoker 2nd Hand Smoke Exposure: No Recent Foreign Travel: No Contact w/other who traveled: No Recent Hopitalizations: No Recent Infectious Disease Expo: No Physical Abuse Screen: No Sexual Abuse: No Immunizations Up To Date Date of Pneumonia Vaccine: May 25, 2013 Date of Influenza Vaccine: Nov 30, 2015 Past Medical History Diastolic Heart Failure: Diagnosed 04/2016 Insulin Dependent DM HTN Oxygen Dependent 4L: 2017 Morbid Obesity Atrial Fibrillation Family Medical History Significant Family History: Heart Disease Family History: CHF (congestive heart failure) 19 MOTHER Review of Systems (CHC) Constitutional: no symptoms reported All Other Systems Reviewed Negative Unless Noted: Yes Reviewed Test Results Reviewed Test Results Lab Laboratory Tests Test 10/31/16 14:15 10/31/16 16:29 10/31/16 21:04 10/31/16 23:57 Range/Units Glucometer 245 H 87 187 H 190 H 70-110 MG/DL Test 11/01/16 05:40 11/01/16 11:20 11/01/16 11:35 11/01/16 16:30 Range/Units Glucometer 179 H 179 H 37 *L 70-110 MG/DL White Blood Count 10.5 4.3-11.0 10^3/uL Red Blood Count 3.16 L 4.35-5.85 10^6/uL Hemoglobin 8.2 L 11.5-16.0 G/DL Hematocrit 27 L 35-52 % Mean Corpuscular Volume 85 80-99 FL Mean Corpuscular Hemoglobin 26 25-34 PG Mean Corpuscular Hemoglobin Concent 31 L 32-36 G/DL Red Cell Distribution Width 23.4 H 10.0-14.5 % Platelet Count 310 130-400 10^3/uL Mean Platelet Volume 12.6 H 7.4-10.4 FL Neutrophils (%) (Auto) 77 H 42-75 % Lymphocytes (%) (Auto) 11 L 12-44 % Monocytes (%) (Auto) 6 0-12 % Eosinophils (%) (Auto) 4 0-10 % Basophils (%) (Auto) 1 0-10 % Neutrophils # (Auto) 8.1 H 1.8-7.8 X 10^3 Lymphocytes # (Auto) 1.2 1.0-4.0 X 10^3 Monocytes # (Auto) 0.7 0.0-1.0 X 10^3 Eosinophils # (Auto) 0.5 H 0.0-0.3 10^3/uL Basophils # (Auto) 0.1 0.0-0.1 10^3/uL Sodium Level 134 L 135-145 MMOL/L Potassium Level 3.3 L 3.6-5.0 MMOL/L Chloride Level 90 L 98-107 MMOL/L Carbon Dioxide Level 26 21-32 MMOL/L Anion Gap 18 H 5-14 MMOL/L Blood Urea Nitrogen 50 H 7-18 MG/DL Creatinine 3.04 H 0.60-1.30 MG/DL Estimat Glomerular Filtration Rate 15 BUN/Creatinine Ratio 16 Glucose Level 164 H 70-105 MG/DL Calcium Level 7.7 L 8.5-10.1 MG/DL Test 11/01/16 16:50 11/01/16 17:14 11/01/16 17:39 11/01/16 18:10 Range/Units Glucometer 49 *L 45 *L 56 *L 62 L 70-110 MG/DL Test 11/01/16 18:39 11/01/16 19:09 11/01/16 20:09 11/01/16 20:16 Range/Units Glucometer 75 69 L 107 70-110 MG/DL Sodium Level 133 L 135-145 MMOL/L Potassium Level 3.5 L 3.6-5.0 MMOL/L Chloride Level 91 L 98-107 MMOL/L Carbon Dioxide Level 27 21-32 MMOL/L Anion Gap 15 H 5-14 MMOL/L Blood Urea Nitrogen 49 H 7-18 MG/DL Creatinine 2.86 H 0.60-1.30 MG/DL Estimat Glomerular Filtration Rate 16 BUN/Creatinine Ratio 17 Glucose Level 86 70-105 MG/DL Calcium Level 7.8 L 8.5-10.1 MG/DL Test 11/02/16 02:40 11/02/16 05:17 11/02/16 05:47 11/02/16 11:17 Range/Units Glucometer 83 67 L 81 70-110 MG/DL Sodium Level 133 L 135-145 MMOL/L Potassium Level 4.2 3.6-5.0 MMOL/L Chloride Level 91 L 98-107 MMOL/L Carbon Dioxide Level 25 21-32 MMOL/L Anion Gap 17 H 5-14 MMOL/L Blood Urea Nitrogen 46 H 7-18 MG/DL Creatinine 2.56 H 0.60-1.30 MG/DL Estimat Glomerular Filtration Rate 18 BUN/Creatinine Ratio 18 Glucose Level 314 H 70-105 MG/DL Calcium Level 8.1 L 8.5-10.1 MG/DL Test 11/02/16 11:37 11/02/16 16:50 11/02/16 20:20 11/03/16 06:34 Range/Units Glucometer 328 H 148 H 127 H 93 70-110 MG/DL Test 11/03/16 07:39 11/03/16 11:53 Range/Units White Blood Count 9.4 4.3-11.0 10^3/uL Red Blood Count 2.96 L 4.35-5.85 10^6/uL Hemoglobin 7.8 L 11.5-16.0 G/DL Hematocrit 26 L 35-52 % Mean Corpuscular Volume 87 80-99 FL Mean Corpuscular Hemoglobin 26 25-34 PG Mean Corpuscular Hemoglobin Concent 31 L 32-36 G/DL Red Cell Distribution Width 24.8 H 10.0-14.5 % Platelet Count 325 130-400 10^3/uL Mean Platelet Volume 12.7 H 7.4-10.4 FL Sodium Level 136 135-145 MMOL/L Potassium Level 4.2 3.6-5.0 MMOL/L Chloride Level 99 98-107 MMOL/L Carbon Dioxide Level 25 21-32 MMOL/L Anion Gap 12 5-14 MMOL/L Blood Urea Nitrogen 37 H 7-18 MG/DL Creatinine 1.95 H 0.60-1.30 MG/DL Estimat Glomerular Filtration Rate 25 BUN/Creatinine Ratio 19 Glucose Level 83 70-105 MG/DL Calcium Level 7.9 L 8.5-10.1 MG/DL Glucometer 115 H 70-110 MG/DL Physical Exam-([facility]) Physical Exam Vital Signs VS - Last 72 Hours, by Label 10/31/16 10/31/16 10/31/16 10/31/16 15:40 20:15 21:00 23:53 Temp 98.3 97.8 97.5 Pulse 66 71 68 Resp 18 20 20 B/P (MAP) 111/55 122/62 116/53 Pulse Ox 97 96 95 O2 Delivery Nasal Cannula Nasal Cannula Nasal Cannula Nasal Cannula O2 Flow Rate 3.00 3.00 3.00 11/01/16 11/01/16 11/01/16 11/01/16 03:43 08:00 08:17 09:00 Temp 97.0 96.5 Pulse 63 59 Resp 20 20 B/P (MAP) 113/61 134/62 Pulse Ox 95 95 O2 Delivery Nasal Cannula Nasal Cannula Nasal Cannula Nasal Cannula O2 Flow Rate 3.00 3.00 2.00 11/01/16 11/01/16 11/01/16 11/01/16 12:00 16:00 19:56 21:00 Temp 97.5 97.7 97.2 Pulse 64 65 59 Resp 20 20 19 B/P (MAP) 109/54 109/61 117/66 Pulse Ox 96 97 90 O2 Delivery Nasal Cannula Nasal Cannula Nasal Cannula Nasal Cannula O2 Flow Rate 3.00 3.00 3.00 2.00 11/01/16 11/02/16 11/02/16 11/02/16 23:25 08:00 09:00 15:26 Temp 98.1 99.3 Pulse 62 65 Resp 18 16 B/P (MAP) 115/52 137/48 Pulse Ox 99 99 O2 Delivery Nasal Cannula Nasal Cannula Nasal Cannula Nasal Cannula O2 Flow Rate 3.00 3.00 2.00 2.00 11/02/16 11/02/16 11/03/16 11/03/16 16:00 21:00 00:00 08:00 Temp 98.4 99.6 97.5 Pulse 66 65 65 Resp 21 18 20 B/P (MAP) 131/59 114/57 117/68 Pulse Ox 96 97 97 O2 Delivery Nasal Cannula Nasal Cannula Nasal Cannula Nasal Cannula O2 Flow Rate 3.00 2.00 3.00 3.00 11/03/16 11/03/16 08:38 09:00 O2 Delivery Nasal Cannula Nasal Cannula O2 Flow Rate 3.00 2.00 Capillary Refill : Less Than 3 Seconds General Appearance: WD/WN, no apparent distress, obese HEENT: PERRL/EOMI, normal ENT inspection, pharynx normal Neck: non-tender, full range of motion, supple, normal inspection Respiratory: lungs clear, normal breath sounds, no respiratory distress, no accessory muscle use Cardiovascular: regular rate, rhythm, no edema, no gallop, no JVD, no murmur Gastrointestinal: normal bowel sounds, non tender, soft, no organomegaly Back: no CVA tenderness, no vertebral tenderness Extremities: normal range of motion, non-tender, normal inspection, no pedal edema, no calf tenderness, normal capillary refill Neurologic/Psychiatric: manganese wheeler II-XII nml as tested, no motor/sensory deficits, alert, normal mood/affect, oriented x 3 Skin: normal color, warm/dry Assessment/Plan Assessment/Plan Plan URINARY TRACT INFECTION ADM - pt placed on Merrem due to ESBL E coli and Proteus, will need at least 7 day IV abx tx. ACUTE ON CHRONIC KIDNEY DISEASE ADM - creatinine up to 3. hold metformin. gentle hydration as I believe poor po intake is the issue here. TYPE 2 DIABETES MELLITUS, UNCONTROLLED, RESIDENTIAL USE OF INSULIN ADM - BS have been stable since admission, variation likely related to her being home and inconsistent diet. will monitor. ELEVATED TRANSAMINASES ADM - likely exacerbated by the dehydration. being worked up as an outpatient, if no acute issues while hospitalized, will defer to continued outpatient management. GENERAL DEBILITY ADM - patient vacillated in ER as to whether she was willing to go to a [facility] after leaving [facility] when her skilled days were up. she will need detention placement as she has shown, even in this past admission that she is unable to care for herself at home. DVT PROPH: enoxaparin. DNR per patient request. Diagnosis/Problems: Clinical Quality Measures DVT/VTE Risk/Contraindication: Risk Factor Score Per Nursin RFS Level Per Nursing on Admit: 4+=Very High Copy Copies To 1: DAVE BERMUDEZ APRN, MD Oct 31, 2016 9:49 pm
[2016-10-31 23:53] VITALS: BP 116/53
[2016-11-01 03:43] VITALS: BP 113/61
[2016-11-01 08:00] VITALS: BP 134/62
[2016-11-01] MEDS ORDERED: NON-FORMULARY MEDICATION 1 EA EA (Amiodarone HCl 400 MG) PO SCH (09:00)
[2016-11-01] MEDS ORDERED: metFORMIN 500 MG (GLUCOPHAGE) TAB PO SCH (09:00)
[2016-11-01] MEDS ORDERED: NON-FORMULARY MEDICATION 1 EA EA (Insulin Detemir (Levemir Flextouch) 20 UNITS) SQ SCH (09:00)
[2016-11-01] MEDS: MEROPENEM 500 MG/NS 100 ML IVPB IV SCH ×4 (09:01→18:46)
[2016-11-01] MEDS: NS IV 1000 ML 1,000 ML IV SCH (09:03)
[2016-11-01] MEDS: PANTOPRAZOLE 40 MG (PROTONIX) TAB PO SCH (09:03)
[2016-11-01] MEDS: DIGOXIN 0.125 MG (LANOXIN) TAB PO SCH (09:03)
[2016-11-01] MEDS: RIVAROXABAN 10 MG TABLET (XARELTO) PO SCH (09:03)
[2016-11-01] MEDS: DILTIAZEM 240 MG (CARDIZEM CD) CAP PO SCH (09:04)
[2016-11-01] MEDS: GABAPENTIN 100 MG (NEURONTIN) CAP PO SCH ×3 (09:04→20:14)
[2016-11-01] MEDS: AMIODARONE 200 MG (CORDARONE) TAB PO SCH ×3 (09:04→20:14)
[2016-11-01] MEDS: inSUlin DETERMIR 1 UNIT/0.01 ML (LEVEMIR) CHARGE PER UNIT SQ SCH ×2 (09:04→20:14)
[2016-11-01] MEDS: inSUlin ASPART (NovoLOG) 1 UNIT/0.01 ML (CHARGE PER UNIT) SQ SCH ×3 (09:05→16:00)
[2016-11-01 11:27] LABS: BASOPHILS # (AUTO) 0.1 10^3/uL (0.0-0.1); BASOPHILS % (AUTO) 1 % (0-10); EOSINOPHILS # (AUTO) 0.5 10^3/uL (0.0-0.3); EOSINOPHILS % (AUTO) 4 % (0-10); LYMPHOCYTES # (AUTO) 1.2 X 10^3 (1.0-4.0); LYMPHOCYTES % (AUTO) 11 % (12-44); MEAN CORPUSCULAR HEMOGLOBIN 26 PG (25-34); MEAN CORPUSCULAR HGB CONC 31 G/DL (32-36); MEAN CORPUSCULAR VOLUME 85 FL (80-99); MEAN PLATELET VOLUME 12.6 FL (7.4-10.4); MONOCYTES # (AUTO) 0.7 X 10^3 (0.0-1.0); MONOCYTES % (AUTO) 6 % (0-12); NEUTROPHILS # (AUTO) 8.1 X 10^3 (1.8-7.8); NEUTROPHILS % (AUTO) 77 % (42-75); PLATELET COUNT 310 10^3/uL (130-400); RED BLOOD COUNT 3.16 10^6/uL (4.35-5.85); RED CELL DISTRIBUTION WIDTH 23.4 % (10.0-14.5); WHITE BLOOD COUNT 10.5 10^3/uL (4.3-11.0)
[2016-11-01 11:42] LABS: CALCIUM 7.7 MG/DL (8.5-10.1); CREATININE SERUM 3.04 MG/DL (0.60-1.30); POTASSIUM 3.3 MMOL/L (3.6-5.0)
[2016-11-01 12:00] VITALS: BP 109/54
--- NOTE | 2016-11-01 12:13 | Progress Note (SOAP) ---
Subjective Subjective/Events-last exam Pt doing well, very sad that she has to "sell everythign and divide it up among her family" because she has to go [facility]. has been gettin in her chair. Review of Systems Time Seen by Provider: 10:00 General: No Chills, No Night Sweats Objective Exam Last Set of Vital Signs Vital Signs Date Time Temp Pulse Resp B/P (MAP) Pulse Ox O2 Delivery O2 Flow Rate FiO2 11/01/16 08:17 Nasal Cannula 2.00 11/01/16 03:43 97.0 63 20 113/61 95 Capillary Refill : Less Than 3 Seconds I&O Intake and Output 11/02/16 00:00 Intake Total 0 ml Output Total 350 ml Balance -350 ml Intake Oral 0 ml Output Urine Total 350 ml # Voids 1 # Bowel Movements 1 General: Alert, Oriented X3, Cooperative, No Acute Distress Lungs: Clear to Auscultation, Normal Air Movement Heart: Regular Rate, Normal S1, Normal S2, No Murmurs, Gallops, Rubs Abdomen: Normal Bowel Sounds, Soft, No Tenderness, No Hepatosplenomegaly, No Masses Extremities: No Clubbing, No Cyanosis Psych/Mental Status: Mental Status NL, Mood NL Results/Procedures Lab Laboratory Tests 10/31/16 14:15: Glucometer 245H 10/31/16 16:29: Glucometer 87 10/31/16 21:04: Glucometer 187H 10/31/16 23:57: Glucometer 190H 11/01/16 05:40: Glucometer 179H 11/01/16 11:20: White Blood Count 10.5, Red Blood Count 3.16L, Hemoglobin 8.2L, Hematocrit 27L, Mean Corpuscular Volume 85, Mean Corpuscular Hemoglobin 26, Mean Corpuscular Hemoglobin Concent 31L, Red Cell Distribution Width 23.4H, Platelet Count 310, Mean Platelet Volume 12.6H, Neutrophils (%) (Auto) 77H, Lymphocytes (%) (Auto) 11L, Monocytes (%) (Auto) 6, Eosinophils (%) (Auto) 4, Basophils (%) (Auto) 1, Neutrophils # (Auto) 8.1H, Lymphocytes # (Auto) 1.2, Monocytes # (Auto) 0.7, Eosinophils # (Auto) 0.5H, Basophils # (Auto) 0.1, Sodium Level 134L, Potassium Level 3.3L, Chloride Level 90L, Carbon Dioxide Level 26, Anion Gap 18H, Blood Urea Nitrogen 50H, Creatinine 3.04H, Estimat Glomerular Filtration Rate 15, BUN/ Creatinine Ratio 16, Glucose Level 164H, Calcium Level 7.7L 11/01/16 11:35: Glucometer 179H Microbiology 10/30/16 Urine Culture - Final, Complete Escherichia Coli Proteus Mirabilis Staph, Coag Neg (Eyedotter) See Comments Assessment/Plan Assessment/Plan Plan URINARY TRACT INFECTION ADM - pt placed on Merrem due to ESBL E coli and Proteus, will need at least 7 day IV abx tx. 11/01 - continue merrem, WBC down ACUTE ON CHRONIC KIDNEY DISEASE ADM - creatinine up to 3. hold metformin. gentle hydration as I believe poor po intake is the issue here. 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 will monitor. 11/01 - no changes ELEVATED TRANSAMINASES ADM - likely exacerbated by the dehydration. being worked up as an outpatient, if no acute issues while hospitalized, will defer to continued outpatient management. GENERAL DEBILITY ADM - patient vacillated in ER as to whether she was willing to go to a CNH after leaving [facility] when her skilled days were up. she will need middle or intermediate school principal placement as she has shown, even in this past admission that she is unable to care for herself at home. 11/01 - plan for CNH placement on Wednesday when we have SW back DVT PROPH: enoxaparin. DNR per patient request. Diagnosis/Problems: Clinical Quality Measures DVT/VTE Risk/Contraindication: Risk Factor Score Per Nursin RFS Level Per Nursing on Admit: 4+=Very High DAVE ALEXANDER MD Nov 01, 2016 12:13 pm
[2016-11-01] MEDS: NS W/KCL 20 MEQ/L 1,000 ML IV SCH ×2 (14:00→20:23)
[2016-11-01] MEDS ORDERED: GABA-488 PO (15:08)
[2016-11-01] MEDS ORDERED: DILT240C PO (15:08)
[2016-11-01] MEDS ORDERED: POTA20TA15 PO (15:08)
[2016-11-01] MEDS ORDERED: AMIO200T2 PO (15:08)
[2016-11-01 16:00] VITALS: BP 109/61
[2016-11-01 19:56] VITALS: BP 117/66
[2016-11-01 20:32] LABS: CALCIUM 7.8 MG/DL (8.5-10.1); CREATININE SERUM 2.86 MG/DL (0.60-1.30); POTASSIUM 3.5 MMOL/L (3.6-5.0)
[2016-11-01 23:25] VITALS: BP 115/52
[2016-11-02] MEDS: MEROPENEM 500 MG/NS 100 ML IVPB IV SCH ×4 (05:34→18:35)
[2016-11-02] MEDS: inSUlin ASPART (NovoLOG) 1 UNIT/0.01 ML (CHARGE PER UNIT) SQ SCH ×3 (06:33→18:35)
[2016-11-02] MEDS: NS W/KCL 20 MEQ/L 1,000 ML IV SCH ×4 (07:33→16:59)
[2016-11-02 08:00] VITALS: BP 137/48
[2016-11-02] MEDS: AMIODARONE 200 MG (CORDARONE) TAB PO SCH ×2 (09:14→20:55)
[2016-11-02] MEDS: DIGOXIN 0.125 MG (LANOXIN) TAB PO SCH (09:14)
[2016-11-02] MEDS: GABAPENTIN 100 MG (NEURONTIN) CAP PO SCH ×3 (09:15→20:55)
[2016-11-02] MEDS: DILTIAZEM 240 MG (CARDIZEM CD) CAP PO SCH (09:15)
[2016-11-02] MEDS: RIVAROXABAN 10 MG TABLET (XARELTO) PO SCH (09:15)
[2016-11-02] MEDS: PANTOPRAZOLE 40 MG (PROTONIX) TAB PO SCH (09:15)
[2016-11-02 11:40] LABS: CALCIUM 8.1 MG/DL (8.5-10.1); CREATININE SERUM 2.56 MG/DL (0.60-1.30); POTASSIUM 4.2 MMOL/L (3.6-5.0)
[2016-11-02] MEDS: inSUlin DETERMIR 1 UNIT/0.01 ML (LEVEMIR) CHARGE PER UNIT SQ SCH (11:55)
[2016-11-02] MEDS ORDERED: inSUlin DETERMIR 1 UNIT/0.01 ML (LEVEMIR) CHARGE PER UNIT SQ NR (12:00)
--- NOTE | 2016-11-02 15:17 | Occ Therapy Progress Note ---
Therapy Progress Note Pt. up in chair with blankets pulled up to neck. OT introduced self and pt. automatically said, "I am not in the mood for any therapy today." OT explained what purpose of treatment was. Pt. states that she is leaving in the morning for a NH, had a horrible weekend, and is not feeling well. When asked, pt. states that her neck hurts, but will not state a pain level. Will not speak very much with OT. OT offered to assist pt. with walk, exercises, anything. Pt. declines again and says, "I am not doing anything today." OT asked if pt. needed anything. Pt. states, "no." All needs met. 1442 1, visit refused treatment. AMELIE OWENS OT Nov 02, 2016 15:17
[2016-11-02 16:00] VITALS: BP 131/59
[2016-11-03] VITALS: BP 114/57
[2016-11-03] MEDS: NS W/KCL 20 MEQ/L 1,000 ML IV SCH ×4 (00:46→22:14)
[2016-11-03] MEDS: MEROPENEM 500 MG/NS 100 ML IVPB IV SCH ×4 (05:10→18:34)
[2016-11-03 08:00] VITALS: BP 117/68
[2016-11-03 08:02] LABS: MEAN PLATELET VOLUME 12.7 FL (7.4-10.4); RED BLOOD COUNT 2.96 10^6/uL (4.35-5.85); RED CELL DISTRIBUTION WIDTH 24.8 % (10.0-14.5); WHITE BLOOD COUNT 9.4 10^3/uL (4.3-11.0)
[2016-11-03] MEDS: inSUlin ASPART (NovoLOG) 1 UNIT/0.01 ML (CHARGE PER UNIT) SQ SCH ×3 (08:09→18:34)
[2016-11-03] MEDS: PANTOPRAZOLE 40 MG (PROTONIX) TAB PO SCH (08:10)
[2016-11-03] MEDS: RIVAROXABAN 10 MG TABLET (XARELTO) PO SCH (08:10)
[2016-11-03] MEDS: DIGOXIN 0.125 MG (LANOXIN) TAB PO SCH (08:10)
[2016-11-03] MEDS: DILTIAZEM 240 MG (CARDIZEM CD) CAP PO SCH (08:10)
[2016-11-03] MEDS: AMIODARONE 200 MG (CORDARONE) TAB PO SCH ×2 (08:10→21:01)
[2016-11-03] MEDS: GABAPENTIN 100 MG (NEURONTIN) CAP PO SCH ×3 (08:10→21:01)
[2016-11-03 08:17] LABS: CALCIUM 7.9 MG/DL (8.5-10.1); CREATININE SERUM 1.95 MG/DL (0.60-1.30); POTASSIUM 4.2 MMOL/L (3.6-5.0)
--- NOTE | 2016-11-03 12:33 | Occupational Ther Daily Note ---
OT Current Status-Daily Note Subjective Pt alert, sitting in recliner. Agrees to therapy, would like to take shower. Mental Status/Objective Patient Orientation: Person, Place, Time, Situation Functional [place] Measure 0=Not Assessed/NA 4=Minimal Assistance 1=Total Assistance 5=Supervision or Setup 2=Maximal Assistance 6=Modified [place] 3=Moderate Assistance 7=Complete [place] Attachments: IV ADL-Treatment After therapy, pt sitting in recliner with phone and call light in reach. All needs met. Grooming (FIM): 6 (Pt cleanses mouth with swab while seated. Washes face by self seated in shower. ) Bathing (FIM): 6 (Pt able to wash, rinse, dry body by self using shower bench, handheld shower, and grab bars. ) Bathing Location: L Arm, R Arm, L Upper Leg, R Upper Leg, L Lower Leg ( including foot), R Lower Leg (including foot), Chest, Abdomen, Buttocks, Perineal Area Upper Body (FIM): 6 (Pt able to dress self in gown while seated. ) Lower Body Dressing (FIM): 4 (Doffs socks by self. Pt dons R sock, requires help donning L sock due to dropfoot. ) Transfers (B, C, W/C) (FIM): 6 (Sit to stand and ambulation using FWW. ) Shower Transfer(FIM): 6 (Pt transfers into shower using shower bench, grab bars , and FWW.) OT Short Term Goals Short Term Goals 1=Demonstrate adherence to instructed precautions during ADL tasks. 2=Patient will verbalize/demonstrate understanding of assistive devices/ modifications for ADL. 3=Patient will improve strength/tolerance for activity to enable patient to perform ADL's. OT Senior Living Goals [place] Goals Time Frame: Nov 06, 2016 Eating (FIM): 6 Grooming(FIM): 6 Bathing(FIM): 5 Upper Body Dressing(FIM): 5 Lower Body Dressing(FIM): 5 Toileting(FIM): 6 Toilet/Commode Transfer(FIM): 6 Additional Goals: 2-Verbalize Understanding, 3-ImproveStrength/Ananth 1=Demonstrate adherence to instructed precautions during ADL tasks. 2=Patient will verbalize/demonstrate understanding of assistive devices/ modifications for ADL. 3=Patient will improve strength/tolerance for activity to enable patient to perform ADL's. OT Education/Plan Problem List/Assessment Pt would benefit from skilled OT to increase her independence in basic self care to allow her to live in least restrictive environment and to decrease caregiver burden Discharge Recommendations Plan/Recommendations: Continue POC Treatment Plan/Plan of Care Patient would benefit from OT for education, treatment and training to promote independence in ADL's, mobility, safety and/or upper extremity function for ADL' s. Plan of Care: ADL Retraining, Functional Mobility, UE Funct Exercise/Act Treatment Duration: Nov 06, 2016 Frequency: 5 times per week Estimated Hrs Per Day: .5 hour per day Agreement: Yes Rehab Potential: Fair Time/GCodes Start Time: 11:20 Stop Time: 11:55 Total Time Billed (hr/min): 35 Billed Treatment Time 1 visit, ADL 2 (35 minutes) EMMANUEL NASCIMENTO Nov 03, 2016 12:33
--- NOTE | 2016-11-03 15:14 | Progress Note (SOAP) ---
Subjective Subjective/Events-last exam No complaints, resting comfortably watching TV Review of Systems Date Seen by Provider: Nov 02, 2016 Time Seen by Provider: 11:30 Pulmonary: No Dyspnea Cardiovascular: No: Chest Pain Objective Exam Last Set of Vital Signs Vital Signs Date Time Temp Pulse Resp B/P (MAP) Pulse Ox O2 Delivery O2 Flow Rate FiO2 11/03/16 09:00 Nasal Cannula 2.00 11/03/16 08:00 97.5 65 20 117/68 97 Capillary Refill : Less Than 3 Seconds I&O Intake and Output 11/04/16 00:00 Intake Total 0 ml Balance 0 ml Intake Oral 0 ml # Voids 2 General: Alert, Oriented X3, Cooperative, No Acute Distress Lungs: Clear to Auscultation, Normal Air Movement Heart: Regular Rate, Normal S1, Normal S2, No Murmurs, Gallops, Rubs Abdomen: Normal Bowel Sounds, Soft, No Tenderness, No Hepatosplenomegaly, No Masses Extremities: No Clubbing, No Cyanosis, No Edema Psych/Mental Status: Mental Status NL, Mood NL Results/Procedures Lab Laboratory Tests 11/02/16 16:50: Glucometer 148H 11/02/16 20:20: Glucometer 127H 11/03/16 06:34: Glucometer 93 11/03/16 07:39: White Blood Count 9.4, Red Blood Count 2.96L, Hemoglobin 7.8L, Hematocrit 26L, Mean Corpuscular Volume 87, Mean Corpuscular Hemoglobin 26, Mean Corpuscular Hemoglobin Concent 31L, Red Cell Distribution Width 24.8H, Platelet Count 325, Mean Platelet Volume 12.7H, Sodium Level 136, Potassium Level 4.2, Chloride Level 99, Carbon Dioxide Level 25, Anion Gap 12, Blood Urea Nitrogen 37H, Creatinine 1.95H, Estimat Glomerular Filtration Rate 25, BUN/Creatinine Ratio 19 , Glucose Level 83, Calcium Level 7.9L 11/03/16 11:53: Glucometer 115H Microbiology 10/30/16 Urine Culture - Final, Complete Escherichia Coli Proteus Mirabilis Staph, Coag Neg (Telephone Directory Deliverer) See Comments Assessment/Plan Assessment/Plan Plan URINARY TRACT INFECTION ADM - pt placed on Merrem due to ESBL E coli and Proteus, will need at least 7 day IV abx tx. 11/01 - continue merrem, WBC down 11/02 - WBC down, afebrile ACUTE ON CHRONIC KIDNEY DISEASE ADM - creatinine up to 3. hold metformin. gentle hydration as I believe poor po intake is the issue here. 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 will monitor. 11/01 - no changes 11/02 - BS was low, may need to decrease insulin, monitor today ELEVATED TRANSAMINASES ADM - likely exacerbated by the dehydration. being worked up as an outpatient, if no acute issues while hospitalized, will defer to continued outpatient management. GENERAL DEBILITY ADM - patient vacillated in ER as to whether she was willing to go to a CNH after leaving [facility] when her skilled days were up. she will need superintendent marine oil terminal placement as she has shown, even in this past admission that she is unable to care for herself at home. 11/01 - plan for CNH placement on Wednesday when we have SW back 11/02 - OT/PT consults placed DVT PROPH: enoxaparin. DNR per patient request. Diagnosis/Problems: Clinical Quality Measures DVT/VTE Risk/Contraindication: Risk Factor Score Per Nursin RFS Level Per Nursing on Admit: 4+=Very High DAVE ALEXANDER MD Nov 03, 2016 3:14 pm
--- NOTE | 2016-11-03 15:17 | Progress Note (SOAP) ---
Subjective Subjective/Events-last exam Pt ready to be DC'd today. no complaints. Review of Systems Date Seen by Provider: Nov 03, 2016 Time Seen by Provider: 08:30 General: No Chills, No Fatigue Objective Exam Last Set of Vital Signs Vital Signs Date Time Temp Pulse Resp B/P (MAP) Pulse Ox O2 Delivery O2 Flow Rate FiO2 11/03/16 09:00 Nasal Cannula 2.00 11/03/16 08:00 97.5 65 20 117/68 97 Capillary Refill : Less Than 3 Seconds I&O Intake and Output 11/04/16 00:00 Intake Total 0 ml Balance 0 ml Intake Oral 0 ml # Voids 2 General: Alert, Oriented X3, Cooperative, No Acute Distress Lungs: Clear to Auscultation, Normal Air Movement Heart: Regular Rate, Normal S1, Normal S2, No Murmurs, Gallops, Rubs Abdomen: Normal Bowel Sounds, Soft, No Tenderness, No Hepatosplenomegaly, No Masses Extremities: No Clubbing, No Cyanosis, No Edema Neuro: Normal Speech Psych/Mental Status: Mental Status NL, Mood NL Results/Procedures Lab Laboratory Tests 11/02/16 16:50: Glucometer 148H 11/02/16 20:20: Glucometer 127H 11/03/16 06:34: Glucometer 93 11/03/16 07:39: White Blood Count 9.4, Red Blood Count 2.96L, Hemoglobin 7.8L, Hematocrit 26L, Mean Corpuscular Volume 87, Mean Corpuscular Hemoglobin 26, Mean Corpuscular Hemoglobin Concent 31L, Red Cell Distribution Width 24.8H, Platelet Count 325, Mean Platelet Volume 12.7H, Sodium Level 136, Potassium Level 4.2, Chloride Level 99, Carbon Dioxide Level 25, Anion Gap 12, Blood Urea Nitrogen 37H, Creatinine 1.95H, Estimat Glomerular Filtration Rate 25, BUN/Creatinine Ratio 19 , Glucose Level 83, Calcium Level 7.9L 11/03/16 11:53: Glucometer 115H Microbiology 10/30/16 Urine Culture - Final, Complete Escherichia Coli Proteus Mirabilis Staph, Coag Neg (Refinery Operator Visbreaking) See Comments Assessment/Plan Assessment/Plan Plan URINARY TRACT INFECTION ADM - pt placed on Merrem due to ESBL E coli and Proteus, will need at least 7 day IV abx tx. 9/3 - continue merrem, WBC down 11/02 - WBC down, afebrile 11/03 - only abc option we have is ertapenem x 2 days. due to expense and difficulty of administration, will plan to DC Sandhya on when she has completed a 7 day course ACUTE ON CHRONIC KIDNEY DISEASE ADM - creatinine up to 3. hold metformin. gentle hydration as I believe poor po intake is the issue here. 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 will monitor. 11/01 - no changes 11/02 - BS was low, may need to decrease insulin, monitor today 11/03 - no changes, doing well ELEVATED TRANSAMINASES ADM - likely exacerbated by the dehydration. being worked up as an outpatient, if no acute issues while hospitalized, will defer to continued outpatient management. 11/03 - plan for hepatic panel in AM GENERAL DEBILITY ADM - patient vacillated in ER as to whether she was willing to go to a CNH after leaving [facility] when her skilled days were up. she will need fci placement as she has shown, even in this past admission that she is unable to care for herself at home. 11/01 - plan for CNH placement on Wednesday when we have SW back 11/02 - OT/PT consults placed 11/03 - SW to talk with her about DC on Wednesday and to which NH. DVT PROPH: enoxaparin. DNR per patient request. Diagnosis/Problems: Clinical Quality Measures DVT/VTE Risk/Contraindication: Risk Factor Score Per Nursin RFS Level Per Nursing on Admit: 4+=Very High DAVE ALEXANDER MD Nov 03, 2016 3:17 pm
[2016-11-03 16:00] VITALS: BP 119/70
[2016-11-04] VITALS: BP 134/60
[2016-11-04] MEDS: NS W/KCL 20 MEQ/L 1,000 ML IV SCH (05:07)
[2016-11-04] MEDS: MEROPENEM 500 MG/NS 100 ML IVPB IV SCH ×4 (05:08→17:04)
[2016-11-04 06:02] LABS: MEAN PLATELET VOLUME 12.5 FL (7.4-10.4); RED BLOOD COUNT 2.84 10^6/uL (4.35-5.85); RED CELL DISTRIBUTION WIDTH 25.2 % (10.0-14.5); WHITE BLOOD COUNT 7.3 10^3/uL (4.3-11.0)
[2016-11-04 06:31] LABS: ALBUMIN 2.1 GM/DL (3.2-4.5); BILIRUBIN,DIRECT 3.3 MG/DL (0.0-0.3); BILIRUBIN,INDIRECT 1.2 MG/DL; BILIRUBIN,TOTAL 4.5 MG/DL (0.1-1.0); CALCIUM 7.8 MG/DL (8.5-10.1); CREATININE SERUM 1.54 MG/DL (0.60-1.30); POTASSIUM 4.4 MMOL/L (3.6-5.0); TOTAL PROTEIN 5.7 GM/DL (6.4-8.2)
[2016-11-04 08:00] VITALS: BP 128/60
[2016-11-04] MEDS: PANTOPRAZOLE 40 MG (PROTONIX) TAB PO SCH (09:11)
[2016-11-04] MEDS: RIVAROXABAN 10 MG TABLET (XARELTO) PO SCH (09:11)
[2016-11-04] MEDS: GABAPENTIN 100 MG (NEURONTIN) CAP PO SCH ×3 (09:11→20:15)
[2016-11-04] MEDS: inSUlin ASPART (NovoLOG) 1 UNIT/0.01 ML (CHARGE PER UNIT) SQ SCH ×3 (09:11→17:04)
[2016-11-04] MEDS: DILTIAZEM 240 MG (CARDIZEM CD) CAP PO SCH (09:11)
[2016-11-04] MEDS: DIGOXIN 0.125 MG (LANOXIN) TAB PO SCH (09:11)
[2016-11-04] MEDS: AMIODARONE 200 MG (CORDARONE) TAB PO SCH ×2 (09:13→20:15)
--- NOTE | 2016-11-04 11:29 | Occ Therapy Progress Note ---
Therapy Progress Note OT attempted treatment this date with pt. Offered to assist pt. with shower. Pt. states that she has already showered. OT offers to ambulate with pt, or to do UE exercises, anything. Pt. declines. States, "I am not doing anything today." OT offers to come back later. Maybe later would work better. Pt. states, "it won't do any good, I am not doing anything with you." Spoke with nurse aide. Nurse aide states that pt. has been upset and acting in this behavior. OT asked pt. if she had any needs. No needs at this time. 1, visit Declined all attempts no charge [id number] AMELIE OWENS OT Nov 04, 2016 11:29
[2016-11-04 16:00] VITALS: BP 141/63
--- NOTE | 2016-11-04 19:14 | Progress Note (SOAP) ---
Subjective Subjective/Events-last exam patient has no complaints today other than the fact taht she didn't get to go to the halfway yesterday. says she will check herself out on Wednesday if she is still here. Review of Systems Date Seen by Provider: Nov 04, 2016 Time Seen by Provider: 09:00 Objective Exam Last Set of Vital Signs Vital Signs Date Time Temp Pulse Resp B/P (MAP) Pulse Ox O2 Delivery O2 Flow Rate FiO2 11/04/16 16:00 98.9 60 20 141/63 98 Nasal Cannula 3.00 Capillary Refill : Less Than 3 SecondsLess Than 3 Seconds I&O Intake and Output 11/05/16 00:00 Intake Total 1620 ml Output Total 1250 ml Balance 370 ml Intake Oral 920 ml IV Total 700 ml Output Urine Total 1250 ml # Voids 2 # Bowel Movements 3 General: Alert, Oriented X3, Cooperative, No Acute Distress Lungs: Other (crackles bilaterally, good effort) Heart: Regular Rate, Normal S1, Normal S2, No Murmurs, Gallops, Rubs Abdomen: Normal Bowel Sounds, Soft, No Tenderness, No Hepatosplenomegaly, No Masses Extremities: No Clubbing, No Cyanosis, No Edema Neuro: Normal Speech Psych/Mental Status: Mental Status NL, Other (depressed) Results/Procedures Lab Laboratory Tests 11/03/16 20:21: Glucometer 213H 11/04/16 05:51: White Blood Count 7.3, Red Blood Count 2.84L, Hemoglobin 7.5L, Hematocrit 25L, Mean Corpuscular Volume 88, Mean Corpuscular Hemoglobin 26, Mean Corpuscular Hemoglobin Concent 30L, Red Cell Distribution Width 25.2H, Platelet Count 305, Mean Platelet Volume 12.5H, Sodium Level 137, Potassium Level 4.4, Chloride Level 104, Carbon Dioxide Level 23, Anion Gap 10, Blood Urea Nitrogen 30H, Creatinine 1.54H, Estimat Glomerular Filtration Rate 33, BUN/Creatinine Ratio 19 , Glucose Level 108H, Calcium Level 7.8L, Total Bilirubin 4.5H, Direct Bilirubin 3.3H, Indirect Bilirubin 1.2, Aspartate Amino Transf (AST/SGOT) 273H, Alanine Aminotransferase (ALT/SGPT) 72H, Alkaline Phosphatase 817H, Total Protein 5.7L, Albumin 2.1L 11/04/16 11:08: Glucometer 174H 11/04/16 15:53: Glucometer 115H Microbiology 10/30/16 Urine Culture - Final, Complete Escherichia Coli Proteus Mirabilis Lora, Coag Neg (Package Clerk) See Comments Assessment/Plan Assessment/Plan Plan URINARY TRACT INFECTION ADM - pt placed on Merrem due to ESBL E coli and Proteus, will need at least 7 day IV abx tx. 11/01 - continue merrem, WBC down 11/02 - WBC down, afebrile 11/03 - only abc option we have is ertapenem x 2 days. due to expense and difficulty of administration, will plan to DC Sandhya on when she has completed a 7 day course 11/04 - continue abx, expect DC tomorrow ACUTE ON CHRONIC KIDNEY DISEASE ADM - creatinine up to 3. hold metformin. gentle hydration as I believe poor po intake is the issue here. 11/01 - creat still up, increase fluids today 11/02 - much improvemetn, continue NS 150+20KCl 11/03 - almost to baseline creatinine of 1.4, continue fluids 11/04 - much improved TYPE 2 DIABETES MELLITUS, UNCONTROLLED, SENIOR CARE USE OF INSULIN ADM - BS have been stable since admission, variation likely related to her being home and inconsistent diet. will monitor. 11/01 - no changes 11/02 - BS was low, may need to decrease insulin, monitor today 11/03 - no changes, doing well 11/04 - stable, no change ELEVATED TRANSAMINASES ADM - likely exacerbated by the dehydration. being worked up as an outpatient, if no acute issues while hospitalized, will defer to continued outpatient management. 11/03 - plan for hepatic panel in AM 11/04 - likely d/t hepatic congestion, patient may have an element of hepatorenal syndrome, needs further work up as an outpatient GENERAL DEBILITY ADM - patient vacillated in ER as to whether she was willing to go to a CNH after leaving [facility] when her skilled days were up. she will need snf placement as she has shown, even in this past admission that she is unable to care for herself at home. 11/01 - plan for CNH placement on Wednesday when we have SW back 11/02 - OT/PT consults placed 11/03 - SW to talk with her about DC on Wednesday and to which NH. 11/04 - plan DC tomorrow; SW discussing options DVT PROPH: enoxaparin. DNR per patient request. Diagnosis/Problems: Clinical Quality Measures DVT/VTE Risk/Contraindication: Risk Factor Score Per Nursin RFS Level Per Nursing on Admit: 4+=Very High DAVE ALEXANDER MD Nov 04, 2016 7:14 pm
[2016-11-05] VITALS: BP 138/62
[2016-11-05] MEDS: MEROPENEM 500 MG/NS 100 ML IVPB IV SCH ×2 (05:25)
[2016-11-05 05:41] LABS: RED BLOOD COUNT 2.8 10^6/uL (4.35-5.85); RED CELL DISTRIBUTION WIDTH 25.4 % (10.0-14.5); WHITE BLOOD COUNT 7.4 10^3/uL (4.3-11.0)
[2016-11-05 06:02] LABS: CALCIUM 8.1 MG/DL (8.5-10.1); CREATININE SERUM 1.21 MG/DL (0.60-1.30); POTASSIUM 4.2 MMOL/L (3.6-5.0)
[2016-11-05 08:00] VITALS: BP 136/65
[2016-11-05] MEDS: AMIODARONE 200 MG (CORDARONE) TAB PO SCH (09:25)
[2016-11-05] MEDS: DILTIAZEM 240 MG (CARDIZEM CD) CAP PO SCH (09:25)
[2016-11-05] MEDS: inSUlin ASPART (NovoLOG) 1 UNIT/0.01 ML (CHARGE PER UNIT) SQ SCH ×2 (09:26→12:52)
[2016-11-05] MEDS: DIGOXIN 0.125 MG (LANOXIN) TAB PO SCH (09:26)
[2016-11-05] MEDS: PANTOPRAZOLE 40 MG (PROTONIX) TAB PO SCH (09:26)
[2016-11-05] MEDS: GABAPENTIN 100 MG (NEURONTIN) CAP PO SCH ×2 (09:26→14:09)
[2016-11-05] MEDS: RIVAROXABAN 10 MG TABLET (XARELTO) PO SCH (09:26)
--- NOTE | 2016-11-05 10:29 | Discharge Summary ---
Diagnosis/Chief Complaint Date of Admission Oct 30, 2016 at 5:00 pm Date of Discharge NOV 05, 2016 Admission Diagnosis Admission Diagnosis URINARY TRACT INFECTION ACUTE ON CHRONIC KIDNEY DISEASE TYPE 2 DIABETES MELLITUS, UNCONTROLLED, FPC USE OF INSULIN ELEVATED TRANSAMINASES GENERAL DEBILITY Discharge Diagnosis URINARY TRACT INFECTION ADM - pt placed on Merrem due to ESBL E coli and Proteus, will need at least 7 day IV abx tx. 11/01 - continue merrem, WBC down 11/02 - WBC down, afebrile 11/03 - only abc option we have is ertapenem x 2 days. due to expense and difficulty of administration, will plan to DC Sandhya on when she has completed a 7 day course 11/04 - continue abx, expect DC tomorrow DISCHARGE - COURSE COMPLETE ACUTE ON CHRONIC KIDNEY DISEASE ADM - creatinine up to 3. hold metformin. gentle hydration as I believe poor po intake is the issue here. 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 will monitor. 11/01 - no changes 11/02 - BS was low, may need to decrease insulin, monitor today 11/03 - no changes, doing well 11/04 - stable, no change DIS - ELEVATED TRANSAMINASES ADM - likely exacerbated by the dehydration. being worked up as an outpatient, if no acute issues while hospitalized, will defer to continued outpatient management. 11/03 - plan for hepatic panel in AM 11/04 - likely d/t hepatic congestion, patient may have an element of hepatorenal syndrome, needs further work up as an outpatient GENERAL DEBILITY ADM - patient vacillated in ER as to whether she was willing to go to a CNH after leaving [facility] when her skilled days were up. she will need usp placement as she has shown, even in this past admission that she is unable to care for herself at home. 11/01 - plan for CNH placement on Wednesday when we have SW back 11/02 - OT/PT consults placed 11/03 - SW to talk with her about DC on Wednesday and to which NH. 11/04 - plan DC tomorrow; SW discussing options DVT PROPH: enoxaparin. DNR per patient request. Chief Complaint/HPI Chief Complaint/HPI 71yo woman presented to ER with complaints of "not feeling well" but was also somewhat "foggy" per e ER physician in terms of her symptoms. During the H&P , she told me that she had a UTI, but she did not have any symptoms. Per her report, she was having low blood sugars and now "has to live in a long term and sell all my stuff because I can't live on my own." She had apparently been discharged from [facility] the Wednesday prior to admission. She is now having low BS despite not taking her insulin. In the ER, she was unable to recall when she took her last dose of insulin. Per record review, patient is growing MDR pathogens and has acute on chronic kidney failure requiring aggressive IV treatment. Discharge Summary-Simple/Stand Consultations Discharge Physical Examination Allergies: Coded Allergies: Penicillins (Unverified Allergy, Unknown, 05/25/16) morphine (Unverified Allergy, Unknown, 05/25/16) Vitals & I&Os Vital Sign - Last 12Hours Date Time Temp Pulse Resp B/P (MAP) Pulse Ox O2 Delivery O2 Flow Rate FiO2 11/05/16 08:25 Nasal Cannula 3.00 11/05/16 08:00 97.5 62 24 136/65 97 General Appearance: Alert, Oriented X3, Cooperative, No Acute Distress Respiratory: Clear to Auscultation, Normal Air Movement Cardiovascular: Regular Rate, Normal S1, Normal S2, No Murmurs, Gallops, Rubs Abdominal: Normal Bowel Sounds, Soft, No Tenderness, No Hepatosplenomegaly, No Masses Extremities: No Clubbing, No Cyanosis, Other (1+ edema) Skin: No Rashes, No Breakdown, No Significant Lesion Neuro: Normal Speech Psych/Mental Status: Mental Status NL, Mood NL Hospital Course See final discharge diagnosis. Discharge Instructions to patient/family Please see electronic discharge instructions given to patient. Discharge Medications Reviewed and agree with Discharge Medication list on patient's Discharge Instruction sheet Clinical Quality Measures DVT/VTE Risk/Contraindication: Risk Factor Score Per Nursin RFS Level Per Nursing on Admit: 4+=Very High Copy Copies To 1: DAVE ALEXANDER MD, JULIE A MD Nov 05, 2016 10:28
--- NOTE | 2016-11-05 11:16 | Occupational Ther Daily Note ---
OT Current Status-Daily Note Subjective Pt. attempts to refuse this therapist, but then states, "we can do whatever you want." Appearance Pt. getting back to chair. Had just finished showering with hospital nursing assistant. Mental Status/Objective Patient Orientation: Person, Place Functional Bryant Measure 0=Not Assessed/NA 4=Minimal Assistance 1=Total Assistance 5=Supervision or Setup 2=Maximal Assistance 6=Modified Bryant 3=Moderate Assistance 7=Complete Bryant ADL-Treatment Transfers (B, C, W/C) (FIM): 6 (Please see note.) Other Treatment Pt. had just finished shower. Begins to state that she doesn't want to do anything. With gentle encouragement, agrees to ambulate with this therapist. OT and pt. ambulate approximately 150 feet. Pt. has 3 L 02 on. Pt. requests to have wheelchair behind her. Sits one time during ambulation, and has to stand and take rest break two other times. OT encourages pt. to continue exercising once she leaves, as she is discharging today to senior care. Pt. seems self limiting, as she has continually refused this therapist on other days. All needs met in room. Education OT Patient Education: Correct positioning, Exercise program, Modified ADL techniques, Progress toward Goal/Update tx plan, Purpose of tx/functional activities, Reviewed precautions, Rehab process, Transfer techniques Teaching Recipient: Patient Teaching Methods: Demonstration, Discussion Response to Teaching: Verbalize Understanding, Return Demonstration OT Short Term Goals Short Term Goals 1=Demonstrate adherence to instructed precautions during ADL tasks. 2=Patient will verbalize/demonstrate understanding of assistive devices/ modifications for ADL. 3=Patient will improve strength/tolerance for activity to enable patient to perform ADL's. OT Electrical Maintenance Engineer Goals Electrical Maintenance Engineer Goals Time Frame: Nov 06, 2016 Eating (FIM): 6 Grooming(FIM): 6 Bathing(FIM): 5 Upper Body Dressing(FIM): 5 Lower Body Dressing(FIM): 5 Toileting(FIM): 6 Toilet/Commode Transfer(FIM): 6 Additional Goals: 2-Verbalize Understanding, 3-ImproveStrength/Ananth 1=Demonstrate adherence to instructed precautions during ADL tasks. 2=Patient will verbalize/demonstrate understanding of assistive devices/ modifications for ADL. 3=Patient will improve strength/tolerance for activity to enable patient to perform ADL's. OT Education/Plan Problem List/Assessment Assessment: Decreased Activ Tolerance, Impaired I ADL's Pt would benefit from skilled OT to increase her independence in basic self care to allow her to live in least restrictive environment and to decrease caregiver burden Discharge Recommendations Plan/Recommendations: Discontinue OT Therapy D/C Recommendations: Skilled Nursing Placement Target Placement Pt. is discharging to senior care today. Treatment Plan/Plan of Care Treatment,Training & Education: Yes Treatment Duration: Nov 06, 2016 Frequency: 1 time per week Estimated Hrs Per Day: Other Agreement: Yes Rehab Potential: Fair Time/GCodes Start Time: 10:45 Stop Time: 11:05 Total Time Billed (hr/min): 20 Billed Treatment Time 1, FA x 1 AMELIE OWENS OT Nov 05, 2016 11:16
[2016-11-05] MEDS ORDERED: FURO40TA4 PO (13:21)
--- NOTE | 2016-11-05 13:27 | Discharge Inst-Skilled Nursing ---
Discharge Inst-Skilled NF Patient Instructions Patient Problems: ACUTE ON CHRONIC KIDNEY DISEASE TYPE II DIABETES MELLITUS ACUTE ON CHRONIC LIVER DISEASE MULTI DRUG RESISTANT UTI, S/P 7 DAY TREATMENT Goal: INCREASE AMBULATION CONTROL OF BLOOD SUGARS Patient Instructions: TAKE ALL MEDICATIONS PRESCRIBED. I HAVE CHANGED YOUR LASIX DOSE. PLEASE NOTE WHETHER YOUR EDEMA IS INCREASING AND DISCUSS WITH WAGNER. YOU ALSO NEED A CMP DRAWN IN 1 WEEK TO SEE HOW YOUR LIVER AND KIDNEYS ARE DOING. Consult/Follow Up/Orders Follow up appt.: WAGNER WILL SEE YOU DURING HER NEXT USP ROUNDS Skilled NF Admit to: [facility] Certifications SNF I certify that SNF services are required to be given on an inpatient basis because of the above named patient's need for fci care on a continuing basis for the conditions(s) for which he/she was receiving inpatient hospital services prior to his/her transfer to the SNF. Alf Facility Order: Nursing Services, Registered Nurse Surgical Services-Evaluate & Treat, Physical Therapy-Evaluate & Treat Discharge Diet: ADA Diet Daily Activity as Tolerated: Yes New & Resume Previous Orders Pneu Vac Indicated: Yes Discharge Medications New, Converted or Re-Newed RX: Transmitted to Pharmacy Changed Medications: Furosemide (Furosemide) 40 Mg Tablet 40 MG PO BID, #60 TAB 1 Refill (Changed from: 80 MG; DAILY; Refills: ; Removed Instructions) Continued Medications: Acetaminophen (Acetaminophen) 325 Mg Tablet 650 MG PO HS, TAB TAKES 2 (325 MG) TABLETS Acetaminophen (Acetaminophen) 325 Mg Tablet 650 MG PO Q6H PRN for PAIN-MILD, TAB TAKES 2 (325 MG) TABLETS Amiodarone HCl (Amiodarone HCl) 200 Mg Tablet 400 MG PO BID TAKES 2 (200 MG) TABLETS Digoxin (Digoxin) 125 Mcg Tablet 125 MCG PO DAILY, TAB Diltiazem HCl (Diltiazem 24Hr ER) 240 Mg Cap.er.24h 240 MG PO DAILY Docusate Sodium (Doc-Q-Lace) 100 Mg Capsule 100 MG PO BID Gabapentin (Gabapentin) 300 Mg Capsule 300 MG PO TID Insulin Aspart (Novolog Flexpen) 300 Units/3 Ml Solution 10 UNITS SQ AC, EA Insulin Detemir (Levemir Flextouch) 100 Unit/1 Ml Insuln.pen 20 UNITS SQ BID Metolazone (Metolazone) 2.5 Mg Tablet 2.5 MG PO DAILY, TAB Pantoprazole Sodium (Pantoprazole Sodium) 40 Mg Tablet.dr 40 MG PO DAILY, TAB Potassium Chloride (Potassium Chloride) 20 Meq Tab.er.prt 20 MEQ PO DAILY Rivaroxaban (Xarelto) 10 Mg Tablet 10 MG PO DAILY Discontinued Medications: Furosemide (Furosemide) 40 Mg Tablet 40 MG PO DAILY@1200, TAB Metformin HCl (Metformin HCl) 500 Mg Tablet 500 MG PO BID, TAB Dave Cardona Nov 05, 2016 13:22 Copy Copies To 1: WAGNER SANDOVAL APRN; DAVE SHERMAN APRN, MD Nov 05, 2016 1:27 pm
== END 2016-11-05 15:00 | DRG 683 ==
LOC: EDUNIT# 06:05 → ER 06:07 → 4TH 17:00 → ER 17:19
PROVIDERS: ADMIT Family Medicine; ATTEND Family Medicine
DX: N17.9 Acute kidney failure, unspecified (principal); N39.0 Urinary tract infection, site not specified; I13.0 Hypertensive heart and chronic kidney disease with heart failure and stage 1 through stage 4 chronic kidney disease, or unspecified chronic kidney disease; I50.30 Unspecified diastolic (congestive) heart failure; N18.9 Chronic kidney disease, unspecified; E11.649 Type 2 diabetes mellitus with hypoglycemia without coma; E86.0 Dehydration; I48.91 Unspecified atrial fibrillation; Z66 Do not resuscitate; E66.01 Morbid (severe) obesity due to excess calories; Z68.39 Body mass index [BMI] 39.0-39.9, adult; Z16.30 Resistance to unspecified antimicrobial drugs; J44.9 Chronic obstructive pulmonary disease, unspecified; E78.00 Pure hypercholesterolemia, unspecified; K21.9 Gastro-esophageal reflux disease without esophagitis; H91.90 Unspecified hearing loss, unspecified ear; F32.9 Major depressive disorder, single episode, unspecified; M19.91 Primary osteoarthritis, unspecified site; B96.20 Unspecified Escherichia coli [E. coli] as the cause of diseases classified elsewhere; B96.4 Proteus (mirabilis) (morganii) as the cause of diseases classified elsewhere; Z79.4 Long term (current) use of insulin; Z99.81 Dependence on supplemental oxygen; Z87.11 Personal history of peptic ulcer disease; Z96.653 Presence of artificial knee joint, bilateral
CPT/HCPCS: 36415; 74000; 80048; 80053; 80076; 81000; 82962; 83880; 85007; 85025; 85027; 87088; 87186; 93005; 96365; 96374; 96375

== ENCOUNTER → 2016-11-16 | Outpatient (CLI) | payer OTHER, MEDICAID ==
[~2016-11-16] MED LIST changes: +AMIO200T2 PO; +CEFP200T2 PO; +DILT240C PO; +GABA-488 PO
--- NOTE | 2016-11-16 09:57 | Diagnostic Imaging Report ---
EXAMINATION: Hepatic ultrasound. INDICATION: Abnormal liver enzymes. FINDINGS: The pancreas is largely obscured. The liver is hyperechoic and is enlarged measuring 23 cm. No focal mass is seen. Hepatopetal flow in the portal vein is noted. The gallbladder demonstrates no stones. The gallbladder wall, however, is thickened with a minimal amount of pericholecystic fluid. The sonographic Banks sign was reportedly negative, however. The CBD is 8 mm in caliber, minimally dilated. The right kidney is 11 cm in length. No hydronephrosis or focal lesion. No significant free fluid or fluid collection in the upper right abdomen is seen. IMPRESSION: 1. Enlarged liver with echogenicity suggestive of underlying fatty infiltration or hepatitis. 2. Thickening of the gallbladder wall and pericholecystic fluid without stones. The sonographic Banks sign is reportedly negative. This is potentially related to liver disease rather than cholecystitis. Correlate clinically. 3. Minimal dilatation of the CBD. Dictated by: Dictated on workstation # [id number]
== END ==
LOC: RAD 08:39
PROVIDERS: ATTEND Nurse Practitioner Community Health
DX: R16.0 Hepatomegaly, not elsewhere classified (principal); K82.9 Disease of gallbladder, unspecified
CPT/HCPCS: 76705

== ENCOUNTER 2016-11-17 10:59 | Outpatient (RCR) | payer MEDICARE, MEDICAID ==
[2016-10-26 11:08] LABS: BASOPHILS # (AUTO) 0.1 10^3/uL (0.0-0.1); BASOPHILS % (AUTO) 1 % (0-10); EOSINOPHILS # (AUTO) 0.6 10^3/uL (0.0-0.3); EOSINOPHILS % (AUTO) 7 % (0-10); LYMPHOCYTES # (AUTO) 1.1 X 10^3 (1.0-4.0); LYMPHOCYTES % (AUTO) 14 % (12-44); MEAN CORPUSCULAR HEMOGLOBIN 25 PG (25-34); MEAN CORPUSCULAR HGB CONC 31 G/DL (32-36); MEAN CORPUSCULAR VOLUME 82 FL (80-99); MEAN PLATELET VOLUME 13.6 FL (7.4-10.4); MONOCYTES # (AUTO) 0.8 X 10^3 (0.0-1.0); MONOCYTES % (AUTO) 10 % (0-12); NEUTROPHILS # (AUTO) 5.5 X 10^3 (1.8-7.8); NEUTROPHILS % (AUTO) 68 % (42-75); PLATELET COUNT 353 10^3/uL (130-400); RED BLOOD COUNT 3.92 10^6/uL (4.35-5.85); RED CELL DISTRIBUTION WIDTH 23.8 % (10.0-14.5); RETICULOCYTE % 0.84 % (0.50-2.40); WHITE BLOOD COUNT 8.1 10^3/uL (4.3-11.0)
[2016-10-26 11:43] LABS: ALBUMIN 2.4 GM/DL (3.2-4.5); BILIRUBIN,TOTAL 3.9 MG/DL (0.1-1.0); CALCIUM 8.5 MG/DL (8.5-10.1); CREATININE SERUM 2.22 MG/DL (0.60-1.30); POTASSIUM 2.9 MMOL/L (3.6-5.0); TOTAL PROTEIN 6.8 GM/DL (6.4-8.2)
[2016-10-26 12:12] LABS: THYROID STIMULATING HORMONE 1.48 UIU/ML (0.35-4.94)
[2016-10-27 07:55] LABS: FOLIC ACID 15.9 ng/mL (1.5-24.0)
[~2016-11-17 10:59] MED LIST changes: -QUIN40TA14 PO; +QUIN40TA25 PO
[2016-11-17 11:56] LABS: BASOPHILS % (AUTO) 1 % (0-10); EOSINOPHILS # (AUTO) 0.4 10^3/uL (0.0-0.3); EOSINOPHILS % (AUTO) 5 % (0-10); LYMPHOCYTES # (AUTO) 0.8 X 10^3 (1.0-4.0); LYMPHOCYTES % (AUTO) 9 % (12-44); MEAN CORPUSCULAR HEMOGLOBIN 28 PG (25-34); MEAN CORPUSCULAR HGB CONC 30 G/DL (32-36); MEAN CORPUSCULAR VOLUME 95 FL (80-99); MEAN PLATELET VOLUME 11.9 FL (7.4-10.4); MONOCYTES # (AUTO) 0.8 X 10^3 (0.0-1.0); MONOCYTES % (AUTO) 9 % (0-12); NEUTROPHILS # (AUTO) 6.7 X 10^3 (1.8-7.8); NEUTROPHILS % (AUTO) 77 % (42-75); PLATELET COUNT 376 10^3/uL (130-400); RED BLOOD COUNT 2.98 10^6/uL (4.35-5.85); RED CELL DISTRIBUTION WIDTH 25.6 % (10.0-14.5); RETICULOCYTE % 2.16 % (0.50-2.40); WHITE BLOOD COUNT 8.7 10^3/uL (4.3-11.0)
[2016-11-17 12:21] LABS: ALBUMIN 2.2 GM/DL (3.2-4.5); BILIRUBIN,TOTAL 6.5 MG/DL (0.1-1.0); CALCIUM 8.1 MG/DL (8.5-10.1); CREATININE SERUM 1.58 MG/DL (0.60-1.30); POTASSIUM 3.3 MMOL/L (3.6-5.0)
[2016-11-18 06:57] LABS: HOMOCYSTEINE 20.7 umol/L (<=10.3)
[2016-11-20 07:37] LABS: METHYLMALONIC ACID 0.78 umol/L (0.00-0.40)
== END 2016-11-28 | disposition home or self-care (01) ==
LOC: ONC 10:59
PROVIDERS: ATTEND Internal Medicine Hematology & Oncology
DX: D64.9 Anemia, unspecified (principal); R74.8 Abnormal levels of other serum enzymes; I12.9 Hypertensive chronic kidney disease with stage 1 through stage 4 chronic kidney disease, or unspecified chronic kidney disease; N18.4 Chronic kidney disease, stage 4 (severe); J44.9 Chronic obstructive pulmonary disease, unspecified; I48.91 Unspecified atrial fibrillation; E11.9 Type 2 diabetes mellitus without complications; Z79.4 Long term (current) use of insulin; Z79.899 Other long term (current) drug therapy
CPT/HCPCS: 36415; 80053; 82728; 82746; 83090; 83540; 83615; 83921; 84443; 85025; 85045; 99213; 99214

== ENCOUNTER → 2016-12-09 | Outpatient (CLI) | payer MEDICARE, MEDICAID ==
--- NOTE | 2016-12-09 18:07 | Diagnostic Imaging Report ---
PROCEDURE: CT abdomen without contrast. TECHNIQUE: Multiple contiguous axial images were obtained through the abdomen without the use of intravenous contrast. INDICATION: Abnormal liver enzymes, no other problems. COMPARISON STUDY: Pelvic ultrasound from November 16. FINDINGS: Coronary artery calcifications are present with mild cardiomegaly. Tiny left pleural effusion is present. There is a 3 cm right pleural effusion. Small amount of ascites is seen around the liver and extending into the upper pelvis. The lower pelvis was not imaged. Some anasarca is present within the subcutaneous tissues and to lesser degree within the peritoneal fat. The left lobe of the liver is prominent in size. The liver is of normal density. No focal abnormalities are present. The gallbladder appears unremarkable. The spleen, pancreas, adrenal glands appear normal. There is a cyst off the left kidney. Visualized bowel loops appear unremarkable. Arteriosclerotic changes are present. No aneurysms are present. Degenerative changes are present within the spine. IMPRESSION: 1. The left lobe of the liver is enlarged. The spleen is of normal size. No varices are identified. 2. Mild cardiomegaly is present with coronary artery calcifications. There are bilateral pleural effusions right greater than left, ascites, and anasarca. Dictated by: Dictated on workstation # [id number]
== END ==
LOC: RAD 17:01
PROVIDERS: ATTEND Nurse Practitioner Community Health
DX: R74.8 Abnormal levels of other serum enzymes (principal)
CPT/HCPCS: 74150

== ENCOUNTER 2016-12-19 00:19 | Inpatient (IN) | payer MEDICARE, MEDICAID ==
[~2016-12-19] VITALS: Ht 162.6 cm; Wt 144.4 kg
[2016-12-19] VITALS (33 sets, daily range): BP systolic 76–123; BP diastolic 35–107
--- NOTE | 2016-12-19 00:38 | ED Dyspnea ---
General Stated Complaint: SOB,SHAKING Source of Information: Patient (SOMEWHAT LIMITED HISTORIAN), Senior Living Records, Old Records History of Present Illness Time Seen by Provider: 00:26 Initial Comments PT ARRIVES VIA POV IN WHEELCHAIR FROM [facility] PT STATES SHE CAN'T BREATHE AND FEELS LIKE SOMETHING IS SITTING ON HER CHEST AND SHE HAS RATTLING IN HER CHEST SINCE 1900 TONIGHT PT RECENTLY DX WITH LIVER FAILURE, AND HAS GAINED 11# IN TH LAST WEEK ACCORDING TO [facility] REPORT PT STATES HER LEGS AND ABDOMEN ARE ALWAYS SWOLLEN BUT ARE WORSE THAN NORMAL. BUT CANNOT STATE WHEN THEY GOT WORSE PER [facility] REPORT, PT'S LASIX, SPIRONOLACTONE AND POTASSIUM DOSES WERE INCREASED BUT NO DECREASE IN WEIGHT PT NORMALLY WEARS O2 AT 3L/NC CONTINUOUSLY. REPORTEDLY PT'S O2 SAT ON 3.5 L/NC TONIGHT WAS ONLY 90% PT WAS GIVEN NEB TREATMENT TONIGHT, BUT STATES SHE COULD NOT DO IT BECAUSE HER HANDS WERE TOO SHAKEY TO HOLD THE DEVICE TO HER MOUTH PT STATES SHE SAW DR. HANKS TODAY FOR FOLLOW UP ON ANEMIA AND WAS GIVEN A SHOT OF B12 AND INSTRUCTED TO COME BACK NEXT MONTH THIS IS 7TH VISIT FOR PT SINCE SHE STARTED COMING HERE IN APRIL--ALL WERE ADMITS , EXCEPT ONE PT IS DNR/DNI PCP: [facility] COUNSELOR: AKILAH MICHELLE HEMATOLOGY/ONCOLOGY: DR. HANKS Allergies and Home Medications Allergies Coded Allergies: Penicillins (Unverified Allergy, Unknown, 05/25/16) morphine (Unverified Allergy, Unknown, 05/25/16) Home Medications Acetaminophen 325 Mg Tablet, 650 MG PO HS, (Reported) TAKES 2 (325 MG) TABLETS Acetaminophen 325 Mg Tablet, 650 MG PO Q6H PRN for PAIN-MILD, (Reported) TAKES 2 (325 MG) TABLETS Amiodarone HCl 200 Mg Tablet, 400 MG PO BID, (Reported) TAKES 2 (200 MG) TABLETS Digoxin 125 Mcg Tablet, 125 MCG PO DAILY, (Reported) Diltiazem HCl 240 Mg Cap.er.24h, 240 MG PO DAILY, (Reported) Docusate Sodium 100 Mg Capsule, 100 MG PO BID, (Reported) Furosemide 40 Mg Tablet, 40 MG PO BID, #60 Ref 1 Prescribed by: DAVE ALEXANDER on 11/05/16 1321 Gabapentin 300 Mg Capsule, 300 MG PO TID, (Reported) Insulin Aspart 300 Units/3 Ml Solution, 10 UNITS SQ AC, (Reported) Insulin Detemir 100 Unit/1 Ml Insuln.pen, 20 UNITS SQ BID, (Reported) Metolazone 2.5 Mg Tablet, 2.5 MG PO DAILY, (Reported) Pantoprazole Sodium 40 Mg Tablet.dr, 40 MG PO DAILY, (Reported) Potassium Chloride 20 Meq Tab.er.prt, 20 MEQ PO DAILY, (Reported) Rivaroxaban 10 Mg Tablet, 10 MG PO DAILY, (Reported) Constitutional: No chills, No diaphoresis, No fever, malaise, weakness Respiratory: see HPI, dyspnea on exertion, orthopnea, short of breath Cardiovascular: see HPI, chest pain, edema, other (CHRONIC ATRIAL FIBRILLATION) Gastrointestinal: No abdominal pain, No nausea, No vomiting Genitourinary: No dysuria Musculoskeletal: see HPI Skin: change in color (JAUNDICE) Psychiatric/Neurological: No Symptoms Reported Endocrine: See HPI Hematologic/Lymphatic: See HPI, Anemia Past Zfonwaw-Qugcay-Obsblb Hx Patient Social History 2nd Hand Smoke Exposure: No Recent Foreign Travel: No Contact w/Someone Who Travel: No Recent Hopitalizations: No Immunizations Up To Date PED Vaccines UTD: No Date of Pneumonia Vaccine: May 25, 2013 Date of Influenza Vaccine: Nov 30, 2015 Seasonal Allergies Seasonal Allergies: No Surgeries History of Surgeries: Yes Surgeries: Hysterectomy, Joint Replacement Respiratory History of Respiratory Disorde: Yes (O2 DEPENDENT) Respiratory Disorders: Asthma, Pneumonia, COPD Currently Using CPAP: No Currently Using BIPAP: No Cardiovascular History of Cardiac Disorders: Yes (CHF-COMBINED SYSTOLIC AND DIASTOLIC) Cardiac Disorders: Atrial Fibrillation, Chronic Edema/Swelling, High Cholesterol, Hypertension, Irregular Heartbeat Neurological History of Neurological Disord: No 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 Genitourinary History of Genitourinary Disor: Yes Genitourinary Disorders: Kidney Infection, Bladder Infection Gastrointestinal History of Gastrointestinal Di: Yes (DYSPHAGIA) Gastrointestinal Disorders: Gastroesophageal Reflux, Chronic Constipation, Ulcer Musculoskeletal History of Musculoskeletal Dis: Yes (PAST HIP FX, AND BILAT TOTAL KNEE REPLACEMENT; NON-MOBILE--MORBID OBESITY, GENERALIZED WEAKNESS, GENERALIZED PAIN ) Musculoskeletal Disorders: Arthritis Endocrine History of Endocrine Disorders: Yes (MORBID OBEISTY) Endocrine Disorders: Diabetes, Insulin dep HEENT History of HEENT Disorders: Yes (SPEECH DISTURBANCE) HEENT Disorders: Dysphagia Hearing Impairment: Hard of Hearing Cancer History of Cancer: No Psychosocial History of Psychiatric Problem: Yes Behavioral Health Disorders: Depression Integumentary History of Skin or Integumenta: Yes (CELLULITIS) Blood Transfusions History of Blood Disorders: Yes (ANEMIA) Adverse Reaction to a Blood Tr: No Family Medical History Significant Family History: Heart Disease Family Medial History: CHF (congestive heart failure) 19 MOTHER Physical Exam Vital Signs Vital Sign - Last 12Hours 12/19/16 00:19 Temp 97.2 Pulse 52 Resp 20 B/P (MAP) 106/73 Pulse Ox 96 O2 Delivery Nasal Cannula O2 Flow Rate 4.00 FiO2 96 Capillary Refill : General Appearance: Mild Distress, Obese (MORBIDLY), Other (LETHARGIC, SPEECH SOMEWHAT THICK-TONGUED) HEENT: PERRL/EOMI, Pale Conjunctivae (L), Pale Conjunctivae (R), Scleral Icterus (L), Scleral Icterus (R) Respiratory: Accessory Muscle Use, Decreased Breath Sounds, No Wheezing, Other (SHORT, SHALLOW BREATHS, LUNG SOUNDS DIMINISHED IN BASES WITH RALES IN BASES. ) Cardiovascular: Regular Rate, Rhythm, No Murmur Gastrointestinal: Non Tender, Soft Extremity: Other (UNABLE TO DETERMINE DEFINITE AMOUNT OF EDEMA DUE TO BODY HABITUS, BUT APPEARS TO HAVE AT LEAST 3+ EDEMA TO LEGS, ABDOMEN AND UPPER ARMS. 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 Norm as Tested, Other (LETHARGIC ) Skin: Warm/Dry, Jaundice, Pallor Focused Exam Evaluation Lactate Level Laboratory Tests 12/19/16 01:47: Lactic Acid Level 2.05*H Lactic Acid Level Laboratory Tests Test 12/19/16 01:47 Lactic Acid Level 2.05 MMOL/L (0.50-2.00) *H Progress/Results/Core Measures Results/Orders Lab Results Laboratory Tests Test 12/19/16 00:56 12/19/16 01:47 Range/Units White Blood Count 24.9 H 4.3-11.0 10^3/uL Red Blood Count 3.48 L 4.35-5.85 10^6/uL Hemoglobin 10.0 L 11.5-16.0 G/DL Hematocrit 31 L 35-52 % Mean Corpuscular Volume 89 80-99 FL Mean Corpuscular Hemoglobin 29 25-34 PG Mean Corpuscular Hemoglobin Concent 32 32-36 G/DL Red Cell Distribution Width 17.4 H 10.0-14.5 % Platelet Count 510 H 130-400 10^3/uL Mean Platelet Volume 11.9 H 7.4-10.4 FL Neutrophils (%) (Auto) 94 H 42-75 % Lymphocytes (%) (Auto) 2 L 12-44 % Monocytes (%) (Auto) 4 0-12 % Eosinophils (%) (Auto) 0 0-10 % Basophils (%) (Auto) 0 0-10 % Neutrophils # (Auto) 23.3 H 1.8-7.8 X 10^3 Lymphocytes # (Auto) 0.6 L 1.0-4.0 X 10^3 Monocytes # (Auto) 1.0 0.0-1.0 X 10^3 Eosinophils # (Auto) 0.0 0.0-0.3 10^3/uL Basophils # (Auto) 0.0 0.0-0.1 10^3/uL Neutrophils % (Manual) 88 % Lymphocytes % (Manual) 2 % Monocytes % (Manual) 6 % Band Neutrophils 4 % Blood Morphology Comment NORMAL Prothrombin Time 17.5 H 12.2-14.7 SEC INR Comment 1.4 0.8-1.4 Activated Partial Thromboplast Time 53 H 24-35 SEC Sodium Level 127 L 135-145 MMOL/L Potassium Level 6.9 *H 3.6-5.0 MMOL/L Chloride Level 88 L 98-107 MMOL/L Carbon Dioxide Level 28 21-32 MMOL/L Anion Gap 11 5-14 MMOL/L Blood Urea Nitrogen 39 H 7-18 MG/DL Creatinine 2.65 H 0.60-1.30 MG/DL Estimat Glomerular Filtration Rate 18 BUN/Creatinine Ratio 15 Glucose Level 187 H 70-105 MG/DL Calcium Level 8.5 8.5-10.1 MG/DL Magnesium Level 1.9 1.8-2.4 MG/DL Total Bilirubin 12.4 H 0.1-1.0 MG/DL Aspartate Amino Transf (AST/SGOT) 54 H 5-34 U/L Alanine Aminotransferase (ALT/SGPT) 25 0-55 U/L Alkaline Phosphatase 503 H 40-136 U/L Total Creatine Kinase < 7 L 29-168 U/L Creatine Kinase MB 0.7 <6.6 NG/ML Troponin I < 0.30 <0.30 NG/ML B-Type Natriuretic Peptide 383.0 H <100.0 PG/ML Total Protein 6.9 6.4-8.2 GM/DL Albumin 2.0 L 3.2-4.5 GM/DL Lactic Acid Level 2.05 *H 0.50-2.00 MMOL/L Micro Results Microbiology 12/19/16 Influenza Types A,B Antigen (ARTEMIO) - Final, Complete My Orders Orders - AINSLEY MARTINEZ DO Saline Lock/Iv-Start (12/19/16) Ekg Tracing (12/19/16) O2 (12/19/16) Monitor-Rhythm Ecg Trace Only (12/19/16) BNP (12/19/16) Cbc With Automated Diff (12/19/16) Comprehensive Metabolic Panel (12/19/16) Creatine Kinase (12/19/16) Creatine Kinase Mb (12/19/16) Magnesium (12/19/16) Protime With Inr (12/19/16) Partial Thromboplastin Time (12/19/16) Troponin I (12/19/16) Ua Culture If Indicated (12/19/16) Chest 1 View, Ap/Pa Only (12/19/16:) Manual Differential (12/19/16 00:56) Furosemide Injection (Lasix Injection) (12/19/16:30) Methylprednisolone Sod Succ (Solu-Medrol (12/19/16:30) Catheter(Urinary) Insert & Ass 03,15 (12/19/16:26) Lactic Acid Analyzer (12/19/16:27) Blood Culture (12/19/16:) Influenza A And B Antigens (12/19/16:) Ceftriaxone Injection (Rocephin Injectio (12/19/16:30) Albuterol/Ipra Inhalation Soln (Duoneb I (12/19/16:30) Dexamethasone Injection (Decadron Inject (12/19/16:30) Rt Request For Service (10/21/17 01:30) Svn Sm Volume Nebulizer Rt-Rfs (12/19/16 01:30) Medications Given in ED Current Medications Medications Dose Ordered Sig/Sameera Route Start Time Stop Time Status Last Admin Dose Admin Albuterol/ Ipratropium 3 ml ONCE ONCE INH 12/19/16 01:30 12/19/16 01:31 DC 12/19/16 01:50 3 ML Ceftriaxone Sodium 1000 mg/ Sodium Chloride 50 ml @ 100 mls/hr ONCE ONCE IV 12/19/16 01:30 12/19/16 01:59 DC 12/19/16 02:50 100 MLS/HR Dexamethasone Sodium Phosphate 20 mg ONCE ONCE IH 12/19/16 01:30 12/19/16 01:31 DC 12/19/16 01:51 20 MG Furosemide 80 mg ONCE ONCE IVP 12/19/16 01:30 12/19/16 01:31 DC 12/19/16 02:12 80 MG Methylprednisolone Sodium Succinate 125 mg ONCE ONCE IVP 12/19/16 01:30 12/19/16 01:31 DC 12/19/16 02:10 125 MG Vital Signs/I&O Vital Sign - Last 12Hours 12/19/16 12/19/16 12/19/16 00:19 00:19 01:51 Temp 97.2 Pulse 52 Resp 20 B/P (MAP) 106/73 Pulse Ox 96 98 O2 Delivery Nasal Cannula Nasal Cannula Nasal Cannula O2 Flow Rate 4.00 4.00 4.00 FiO2 96 Progress Note : Progress Note NO DETERIORATION IN PT'S CONDITION DURING ER STAY O2 SAT REMAINED IN 90'S DURING ENTIRE ER STAY NO DETERIORATION IN PT"S CONDITION DURING ER STAY ECG Initial ECG Impression Time: 00:36 Initial ECG Rate: 000 Initial ECG Comparisson: No Previous ECG Available Comment A FIB WITH IVCD-NO TACHYCARDIA Diagnostic Imaging Comments CXR--CHF/PULMONARY EDEMA AND POSSIBLY UNDERLYING INFILTRATE--PENDING RADIOLOGIST REVIEW Reviewed: Reviewed by Me Departure Communication (Admissions) Progress Notes 0200--SPOKE WITH DR. SALAZAR, ACCEPTS PT FOR ADMIT TO CARDIAC STEP DOWN 0620--CONTACTED PT'S SON-IN-LAW, AT PT'S REQUEST. SHE ADVISED NOT TO CALL DAUGHTER. ADVISED THEM OF GRAVE CONDITION OF PT. Impression Impression: Primary Impression: CHF (congestive heart failure) Additional Impressions: Fluid overload WORSENING OF CHRONIC LIVER FAILURE Acute on chronic renal failure Sepsis UTI (urinary tract infection) POSSIBLE PNEUMONIA Hypoxia Anasarca Morbid obesity Hyperkalemia IDDM (insulin dependent diabetes mellitus) Chronic anemia Disposition: ADMITTED INPATIENT Condition: Stable/Unchanged Admissions Decision to Admit Reason: Admit from ER (General) Decision to Admit/Date: Dec 19, 2016 Time/Decision to Admit Time: 02:00 Departure-Patient Inst. Referrals: NIHARIKA ESCOBEDO MD (PCP/Family) Primary Care Physician AINSLEY MARTINEZ DO Dec 19, 2016 00:38
[2016-12-19 01:06] LABS: BASOPHILS % (AUTO) 0 % (0-10); EOSINOPHILS % (AUTO) 0 % (0-10); LYMPHOCYTES # (AUTO) 0.6 X 10^3 (1.0-4.0); LYMPHOCYTES % (AUTO) 2 % (12-44); MEAN CORPUSCULAR HEMOGLOBIN 29 PG (25-34); MEAN CORPUSCULAR HGB CONC 32 G/DL (32-36); MEAN CORPUSCULAR VOLUME 89 FL (80-99); MEAN PLATELET VOLUME 11.9 FL (7.4-10.4); MONOCYTES % (AUTO) 4 % (0-12); NEUTROPHILS # (AUTO) 23.3 X 10^3 (1.8-7.8); NEUTROPHILS % (AUTO) 94 % (42-75); PLATELET COUNT 510 10^3/uL (130-400); RED BLOOD COUNT 3.48 10^6/uL (4.35-5.85); RED CELL DISTRIBUTION WIDTH 17.4 % (10.0-14.5); WHITE BLOOD COUNT 24.9 10^3/uL (4.3-11.0)
[2016-12-19 01:14] LABS: INR 1.4 (0.8-1.4); PROTHROMBIN TIME PATIENT 17.5 SEC (12.2-14.7)
[2016-12-19] MEDS ORDERED: methylPREDNISolone 125 MG (Solu-MEDROL) VIAL IVP ONE ×2 (01:30→06:00)
[2016-12-19] MEDS ORDERED: DEXAMETHASONE 4 MG/ML SDV (DECADRON) IH ONE (01:30)
[2016-12-19] MEDS ORDERED: RT-ALBUTEROL/IPRATROPIUM 3 ML (DUONEB) VIAL INH ONE (01:30)
[2016-12-19] MEDS ORDERED: cefTRIAXone INJECTION 1,000 MG in NS (IVPB) 50 ML IV ONE (01:30)
[2016-12-19] MEDS ORDERED: FUROSEMIDE 40 MG/4 ML INJ (LASIX) IVP ONE (01:30)
[2016-12-19 01:35] LABS: ALANINE AMINOTRANSFERASE 25 U/L (0-55); ANION GAP 11 MMOL/L (5-14); ASPARTATE AMINO TRANSFERASE 54 U/L (5-34); BILIRUBIN,TOTAL 12.4 MG/DL (0.1-1.0); BLOOD UREA NITROGEN 39 MG/DL (7-18); BUN/CREATININE RATIO 15; CALCIUM 8.5 MG/DL (8.5-10.1); CARBON DIOXIDE 28 MMOL/L (21-32); CHLORIDE 88 MMOL/L (98-107); CREATINE KINASE < 7 U/L (29-168); CREATININE SERUM 2.65 MG/DL (0.60-1.30); GFR ESTIMATED 18; GLUCOSE 187 MG/DL (70-105); MAGNESIUM 1.9 MG/DL (1.8-2.4); SODIUM 127 MMOL/L (135-145); TOTAL PROTEIN 6.9 GM/DL (6.4-8.2)
[2016-12-19 01:42] LABS: TROPONIN I < 0.30 NG/ML (<0.30)
[2016-12-19 01:47] LABS: POTASSIUM 6.9 MMOL/L (3.6-5.0)
[2016-12-19 01:48] LABS: BAND NEUTROPHILS 4 %; LYMPHOCYTES % (MANUAL) 2 %; NEUTROPHILS % (MANUAL) 88 %
[2016-12-19] MEDS ORDERED: DEXTROSE 50% 50 ML (IMS) SYR IV ONE ×2 (02:15→14:30)
[2016-12-19] MEDS ORDERED: CALCIUM CHLORIDE 1 GM/10 ML (IMS) SYR INJ ONE (02:15)
[2016-12-19] MEDS ORDERED: inSUlin (REGULAR) HUMAN 1 UNIT/0.01 ML (CHARGE PER UNIT) IV ONE (02:15)
[2016-12-19] MEDS ORDERED: SOD POLYSTERENE 15 GM/60 ML (KAYEXALATE) UNIT DOSE PO ONE ×2 (02:15→06:00)
[2016-12-19 02:59] LABS: KETONES,URINE NEGATIVE (NEGATIVE); LEUKOCYTE ESTERASE ,URINE 2+ (NEGATIVE); NITRITE,URINE POSITIVE (NEGATIVE); PH,URINE 5 (5-9); PROTEIN,URINE 3+ (NEGATIVE); UROBILINOGEN,URINE 8 MG/DL (NORMAL)
[2016-12-19 03:13] LABS: BILIRUBIN,URINE 3+ (NEGATIVE)
[2016-12-19 03:14] LABS: WBC,URINE 0-2 /HPF
[2016-12-19] MEDS ORDERED: RT-ALBUTEROL/IPRATROPIUM 3 ML (DUONEB) VIAL INH PRN (04:15)
[2016-12-19 04:54] LABS: BASOPHILS % (AUTO) 0 % (0-10); EOSINOPHILS % (AUTO) 0 % (0-10); LYMPHOCYTES # (AUTO) 0.4 X 10^3 (1.0-4.0); LYMPHOCYTES % (AUTO) 2 % (12-44); MEAN CORPUSCULAR HEMOGLOBIN 29 PG (25-34); MEAN CORPUSCULAR HGB CONC 32 G/DL (32-36); MEAN CORPUSCULAR VOLUME 90 FL (80-99); MEAN PLATELET VOLUME 11.9 FL (7.4-10.4); MONOCYTES # (AUTO) 0.6 X 10^3 (0.0-1.0); MONOCYTES % (AUTO) 3 % (0-12); NEUTROPHILS # (AUTO) 22.6 X 10^3 (1.8-7.8); NEUTROPHILS % (AUTO) 96 % (42-75); PLATELET COUNT 458 10^3/uL (130-400); RED BLOOD COUNT 3.21 10^6/uL (4.35-5.85); RED CELL DISTRIBUTION WIDTH 17.4 % (10.0-14.5); WHITE BLOOD COUNT 23.6 10^3/uL (4.3-11.0)
[2016-12-19] MEDS ORDERED: AZITHROMYCIN INJECTION 500 MG in NS (IVPB) 250 ML IV SCH (05:00)
[2016-12-19 05:13] LABS: ALBUMIN 1.9 GM/DL (3.2-4.5); BILIRUBIN,TOTAL 11.4 MG/DL (0.1-1.0); CALCIUM 8.2 MG/DL (8.5-10.1); CREATININE SERUM 2.72 MG/DL (0.60-1.30); TOTAL PROTEIN 6.4 GM/DL (6.4-8.2)
[2016-12-19 05:16] LABS: POTASSIUM 6.7 MMOL/L (3.6-5.0)
[2016-12-19] MEDS ORDERED: NS IV 500 ML 500 ML IV SCH (05:30)
[2016-12-19] MEDS: inSUlin (REGULAR) HUMAN 1 UNIT/0.01 ML (CHARGE PER UNIT) SC SCH ×4 (06:09→23:35)
[2016-12-19] MEDS ORDERED: NS IV 500 ML 500 ML IV ONE (06:30)
[2016-12-19] MEDS ORDERED: FUROSEMIDE 40 MG/4 ML INJ (LASIX) IV SCH (08:00)
--- NOTE | 2016-12-19 08:52 | Diagnostic Imaging Report ---
INDICATION: CHF COMPARISON: 12/19/2016 FINDINGS: Upright portable view of the chest is obtained. Heart size is enlarged similar to the prior study. There is central venous congestion which also appear similar to the prior exam. Mild increased interstitial markings bilaterally appear somewhat improved from the prior study. No pleural effusion is suspected. Minimal patchy alveolar opacities particularly on the right appear improved from the prior exam as well. No new abnormality is seen. IMPRESSION: Findings of congestive failure persists but are slightly improved from the prior exam from August. No new abnormality is seen. Dictated by: Dictated on workstation # [id number]
[2016-12-19] MEDS: RT-ALBUTEROL/IPRATROPIUM 3 ML (DUONEB) VIAL INH SCH ×3 (09:27→19:50)
--- NOTE | 2016-12-19 10:39 | Diagnostic Imaging Report ---
INDICATION: CHF COMPARISON: 12/19/2016 at 12:48 AM TIME OF EXAM: 12/19/2016 at 4:33 AM FINDINGS: Semi-upright portable view of the chest is obtained. Heart size is enlarged similar to the prior study. There is central venous congestion which appears similar to the prior study when allowing for a different degree of rotation. Mild diffuse interstitial changes and patchy alveolar opacities appear fairly similar to the prior study. No pneumothorax or significant pleural fluid is suspected. IMPRESSION: Findings of congestive failure show no significant interval change since the prior study. Dictated by: Dictated on workstation # [id number]
[2016-12-19 10:55] LABS: CALCIUM 8.2 MG/DL (8.5-10.1); CREATININE SERUM 2.81 MG/DL (0.60-1.30)
[2016-12-19 11:00] LABS: POTASSIUM 6.9 MMOL/L (3.6-5.0)
[2016-12-19] MEDS ORDERED: NS IV 1000 ML 1,000 ML IV SCH (11:30)
--- NOTE | 2016-12-19 11:55 | History & Physicial (CHS) ---
HPI History of Present Illness: 71 yo F from [place] that was admitted with respiratory distress found to have UTI. Patient is a poor historian. Patient states that she has been feeling not well for a couple days but does not remember how long. States that she does not weight herself at the [place] so she is not sure if she has had weight gain. States that last night she told her aide at the [place] that she felt like she could not breath. Denies any fever or chills. + cough that is her normal cough. States that she has several breathing treatments last night prior to coming in but did not improve her breathing. Source: patient, RN/MD, old records Exam Limitations: no limitations Date seen by provider: Dec 19, 2016 Time Seen by Provider: 09:15 Attending Physician Rene Stark MD PCP Ye Cardona MD Consult Date of Admission Dec 19, 2016 at 02:00 Home Medications Home Medications Reviewed patient Home Medication Reconciliation Form Allergies Coded Allergies: Penicillins (Unverified Allergy, Unknown, 05/25/16) morphine (Unverified Allergy, Unknown, 05/25/16) [id number]-[id number] Hx Patient Social History Living Status: Lives in [place] Alcohol Use: Denies Use Recreational Drug Use: No Smoking Status: Never a Smoker 2nd Hand Smoke Exposure: No Recent Foreign Travel: No Contact w/other who traveled: No Recent Hopitalizations: No Recent Infectious Disease Expo: No Physical Abuse Screen: No Sexual Abuse: No Immunizations Up To Date Date of Pneumonia Vaccine: May 25, 2013 Date of Influenza Vaccine: Nov 29, 2016 Past Medical History Diastolic Heart Failure: Diagnosed 04/2016 Insulin Dependent DM HTN Oxygen Dependent 4L: 2017 Morbid Obesity Atrial Fibrillation Family Medical History Significant Family History: Heart Disease Family History: CHF (congestive heart failure) 19 MOTHER Review of Systems (CHC) Constitutional: No chills, No fever, weakness EENTM: no symptoms reported Respiratory: cough, dyspnea on exertion, No hemoptysis, orthopnea, No wheezing Cardiovascular: no symptoms reported, No chest pain, No palpitations Gastrointestinal: no symptoms reported, No loss of appetite, No melena, No nausea, No vomiting Genitourinary: no symptoms reported, No dysuria, No frequency, No hematuria : No Musculoskeletal: back pain (Chronic) Skin: no symptoms reported Psychiatric/Neurological: Depressed Reviewed Test Results Reviewed Test Results Lab Laboratory Tests Test 12/19/16 00:56 12/19/16 01:47 12/19/16 02:45 12/19/16 04:44 Range/Units White Blood Count 24.9 H 23.6 H 4.3-11.0 10^3/uL Red Blood Count 3.48 L 3.21 L 4.35-5.85 10^6/uL Hemoglobin 10.0 L 9.3 L 11.5-16.0 G/DL Hematocrit 31 L 29 L 35-52 % Mean Corpuscular Volume 89 90 80-99 FL Mean Corpuscular Hemoglobin 29 29 25-34 PG Mean Corpuscular Hemoglobin Concent 32 32 32-36 G/DL Red Cell Distribution Width 17.4 H 17.4 H 10.0-14.5 % Platelet Count 510 H 458 H 130-400 10^3/uL Mean Platelet Volume 11.9 H 11.9 H 7.4-10.4 FL Neutrophils (%) (Auto) 94 H 96 H 42-75 % Lymphocytes (%) (Auto) 2 L 2 L 12-44 % Monocytes (%) (Auto) 4 3 0-12 % Eosinophils (%) (Auto) 0 0 0-10 % Basophils (%) (Auto) 0 0 0-10 % Neutrophils # (Auto) 23.3 H 22.6 H 1.8-7.8 X 10^3 Lymphocytes # (Auto) 0.6 L 0.4 L 1.0-4.0 X 10^3 Monocytes # (Auto) 1.0 0.6 0.0-1.0 X 10^3 Eosinophils # (Auto) 0.0 0.0 0.0-0.3 10^3/uL Basophils # (Auto) 0.0 0.0 0.0-0.1 10^3/uL Neutrophils % (Manual) 88 % Lymphocytes % (Manual) 2 % Monocytes % (Manual) 6 % Band Neutrophils 4 % Blood Morphology Comment NORMAL Prothrombin Time 17.5 H 12.2-14.7 SEC INR Comment 1.4 0.8-1.4 Activated Partial Thromboplast Time 53 H 24-35 SEC Sodium Level 127 L 126 L 135-145 MMOL/L Potassium Level 6.9 *H 6.7 *H 3.6-5.0 MMOL/L Chloride Level 88 L 88 L 98-107 MMOL/L Carbon Dioxide Level 28 27 21-32 MMOL/L Anion Gap 11 11 5-14 MMOL/L Blood Urea Nitrogen 39 H 40 H 7-18 MG/DL Creatinine 2.65 H 2.72 H 0.60-1.30 MG/DL Estimat Glomerular Filtration Rate 18 17 BUN/Creatinine Ratio 15 15 Glucose Level 187 H 218 H 70-105 MG/DL Calcium Level 8.5 8.2 L 8.5-10.1 MG/DL Magnesium Level 1.9 1.8-2.4 MG/DL Total Bilirubin 12.4 H 11.4 H 0.1-1.0 MG/DL Aspartate Amino Transf (AST/SGOT) 54 H 48 H 5-34 U/L Alanine Aminotransferase (ALT/SGPT) 25 22 0-55 U/L Alkaline Phosphatase 503 H 461 H 40-136 U/L Total Creatine Kinase < 7 L 29-168 U/L Creatine Kinase MB 0.7 <6.6 NG/ML Troponin I < 0.30 <0.30 NG/ML B-Type Natriuretic Peptide 383.0 H <100.0 PG/ML Total Protein 6.9 6.4 6.4-8.2 GM/DL Albumin 2.0 L 1.9 L 3.2-4.5 GM/DL Lactic Acid Level 2.05 *H 2.84 *H 0.50-2.00 MMOL/L Urine Color YANA H Urine Clarity VERY CLOUDY H Urine pH 5 5-9 Urine Specific [place] 1.015 L 1.016-1.022 Urine Protein 3+ H NEGATIVE Urine Glucose (UA) NEGATIVE NEGATIVE Urine Ketones NEGATIVE NEGATIVE Urine Nitrite POSITIVE H NEGATIVE Urine Bilirubin 3+ H NEGATIVE Urine Urobilinogen 8 H NORMAL MG/DL Urine Leukocyte Esterase 2+ H NEGATIVE Urine RBC (Auto) 4+ H NEGATIVE Urine RBC NONE /HPF Urine WBC 0-2 /HPF Urine Crystals NONE /LPF Urine Bacteria LARGE H /HPF Urine Casts NONE /LPF Urine Mucus NEGATIVE /LPF Urine Culture Indicated YES Test 12/19/16 05:43 12/19/16 10:32 Range/Units Glucometer 215 H 70-110 MG/DL Sodium Level 126 L 135-145 MMOL/L Potassium Level 6.9 *H 3.6-5.0 MMOL/L Chloride Level 89 L 98-107 MMOL/L Carbon Dioxide Level 26 21-32 MMOL/L Anion Gap 11 5-14 MMOL/L Blood Urea Nitrogen 40 H 7-18 MG/DL Creatinine 2.81 H 0.60-1.30 MG/DL Estimat Glomerular Filtration Rate 17 BUN/Creatinine Ratio 14 Glucose Level 235 H 70-105 MG/DL Lactic Acid Level 2.83 *H 0.50-2.00 MMOL/L Calcium Level 8.2 L 8.5-10.1 MG/DL Digoxin Level 0.55 L 0.80-2.00 NG/ML Radiology Date of Exam: 12/19/16 CHEST 1 VIEW, AP/PA ONLY INDICATION: CHF COMPARISON: 12/19/2016 FINDINGS: Upright portable view of the chest is obtained. Heart size is enlarged similar to the prior study. There is central venous congestion which also appear similar to the prior exam. Mild increased interstitial markings bilaterally appear somewhat improved from the prior study. No pleural effusion is suspected. Minimal patchy alveolar opacities particularly on the right appear improved from the prior exam as well. No new abnormality is seen. IMPRESSION: Findings of congestive failure persists but are slightly improved from the prior exam from August. No new abnormality is seen. Date of Exam: 12/19/16 CHEST 1 VIEW, AP/PA ONLY INDICATION: CHF COMPARISON: 12/19/2016 at 12:48 AM TIME OF EXAM: 12/19/2016 at 4:33 AM FINDINGS: Semi-upright portable view of the chest is obtained. Heart size is enlarged similar to the prior study. There is central venous congestion which appears similar to the prior study when allowing for a different degree of rotation. Mild diffuse interstitial changes and patchy alveolar opacities appear fairly similar to the prior study. No pneumothorax or significant pleural fluid is suspected. IMPRESSION: Findings of congestive failure show no significant interval change since the prior study. Physical Exam-([facility]) Physical Exam Vital Signs VS - Last 72 Hours, by Label 12/19/16 12/19/16 12/19/16 12/19/16 00:19 00:19 01:51 03:19 Temp 97.2 97.2 Pulse 52 48 Resp 20 19 B/P (MAP) 106/73 Pulse Ox 96 98 95 O2 Delivery Nasal Cannula Nasal Cannula Nasal Cannula Nasal Cannula O2 Flow Rate 4.00 4.00 4.00 4.00 FiO2 96 12/19/16 12/19/16 12/19/16 12/19/16 03:38 03:52 04:00 04:02 Temp 95.2 95.2 Pulse 48 49 Resp 14 12 B/P (MAP) 107/62 104/50 Pulse Ox 99 99 97 99 O2 Delivery Nasal Cannula Nasal Cannula Nasal Cannula Nasal Cannula O2 Flow Rate 4.00 4.00 4.00 4.00 12/19/16 12/19/16 12/19/16 12/19/16 04:09 04:15 04:30 04:45 Temp 95.4 95.4 95.4 Pulse 47 45 47 46 Resp 14 14 14 B/P (MAP) 113/67 113/45 93/58 Pulse Ox 98 96 96 96 O2 Delivery Nasal Cannula Nasal Cannula Nasal Cannula O2 Flow Rate 4.00 4.00 4.00 12/19/16 12/19/16 12/19/16 12/19/16 05:01 05:15 05:30 05:45 Temp 96.0 96.1 97.1 97.4 Pulse 47 48 46 48 Resp 14 12 12 12 B/P (MAP) 99/43 96/46 100/46 94/44 Pulse Ox 96 96 96 96 O2 Delivery Nasal Cannula Nasal Cannula Nasal Cannula Nasal Cannula O2 Flow Rate 4.00 4.00 4.00 4.00 12/19/16 12/19/16 12/19/16 12/19/16 06:00 06:06 06:15 06:35 Temp 97.4 97.4 97.0 Pulse 49 51 52 51 Resp 12 12 12 12 B/P (MAP) 84/46 87/42 82/35 84/45 Pulse Ox 95 95 95 96 O2 Delivery Nasal Cannula Nasal Cannula Nasal Cannula Nasal Cannula O2 Flow Rate 4.00 4.00 4.00 4.00 12/19/16 12/19/16 12/19/16 12/19/16 06:41 06:47 07:00 07:00 Temp 97.0 Pulse 50 51 51 Resp 18 B/P (MAP) 92/57 97/57 76/55 Pulse Ox 95 95 O2 Delivery Nasal Cannula Nasal Cannula O2 Flow Rate 4.00 4.00 12/19/16 12/19/16 12/19/16 12/19/16 08:00 08:00 08:00 09:00 Temp 97.9 Pulse 56 55 Resp 17 B/P (MAP) 109/58 104/57 Pulse Ox 96 96 95 O2 Delivery Nasal Cannula Nasal Cannula Nasal Cannula O2 Flow Rate 4.00 4.00 4.00 12/19/16 12/19/16 12/19/16 12/19/16 09:00 09:27 10:00 11:00 Pulse 56 56 Resp 11 19 B/P (MAP) 123/71 114/59 Pulse Ox 96 95 O2 Delivery Nasal Cannula Nasal Cannula Nasal Cannula Nasal Cannula O2 Flow Rate 4.00 4.00 4.00 4.00 FiO2 96 12/19/16 12/19/16 12/19/16 12/19/16 12:00 13:00 13:00 14:00 Pulse 57 54 54 53 Resp 16 18 B/P (MAP) 109/66 118/55 117/58 Pulse Ox 94 O2 Delivery Nasal Cannula Nasal Cannula Nasal Cannula O2 Flow Rate 4.00 4.00 4.00 12/19/16 12/19/16 14:59 15:00 Pulse 54 Resp 18 B/P (MAP) 118/49 Pulse Ox 96 97 O2 Delivery Nasal Cannula Nasal Cannula O2 Flow Rate 4.00 4.00 Capillary Refill : Less Than 3 Seconds General Appearance: mild distress HEENT: other (+ scleral icterus) Neck: non-tender, full range of motion, supple Respiratory: no accessory muscle use, decreased breath sounds (at the bases), crackles Cardiovascular: normal peripheral pulses, regular rate, rhythm, no murmur Gastrointestinal: normal bowel sounds, non tender, soft Extremities: no calf tenderness, pedal edema, swelling (Chronic lymphedema changes) Neurologic/Psychiatric: fruit sorter II-XII nml as tested, no motor/sensory deficits, alert, oriented x 3, depressed affect (Does not really want to answer questions) Lymphatic: no adenopathy Clinical Quality Measures DVT/VTE Risk/Contraindication: Risk Factor Score Per Nursin RFS Level Per Nursing on Admit: 4+=Very High Copy Copies To 1: [facility] Bessie Ritter Assessment/Plan Assessment/Plan Plan 71 yo F admitted with Respiratory distress with Severe Sepsis from UTI Plan Acute on Chronic Respiratory distress: Multifactorial - Monitor closely with fluid resuscitation as patient is a DNR - Continue A/A nebs scheduled as well as PRN - continue Steroids - CXR stable at this time, daily CXR to monitor fluid Severe Sepsis 2/2 UTI - Urine culture pending, patient has h/o ESBL - Large vol fluid resuscitation slower then wanted due to CHF, plan on bolus with frequent fluid status evaluation - Repeat LA pending Acute on Chronic Diastolic CHF - Consult Cardiology - Elevated BNP - Will continue to monitor CXR - Plan on diuresis after sepsis is resolved Normocytic Anemia - At patient's baseline, will continue to monitor - Iron level pending ESLD with elevated bilirubin - Undergoing outpatient workup, Has liver bx planned - Will continue to monitor fluid level - Reviewed CT-abd and Liver US: mild dilation in CBD, consider repeat Liver US when patient is stabilized IDDM - SSI, A1c pending Hyperkalemia - K-ex x 4 doses - Repeat level in AM - ECG in AM Chronic Atrial Fibrillation - continue Xarelto as long as INR <2 HTN - Currently hypo/Normotensive, holding bp meds FEN: DM diet DVT PPX: Xarelto Dispo: Admit to ICU RENE STARK MD Dec 19, 2016 11:55
[2016-12-19] MEDS: SOD POLYSTERENE 15 GM/60 ML (KAYEXALATE) UNIT DOSE PO SCH ×2 (12:42→20:33)
[2016-12-19] MEDS ORDERED: CALCIUM GLUC. 10% 4.65 MEQ/10 ML VIAL IV ONE (14:15)
[2016-12-19] MEDS ORDERED: CALCIUM GLUCONATE 10% INJ 4.65 MEQ in NS (IVPB) 50 ML IV NR (14:19)
[2016-12-19] MEDS ORDERED: inSUlin (REGULAR) HUMAN 1 UNIT/0.01 ML (CHARGE PER UNIT) IV NR (14:20)
--- NOTE | 2016-12-19 14:32 | Consultation-Cardiology ---
HPI-Cardiology Cardiology Consultation: Date of Consultation 12/19/16 Time Seen by Provider: 13:50 Date of Admission Attending Physician Radha Stark MD Admitting Physician Ye Cardona MD Consulting Physician JUAN CARLOS MOTTA MD, MA, FACP, FACC, [facility], CCDS Physician requesting consult: Dr Stark HPI: Chief Complaint: Reason for consultation: CHF 71 yo woman, resident of [place], admitted to Dr Stark with increasing malaise, gen weakness, and shortness of breath. Shortness of breath is chronic, but has been worse lately. Has chronic leg swelling. Denies cp or palp or syncope Review of Systems-Cardiology Review of Systems Constitutional: malaise, tiredness, No weight loss, No weight gain Eyes: No vision change Ears/Nose/Throat: No ear discharge, No nasal drainage, No recent hearing loss Respiratory: As described under HPI Cardiovascular: As described under HPI Gastrointestinal: No constipation, No diarrhea, No nausea, No vomiting Genitourinary: No dysuria, No hematuria : No Musculoskeletal: back pain (chronic), joint pain (chronic) Skin: No rash, No ulcerations Psychiatric/Neurological: No seizure, No focal weakness, No syncope Hematologic: No bleeding abnormalities ZMF-Caujih-Oqjnwz Hx Patient Social History Living Status: Lives in [place] Alcohol Use: Denies Use Recreational Drug Use: No Smoking Status: Never a Smoker 2nd Hand Smoke Exposure: No Recent Foreign Travel: No Recent Infectious Disease Expo: No Hospitalization with Isolation: Contact Physical Abuse Screen: No Sexual Abuse: No Immunizations Up To Date Date of Pneumonia Vaccine: May 25, 2013 Date of Influenza Vaccine: Nov 29, 2016 Past Medical History PMH As described under Assessment. Family Medical History Family Medical History: She does not report any family h/o premature CAD or SCD. Family History: CHF (congestive heart failure) 19 MOTHER Allergies and Home Medications Allergies Coded Allergies: Penicillins (Unverified Allergy, Unknown, 05/25/16) morphine (Unverified Allergy, Unknown, 05/25/16) Home Medications Acetaminophen 325 Mg Tablet, 650 MG PO HS, (Reported) TAKES 2 (325 MG) TABLETS Acetaminophen 325 Mg Tablet, 650 MG PO Q6H PRN for PAIN-MILD, (Reported) TAKES 2 (325 MG) TABLETS Amiodarone HCl 200 Mg Tablet, 400 MG PO BID, (Reported) TAKES 2 (200 MG) TABLETS Digoxin 125 Mcg Tablet, 125 MCG PO DAILY, (Reported) Diltiazem HCl 240 Mg Cap.er.24h, 240 MG PO DAILY, (Reported) Docusate Sodium 100 Mg Capsule, 100 MG PO BID, (Reported) Furosemide 40 Mg Tablet, 40 MG PO BID, #60 Ref 1 Prescribed by: ADVE ALEXANDER on 11/05/16 1321 Gabapentin 300 Mg Capsule, 300 MG PO TID, (Reported) Insulin Aspart 300 Units/3 Ml Solution, 10 UNITS SQ AC, (Reported) Insulin Detemir 100 Unit/1 Ml Insuln.pen, 20 UNITS SQ BID, (Reported) Metolazone 2.5 Mg Tablet, 2.5 MG PO DAILY, (Reported) Pantoprazole Sodium 40 Mg Tablet.dr, 40 MG PO DAILY, (Reported) Potassium Chloride 20 Meq Tab.er.prt, 20 MEQ PO DAILY, (Reported) Rivaroxaban 10 Mg Tablet, 10 MG PO DAILY, (Reported) Physical Exam-Cardiology Physical Exam Vital Signs/I&O Vital Sign - Last 12Hours 12/19/16 12/19/16 12/19/16 12/19/16 03:19 03:38 03:52 04:00 Temp 97.2 95.2 Pulse 48 48 Resp 19 14 B/P (MAP) 107/62 Pulse Ox 95 99 99 97 O2 Delivery Nasal Cannula Nasal Cannula Nasal Cannula Nasal Cannula O2 Flow Rate 4.00 4.00 4.00 4.00 12/19/16 12/19/16 12/19/16 12/19/16 04:02 04:09 04:15 04:30 Temp 95.2 95.4 95.4 Pulse 49 47 45 47 Resp 12 14 14 B/P (MAP) 104/50 113/67 113/45 Pulse Ox 99 98 96 96 O2 Delivery Nasal Cannula Nasal Cannula Nasal Cannula O2 Flow Rate 4.00 4.00 4.00 12/19/16 12/19/16 12/19/16 12/19/16 04:45 05:01 05:15 05:30 Temp 95.4 96.0 96.1 97.1 Pulse 46 47 48 46 Resp 14 14 12 12 B/P (MAP) 93/58 99/43 96/46 100/46 Pulse Ox 96 96 96 96 O2 Delivery Nasal Cannula Nasal Cannula Nasal Cannula Nasal Cannula O2 Flow Rate 4.00 4.00 4.00 4.00 12/19/16 12/19/16 12/19/16 12/19/16 05:45 06:00 06:06 06:15 Temp 97.4 97.4 97.4 Pulse 48 49 51 52 Resp 12 12 12 12 B/P (MAP) 94/44 84/46 87/42 82/35 Pulse Ox 96 95 95 95 O2 Delivery Nasal Cannula Nasal Cannula Nasal Cannula Nasal Cannula O2 Flow Rate 4.00 4.00 4.00 4.00 12/19/16 12/19/16 12/19/16 12/19/16 06:35 06:41 06:47 07:00 Temp 97.0 97.0 Pulse 51 50 51 Resp 12 14 B/P (MAP) 84/45 92/57 97/57 Pulse Ox 96 95 O2 Delivery Nasal Cannula Nasal Cannula O2 Flow Rate 4.00 4.00 12/19/16 12/19/16 12/19/16 12/19/16 08:00 08:00 09:00 09:27 Temp 97.9 Pulse Ox 96 96 95 O2 Delivery Nasal Cannula Nasal Cannula Nasal Cannula O2 Flow Rate 4.00 4.00 4.00 FiO2 96 12/19/16 13:00 Pulse 54 Capillary Refill : Less Than 3 Seconds Constitutional: AAO x 3, well-developed, well-nourished, other (lethargic) HEENT: PERRL, EOMI, No xanthelasmas are seen Neck: carotid pulses are 2 + bilaterally, with good upstrokes Respiratory: No accessory muscle use, lungs clear to percussion, lungs clear to auscultation Cardiovascular: regular rate-rhythm, bradycardia, S1 and S2, systolic murmur ( faint JANELLE at cardiac base) Gastrointestinal: No tender, soft, No guarding, No rebound, audible bowel sounds Extremities: No clubbing, No cyanosis, significant edema (chronic, bilateral, moderate) Neurologic/Psychiatric: oriented x 3, grossly intact Skin: No rash on exposed areas, No ulcerations on exposed areas Lymphatic: no adenopathy Data Review Labs Laboratory Tests 12/19/16 00:56: White Blood Count 24.9H, Red Blood Count 3.48L, Hemoglobin 10.0L, Hematocrit 31L , Mean Corpuscular Volume 89, Mean Corpuscular Hemoglobin 29, Mean Corpuscular Hemoglobin Concent 32, Red Cell Distribution Width 17.4H, Platelet Count 510H, Mean Platelet Volume 11.9H, Neutrophils (%) (Auto) 94H, Lymphocytes (%) (Auto) 2L, Monocytes (%) (Auto) 4, Eosinophils (%) (Auto) 0, Basophils (%) (Auto) 0, Neutrophils # (Auto) 23.3H, Lymphocytes # (Auto) 0.6L, Monocytes # (Auto) 1.0, Eosinophils # (Auto) 0.0, Basophils # (Auto) 0.0, Neutrophils % (Manual) 88, Lymphocytes % (Manual) 2, Monocytes % (Manual) 6, Band Neutrophils 4, Blood Morphology Comment NORMAL, Prothrombin Time 17.5H, INR Comment 1.4, Activated Partial Thromboplast Time 53H, Sodium Level 127L, Potassium Level 6.9*H, Chloride Level 88L, Carbon Dioxide Level 28, Anion Gap 11, Blood Urea Nitrogen 39H, Creatinine 2.65H, Estimat Glomerular Filtration Rate 18, BUN/Creatinine Ratio 15, Glucose Level 187H, Calcium Level 8.5, Magnesium Level 1.9, Total Bilirubin 12.4H, Aspartate Amino Transf (AST/SGOT) 54H, Alanine Aminotransferase (ALT/SGPT) 25, Alkaline Phosphatase 503H, Total Creatine Kinase < 7L, Creatine Kinase MB 0.7, Troponin I < 0.30, B-Type Natriuretic Peptide 383.0H, Total Protein 6.9, Albumin 2.0L 12/19/16 01:47: Lactic Acid Level 2.05*H 12/19/16 02:45: Urine Color AMBERH, Urine Clarity VERY CLOUDYH, Urine pH 5, Urine Specific [place] 1.015L, Urine Protein 3+H, Urine Glucose (UA) NEGATIVE, Urine Ketones NEGATIVE, Urine Nitrite POSITIVEH, Urine Bilirubin 3+H, Urine Urobilinogen 8H, Urine Leukocyte Esterase 2+H, Urine RBC (Auto) 4+H, Urine RBC NONE, Urine WBC 0- 2, Urine Crystals NONE, Urine Bacteria LARGEH, Urine Casts NONE, Urine Mucus NEGATIVE, Urine Culture Indicated YES 12/19/16 04:44: White Blood Count 23.6H, Red Blood Count 3.21L, Hemoglobin 9.3L, Hematocrit 29L , Mean Corpuscular Volume 90, Mean Corpuscular Hemoglobin 29, Mean Corpuscular Hemoglobin Concent 32, Red Cell Distribution Width 17.4H, Platelet Count 458H, Mean Platelet Volume 11.9H, Neutrophils (%) (Auto) 96H, Lymphocytes (%) (Auto) 2L, Monocytes (%) (Auto) 3, Eosinophils (%) (Auto) 0, Basophils (%) (Auto) 0, Neutrophils # (Auto) 22.6H, Lymphocytes # (Auto) 0.4L, Monocytes # (Auto) 0.6, Eosinophils # (Auto) 0.0, Basophils # (Auto) 0.0, Sodium Level 126L, Potassium Level 6.7*H, Chloride Level 88L, Carbon Dioxide Level 27, Anion Gap 11, Blood Urea Nitrogen 40H, Creatinine 2.72H, Estimat Glomerular Filtration Rate 17, BUN/ Creatinine Ratio 15, Glucose Level 218H, Calcium Level 8.2L, Total Bilirubin 11.4H, Aspartate Amino Transf (AST/SGOT) 48H, Alanine Aminotransferase (ALT/SGPT ) 22, Alkaline Phosphatase 461H, Total Protein 6.4, Albumin 1.9L, Lactic Acid Level 2.84*H 12/19/16 05:43: Glucometer 215H 12/19/16 10:32: Sodium Level 126L, Potassium Level 6.9*H, Chloride Level 89L, Carbon Dioxide Level 26, Anion Gap 11, Blood Urea Nitrogen 40H, Creatinine 2.81H, Estimat Glomerular Filtration Rate 17, BUN/Creatinine Ratio 14, Glucose Level 235H, Lactic Acid Level 2.83*H, Calcium Level 8.2L, Digoxin Level 0.55L 12/19/16 11:38: Glucometer 228H 12/19/16 14:06: Microbiology 12/19/16 Influenza Types A,B Antigen (ARTEMIO) - Final, Complete 12/19/16 Urine Culture - Preliminary, Resulted Probable E.coli Laboratory Tests 12/19/16 00:56 12/19/16 04:44 12/19/16 10:32 A/P-Cardiology Assessment/Admission Diagnosis Acute oliguric renal failure likely due to diuretic overuse Marked hyperkalemia due to acute renal failure Acute hepatic failure A Fib with a slow vent rate and QRS widening (likely related to hyperkalemia) No clinical evidence of any decompensated CHF Chronic shortness of breath likely due to obesity with obesity-hypoventilation syndrome Paroxysmal a-fib with RVR (first documented July 10, 2016). 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 Mcnair showed LVEF 60%, trivial MVR with mild LA. Moderate aortic sclerosis. Mod to severe pulmonary hypertension CKD III DM II Hypertension Chronic anemia, managed by her pcp H/o bilateral knee and of L hip replacement MPI of September 2016 showed no evidence of any significant myocardial ischemia or infarction. Normal regional wall motion. LVEF 65%. Baseline rhythm is junctional versus atrial fib Discussion and Recomendations * Emergency measures for marked hyperkalemia: iv Ca gluc, iv D50 w/ iv insulin, iv fluids * Longer term measures for hyperkalemia: kayexelate (oral or pr) * Eval for obstructive jaundice * Pt is critically ill * Advise medical writer consult or transfer to a tertiary care facility * I discussed her case on the phone with Dr Stark Clinical Quality Measures DVT/VTE Risk/Contraindication: Risk Factor Score Per Nursin RFS Level Per Nursing on Admit: 4+=Very High JUAN CARLOS MOTTA MD FACP FAC CCDS Dec 19, 2016 14:32
[2016-12-19] MEDS: methylPREDNISolone 40 MG/ML (Solu-MEDROL) VIAL IV SCH ×2 (14:41→22:47)
[2016-12-19] MEDS: NS IV 1000 ML 1,000 ML IV SCH ×2 (14:54→20:33)
[2016-12-19 18:43] LABS: CALCIUM 7.6 MG/DL (8.5-10.1); CREATININE SERUM 2.75 MG/DL (0.60-1.30)
[2016-12-19 18:44] LABS: POTASSIUM 6.7 MMOL/L (3.6-5.0)
[2016-12-19] MEDS: MEROPENEM 500 MG in NS (IVPB) 100 ML IV SCH (20:33)
[2016-12-20] VITALS (16 sets, daily range): BP systolic 92–133; BP diastolic 33–61
[2016-12-20] MEDS ORDERED: SOD POLYSTERENE 15 GM/60 ML (KAYEXALATE) UNIT DOSE PO ONE (02:15)
[2016-12-20] MEDS: NS IV 1000 ML 1,000 ML IV SCH ×2 (02:55→09:37)
[2016-12-20] MEDS ORDERED: cefTRIAXone INJECTION 1,000 MG in NS (IVPB) 50 ML IV SCH (03:00)
[2016-12-20] MEDS: RT-ALBUTEROL/IPRATROPIUM 3 ML (DUONEB) VIAL INH SCH ×2 (03:22→09:00)
[2016-12-20 04:45] LABS: BASOPHILS % (AUTO) 0 % (0-10); EOSINOPHILS % (AUTO) 0 % (0-10); LYMPHOCYTES # (AUTO) 0.5 X 10^3 (1.0-4.0); LYMPHOCYTES % (AUTO) 2 % (12-44); MEAN CORPUSCULAR HEMOGLOBIN 29 PG (25-34); MEAN CORPUSCULAR HGB CONC 32 G/DL (32-36); MEAN CORPUSCULAR VOLUME 90 FL (80-99); MEAN PLATELET VOLUME 12.1 FL (7.4-10.4); MONOCYTES # (AUTO) 0.6 X 10^3 (0.0-1.0); MONOCYTES % (AUTO) 3 % (0-12); NEUTROPHILS # (AUTO) 20.7 X 10^3 (1.8-7.8); NEUTROPHILS % (AUTO) 95 % (42-75); PLATELET COUNT 425 10^3/uL (130-400); RED BLOOD COUNT 3.15 10^6/uL (4.35-5.85); RED CELL DISTRIBUTION WIDTH 17.3 % (10.0-14.5); WHITE BLOOD COUNT 21.9 10^3/uL (4.3-11.0)
[2016-12-20 05:00] LABS: INR 1.6 (0.8-1.4); PROTHROMBIN TIME PATIENT 19.3 SEC (12.2-14.7)
[2016-12-20 05:08] LABS: ALBUMIN 1.8 GM/DL (3.2-4.5); BILIRUBIN,TOTAL 10.7 MG/DL (0.1-1.0); CALCIUM 7.6 MG/DL (8.5-10.1); CREATININE SERUM 3.01 MG/DL (0.60-1.30); POTASSIUM 5.9 MMOL/L (3.6-5.0); TOTAL PROTEIN 5.9 GM/DL (6.4-8.2)
[2016-12-20] MEDS: inSUlin (REGULAR) HUMAN 1 UNIT/0.01 ML (CHARGE PER UNIT) SC SCH ×2 (05:54→12:37)
[2016-12-20] MEDS: methylPREDNISolone 40 MG/ML (Solu-MEDROL) VIAL IV SCH ×2 (05:54→14:51)
--- NOTE | 2016-12-20 08:31 | Diagnostic Imaging Report ---
INDICATION: Hypoxia, CHF COMPARISON: 12/19/16 FINDINGS: Single view of the chest demonstrates cardiac enlargement with unchanged central vascular congestion and trace pulmonary edema. There is no pneumothorax. No large effusion seen. IMPRESSION: Cardiac enlargement with unchanged pulmonary edema and vascular congestion. Dictated by: Dictated on workstation # [id number]
[2016-12-20] MEDS: MEROPENEM 500 MG in NS (IVPB) 100 ML IV SCH (09:36)
[2016-12-20] MEDS: SOD POLYSTERENE 15 GM/60 ML (KAYEXALATE) UNIT DOSE PO SCH (09:37)
--- NOTE | 2016-12-20 11:17 | Progress Note (SOAP) ---
Subjective Subjective/Events-last exam Patient states that she is feeling ok this AM. Sleeping when I came in the room. Daughter in the room today. Patient denies any pain. States that she would like to eat today Review of Systems Date Seen by Provider: Dec 20, 2016 Time Seen by Provider: 10:35 Objective Exam Last Set of Vital Signs Vital Signs Date Time Temp Pulse Resp B/P (MAP) Pulse Ox O2 Delivery O2 Flow Rate FiO2 12/20/16 09:00 100 Nasal Cannula 5.00 12/20/16 09:00 59 13 114/47 12/20/16 08:00 98.6 12/19/16 09:00 96 Capillary Refill : Less Than 3 Seconds I&O Intake and Output 12/21/16 00:00 Intake Total 0 ml Output Total 160 ml Balance -160 ml Intake Oral 0 ml Output Urine Total 160 ml General: Alert, Oriented X3, Cooperative, No Acute Distress Lungs: Clear to Auscultation Heart: Regular Rate, No Murmurs Abdomen: Normal Bowel Sounds, Other (mild RUQ pain) Extremities: Other (Edema 3+ bilaterally with chronic lymphedema changes) Neuro: Sensation Intact, Cranial Nerves 3-12 NL Psych/Mental Status: Mental Status NL, Mood NL Results/Procedures Lab Laboratory Tests 12/19/16 11:38: Glucometer 228H 12/19/16 14:06: Lactic Acid Level 2.60*H 12/19/16 17:45: Lactic Acid Level 2.83*H, Sodium Level 128L, Potassium Level 6.7*H, Chloride Level 90L, Carbon Dioxide Level 25, Anion Gap 13, Blood Urea Nitrogen 42H, Creatinine 2.75H, Estimat Glomerular Filtration Rate 17, BUN/Creatinine Ratio 15 , Glucose Level 219H, Calcium Level 7.6L 12/19/16 19:01: Glucometer 237H 12/19/16 19:47: Lactic Acid Level 2.30*H 12/19/16 23:21: Glucometer 241H 12/19/16 23:59: Potassium Level 6.6*H 12/20/16 04:30: Potassium Level 5.9H, White Blood Count 21.9H, Red Blood Count 3.15L, Hemoglobin 9.1L, Hematocrit 28L, Mean Corpuscular Volume 90, Mean Corpuscular Hemoglobin 29, Mean Corpuscular Hemoglobin Concent 32, Red Cell Distribution Width 17.3H, Platelet Count 425H, Mean Platelet Volume 12.1H, Neutrophils (%) ( Auto) 95H, Lymphocytes (%) (Auto) 2L, Monocytes (%) (Auto) 3, Eosinophils (%) ( Auto) 0, Basophils (%) (Auto) 0, Neutrophils # (Auto) 20.7H, Lymphocytes # (Auto ) 0.5L, Monocytes # (Auto) 0.6, Eosinophils # (Auto) 0.0, Basophils # (Auto) 0.0 , Prothrombin Time 19.3H, INR Comment 1.6H, Sodium Level 130L, Chloride Level 92L, Carbon Dioxide Level 23, Anion Gap 15H, Blood Urea Nitrogen 48H, Creatinine 3.01H, Estimat Glomerular Filtration Rate 15, BUN/Creatinine Ratio 16 , Glucose Level 231H, Calcium Level 7.6L, Total Bilirubin 10.7H, Aspartate Amino Transf (AST/SGOT) 33, Alanine Aminotransferase (ALT/SGPT) 22, Alkaline Phosphatase 429H, Total Protein 5.9L, Albumin 1.8L Microbiology 12/19/16 Influenza Types A,B Antigen (ARTEMIO) - Final, Complete 12/19/16 Urine Culture - Final, Complete Escherichia Coli Strep Agalactiae Group B Radiology Date of Exam: 12/19/16 CHEST 1 VIEW, AP/PA ONLY INDICATION: CHF COMPARISON: 12/19/2016 FINDINGS: Upright portable view of the chest is obtained. Heart size is enlarged similar to the prior study. There is central venous congestion which also appear similar to the prior exam. Mild increased interstitial markings bilaterally appear somewhat improved from the prior study. No pleural effusion is suspected. Minimal patchy alveolar opacities particularly on the right appear improved from the prior exam as well. No new abnormality is seen. IMPRESSION: Findings of congestive failure persists but are slightly improved from the prior exam from August. No new abnormality is seen. Date of Exam: 12/19/16 CHEST 1 VIEW, AP/PA ONLY INDICATION: CHF COMPARISON: 12/19/2016 at 12:48 AM TIME OF EXAM: 12/19/2016 at 4:33 AM FINDINGS: Semi-upright portable view of the chest is obtained. Heart size is enlarged similar to the prior study. There is central venous congestion which appears similar to the prior study when allowing for a different degree of rotation. Mild diffuse interstitial changes and patchy alveolar opacities appear fairly similar to the prior study. No pneumothorax or significant pleural fluid is suspected. IMPRESSION: Findings of congestive failure show no significant interval change since the prior study. Assessment/Plan Assessment/Plan Plan 71 yo F admitted with Respiratory distress with Severe Sepsis from UTI Plan Acute on Chronic Respiratory distress: Multifactorial: Stable this AM - Monitor closely with fluid resuscitation as patient is a DNR - Continue A/A nebs scheduled as well as PRN - continue Steroids - CXR stable at this time, daily CXR to monitor fluid Severe Sepsis 2/2 UTI: Stable - Urine culture pending, patient has h/o ESBL - Large vol fluid resuscitation slower then wanted due to CHF, plan on bolus with frequent fluid status evaluation - Lizz D2 Chronic Diastolic CHF - Consult Cardiology - Elevated BNP - Will continue to monitor CXR - Plan on diuresis after sepsis is resolved Normocytic Anemia - At patient's baseline, will continue to monitor - Iron level pending ESLD with elevated bilirubin - Undergoing outpatient workup, Has liver bx planned - Will continue to monitor fluid level - Reviewed CT-abd and Liver US: mild dilation in CBD, consider repeat Liver US when patient is stabilized IDDM - SSI, A1c pending Hyperkalemia - Insulin, Calcium and K-ex given, continues to be elevated Chronic Atrial Fibrillation - continue Xarelto as long as INR <2 HTN - Currently hypo/Normotensive, holding bp meds FEN: DM diet DVT PPX: Xarelto Dispo: Admit to ICU Social: Discussed Goals of care with patient and her daughter who is her DPOA. Patient is a DNR/DNI and does not want HD. We discussed her end stage liver disease which has acutely worsened in the last few weeks. Patient states that she is ok with getting the liver Bx. I discussed with both of them that if we are going to work up her liver disease I would recommend transfer to hospital with GI doctor. We also discussed options of comfort care with hospice. Patient her daughter are going to discuss plans and contact me later today. Clinical Quality Measures DVT/VTE Risk/Contraindication: Risk Factor Score Per Nursin RFS Level Per Nursing on Admit: 4+=Very High RENE SALAZAR MD Dec 20, 2016 11:17
--- NOTE | 2016-12-20 14:04 | Progress Note-Cardiology ---
Cardiology SOAP Progress Note Subjective: Does not report new symptoms. Has gen malaise and weakness. Does not report shortness of breath at rest at this time. No cp or palp or syncope Objective: I&O/Vital Signs Vital Sign - Last 12Hours 12/20/16 12/20/16 12/20/16 12/20/16 02:00 03:00 03:11 03:22 Pulse 60 56 Resp 16 14 B/P (MAP) 115/42 102/46 Pulse Ox 94 97 97 O2 Delivery Nasal Cannula Nasal Cannula Nasal Cannula Nasal Cannula O2 Flow Rate 4.00 4.00 5.00 5.00 12/20/16 12/20/16 12/20/16 12/20/16 04:00 04:00 04:00 05:00 Pulse 55 59 Resp 18 21 B/P (MAP) 107/45 110/47 Pulse Ox 95 94 94 97 O2 Delivery Nasal Cannula Nasal Cannula Nasal Cannula Nasal Cannula O2 Flow Rate 5.00 5.00 5.00 5.00 12/20/16 12/20/16 12/20/16 12/20/16 06:00 07:00 07:00 07:46 Pulse 76 54 52 Resp 14 14 B/P (MAP) 104/35 106/45 Pulse Ox 97 96 90 O2 Delivery Nasal Cannula Nasal Cannula Nasal Cannula O2 Flow Rate 5.00 5.00 5.00 12/20/16 12/20/16 12/20/16 12/20/16 07:46 08:00 08:00 09:00 Temp 98.6 Pulse 63 62 59 Resp 12 13 B/P (MAP) 123/49 114/47 Pulse Ox 98 94 99 O2 Delivery Nasal Cannula Nasal Cannula Nasal Cannula O2 Flow Rate 5.00 3.00 5.00 12/20/16 12/20/16 12/20/16 09:00 12:00 12:00 Pulse Ox 100 95 94 O2 Delivery Nasal Cannula Nasal Cannula Nasal Cannula O2 Flow Rate 5.00 3.00 3.00 Weight (Pounds): 318 Weight (Ounces): 6.0 Weight (Calculated Kilograms): 144.264387 Constitutional: AAO x 3, well-developed, well-nourished, other (lethargic) Respiratory: No accessory muscle use, lungs clear to percussion, lungs clear to auscultation Cardiovascular: regular rate-rhythm, S1 and S2, systolic murmur (faint JANELLE at cardiac base) Gastrointestional: No tender, soft, No guarding, No rebound, audible bowel sounds Extremities: No clubbing, No cyanosis, significant edema (chronic, bilateral, moderate to severe) Neurologic/Psychiatric: oriented x 3, grossly intact Skin: No rash on exposed areas, No ulcerations on exposed areas Results/Procedures: Labs Laboratory Tests 12/19/16 14:06: Lactic Acid Level 2.60*H 12/19/16 17:45: Lactic Acid Level 2.83*H, Sodium Level 128L, Potassium Level 6.7*H, Chloride Level 90L, Carbon Dioxide Level 25, Anion Gap 13, Blood Urea Nitrogen 42H, Creatinine 2.75H, Estimat Glomerular Filtration Rate 17, BUN/Creatinine Ratio 15 , Glucose Level 219H, Calcium Level 7.6L 12/19/16 19:01: Glucometer 237H 12/19/16 19:47: Lactic Acid Level 2.30*H 12/19/16 23:21: Glucometer 241H 12/19/16 23:59: Potassium Level 6.6*H 12/20/16 04:30: Potassium Level 5.9H, White Blood Count 21.9H, Red Blood Count 3.15L, Hemoglobin 9.1L, Hematocrit 28L, Mean Corpuscular Volume 90, Mean Corpuscular Hemoglobin 29, Mean Corpuscular Hemoglobin Concent 32, Red Cell Distribution Width 17.3H, Platelet Count 425H, Mean Platelet Volume 12.1H, Neutrophils (%) ( Auto) 95H, Lymphocytes (%) (Auto) 2L, Monocytes (%) (Auto) 3, Eosinophils (%) ( Auto) 0, Basophils (%) (Auto) 0, Neutrophils # (Auto) 20.7H, Lymphocytes # (Auto ) 0.5L, Monocytes # (Auto) 0.6, Eosinophils # (Auto) 0.0, Basophils # (Auto) 0.0 , Prothrombin Time 19.3H, INR Comment 1.6H, Sodium Level 130L, Chloride Level 92L, Carbon Dioxide Level 23, Anion Gap 15H, Blood Urea Nitrogen 48H, Creatinine 3.01H, Estimat Glomerular Filtration Rate 15, BUN/Creatinine Ratio 16 , Glucose Level 231H, Calcium Level 7.6L, Total Bilirubin 10.7H, Aspartate Amino Transf (AST/SGOT) 33, Alanine Aminotransferase (ALT/SGPT) 22, Alkaline Phosphatase 429H, Total Protein 5.9L, Albumin 1.8L 12/20/16 12:27: Glucometer 230H Microbiology 12/19/16 Influenza Types A,B Antigen (ARTEMIO) - Final, Complete 12/19/16 Urine Culture - Final, Complete Escherichia Coli Strep Agalactiae Group B Laboratory Tests 12/19/16 00:56 12/19/16 04:44 12/19/16 10:32 12/19/16 17:45 12/19/16 23:59 12/20/16 04:30 A/P: Assessment: Acute oliguric renal failure of unclear etiology: could be related to diuretic overuse, but has not responded to iv fluids and urine output remains low Hyperkalemia due to acute renal failure: improved but not resolved (after intensive therapy) Acute/subacute hepatic failure with probably obstructive jaundice: ascending cholangitis and CBD lithiasis are considerations Paroxysmal A Fib with a slow vent rate and QRS widening (likely related to hyperkalemia); QRS widening resolved after treatment of hyperkalemia and pt currently exhibiting NSR No clinical evidence of any decompensated CHF at this time Chronic shortness of breath likely due to obesity with obesity-hypoventilation syndrome Paroxysmal a-fib with RVR (first documented July 10, 2016). On amiodarone per her uniform attendant at [facility] at time of admission of August 2016; discontinued on 11/18/16 H/o diastolic CHF COPD, by history OAC with Xarelto; held because estimated GFR is 15 today Echo of August 2016 at [facility] in [place] by Dr. Mcnair showed LVEF 60%, trivial MVR with mild LA. Moderate aortic sclerosis. Mod to severe pulmonary hypertension CKD III DM II Hypertension Chronic anemia, managed by her pcp H/o bilateral knee and of L hip replacement MPI of September 2016 showed no evidence of any significant myocardial ischemia or infarction. Normal regional wall motion. LVEF 65%. Baseline rhythm is junctional versus atrial fib Plan: * Complex management due to multisystem involvement * Pt is critically ill * I have discussed consideration of transfer to a tertiary care facility with Dr Stark * Lovenox for stroke prophylaxis (with dose adjusted to renal failure) JUAN CARLOS MOTTA MD FACP FAC CCDS Dec 20, 2016 14:04
[2016-12-20] MEDS ORDERED: ENOXAPARIN 60 MG/0.6 ML (LOVENOX) SYR SC NR (14:11)
--- NOTE | 2016-12-20 19:34 | Discharge Summary ---
Diagnosis/Chief Complaint Date of Admission Dec 19, 2016 at 02:00 Date of Discharge Dec 20, 2016 at 15:45 Transferred to [facility] Admission Diagnosis Admission Diagnosis Severe Sepsis 2/2 UTI Hyperbilirubinemia Acute on Chronic Kidney Failure Chronic Diastolic CHF Chronic Atrial Fibrillation Obesity Hypoventilation Morbid Obesity IDDM HTN Normocytic Anemia of chronic disease Hyperkalemia Discharge Diagnosis See Above Chief Complaint/HPI Chief Complaint/HPI 71 yo F from [place] that was admitted with respiratory distress found to have UTI. Patient is a poor historian. Patient states that she has been feeling not well for a couple days but does not remember how long. States that she does not weight herself at the [place] so she is not sure if she has had weight gain. States that last night she told her aide at the [place] that she felt like she could not breath. Denies any fever or chills. + cough that is her normal cough. States that she has several breathing treatments last night prior to coming in but did not improve her breathing. Discharge Summary-Simple/Stand Consultations Cardiology: Erich Discharge Physical Examination Allergies: Coded Allergies: Penicillins (Unverified Allergy, Unknown, 05/25/16) morphine (Unverified Allergy, Unknown, 05/25/16) Vitals & I&Os Vital Sign - Last 12Hours Date Time Temp Pulse Resp B/P (MAP) Pulse Ox O2 Delivery O2 Flow Rate FiO2 12/20/16 15:50 94 Nasal Cannula 3.00 12/20/16 15:00 60 19 106/42 12/20/16 12:00 98.0 12/19/16 09:00 96 Intake and Output 12/21/16 00:00 Intake Total 200 ml Output Total 125 ml Balance 75 ml General Appearance: Alert, Oriented X3, Cooperative, No Acute Distress HEENT: Mucous Memb Moist/[place] Respiratory: Clear to Auscultation, Normal Air Movement Cardiovascular: Regular Rate, No Murmurs Abdominal: Normal Bowel Sounds, Soft, No Tenderness Extremities: Other Skin: No Breakdown Neuro: Sensation Intact, Cranial Nerves 3-12 NL Psych/Mental Status: Mental Status NL Hospital Course See final discharge diagnosis. Radiology Reviewed Date of Exam: 12/19/16 CHEST 1 VIEW, AP/PA ONLY INDICATION: CHF COMPARISON: 12/19/2016 FINDINGS: Upright portable view of the chest is obtained. Heart size is enlarged similar to the prior study. There is central venous congestion which also appear similar to the prior exam. Mild increased interstitial markings bilaterally appear somewhat improved from the prior study. No pleural effusion is suspected. Minimal patchy alveolar opacities particularly on the right appear improved from the prior exam as well. No new abnormality is seen. IMPRESSION: Findings of congestive failure persists but are slightly improved from the prior exam from August. No new abnormality is seen. Date of Exam: 12/19/16 CHEST 1 VIEW, AP/PA ONLY INDICATION: CHF COMPARISON: 12/19/2016 at 12:48 AM TIME OF EXAM: 12/19/2016 at 4:33 AM FINDINGS: Semi-upright portable view of the chest is obtained. Heart size is enlarged similar to the prior study. There is central venous congestion which appears similar to the prior study when allowing for a different degree of rotation. Mild diffuse interstitial changes and patchy alveolar opacities appear fairly similar to the prior study. No pneumothorax or significant pleural fluid is suspected. IMPRESSION: Findings of congestive failure show no significant interval change since the prior study. Discussion & Recommendations See Today's progress note Discharge Condition at discharge Guarded Instructions to patient/family Please see electronic discharge instructions given to patient. Discharge Medications Reviewed and agree with Discharge Medication list on patient's Discharge Instruction sheet Clinical Quality Measures DVT/VTE Risk/Contraindication: Risk Factor Score Per Nursin RFS Level Per Nursing on Admit: 4+=Very High Copy Copies To 1: RENE SALAZAR MD, HOLLY R MD Dec 20, 2016 19:34
[2016-12-21 08:16] LABS: FERRITIN 145.5 ng/mL (15.0-150.0)
== END 2016-12-20 15:45 | disposition short-term general hospital (02) | DRG 871 ==
LOC: EDUNIT# 00:19 → ER 00:20 → ICU 02:00
PROVIDERS: ADMIT Family Medicine; ATTEND Family Medicine
DX: A41.9 Sepsis, unspecified organism (principal); N39.0 Urinary tract infection, site not specified; K72.00 Acute and subacute hepatic failure without coma; N17.9 Acute kidney failure, unspecified; I13.0 Hypertensive heart and chronic kidney disease with heart failure and stage 1 through stage 4 chronic kidney disease, or unspecified chronic kidney disease; I50.32 Chronic diastolic (congestive) heart failure; N18.3 Chronic kidney disease, stage 3 (moderate); K72.90 Hepatic failure, unspecified without coma; Z66 Do not resuscitate; I48.2 Chronic atrial fibrillation; E80.6 Other disorders of bilirubin metabolism; J44.9 Chronic obstructive pulmonary disease, unspecified; Z99.81 Dependence on supplemental oxygen; E66.2 Morbid (severe) obesity with alveolar hypoventilation; Z68.43 Body mass index [BMI] 50.0-59.9, adult; E11.9 Type 2 diabetes mellitus without complications; R13.10 Dysphagia, unspecified; I35.0 Nonrheumatic aortic (valve) stenosis; I27.20 Pulmonary hypertension, unspecified; D64.9 Anemia, unspecified; K21.9 Gastro-esophageal reflux disease without esophagitis; E78.00 Pure hypercholesterolemia, unspecified; Z79.4 Long term (current) use of insulin; Z79.01 Long term (current) use of anticoagulants
CPT/HCPCS: 36415; 71010; 80048; 80053; 80162; 81000; 82550; 82553; 82728; 82962; 83540; 83605; 83735; 83880; 84132; 84484; 85007; 85025; 85027; 85610; 85730; 87040; 87077; 87088; 87186; 87804; 93005; 93041; 94640; 96365; 96375

== ENCOUNTER 2017-01-18 12:48 | Outpatient (RCR) | payer MEDICARE, MEDICAID ==
[~2017-01-18 12:48] MED LIST changes: -AMIO400T4 PO; +AMIO400T5 PO; +DARBEPOETIN 10 MCG/0.4 ML ARANESP IJ SCH; -FERR-74 PO; +FERR325T18 PO; +QUIN40TA14 PO; -QUIN40TA25 PO
[2017-01-18 13:15] LABS: BASOPHILS # (AUTO) 0.1 10^3/uL (0.0-0.1); BASOPHILS % (AUTO) 1 % (0-10); EOSINOPHILS # (AUTO) 0.2 10^3/uL (0.0-0.3); EOSINOPHILS % (AUTO) 2 % (0-10); HEMATOCRIT 29 % (35-52); HEMOGLOBIN 8.9 G/DL (11.5-16.0); LYMPHOCYTES # (AUTO) 1.1 X 10^3 (1.0-4.0); LYMPHOCYTES % (AUTO) 11 % (12-44); MEAN CORPUSCULAR HEMOGLOBIN 28 PG (25-34); MEAN CORPUSCULAR HGB CONC 31 G/DL (32-36); MEAN CORPUSCULAR VOLUME 93 FL (80-99); MEAN PLATELET VOLUME 12.2 FL (7.4-10.4); MONOCYTES # (AUTO) 0.5 X 10^3 (0.0-1.0); MONOCYTES % (AUTO) 5 % (0-12); NEUTROPHILS # (AUTO) 8.4 X 10^3 (1.8-7.8); NEUTROPHILS % (AUTO) 82 % (42-75); PLATELET COUNT 220 10^3/uL (130-400); RED BLOOD COUNT 3.14 10^6/uL (4.35-5.85); RED CELL DISTRIBUTION WIDTH 18.8 % (10.0-14.5); WHITE BLOOD COUNT 10.3 10^3/uL (4.3-11.0)
== END 2017-03-18 | disposition home or self-care (01) ==
LOC: ONC 12:48
PROVIDERS: ATTEND Internal Medicine Hematology & Oncology
DX: R74.8 Abnormal levels of other serum enzymes (principal); D63.8 Anemia in other chronic diseases classified elsewhere; I12.9 Hypertensive chronic kidney disease with stage 1 through stage 4 chronic kidney disease, or unspecified chronic kidney disease; N18.4 Chronic kidney disease, stage 4 (severe); J44.9 Chronic obstructive pulmonary disease, unspecified; I48.91 Unspecified atrial fibrillation; E11.9 Type 2 diabetes mellitus without complications; Z79.4 Long term (current) use of insulin; Z79.899 Other long term (current) drug therapy
CPT/HCPCS: 85025; 96372